=== PATIENT | female | born 1960 | race Caucasian/White ===

== ENCOUNTER 2020-03-17 15:29 | Outpatient (REF) | payer OTHER, SELFPAY | END 2020-03-17 15:30 | disposition home or self-care (01) | LOC: HO.LNP 15:29 | PROVIDERS: Visit Provider Nurse Practitioner Family | DX: Z20.828 Contact with and (suspected) exposure to other viral communicable diseases (principal) | CPT/HCPCS: 87635 ==

== ENCOUNTER 2020-03-23 15:33 | Emergency (ER) | payer OTHER, SELFPAY ==
[2020-03-23 17:03] VITALS: BP 144/67; PULSE 56; RESP 19; TEMP 36.9; O2SAT 94; O2SAT 95
--- NOTE | 2020-03-23 17:55 | ED_ITS ---
HPI - URI/Sore Throat General Chief Complaint: Upper Respiratory Symptoms Stated Complaint: flu like Time Seen by Provider: 03/23/20 19:19 Related Data Home Medications Medication Instructions Recorded Confirmed sertraline 100 mg tablet 100 mg PO DAILY 03/17/20 03/17/20 Previous Rx's Medication Instructions Recorded albuterol sulfate 90 mcg/actuation 2 puff INHALATION Q4-6H PRN #8.5 g 03/17/20 aerosol inhaler atorvastatin 40 mg tablet 40 mg PO QPM 90 Days #90 tab 03/17/20 prednisone 20 mg tablet 20 mg PO DAILY 9 Days #18 tab 03/17/20 albuterol sulfate 5 mg INHALATION QID PRN #2 ea 03/23/20 benzonatate [Tessalon Perles] 100 mg PO TID PRN #20 cap 03/23/20 Allergies Allergy/AdvReac Type Severity Reaction Status Date / Time codeine [Codeine] Allergy Intermediate FELT OUT Unverified 02/19/20 15:16 OF SORTS acetaminophen AdvReac Unknown Loopy Verified 12/30/19 00:00 [Tylenol-Codeine #3] feeling Review of Systems Review of Systems: Constitutional: No Fever, No Chills ENT/Mouth: No Hoarseness, No sore throat, No Rhinorrhea Eyes: No Redness, No Discharge, No Vision Changes Cardiovascular: No Chest Pain, positive SOB, positive Dyspnea on Exertion, No Edema Respiratory: positive Cough, No Sputum, positive Wheezing, Gastrointestinal: No Nausea, No Vomiting, No Diarrhea, No abdominal Pain Genito urinary: No Dysuria, No Hematuria Musculoskeletal: No joint pain, No Myalgias Skin: No rash Neuro: No Weakness, No Numbness, No Headache Psych: No anxiety, depression Heme/Lymph: No Bruising, No Bleeding Endocrine: No Polyuria, No Polydipsia Yes all other systems are reviewed and are negative [facility] Past Medical History Attestation statement: The following information was validated with the patient. Social History Social History Alcohol intake: never Smoking Status: Current every day smoker Use of substances other than those prescribed or required for medical reasons: No Advance Directives: No Advance Directives Information Provided: No Physical Exam Vital Signs: Vital Signs: Vital Signs Temp Pulse Resp BP Pulse Ox 03/23/20 18:31 98.3 F 53 16 131/60 95 03/23/20 17:03 98.4 F 56 19 144/67 H 94 Appearance: Alert. Oriented X3. No acute distress. Eyes: Pupils equal, round and reactive to light. ENT: Pharynx normal. Neck: Normal inspection. Neck supple. CVS: Normal heart rate and rhythm. Pulses normal. Respiratory: No respiratory distress. scattered wheezing throughout all lobes. Abdomen: Soft and nontender. Skin: Skin warm and dry. Normal skin color. Normal skin turgor. Extremities: No lower extremity edema. Neuro: No motor deficit. No sensory deficit. Course Course Course Narrative: patient does have scattered wheezing and dry cough, was treated by her primary care physician and completed a Z-Nick on Sunday, was given a prednisone taper. will order labs , bronch treatment, and CT scan of the chest. Reevaluation(s) Reevaluation #1: CT scan is negative for acute findings, detailed discussion with patient regarding plan of care to discharge home. We will give nebulizer script and Tessalon Perles. Patient agrees to follow-up with her primary care physician as needed. Patient verbalized understanding of and agrees to plan of care discharge home. Time: 20:02 MDM - URI/Sore Throat Differential Diagnosis Differential diagnosis: Likely upper respiratory infection, croup, viral infection, bronchitis and influenza Medical Records Attestation: I reviewed the patient's medical records. Lab Data Attestation: I reviewed the patient's lab results. Imaging Data CT scan - chest: Attestation: I personally reviewed and interpreted this imaging study as follows: Radiologist's impression: FINDINGS: The heart is normal in size. There is no pericardial effusion. Nonaneurysmal thoracic aorta. No gross mediastinal lymphadenopathy. Central airways are patent. Lungs are well aerated. Moderate emphysematous changes are noted. There is no lobar consolidation. No pleural effusion or pneumothorax. No suspicious pulmonary nodules. Visualized portion of the upper abdomen demonstrate surgical changes consistent with cholecystectomy. There is diffusely decreased liver attenuation most consistent with hepatic steatosis. Moderate diffuse degenerative changes of the spine. IMPRESSION: 1. Moderate emphysematous changes of the lungs without lobar consolidation. 2. Diffusely decreased liver attenuation most suggestive of hepatic steatosis. Correlation with liver enzymes recommended. Discharge Plan Discharge Clinical Impression: Viral infection Upper respiratory infection Qualifiers: URI type: unspecified viral URI Qualified Code(s): J06.9 - Acute upper respiratory infection, unspecified Patient Disposition: Home, Self-Care Instructions: Upper Respiratory Infection (ED), Viral Syndrome (ED), COVID-19 (Coronavirus Disease 2019) (ED) Additional Instructions: you were evaluated for upper respiratory symptoms. Your COVID-19 test is still pending. They will call you with the results. your CT scan of the chest was negative for acute findings. Please follow-up with primary care provider as needed. Thank you for choosing this emergency department for evaluation. Please follow-up with primary care physician as needed. Return to the emergency department for any new, concerning, or worsening symptoms. Prescriptions: New albuterol sulfate 2.5 mg/0.5 mL solution for nebulization 5 mg inhalation QID PRN (Reason: shortness of breath or wheezing) Qty: 2 RF: 0 benzonatate [Tessalon Perles] 100 mg capsule 100 mg PO TID PRN (Reason: cough) Qty: 20 RF: 0 No Action atorvastatin 40 mg tablet 40 mg PO QPM 90 Days Qty: 90 RF: 1 sertraline 100 mg tablet 100 mg PO DAILY RF: 0 prednisone 20 mg tablet 20 mg PO DAILY 9 Days Qty: 18 RF: 0 albuterol sulfate 90 mcg/actuation HFA aerosol inhaler 2 puff inhalation Q4-6H PRN (Reason: shortness of breath or wheezing) Qty: 8.5 RF: 0 Stand Alone Forms: Work/School Release Interventions: ED Discharge Assessment Last Done: 03/23/20 20:08 Discharge Date/Time: 03/23/20 20:15
--- NOTE | 2020-03-23 18:04 | CT_ITS ---
EXAMINATION: CT CHEST WITHOUT CONTRAST CLINICAL INFORMATION: Cough. Upper respiratory symptoms. COMPARISON: Chest x-ray 07/08/2015 TECHNIQUE: Multidetector volumetric CT imaging of the chest was done. Axial MIP volume rendering provided. Sagittal and coronal reformatted images were obtained. This CT examination was performed using dose optimization techniques as appropriate, variously including the following: *Automated exposure control *Adjustment of mA and/or kV according to patient size (this includes techniques or standardized protocols for targeted exams where dose is matched to indication/reason for exam; i.e. extremities or head) *Use of iterative reconstruction technique DLP: 408 mGy-cm FINDINGS: The heart is normal in size. There is no pericardial effusion. Nonaneurysmal thoracic aorta. No gross mediastinal lymphadenopathy. Central airways are patent. Lungs are well aerated. Moderate emphysematous changes are noted. There is no lobar consolidation. No pleural effusion or pneumothorax. No suspicious pulmonary nodules. Visualized portion of the upper abdomen demonstrate surgical changes consistent with cholecystectomy. There is diffusely decreased liver attenuation most consistent with hepatic steatosis. Moderate diffuse degenerative changes of the spine. IMPRESSION: 1. Moderate emphysematous changes of the lungs without lobar consolidation. 2. Diffusely decreased liver attenuation most suggestive of hepatic steatosis. Correlation with liver enzymes recommended.
[2020-03-23 18:31] VITALS: BP 131/60; PULSE 53; RESP 16; TEMP 36.8; O2SAT 95
== END 2020-03-23 20:15 | disposition home or self-care (01) ==
PROVIDERS: Nurse Practitioner Family; Emergency Provider Emergency Medicine Emergency Medical Services; PCP Nurse Practitioner Family
DX: J06.9 Acute upper respiratory infection, unspecified (principal); Z20.828 Contact with and (suspected) exposure to other viral communicable diseases; F17.200 Nicotine dependence, unspecified, uncomplicated
CPT/HCPCS: 71250; 87635; 99284

== ENCOUNTER 2020-04-08 13:32 | Outpatient (REF) | payer OTHER, SELFPAY | END 2020-04-08 13:33 | disposition home or self-care (01) | LOC: HO.LNP 13:32 | PROVIDERS: Visit Provider Nurse Practitioner Family | DX: R06.02 Shortness of breath (principal); Z20.828 Contact with and (suspected) exposure to other viral communicable diseases | CPT/HCPCS: U0003 ==

== ENCOUNTER 2020-07-27 19:46 | Emergency (ER) | payer OTHER, SELFPAY ==
[2020-07-27 20:25] VITALS: BP 145/62; PULSE 81; RESP 18; TEMP 36.9; O2SAT 96; BMI 35.4
== END 2020-07-27 22:45 | disposition left against medical advice (07) ==
PROVIDERS: Emergency Provider Emergency Medicine; PCP Nurse Practitioner Family
DX: N64.4 Mastodynia (principal); F17.200 Nicotine dependence, unspecified, uncomplicated
CPT/HCPCS: 99281; 99282

== ENCOUNTER 2020-07-28 09:52 | Outpatient (REF) | payer OTHER, SELFPAY | END 2020-07-28 09:53 | disposition home or self-care (01) | LOC: HO.LAB 09:52 | PROVIDERS: Visit Provider Nurse Practitioner Family | DX: N61.1 Abscess of the breast and nipple (principal) | CPT/HCPCS: 10060; 87071; 87205 ==

== ENCOUNTER → 2020-08-06 08:29 | Outpatient (BNVA) | payer OTHER, SELFPAY | PROVIDERS: PCP Nurse Practitioner Family; Visit Provider Surgery ==

== ENCOUNTER → 2020-08-31 15:36 | Outpatient (BNVA) | payer OTHER, SELFPAY | PROVIDERS: PCP Nurse Practitioner Family; Visit Provider Surgery ==

== ENCOUNTER 2020-11-05 14:11 | Outpatient (REF) | payer OTHER, SELFPAY ==
--- NOTE | ~2020-11-05 | MM_ITS ---
EXAMINATION: MM DIAGNOSTIC DIGITAL BREAST TOMOSYNTHESIS, BILATERAL CLINICAL INFORMATION: Due for yearly. Also follow-up 2 small groups probable benign calcifications posterior upper outer left breast. The lifetime risk of breast cancer based on the Tyrer-Cuzick Model is 14%. COMPARISON: Mammography: 10/29/2019, 03/18/2019, 09/09/2018, 09/05/2018 (BI-RADS 0), 08/30/2017 TECHNIQUE: Digital breast tomosynthesis is performed in both the craniocaudal and mediolateral oblique views along with computer-aided detection (CAD). Synthesized 2D images are generated from the tomosynthesis. Additional views are obtained: Right MLO, magnification left CC, magnification left ML. FINDINGS: There are scattered areas of fibroglandular density (ACR BI-RADS breast composition Category b). Parenchymal pattern is similar to prior exams. There is no developing density or interval significant mass or architectural abnormality or abnormal calcifications. The left calcifications for follow-up, 2 small groups posterior upper outer quadrant, are benign appearing and slightly coarser when compared with initial diagnostic exam. No suspicious changes from prior diagnostic studies. They are now considered benign. Results are provided to the patient at time of visit by the technologist. MM/MM tomosynthesis diagnostic BI IMPRESSION: 1. No mammographic evidence of malignancy. No significant changes from prior exams. 2. The left breast calcifications for follow up are now considered to be benign. ASSESSMENT: BI-RADS 2: Benign RECOMMENDATION: Routine annual mammography screening. This patient's information was entered into a reminder system with a target due date for their next mammogram.
== END 2020-11-05 14:12 | disposition home or self-care (01) ==
LOC: HO.MAMMO 14:11
PROVIDERS: PCP Nurse Practitioner Family; Visit Provider Nurse Practitioner Family
DX: R92.1 Mammographic calcification found on diagnostic imaging of breast (principal)
CPT/HCPCS: 77062; 77066

== ENCOUNTER 2020-12-25 14:09 | Outpatient (REF) | payer OTHER, SELFPAY ==
--- NOTE | ~2020-12-25 | XR_ITS ---
EXAMINATION: CR X-RAY HAND WRIST THE LEFT CLINICAL INFORMATION: Left hand and wrist pain. COMPARISON: None TECHNIQUE: 3 views of the left hand/wrist were obtained. FINDINGS: There is no acute fracture or dislocation. The joint spaces are unremarkable. The carpal bones are normally aligned. The distal radius and ulna are intact. There is mild soft tissue swelling. XR/XR hand wrist LT IMPRESSION: Mild soft tissue swelling without acute underlying osseous abnormality.
== END 2020-12-25 14:10 | disposition home or self-care (01) ==
LOC: HO.HMGCX 14:09
PROVIDERS: PCP Nurse Practitioner Family; Visit Provider Nurse Practitioner Family
DX: M25.532 Pain in left wrist (principal); M77.9 Enthesopathy, unspecified
CPT/HCPCS: 73110; 73130

== ENCOUNTER → 2021-01-13 12:06 | Outpatient (BNVA) | payer OTHER, SELFPAY | PROVIDERS: PCP Nurse Practitioner Family; Visit Provider Physician Assistant Medical | DX: S63.502A Unspecified sprain of left wrist, initial encounter (principal); X50.0XXA Overexertion from strenuous movement or load, initial encounter | CPT/HCPCS: 99203 ==

== ENCOUNTER → 2021-01-19 10:57 | Outpatient (BNVA) | payer OTHER, SELFPAY | PROVIDERS: PCP Nurse Practitioner Family; Visit Provider Physician Assistant Medical | DX: S63.502A Unspecified sprain of left wrist, initial encounter (principal); X58.XXXA Exposure to other specified factors, initial encounter | CPT/HCPCS: 73110; 73130; 99213 ==

== ENCOUNTER 2021-01-31 10:21 | Outpatient (REF) | payer OTHER, SELFPAY ==
--- NOTE | ~2021-01-31 | MR_ITS ---
EXAMINATION: MR WRIST WITHOUT CONTRAST, LEFT CLINICAL INFORMATION: Left wrist weakness, lifting injury. Patient reports injury 01/13/2021, felt a pulling pain base of thumb. COMPARISON: XR left hand and wrist 01/19/2021. TECHNIQUE: MRI of the left wrist was performed using routine sequences on a high-field scanner. Motion artifact on multiple sequences somewhat degrade the images. Skin markers were placed proximal and distal to the symptomatic region. FINDINGS: TRIANGULAR FIBROCARTILAGE: There is irregularity/fraying of the proximal surface of the central triangular fibrocartilage. INTRINSIC LIGAMENTS: Accounting for motion artifact, possible degenerative irregularity of the scapholunate and lunotriquetral ligament but no discrete full-thickness tears are identified. TENDONS/MEDIAN NERVE: There is irregularity, some thickening, and superimposed partial tearing of the abductor pollicis longus tendon. There is fluid in the abductor pollicis longus and extensor pollicis brevis tendon sheaths consistent with tenosynovitis. ARTICULAR CARTILAGE/BONE: There is no fracture. There is a negative ulnar variance. There are small marginal osteophytes and possibly some focal areas of cartilage irregularity at the triscaphe and 1st CMC joints. JOINT FLUID/SOFT TISSUES: Within normal limits. MR/MR wrist LT wo con IMPRESSION: 1. Fraying of the proximal surface of the central triangular fibrocartilage. 2. Abductor pollicis longus tendinosis, partial tearing, and tenosynovitis. Mild extensor pollicis brevis tenosynovitis. (De Quervains tenosynovitis). 3. Mild arthrosis of the triscaphe and 1st CMC joints.
== END 2021-01-31 10:22 | disposition home or self-care (01) ==
LOC: HO.MRI 10:21
PROVIDERS: Visit Provider Internal Medicine
DX: M25.532 Pain in left wrist (principal)
CPT/HCPCS: 73221

== ENCOUNTER → 2021-02-02 12:49 | Outpatient (BNVA) | payer OTHER, SELFPAY | PROVIDERS: PCP Nurse Practitioner Family; Visit Provider Physician Assistant Medical | DX: M65.4 Radial styloid tenosynovitis [de Quervain] (principal) | CPT/HCPCS: 99213 ==

== ENCOUNTER 2021-02-22 11:44 | Outpatient (REF) | payer OTHER, SELFPAY | END 2021-02-22 11:45 | disposition home or self-care (01) | LOC: HO.LAB 11:44 | PROVIDERS: PCP Nurse Practitioner Family; Visit Provider Internal Medicine | DX: Z20.822 Contact with and (suspected) exposure to COVID-19 (principal) | CPT/HCPCS: C9803; U0003; U0005 ==

== ENCOUNTER → 2021-03-16 08:52 | Outpatient (BNVA) | payer OTHER, SELFPAY | PROVIDERS: Visit Provider Orthopaedic Surgery | DX: M65.4 Radial styloid tenosynovitis [de Quervain] (principal) | CPT/HCPCS: 20550; J1100 ==

== ENCOUNTER 2021-04-03 13:57 | Emergency (ER) | payer OTHER, SELFPAY ==
--- NOTE | ~2021-04-03 | XR_ITS ---
EXAMINATION: LEFT HAND AND WRIST X-RAY CLINICAL INFORMATION: Pain COMPARISON: Previous x-rays most recent January 2021 TECHNIQUE: 4 views of the left hand and wrist FINDINGS: There is periarticular osteopenia. No fracture or dislocation is seen. There is mild joint space narrowing at the IP joints. Joint spaces are otherwise normal. There is a small soft tissue calcification or ossification adjacent to the radial styloid that is stable. Soft tissues are normal. XR/XR hand wrist LT IMPRESSION: Osteopenia. Mild arthritis at the IP joints.
[2021-04-03 13:58] VITALS: BP 107/81; PULSE 74; RESP 18; TEMP 36.7; O2SAT 98; BMI 36.6
--- NOTE | 2021-04-03 16:02 | ED_ITS ---
HPI - Extremity Problem General Chief complaint: Extremity Injury, Upper Stated complaint: l hand pain work related Time Seen by Provider: 04/03/21 16:02 Source: patient Mode of arrival: ambulatory Limitations: no limitations History of Present Illness HPI Narrative: Patient injured her hand at work when she lifted a box in January. she went to work connection and then eventually saw Dr. Moss who gave her a steroid shot a few weeks ago. now with increased pain with movement. patient diagnosed with DeQuervains tenosynovitis by Dr. Moss. She is not wearing her splint MD Complaint: extremity pain Onset (ago): month(s) Pain Consistency: constant Location: left Relieving factors: nothing Exacerbating factors: range of motion Associated symptoms: denies other symptoms Related Data Previous Rx's Medication Instructions Recorded albuterol sulfate 90 mcg/actuation 2 puff INHALATION Q4-6H PRN #8.5 g 03/17/20 aerosol inhaler atorvastatin 40 mg tablet 40 mg PO QPM 90 Days #90 tab 03/17/20 lorazepam 1 mg tablet 1 mg PO DAILY PRN 30 Days #30 tab 09/23/20 prednisone 20 mg tablet 20 mg PO DAILY 9 Days #18 tab 12/25/20 sertraline 100 mg tablet 100 mg PO DAILY #90 tab 01/27/21 albuterol sulfate 90 mcg/actuation 1 inh INHALATION QID #6.7 g 02/25/21 aerosol inhaler (ProAir HFA) azithromycin 250 mg tablet See Rx Instructions PO .COMPLEX #6 02/25/21 tab naproxen 500 mg tablet (Naprosyn) 500 mg PO BID #20 tab 04/03/21 Allergies Allergy/AdvReac Type Severity Reaction Status Date / Time codeine [Codeine] Allergy Intermediate FELT OUT Verified 03/16/21 09:05 OF SORTS Review of Systems Constitutional: Constitutional: Reports no additional constitutional complaints Eyes: Eyes: Reports no additional eye complaints ENT: Denies dizziness Cardiovascular: Cardiovascular: Reports no additional cardiovascular complaints Respiratory: Respiratory: Reports as per HPI Gastrointestinal: Gastrointestinal: Reports no additional gastrointestinal complaints Genitourinary: Genitourinary: Reports no additional female genitourinary complaints Musculoskeletal: Musculoskeletal: Reports no additional musculoskeletal complaints Integumentary/Breasts: Skin/Breast: Denies rash Neurologic: Reports system reviewed and no additional complaints, except as documented, Denies dizziness and Denies Sensory deficit (Neuro) Psychiatric: Psychiatric: Denies anxiety [facility] Past Medical History Medical History Anxiety and depression Cervical neck pain with evidence of disc disease Constipation Left ventricular hypertrophy ANG (obstructive sleep apnea) Osteoarthritis Smoker Surgical History History of carpal tunnel surgery History of hysterectomy Family History Family History Father Heart problem Mother No problems noted. 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 Physical Exam Vital Signs: Vital Signs: Last Vital Signs Temp 98.0 F 04/03/21 13:58 Pulse 74 04/03/21 13:58 Resp 18 04/03/21 13:58 BP 107/81 04/03/21 13:58 Pulse Ox 98 04/03/21 13:58 Body Mass Index 36.6 Const: General: healthy appearing Nutritional Appearance: average body habitus Orientation/consciousness: oriented to person and patient oriented x3 Limitations: no limitations HENMT: Head: Yes normal to inspection Ears: external ears normal General nose exam: Normal external nose present Mouth: Normal oral and palatal mucosa present and oropharynx normal Throat: Yes posterior oropharynx normal Eyes: General: appearance normal, both eyes and all related structures Neck: Other: supple Neck: Yes normal visual inspection Chest: Chest palpation & inspection: normal inspection of the chest Resp: Auscultation: clear to auscultation bilaterally Cardio: Jugular venous distension: no JVD Rate: regular rate Rhythm: regular rhythm Heart sounds: S1 normal heart sound present and S2 normal heart sound present GI: Inspection: Yes normal to inspection Palpation (GI): Soft to palpation, nontender and No hepatosplenomegaly present Auscultation: normal bowel sounds : General: Yes no CVA tenderness Back/Spine/Pelvis: Back: no CVA tenderness Skin: General skin exam: no rashes or lesions noted Neuro: General: oriented to person and patient oriented x3 Cranial nerves: Yes CN's II-XII intact bilaterally Motor exam (neuro): 5/5 motor strength present throughout Sensory Exam: No Sensory deficit (Neuro) Extrem: Other: Left wrist with tenderness along 1st extensor, no erythema no effusion Psych: Appearance: grossly normal Course Reevaluation(s) Reevaluation #1: patient with inflammation consistent with DeQuearvains will dc on NSAIDs and encourage patient to wear splint Time: 16:14 MDM - Extremity (Nontraumatic) Imaging Data wrist xray: Radiologist's impression: IMPRESSION: Osteopenia. Mild arthritis at the IP joints.? Discharge Plan Discharge Clinical Impression: De Quervain's tenosynovitis, left Patient Disposition: Home, Self-Care Instructions: De Quervain Disease (ED), Tenosynovitis (ED) Additional Instructions: Must wear spllnt Prescriptions: New naproxen [Naprosyn] 500 mg tablet 500 mg PO BID Qty: 20 RF: 0 No Action atorvastatin 40 mg tablet 40 mg PO QPM 90 Days Qty: 90 RF: 1 lorazepam 1 mg tablet 1 mg PO DAILY PRN (Reason: anxiety) 30 Days Qty: 30 RF: 0 sertraline 100 mg tablet 100 mg PO DAILY Qty: 90 RF: 0 albuterol sulfate 90 mcg/actuation HFA aerosol inhaler 2 puff inhalation Q4-6H PRN (Reason: shortness of breath or wheezing) Qty: 8.5 RF: 0 prednisone 20 mg tablet 20 mg PO DAILY 9 Days Qty: 18 RF: 0 azithromycin 250 mg tablet See Rx Instructions PO .COMPLEX Qty: 6 RF: 0 albuterol sulfate [ProAir HFA] 90 mcg/actuation HFA aerosol inhaler 1 inh inhalation QID Qty: 6.7 RF: 0 Referrals: Raffy Garnett FNP-BC [Primary Care Provider] - 1 week Zarina Moss MD [Physician] - 1 week Stand Alone Forms: Work/School Release
== END 2021-04-03 16:19 | disposition home or self-care (01) ==
LOC: HO.ED 16:15
PROVIDERS: Emergency Provider Emergency Medicine; PCP Nurse Practitioner Family
DX: Z04.2 Encounter for examination and observation following work accident (principal); M65.4 Radial styloid tenosynovitis [de Quervain]; F41.9 Anxiety disorder, unspecified; F17.200 Nicotine dependence, unspecified, uncomplicated; Z79.899 Other long term (current) drug therapy
CPT/HCPCS: 73110; 73130; 99283

== ENCOUNTER → 2021-04-13 10:36 | Outpatient (BNVA) | payer OTHER, SELFPAY | PROVIDERS: Visit Provider Orthopaedic Surgery | DX: M65.4 Radial styloid tenosynovitis [de Quervain] (principal) | CPT/HCPCS: 99212 ==

== ENCOUNTER 2021-04-25 12:48 | Day surgery (SDC) | payer OTHER, SELFPAY ==
[2021-04-25 13:38] VITALS: BMI 36.3
[2021-04-25 13:45] VITALS: BP 119/64; PULSE 64; RESP 16; TEMP 36.5; O2SAT 96
--- NOTE | 2021-04-25 14:03 | MHC.SHP ---
Pre-Procedural Eval Section A Date of Service: 04/25/21 The patient is an INPATIENT: No Changes since office visit: No Cold of Flu in the past 2 weeks, No New Medical Problems, No Changes in Medication and No Patient answered all questions The History & Physical has been completed within 30 days and I have reviewed it.: Yes Section B Chief Complaint: styloid tenosynovitis Allergies: Allergies Allergy/AdvReac Type Severity Reaction Status Date / Time codeine [Codeine] Allergy Intermediate FELT OUT Verified 04/13/21 11:34 OF SORTS Plan I have reviewed the history and physical and performed a pertinent physical examination on my patient. No changes have occurred unless specified.
--- NOTE | 2021-04-25 14:04 | W.PM.OPN ---
Operative Note Operative Note Date of Service: 04/25/21 Narrative: Operative Note Preop diagnosis: 1. Left DeQuervain's tenosynovitis Postop diagnosis: 1. Left DeQuervain's tenosynovitis Procedure: 1. Left 1st dorsal compartment release Surgeon: Zarina Moss MD Anesthesia: local block using 1% lidocaine with epinephrine Findings: Thickened 1st dorsal compartment. EPB in separate compartment, and Muscle extending far distally to beneath thickened 1st dorsal compartment EBL: Less than 5 mL Tourniquet time: None Specimens: None Complications: None Disposition: Brought to recovery room in stable condition Plan: Follow-up for 7-10 days for wound check and suture removal Indications: The patient is 60 years old, with left DeQuervain's tenosynovitis that has been unresponsive to nonoperative management. The risks and benefits of operative treatment including but not limited to risk of damage to blood vessels, nerves, tendons, infection, persistent pain, persistent symptoms, recurrence or possible need for additional surgery were discussed with the patient and the patient wishes to proceed with surgery. Procedure: Once consent was obtained a local block was performed in the preop area using a combination of 1% lidocaine with epinephrine. The patient was then brought back to the operating suite and placed on the operative table in supine position. A tourniquet was applied to the proximal aspect of the left upper extremity and the limb was prepped and draped in a standard surgical fashion. Once assured that we had a good block, a 1.5 cm longitudinal incision was made centered over the 1st dorsal compartment as it passed over the radial styloid of the left wrist. The incision was made through the skin to the subcutaneous tissues using a #15 blade. Careful dissection was made down to the level of the 1st dorsal compartment using tenotomy scissors, with care being taken to protect the nearby branches of the superficial radial nerve. Once the 1st dorsal compartment was exposed, A longitudinal incision was made in the 1st dorsal compartment 1st using a #15 blade, then using tenotomy scissors under direct visualization. The 1st dorsal compartment was noted to be thickened. EPB was in a separate compartment, and its muscle extended far distally to beneath thickened 1st dorsal compartment . Following our release, we saw smooth gliding abductor pollicis longus and extensor pollicis brevis tendons. Once satisfied with our 1st dorsal compartment release the wound was copiously irrigated with normal saline and hemostasis was obtained with a brief period of local pressure. The subcutaneous layer was closed with some 4-0 Vicryl suture, and the skin edges were reapproximated with some 5.0 nylon suture material. A sterile dressing was applied. The patient appears to have tolerated the procedure well and with no complications. All digits were well vascularized at the conclusion of the case.
[2021-04-25 15:04] VITALS: BP 125/61; PULSE 61; RESP 18; TEMP 37; O2SAT 96
== END 2021-04-25 15:26 | disposition home or self-care (01) ==
PROVIDERS: Visit Provider Orthopaedic Surgery
PROC: (CPT 25000; principal; 2021-04-25 14:10)
DX: M65.4 Radial styloid tenosynovitis [de Quervain] (principal); F41.8 Other specified anxiety disorders; I51.7 Cardiomegaly; G47.33 Obstructive sleep apnea (adult) (pediatric); F17.210 Nicotine dependence, cigarettes, uncomplicated; Z88.8 Allergy status to other drugs, medicaments and biological substances
CPT/HCPCS: 25000

== ENCOUNTER → 2021-05-10 09:31 | Outpatient (BNVA) | payer OTHER, SELFPAY | PROVIDERS: Visit Provider Orthopaedic Surgery | DX: M65.4 Radial styloid tenosynovitis [de Quervain] (principal) | CPT/HCPCS: 99212 ==

== ENCOUNTER 2021-06-01 14:00 | Outpatient (RCR) | payer OTHER, SELFPAY | END 2021-06-29 14:53 | disposition home or self-care (01) | LOC: HO.OT 14:00 | PROVIDERS: PCP Nurse Practitioner Family; Visit Provider Orthopaedic Surgery | DX: M65.4 Radial styloid tenosynovitis [de Quervain] (principal) | CPT/HCPCS: 97033; 97035; 97110; 97140; 97165; 97530 ==

== ENCOUNTER → 2021-06-07 10:21 | Outpatient (BNVA) | payer OTHER, SELFPAY | PROVIDERS: PCP Nurse Practitioner Family; Visit Provider Orthopaedic Surgery | DX: M65.4 Radial styloid tenosynovitis [de Quervain] (principal) | CPT/HCPCS: 99212 ==

== ENCOUNTER → 2021-07-19 09:35 | Outpatient (BNVA) | payer OTHER, SELFPAY | PROVIDERS: PCP Nurse Practitioner Family; Visit Provider Orthopaedic Surgery | DX: M79.89 Other specified soft tissue disorders (principal); Z87.39 Personal history of other diseases of the musculoskeletal system and connective tissue; Z98.890 Other specified postprocedural states | CPT/HCPCS: 10160; 99212 ==

== ENCOUNTER 2021-10-01 09:23 | Outpatient (REF) | payer OTHER, SELFPAY ==
--- NOTE | ~2021-10-01 | XR_ITS ---
EXAMINATION: XR SHOULDER, LEFT CLINICAL INFORMATION: Left shoulder pain. COMPARISON: Left shoulder radiographs dated 12/21/2017. TECHNIQUE: AP external rotation, Grashey, scapular Y, and axillary views of the left shoulder. FINDINGS: There is no acute fracture or dislocation. The joint spaces are unremarkable. A small osseous spur is seen at the rotator cuff insertion on the greater tuberosity. The soft tissues are unremarkable. XR/XR shoulder LT min 2V IMPRESSION: Small degenerative spur at the rotator cuff insertion on the greater tuberosity represents interval increase from the previous study. No other significant abnormality.
== END 2021-10-01 09:24 | disposition home or self-care (01) ==
LOC: HO.HMGCX 09:23
PROVIDERS: PCP Nurse Practitioner Family; Visit Provider Physician Assistant
DX: M25.512 Pain in left shoulder (principal)
CPT/HCPCS: 73030

== ENCOUNTER 2021-11-19 06:35 | Outpatient (REF) | payer OTHER, SELFPAY ==
[2021-11-19 06:44] LABS: MANUAL DIFF FLAG NO
[2021-11-19 11:05] LABS: Basophils Absolute Auto 0.1 X10*3/uL (0.0-0.2); Basophils Percent Auto 0.9 % (0-2); Eosinophils Absolute Auto 0.2 X10*3/uL (0.0-0.4); Eosinophils Percent Auto 2.9 % (0-4); Hemoglobin 13.5 g/dl (12.0-16.0); Imm Gran Abs Auto 0.02 X10*3/uL (0.00-0.03); Imm Gran Pct Auto 0.3 % (0.0-0.4); Lymphocytes Absolute Auto 2.2 X10*3/uL (1.2-4.9); Lymphocytes Percent Auto 36.8 % (20-40); Mean Corpuscular HGB Conc 32.9 g/dl (31.0-35.0); Mean Corpuscular Hemoglobin 29.7 pg (27.0-33.0); Mean Corpuscular Volume 90.1 fL (80.0-98.0); Mean Platelet Volume 10.5 fL (9.4-12.3); Monocytes Absolute Auto 0.5 X10*3/uL (0.1-1.2); Neutrophils Percent Auto 51.1 % (45-73); Platelet Count 268 X10*3/uL (160-400); Red Blood Count 4.55 X10*6/uL (4.20-5.50); Red Cell Distribution Width 12.4 % (11.0-16.0); White Blood Count 5.8 X10*3/uL (4.8-10.8)
[2021-11-19 11:28] LABS: Alanine Aminotransferase 25 U/L (0-31); Alkaline Phosphatase 112 U/L (39-117); Anion Gap 12 (12-20); Aspartate Amino Transferase 16 U/L (5-31); Bilirubin Total 0.3 mg/dL (0.0-1.0); Blood Urea Nitrogen 15 mg/dL (9-16); Calcium 8.6 mg/dL (8.4-10.2); Carbon Dioxide 26 mmol/L (22-29); Chloride 105 mmol/L (96-108); Cholesterol 261 mg/dL; Estimated Glomerular Filt Rate > 60; Glucose Fasting 135 mg/dL (60-99); HDL Cholesterol 48 mg/dL; LDL Cholesterol Calculated 183 mg/dl; Potassium 4.5 mmol/L (3.3-5.1); Sodium 138 mmol/L (135-145); Total Protein 7.2 g/dL (6.5-8.0); Triglycerides 152 mg/dL
[2021-11-19 11:52] LABS: TSH reflex Free T4 0.35 uIU/mL (0.32-4.0); Vitamin D 25-OH Total 21.6 ng/mL (>30)
== END 2021-11-19 06:36 | disposition home or self-care (01) ==
LOC: HO.HMGCLDS 06:35
PROVIDERS: PCP Nurse Practitioner Family; Visit Provider Nurse Practitioner Family
DX: Z00.00 Encounter for general adult medical examination without abnormal findings (principal); Z78.0 Asymptomatic menopausal state
CPT/HCPCS: 36415; 80053; 80061; 82306; 84443; 85025

== ENCOUNTER 2021-11-24 07:21 | Outpatient (REF) | payer OTHER, SELFPAY ==
--- NOTE | ~2021-11-24 | MM_ITS ---
EXAMINATION: MM SCREENING DIGITAL BREAST TOMOSYNTHESIS, BILATERAL CLINICAL INFORMATION: Screening. Asymptomatic. The lifetime risk of breast cancer based on the Tyrer-Cuzick Model is 14.0%. COMPARISON: Mammography: November 05, 2020 and studies dating back to January 10, 2010 TECHNIQUE: Digital breast tomosynthesis is performed in both the craniocaudal and mediolateral oblique views along with computer-aided detection (CAD). Synthesized 2D images are generated from the tomosynthesis. FINDINGS: There are scattered areas of fibroglandular density (ACR BI-RADS breast composition Category b). There is an essentially stable parenchymal pattern with benign appearing calcifications and multiple circumscribed nodular densities bilaterally. No new suspicious grouping of microcalcifications is identified and no new abnormal dominant mass is appreciated. MM/MM tomosynthesis screening BI IMPRESSION: There are no significant changes from prior study. ASSESSMENT: BI-RADS 1: Negative RECOMMENDATION: Routine annual mammography screening. This patient's information was entered into a reminder system with a target due date for their next mammogram.
== END 2021-11-24 07:22 | disposition home or self-care (01) ==
LOC: HO.MAMMO 07:21
PROVIDERS: PCP Nurse Practitioner Family; Visit Provider Nurse Practitioner Family
DX: Z12.31 Encounter for screening mammogram for malignant neoplasm of breast (principal)
CPT/HCPCS: 77063; 77067

== ENCOUNTER 2022-02-09 10:14 | Emergency (ER) | payer OTHER, SELFPAY ==
--- NOTE | ~2022-02-09 | XR_ITS ---
EXAMINATION: XR CHEST CLINICAL INFORMATION: Chest pain. COMPARISON: 07/08/2015 chest radiographs. TECHNIQUE: 2 views of the chest were obtained. FINDINGS: No significant abnormality is noted involving the heart, lungs, mediastinum, bony thorax or soft tissues. XR/XR chest 2V IMPRESSION: No acute cardiopulmonary process.
[2022-02-09 10:27] VITALS: PULSE 60; RESP 18; TEMP 36.1; O2SAT 98; BMI 36.6
--- NOTE | 2022-02-09 10:27 | ECG_ITS ---
Test Reason : chest pain Blood Pressure : / mmHG Vent. Rate : 059 BPM Atrial Rate : 059 BPM P-R Int : 180 ms QRS Dur : 088 ms QT Int : 434 ms P-R-T Axes : 021 017 050 degrees QTc Int : 429 ms Sinus bradycardia Otherwise normal ECG When compared with ECG of 04-MAY-2015 03:33, No significant change was found Referred By: Generic ED Physician Electronically Signed By:BELKYS SUAZO
[2022-02-09 11:17] LABS: MANUAL DIFF FLAG NO
[2022-02-09 11:22] LABS: Basophils Absolute Auto 0.1 X10*3/uL (0.0-0.2); Basophils Percent Auto 0.7 % (0-2); Eosinophils Absolute Auto 0.2 X10*3/uL (0.0-0.4); Eosinophils Percent Auto 3.1 % (0-4); Hematocrit 40.8 % (37.0-47.0); Hemoglobin 13.5 g/dl (12.0-16.0); Imm Gran Abs Auto 0.02 X10*3/uL (0.00-0.03); Imm Gran Pct Auto 0.3 % (0.0-0.4); Lymphocytes Absolute Auto 2.4 X10*3/uL (1.2-4.9); Lymphocytes Percent Auto 36.5 % (20-40); Mean Corpuscular HGB Conc 33.1 g/dl (31.0-35.0); Mean Corpuscular Hemoglobin 29.4 pg (27.0-33.0); Mean Corpuscular Volume 88.9 fL (80.0-98.0); Mean Platelet Volume 9.4 fL (9.4-12.3); Monocytes Absolute Auto 0.4 X10*3/uL (0.1-1.2); Monocytes Percent Auto 5.8 % (2-11); Neutrophils Absolute Auto 3.6 x10*3/uL (2.0-8.3); Neutrophils Percent Auto 53.6 % (45-73); Platelet Count 246 X10*3/uL (160-400); Red Blood Count 4.59 X10*6/uL (4.20-5.50); Red Cell Distribution Width 12.1 % (11.0-16.0); White Blood Count 6.7 X10*3/uL (4.8-10.8)
[2022-02-09 11:37] LABS: Anion Gap 15 (12-20); Blood Urea Nitrogen 10 mg/dL (9-16); Calcium 8.8 mg/dL (8.4-10.2); Carbon Dioxide 24 mmol/L (22-29); Chloride 105 mmol/L (96-108); Creatinine Clr Calc Pharmacy 97.8; Estimated Glomerular Filt Rate > 60; Glucose Random 106 mg/dL (60-115); Potassium 4.5 mmol/L (3.3-5.1); Sodium 139 mmol/L (135-145)
[2022-02-09 11:42] LABS: B Type Natriuretic Peptide 23 pg/mL (<100)
[2022-02-09 11:43] LABS: Troponin-I High Sensitivity < 3.5 ng/L (<3.5-17.0)
--- NOTE | 2022-02-09 20:14 | ED_ITS ---
HPI - Chest Pain General Chief Complaint: Chest Pain Stated Complaint: chest pain Time Seen by Provider: 02/09/22 18:01 Source: patient Mode of arrival: ambulatory Limitations: no limitations History of Present Illness HPI narrative: Patient comes to the emergency room complaining of chest pain. Patient states that early in the morning, she had sharp chest pain, self resolved, then went back to sleep. She went to see her primary care physician in the morning at 08:00, she was prescribed nitroglycerin tablets. 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 While she was at work, she had another episode of chest pain, self-resolved, came to the emergency room. Patient has been waiting to be seen for approximately 9 hours, in the ED patient has not had any recurrent chest pain. Patient states that this time she is asymptomatic. Patient states that after the 1st episode of chest pain, her anxiety got much worse, thinking of a heart attack, then fell asleep. Related Data Home Medications Medication Instructions Recorded Confirmed cholecalciferol (vitamin D3) 25 25 mcg PO DAILY 10/01/21 02/09/22 mcg (1,000 unit) capsule Previous Rx's Medication Instructions Recorded lorazepam 1 mg tablet 1 mg PO DAILY PRN anxiety 30 days 09/23/20 #30 tabs ibuprofen 600 mg tablet 600 mg PO TID #60 tabs 10/01/21 meloxicam 15 mg tablet 15 mg PO DAILY 30 days #30 tabs 11/16/21 tizanidine 4 mg capsule 4 mg PO BEDTIME PRN muscle 11/16/21 spasticity 20 days #20 caps atorvastatin 20 mg tablet 20 mg PO BEDTIME 30 days #30 tabs 12/14/21 sertraline 100 mg tablet 100 mg PO DAILY #90 tabs 12/26/21 nitroglycerin 0.4 mg sublingual 0.4 mg sublingual ONCE PRN chest 02/09/22 tablet pain 30 days #10 tabs pantoprazole 40 mg tablet,delayed 40 mg PO DAILY 30 days #30 tabs 02/09/22 release Allergies Allergy/AdvReac Type Severity Reaction Status Date / Time codeine [Codeine] Allergy Intermediate FELT OUT Verified 02/09/22 08:13 OF SORTS Review of Systems 2 Review of Systems: Constitutional : No Weight loss, No Fever, No Chills, No Night Sweats, No Fatigue, No Malaise ENT/Mouth : No Hearing loss, No Ear Pain, No Nasal Congestion, No Sinus Pain, No Hoarseness, No sore throat, No Rhinorrhea, No Swallowing Difficulty Eyes: No Eye Pain, No Swelling, No Redness, No Foreign Body, No Discharge, No Vision Changes Cardiovascular : Complaining of 2 episodes of sharp chest pains which self- resolved, No SOB, No Dyspnea on Exertion, No Orthopnea, No Edema, No Palpitations Respiratory : No Cough, No Sputum, No Wheezing, No Smoke Exposure, No Dyspnea Gastrointestinal : No Nausea, No Vomiting, No Diarrhea, No Constipation, No abdominal Pain, No Hematochezia, No Melena Genitourinary : no irregular bleeding, No Dysuria, No Urinary Frequency, No Hematuria, No Urinary Incontinence, No Urgency, No Flank Pain, No Urinary Flow Changes, No Hesitancy Musculoskeletal : No joint pain, No Myalgias, No Joint Swelling Skin : No Skin Lesions, No rash Neuro : No Weakness, No Numbness, No Paresthesias, No Loss of Consciousness, No Dizziness, No Headache Psych : No Anxiety/Panic, No Depression, No SI/HI/AH/VH, No Social Issues, Heme/Lymph: No Bruising, No Bleeding,No Lymphadenopathy Endocrine : No Polyuria, No Polydipsia, No Temperature Intolerance [facility] Past Medical History Medical History Anxiety and depression Cervical neck pain with evidence of disc disease Constipation Left ventricular hypertrophy ANG (obstructive sleep apnea) Osteoarthritis Smoker Surgical History History of carpal tunnel surgery History of hysterectomy Family History Family History Father Heart problem Mother No problems noted. 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 Oriented X3. No acute distress. Eyes: Pupils equal, round and reactive to light. ENT: Pharynx normal. Neck: Normal inspection. Neck supple. No lymph nodes noted. No crepitus CVS: Normal heart rate and rhythm. Pulses normal. Normal S1 and S2, complaining of reproducible chest pain on palpation to the sternum Respiratory: No respiratory distress. Breath sounds normal. No Wheezing. No rales Abdomen: Soft and nontender. No rigidity. No distention. Skin: Skin warm and dry. Normal skin color. Normal skin turgor. Extremities: No lower extremity edema. No Lacerations. No Rash Neuro: Oriented X 3. No motor deficit. No sensory deficit. Moving all extremities. No slurred speech. CN 2 through 12 grossly intact Psych: calm, cooperative, normal affect Course Course Course Narrative: Patient's EKG and troponins have been negative. Patient's initial troponin was taken less than 6 hours after the 2nd episode of chest pain. At this time, we will repeat 1 more troponin. Patient is asymptomatic at this time. Second troponin negative. Patient's source of chest pain is likely musculoskeletal, unlikely to be cardiac. I discussed with the patient that if he continues having chest discomfort, she would benefit from a cardiac stress test evaluation. MDM - Chest Pain Lab Data Result diagrams: 02/09/22 11:13 02/09/22 11:13 Labs: Lab Results 02/09/22 02/09/22 02/09/22 Range/Units 11:13 11:13 11:13 WBC 6.7 (4.8-10.8) X10*3/uL RBC 4.59 (4.20-5.50) X10*6/uL Hgb 13.5 (12.0-16.0) g/dl Hct 40.8 (37.0-47.0) % MCV 88.9 (80.0-98.0) fL MCH 29.4 (27.0-33.0) pg MCHC 33.1 (31.0-35.0) g/dl RDW 12.1 (11.0-16.0) % Plt Count 246 (160-400) X10*3/uL MPV 9.4 (9.4-12.3) fL Immature Gran % (Auto) 0.3 (0.0-0.4) % Neut % (Auto) 53.6 (45-73) % Lymph % (Auto) 36.5 (20-40) % [place] % (Auto) 5.8 (2-11) % Eos % (Auto) 3.1 (0-4) % Baso % (Auto) 0.7 (0-2) % Lymph # (Auto) 2.4 (1.2-4.9) X10*3/uL [place] # (Auto) 0.4 (0.1-1.2) X10*3/uL Eos # (Auto) 0.2 (0.0-0.4) X10*3/uL Baso # (Auto) 0.1 (0.0-0.2) X10*3/uL Abs Immat Gran (auto) 0.02 (0.00-0.03) X10*3/uL Absolute Neuts (auto) 3.6 (2.0-8.3) x10*3/uL Absolute Nucleated RBC 0.000 (0.0-0.012) X10*3/uL Nucleated RBC % (auto) 0.0 (0.0-0.2) /100WBC Sodium 139 (135-145) mmol/L Potassium 4.5 (3.3-5.1) mmol/L Chloride 105 (96-108) mmol/L Carbon Dioxide 24 (22-29) mmol/L Anion Gap 15 (12-20) BUN 10 (9-16) mg/dL Creatinine 0.64 (0.5-1.4) mg/dL Estim Creat Clear Calc 97.8 Estimated GFR > 60 Random Glucose 106 (60-115) mg/dL Calcium 8.8 (8.4-10.2) mg/dL Troponin I High Sens < 3.5 (<3.5-17.0) ng/L B-Natriuretic Peptide (<100) pg/mL 02/09/22 02/09/22 Range/Units 11:13 20:33 WBC (4.8-10.8) X10*3/uL RBC (4.20-5.50) X10*6/uL Hgb (12.0-16.0) g/dl Hct (37.0-47.0) % MCV (80.0-98.0) fL MCH (27.0-33.0) pg MCHC (31.0-35.0) g/dl RDW (11.0-16.0) % Plt Count (160-400) X10*3/uL MPV (9.4-12.3) fL Immature Gran % (Auto) (0.0-0.4) % Neut % (Auto) (45-73) % Lymph % (Auto) (20-40) % [place] % (Auto) (2-11) % Eos % (Auto) (0-4) % Baso % (Auto) (0-2) % Lymph # (Auto) (1.2-4.9) X10*3/uL [place] # (Auto) (0.1-1.2) X10*3/uL Eos # (Auto) (0.0-0.4) X10*3/uL Baso # (Auto) (0.0-0.2) X10*3/uL Abs Immat Gran (auto) (0.00-0.03) X10*3/uL Absolute Neuts (auto) (2.0-8.3) x10*3/uL Absolute Nucleated RBC (0.0-0.012) X10*3/uL Nucleated RBC % (auto) (0.0-0.2) /100WBC Sodium (135-145) mmol/L Potassium (3.3-5.1) mmol/L Chloride (96-108) mmol/L Carbon Dioxide (22-29) mmol/L Anion Gap (12-20) BUN (9-16) mg/dL Creatinine (0.5-1.4) mg/dL Estim Creat Clear Calc Estimated GFR Random Glucose (60-115) mg/dL Calcium (8.4-10.2) mg/dL Troponin I High Sens < 3.5 (<3.5-17.0) ng/L B-Natriuretic Peptide 23 (<100) pg/mL ECG Data ECG #1: Attestation: I personally reviewed and interpreted this ECG as follows: (Sinus bradycardia, heart rate 59, no ST segment depression or elevation, no T- wave inversion, QTC 429) Discharge Plan Discharge Clinical Impression: Atypical chest pain Patient Disposition: Home, Self-Care Instructions: Chest Pain (ED) Additional Instructions: Please follow-up with your primary care physician tomorrow. If you have any worsening or new symptoms, please return to the emergency room or call 911 Prescriptions: No Action lorazepam 1 mg tablet 1 mg PO DAILY PRN (Reason: anxiety) 30 Days Qty: 30 0RF tizanidine 4 mg capsule 4 mg PO BEDTIME PRN (Reason: muscle spasticity) 20 Days Qty: 20 0RF meloxicam 15 mg tablet 15 mg PO DAILY 30 Days Qty: 30 0RF atorvastatin 20 mg tablet 20 mg PO BEDTIME 30 Days Qty: 30 4RF sertraline 100 mg tablet 100 mg PO DAILY Qty: 90 1RF cholecalciferol (vitamin D3) 25 mcg (1,000 unit) capsule 25 mcg PO DAILY ibuprofen 600 mg tablet 600 mg PO TID Qty: 60 0RF pantoprazole 40 mg tablet,delayed release (DR/EC) 40 mg PO DAILY 30 Days Qty: 30 0RF nitroglycerin 0.4 mg tablet, sublingual 0.4 mg sublingual ONCE PRN (Reason: chest pain) 30 Days Qty: 10 0RF Rx Instructions: do not exceed 3 doses per episode Stand Alone Forms: Work/School Release
[2022-02-09 20:36] VITALS: BP 133/64; PULSE 58; RESP 18; TEMP 36.7; O2SAT 94
[2022-02-09 20:58] LABS: Troponin-I High Sensitivity < 3.5 ng/L (<3.5-17.0)
== END 2022-02-09 21:11 | disposition home or self-care (01) ==
LOC: HO.ED 21:07
PROVIDERS: Emergency Provider Emergency Medicine; PCP Nurse Practitioner Family
DX: R07.89 Other chest pain (principal); R06.02 Shortness of breath; Z79.899 Other long term (current) drug therapy; F17.210 Nicotine dependence, cigarettes, uncomplicated; Z71.6 Tobacco abuse counseling
CPT/HCPCS: 36415; 71046; 80048; 83880; 84484; 85025; 93005; 99283; 99284

== ENCOUNTER 2022-02-23 09:33 | Outpatient (REF) | payer OTHER, SELFPAY ==
--- NOTE | ~2022-02-23 | XR_ITS ---
EXAMINATION: XR CHEST CLINICAL INFORMATION: Cough COMPARISON: Chest radiograph 02/09/2022, CT chest 01/22/2020 TECHNIQUE: 2 views of the chest were obtained. FINDINGS: There are emphysematous changes in lungs better appreciated on the prior CT from 03/23/2020. No other significant abnormality is noted involving the heart, lungs, mediastinum, bony thorax or soft tissues. Surgical clips are present in the gallbladder fossa. XR/XR chest 2V IMPRESSION: Emphysema. No acute intrathoracic disease.
[2022-02-23 09:59] LABS: Binax Internal Control QC Valid; Binax Now Covid-19 Ag Negative (Negative); Binax Performed by: HO.BONILM
== END 2022-02-23 09:34 | disposition home or self-care (01) ==
LOC: HO.HMGCX 09:33
PROVIDERS: PCP Nurse Practitioner Family; Visit Provider Physician Assistant Medical
DX: Z20.822 Contact with and (suspected) exposure to COVID-19 (principal); R05.9 Cough, unspecified
CPT/HCPCS: 71046; 87811; C9803

== ENCOUNTER → 2022-03-02 13:40 | Outpatient (REF) | payer OTHER, SELFPAY ==
--- NOTE | 2022-03-02 13:45 | CA_ITS ---
Transthoracic Echocardiogram Patient (Last, First, Middle): Hazel Coyne E Gender: Female Date of : 1960 Age: 61 Procedure Date: 03/02/2022 Procedure Type: Transthoracic Echocardiogram Location: OP Height: 157.48 cm Weight: 95.26 kg BSA: 1.95 m2 Heart Rate: 50 bpm BP: 130 / 72 mmHg Manager Training And Development: SB Referring MD: Sylvia Cunningham MD Training Lead: Evert Montana MD Symptoms: R94.31 - Abnormal electrocardiogram [ECG] [EKG] Study Quality: Technically Difficult ECG Rhythm: Bradycardia Conclusions: - 1. Technically difficult study despite use of contrast agent 2. Normal LV systolic function 3. Limited visualization of cardiac valves with normal cardiac valvular Doppler Findings Procedure Information Contrast agent, definity, is being given per protocol without apparent complications. Left Ventricle Normal left ventricular size, thickness, and systolic function. The visually estimated ejection fraction is between 65-70%. Diastolic function is indeterminate on the basis of available data. Right Ventricle The right ventricle was not well visualized. Atria The left atrium was not well visualized. Interatrial shunt cannot be excluded. The right atrium was not well visualized. Aortic Valve The aortic valve was not well visualized. There is no aortic valve stenosis. There is no aortic valve regurgitation. Mitral Valve The mitral valve was not well visualized. There is no mitral valve stenosis. Pulmonic Valve The pulmonic valve was not well visualized. Tricuspid Valve The tricuspid valve was not well visualized. Tricuspid regurgitation envelope is inadequate for calculation of right ventricular systolic pressure. Great Vessels The aorta was not well visualized. The pulmonary artery was not well visualized. Venous The inferior vena cava is normal in size. Pericardium/Pleural The pericardium was not well visualized. Prior Study Comparison No significant change compared to prior study dated: 04/02/2019. Measurements 2D Linear Measurements IVSd: 0.79 0.6-0.9/0.6-1.0 cm LVIDd: 5.25 3.9-5.3/4.2-5.9 cm LVIDd Index: 2.69 2.4-3.2/2.2-3.1 cm/m2 LVIDs: 3.42 2.0-3.6 cm LVPWd: 0.74 0.7-1.1 cm LA Diam: 3.80 2.7-3.8/3.0-4.0 cm LAIDs Index: 1.95 1.5-2.3 cm/m2 LV Mass: 174.07 67-162/88-224 g LV Mass Index: 89.27 43-95/49-115 g/m2 LVOT Diam: 2.30 3.0+(-)1.3 cm 2D Systolic Function EF 4C: 69.40 >55% EF 2C: 77.80 >55% EF BiP: 74.30 >55% Mitral Valve MV Pk E: 1.00 MV PK A: 1.05 MV Decel Time: 254.00 E/A: 1.00 E'Lateral: 6.85 E'Medial: 6.74 E/E' Med: 14.80 E/E' Lat: 14.60 PHT: 74.00 MVA PHT: 2.97 Decel [place]: 3.94 Aortic Valve AoV Pk Nahid: 2.10 AoV Mn Nahid: 1.38 AoV VTI: 0.50 AoV Pk Grad: 18.00 Aov Mn Grad: 9.00 ISHAAN Cont.VTI: 3.18 LVOT LVOT Pk Nahid: 1.71 LVOT Mn Nahid: 1.12 LVOT VTI: 0.38 LVOT Pk Grad: 12.00 LVOT Mn Grad: 6.00 LVOT Diam: 2.30 LVOT Area: 4.15 Diastolic Function MV Pk E: 1.00 MV Pk A: 1.05 E/A: 1.00 E'Medial: 6.74 E/E' Med: 14.80 E' Laterial: 6.85 E/E' Lat: 14.60 Right Ventricle TVS' Nahid: 12.50 Tricuspid Valve RA Press: 3.00 Great Vessels Aorta Sinus of Valsalva: 2.70 2.0-3.5 cm Ao Asc: 3.20 2.1-3.4 cm Pulmonary Veins Pulm Vein S/D 1.50 Pulmonary Valve PV Pk Nahid: 1.29 Peak PV Grad: 7.00 Updated in Other Vendor System with Status of Final Evert Montana MD electronically signed on 03/02/2022 4:54:53 PM with status of Final
== END ==
LOC: HO.CARD 13:40
PROVIDERS: PCP Nurse Practitioner Family; Visit Provider Internal Medicine
DX: R94.31 Abnormal electrocardiogram [ECG] [EKG] (principal)
CPT/HCPCS: 93306; Q9957

== ENCOUNTER 2022-07-18 09:50 | Outpatient (REF) | payer OTHER, SELFPAY ==
--- NOTE | ~2022-07-18 | XR_ITS ---
EXAMINATION: XR HIP, RIGHT CLINICAL INFORMATION: Hip pain. COMPARISON: July 22, 2016. TECHNIQUE: Two views of the right hip. FINDINGS: Bones and soft tissues appear unremarkable. No fracture appreciated. Alignment is anatomic. Hip joint space is maintained. XR/XR hip RT min 2V IMPRESSION: Normal plain film examination of the right hip.
== END 2022-07-18 09:51 | disposition home or self-care (01) ==
LOC: HO.HMGCX 09:50
PROVIDERS: PCP Nurse Practitioner Family; Visit Provider Emergency Medicine
DX: M25.551 Pain in right hip (principal)
CPT/HCPCS: 73502

== ENCOUNTER → 2022-09-21 14:01 | Outpatient (BNVA) | payer OTHER, SELFPAY | PROVIDERS: PCP Nurse Practitioner Family; Visit Provider Physician Assistant | DX: M75.31 Calcific tendinitis of right shoulder (principal); M75.32 Calcific tendinitis of left shoulder; M75.81 Other shoulder lesions, right shoulder; M75.82 Other shoulder lesions, left shoulder | CPT/HCPCS: 20610; J1020 ==

== ENCOUNTER 2023-01-05 09:10 | Outpatient (AMB) | payer OTHER, SELFPAY ==
--- NOTE | 2023-01-05 09:56 | MHC.OFFWIV ---
Intake Vital Signs 01/05/23 09:58 BP 108/68 Blood Pressure Location Rt brachial Position Sitting Pulse 70 Pulse Source Pulse Oximeter Temp 98.1 F Temp Source Temporal Artery Scan Pulse Oximetry (%) 95 Oxygen Delivery Method Room Air Intake Visit Reasons: EP RT Thigh/?Bug Bite Intake Note: Patient here because she has some type of bite on inner thigh which happened about 3-4 days ago, pt states its sore. Patient Tobacco Use Status: Refuse Tobacco use screen Allergies codeine [Codeine] Allergy (Intermediate, Verified 01/05/23 09:57) FELT OUT OF SORTS Do you need a note to return to daycare/school/sports/work: No HPI HPI Comments History of Present Illness Details 1014 this is a 62-year-old female presenting for sick visit, patient is concerned that she has a bug bite to her right inner thigh region, patient reports she notes this about 4 days ago, area is red, warm, and sore. Patient is not sure exactly what bit her however she states she has been outside a lot. She tells me tenderness is increasing and it is becoming more uncomfortable. Has not tried anything for this. Denies fevers, chills, chest pain, shortness of breath, joint pain, headache, vision changes, dizziness, weakness, nausea, vomiting, abdominal pain. Physical exam there is a 1 cm x 1 cm erythematous, warm area with central small pinpoint pustule, no streaking Noted to the right inner thigh region near the groin. Remainder of exam unremarkable concerns for insect bite, cellulitis. Unlikely necrotizing infection, threat to [place], neurovascular compromise. Will rule out tick-borne illnesses. Will give patient a 7 day course of doxycycline 100 mg p.o. b.i.d., if the tick panel is positive then more days will be added. Educated patient on diagnosis and treatment plan, answered all question, patient verbalizes understanding. At this time patient will be discharged home, advised to return with new or worsening symptoms. Educated on worrisome signs and symptoms and when to return. At this time I feel comfortable discharge home. PFSH Medical History Anxiety and depression Cervical neck pain with evidence of disc disease Constipation Hip pain Left ventricular hypertrophy ANG (obstructive sleep apnea) Osteoarthritis Smoker Surgical History History of carpal tunnel surgery History of hysterectomy Family History Father Heart problem Mother No problems noted. 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 Current occupational exposures/hazards: No Cognitive needs: No Hearing needs: No Vision needs: No Review of Systems Const Details: Constitutional : No Weight loss, No Fever, No Chills, No Fatigue, No Malaise ENT/Mouth : No sore throat, No Rhinorrhea Eyes: No Eye Pain, No Swelling, No Redness Cardiovascular : No Chest Pain, No SOB, No Dyspnea on Exertion, No Orthopnea, No Edema, No Palpitations Respiratory : No Cough, No Sputum, No Wheezing Gastrointestinal : No Nausea, No Vomiting, No Diarrhea, No Constipation, No abdominal Pain, No Hematochezia, No Melena Genitourinary : No Dysuria, No Urinary Frequency, No Hematuria, Musculoskeletal : No joint pain, No Myalgias, No Joint Swelling Skin : + Skin Lesions, No rash Neuro : No Weakness, No Numbness, No Dizziness, No Headache Psych : No Anxiety/Panic, No Depression All other systems reviewed and are negative All systems reviewed & are unremarkable except as noted in HPI and below Physical Exam Vital Signs: Last Vital Signs Temp 98.1 F 01/05/23 09:58 Pulse 70 01/05/23 09:58 BP 108/68 01/05/23 09:58 Pulse Ox 95 01/05/23 09:58 Oxygen Delivery Method Room Air 01/05/23 09:58 Vital signs stable Appearance: Alert.? Oriented X3.? No acute distress.? Head: Normocephalic, atraumatic, no step-offs or deformities Eyes: Pupils equal, round and reactive to light.? CVS: Normal heart rate and rhythm.? Pulses normal.? Respiratory: No respiratory distress.? Breath sounds normal.? Abdomen: Soft and nontender.? Skin: Skin warm and dry.? Normal skin color.? Normal skin turgor.+?1 cm x 1 cm erythematous, warm area with central small pinpoint pustule, no streaking Noted to the right inner thigh region near the groin. Extremities:5/5 strength to bilateral upper and lower extremities Neuro: Oriented X 3.? No motor deficit.? No sensory deficit. CN 2-12 intact Assessment & Plan Assessment & Plan (1) Insect bite: Code(s): W57.XXXA - Bitten or stung by nonvenomous insect and other nonvenomous arthropods, initial encounter (2) Cellulitis: Code(s): L03.90 - Cellulitis, unspecified Plan Take your medications as prescribed. If you were prescribed antibiotics today, it is important that you take your medication to their entirety, do not skip any doses, do not finish them early. Follow-up with your primary care provider this week. Return to the emergency department with new or worsening symptoms. Such as fevers, chills, chest pain, shortness of breath, nausea, vomiting, dizziness, headache, vision changes, lethargy In case of emergency call 911 apply warm compresses to affected area 3 to 4 times a day. Orders: Orders Lyme IgG/IgM w/reflex to WB Today W57.XXXA - Bitten or stung by nonvenomous insect and other nonvenomous arthropods, initial encounter Tick-borne Disease Molecular Today W57.XXXA - Bitten or stung by nonvenomous insect and other nonvenomous arthropods, initial encounter Coding Level of Care Code Est Pt Level 3 (12383) Diagnoses Insect bite W57.XXXA Cellulitis L03.90
[2023-01-05 09:58] VITALS: BP 108/68; PULSE 70; TEMP 36.7; O2SAT 95
== END 2023-01-05 11:52 | disposition home or self-care (01) ==
PROVIDERS: PCP Nurse Practitioner Family; Visit Provider Physician Assistant
DX: L03.90 Cellulitis, unspecified (principal); W57.XXXA Bitten or stung by nonvenomous insect and other nonvenomous arthropods, initial encounter
CPT/HCPCS: 99213

== ENCOUNTER 2023-01-05 10:08 | Outpatient (REF) | payer OTHER, SELFPAY ==
[2023-01-08 21:34] LABS: Lyme Abs Screen <0.90 index
[2023-01-08 23:17] LABS: A. Phagocytphilium DNA,RT-PCR NOT DETECTED (NOT DETECTED); Babesia Microti DNA, RT-PCR NOT DETECTED (NOT DETECTED); Borrelia Miyamotoi,DNA RT-PCR NOT DETECTED (NOT DETECTED); E.Chaffeensis DNA RT-PCR NOT DETECTED (NOT DETECTED); Lyme(Borrelia ssp)DNA RT-PCR NOT DETECTED (NOT DETECTED)
== END 2023-01-05 10:09 | disposition home or self-care (01) ==
LOC: HO.HMGCLDS 10:08
PROVIDERS: PCP Nurse Practitioner Family; Visit Provider Physician Assistant
DX: T14.8XXA Other injury of unspecified body region, initial encounter (principal); W57.XXXA Bitten or stung by nonvenomous insect and other nonvenomous arthropods, initial encounter
CPT/HCPCS: 36415; 86617; 86618; 87798; 87801

== ENCOUNTER 2023-02-28 08:36 | Outpatient (AMB) | payer OTHER, SELFPAY ==
--- NOTE | 2023-02-28 08:47 | AM.OFFWIN_ITS ---
Intake Vital Signs 02/28/23 08:53 Height 5 ft 2 in Weight 185 lb BMI 33.8 BP 114/68 Blood Pressure Location Lt brachial Position Sitting Pulse 56 Pulse Source Pulse Oximeter Temp 97.3 F Temp Source Temporal Artery Scan Pulse Oximetry (%) 95 Oxygen Delivery Method Room Air Intake Visit Reasons: EP-Back pain from neck down Patient Tobacco Use Status: Refuse Tobacco use screen Allergies codeine [Codeine] Allergy (Intermediate, Verified 02/28/23 08:47) FELT OUT OF SORTS Do you need a note to return to daycare/school/sports/work: No HPI EP-Back pain from neck down HPI Details Patient reports a 1 week history of right sided neck pain with pain down her muscles into her right shoulder. Denies any injury or inciting event to this pain. Denies any pain or radiation down arm. Denies any arm weakness. Has been taking Motrin and using topical Aspercreme with mild benefit. PFSH Medical History Hip pain Anxiety and depression ANG (obstructive sleep apnea) Constipation Osteoarthritis Cervical neck pain with evidence of disc disease Left ventricular hypertrophy Smoker Surgical History History of carpal tunnel surgery History of hysterectomy Family History Father Heart problem Mother No problems noted. 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 Current occupational exposures/hazards: No Cognitive needs: No Hearing needs: No Vision needs: No Review of Systems Const All systems reviewed & are unremarkable except as noted in HPI and below Physical Exam Vital Signs: Last Vital Signs Temp 97.3 F 02/28/23 08:53 Pulse 56 02/28/23 08:53 BP 114/68 02/28/23 08:53 Pulse Ox 95 02/28/23 08:53 Oxygen Delivery Method Room Air 02/28/23 08:53 BMI result Body Mass Index 33.8 Const General: cooperative, healthy appearing and no acute distress HEENT Head: Yes normal to inspection Ears: hearing grossly normal bilaterally Neck Neck: Yes no lymphadenopathy Resp Effort & Inspection: normal respiratory effort and able to speak in complete sentences Cardio Jugular venous distension: no JVD Palpation: normal PMI Rate: regular rate Rhythm: regular rhythm Back/Spine/Pelvis Other: neg spurling Cervical Spine: normal cervical lordosis, cervical muscular tenderness (Right- sided trapezius and rhomboid tenderness to palpation) and pain with cervical ROM (Pain with lateral rotation, side bending L>R, the no vertebral tenderness) Skin General skin exam: no rashes or lesions noted Neuro General: gait normal Extrem Other: Normal right shoulder exam, full range of motion General: Yes capillary refill normal and Yes no clubbing, cyanosis or edema Psych Appearance: grossly normal Mental Status: mental status grossly normal Speech and movement: Normal speech and movement present Assessment & Plan Assessment & Plan (1) Neck pain on right side: Code(s): M54.2 - Cervicalgia Plan: Patient with a 1 week history of right-sided neck pain. I feel this is muscular in nature, however will obtain cervical spine x-ray at this time. I will notify patient of results once these are available. In the meantime, I will start her on a short course meloxicam, and Flexeril at bedtime. We reviewed indications, proper use, and possible side effects of medications. I encouraged her to do gentle stretching and massage on that right side. If she does not improve with time and conservative measures, she may benefit from a course of physical therapy. She will return to clinic or contact PCP if needed. Orders: Orders XR cervical spine 2V Today M54.2 - Cervicalgia Medications: New meloxicam Take once a day, during the daytime, with food. 15 mg PO DAILY 7 days 7 tabs 0RF M54.2 - Cervicalgia cyclobenzaprine Take in the evening or at bedtime. 10 mg PO TID 7 days PRN 7 tabs 0RF muscle spasm M54.2 - Cervicalgia Coding Level of Care Code Est Pt Level 3 (05918) Diagnoses Neck pain on right side M54.2
[2023-02-28 08:53] VITALS: BP 114/68; PULSE 56; TEMP 36.3; O2SAT 95; BMI 33.8
== END 2023-02-28 09:35 | disposition home or self-care (01) ==
PROVIDERS: PCP Nurse Practitioner Family; Visit Provider Nurse Practitioner Family
DX: M54.2 Cervicalgia (principal)
CPT/HCPCS: 99213

== ENCOUNTER 2023-02-28 09:25 | Outpatient (REF) | payer OTHER, SELFPAY ==
--- NOTE | ~2023-02-28 | XR_ITS ---
EXAMINATION: XR CERVICAL SPINE CLINICAL INFORMATION: Neck pain. COMPARISON: Cervical spine radiographs dated 02/01/2016. TECHNIQUE: 3 views of the cervical spine were obtained. FINDINGS: Normal vertebral body alignment. The cervical lordosis is maintained. No acute fracture or subluxation. Normal atlantoaxial alignment. No loss of vertebral body height. Loss of intervertebral disc height with anterior endplate osteophytes at C5-C6. Tiny anterior endplate osteophytes at C4 through C7. Findings are slightly progressed when compared to the prior radiographs. Unremarkable prevertebral soft tissues. XR/XR cervical spine 2V IMPRESSION: Multilevel degenerative disc disease, most prominent at C5-C6. Findings are slightly progressed when compared to the prior radiographs.
== END 2023-02-28 09:26 | disposition home or self-care (01) ==
LOC: HO.HMGCX 09:25
PROVIDERS: Visit Provider Nurse Practitioner Family
DX: M54.2 Cervicalgia (principal)
CPT/HCPCS: 72040

== ENCOUNTER 2023-03-12 08:02 | Outpatient (AMB) | payer OTHER, SELFPAY ==
[2023-03-12 08:08] VITALS: BP 118/68; PULSE 70; O2SAT 95; BMI 34.4
--- NOTE | 2023-03-12 08:08 | MHC.OFFWIV ---
Intake Vital Signs 03/12/23 08:08 Height 5 ft 2 in Weight 188 lb BMI 34.4 BP 118/68 Blood Pressure Location Lt brachial Position Sitting Pulse 70 Pulse Source Pulse Oximeter Pulse Oximetry (%) 95 Oxygen Delivery Method Room Air Intake Visit Reasons: EP RT arm concerns Intake Note: Pt is here today for a walk in visit. Pt c/o R arm shoulder pain. Pt states that she was here last week. Patient Tobacco Use Status: Refuse Tobacco use screen Allergies codeine [Codeine] Allergy (Intermediate, Verified 03/12/23 08:32) FELT OUT OF SORTS Medication List - Last Reconciled 03/12/23 by Lefty Singleton MD albuterol sulfate 90 mcg/actuation 1 inh inhalation QID PRN atorvastatin 20 mg PO BEDTIME cholecalciferol (vitamin D3) 25 mcg PO DAILY cyclobenzaprine 10 mg PO TID PRN 7 days meloxicam 15 mg PO DAILY 7 days sertraline 100 mg PO DAILY Do you need a note to return to daycare/school/sports/work: Yes HPI EP RT arm concerns HPI Details 62-year-old female presents to the office for a sick visit. Patient continues to have right arm pain that is not getting better with anti-inflammatories and muscle relaxant. She was unable to sleep last night. X-rays were done in the last visit. No further injury or fall. PFSH Medical History Hip pain Anxiety and depression ANG (obstructive sleep apnea) Constipation Osteoarthritis Cervical neck pain with evidence of disc disease Left ventricular hypertrophy Smoker Surgical History History of carpal tunnel surgery History of hysterectomy Family History Father Heart problem Mother No problems noted. 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 Tenderness over the deltoid muscle. Range of motion: Unable to lift the arm over the shoulder level. Assessment & Plan Assessment & Plan (1) Calcific tendonitis of right shoulder: Code(s): M75.31 - Calcific tendinitis of right shoulder Plan: Cervical spine shows worsening degenerative joint disease. Anti-inflammatories called in. I will inform the primary care provider to see if an orthopedic consult is worthwhile for possible steroid injections. Coding Level of Care Code Est Pt Level 3 (77915) Diagnoses Calcific tendonitis of right shoulder M75.31
== END 2023-03-12 08:56 | disposition home or self-care (01) ==
PROVIDERS: PCP Nurse Practitioner Family; Visit Provider Internal Medicine
DX: M75.31 Calcific tendinitis of right shoulder (principal)
CPT/HCPCS: 99213

== ENCOUNTER 2023-04-03 11:07 | Outpatient (AMB) | payer OTHER, SELFPAY ==
--- NOTE | 2023-04-03 14:04 | AM.OFFWIN_ITS ---
Intake Vital Signs 04/03/23 14:05 Height 5 ft 2 in Weight 189 lb 6 oz BMI 34.6 BP 128/72 Blood Pressure Location Lt brachial Position Sitting Pulse 68 Pulse Source Pulse Oximeter Temp 97.9 F Temp Source Oral Pulse Oximetry (%) 95 Oxygen Delivery Method Room Air Intake Visit Reasons: EST/left side pain/[phone] Intake Note: pt side mid abd pain for a few weeks pt says it feels like gas but it's not but she feels it below her ribs pt says the pain is off and on with no other sx Patient Tobacco Use Status: Refuse Tobacco use screen Allergies codeine [Codeine] Allergy (Intermediate, Verified 04/03/23 14:51) FELT OUT OF SORTS Medication List - Last Reconciled 04/03/23 by Lefty Singleton MD atorvastatin 20 mg PO BEDTIME cholecalciferol (vitamin D3) 25 mcg PO DAILY sertraline 100 mg PO DAILY Do you need a note to return to daycare/school/sports/work: Yes HPI EST/left side pain/[phone] HPI Details 62-year-old female presents to [facility] for a sick visit. Patient is complaining of pain on the left side of the chest around the costal margin and into the abdomen. Reports the pain as dull. Not related to food. Her bowel mo vements are regular. Does not recall any fall or injury prior to the onset of symptoms. PFSH Medical History Hip pain Anxiety and depression ANG (obstructive sleep apnea) Constipation Osteoarthritis Cervical neck pain with evidence of disc disease Left ventricular hypertrophy Smoker Surgical History History of carpal tunnel surgery History of hysterectomy Family History Father Heart problem Mother No problems noted. 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 Current occupational exposures/hazards: No Cognitive needs: No Hearing needs: No Vision needs: No Physical Exam Vital Signs: Last Vital Signs Temp 97.9 F 04/03/23 14:05 Pulse 68 04/03/23 14:05 BP 128/72 04/03/23 14:05 Pulse Ox 95 04/03/23 14:05 Oxygen Delivery Method Room Air 04/03/23 14:05 BMI result Body Mass Index 34.6 Const General: cooperative and healthy appearing Nutritional Appearance: well nourished Orientation/consciousness: patient oriented x3 Limitations: no limitations HEENT Head: Yes normal to inspection Eyes General: appearance normal, both eyes and all related structures Neck Neck: Yes normal visual inspection Chest Other: Reproducible tenderness along the costal margin of 11th and 12th rib on the left side. Chest palpation & inspection: normal palpation of entire chest wall Resp Effort & Inspection: normal respiratory effort GI Other: Abdomen: Bowel sounds heard in all 4 quadrants. No organomegaly. No tenderness. Neuro General: patient oriented x3 Assessment & Plan Assessment & Plan (1) Chest wall muscle strain: Code(s): S29.011A - Strain of muscle and tendon of front wall of thorax, initial encounter Plan: X-ray images were reviewed by me. No infiltrate or fractures seen. Symptoms are muscular etiology. No medications started. If they do not improve or worsen to follow-up here. Orders: Orders XR chest 2V Today R05.9 - Cough, unspecified Coding Level of Care Code Est Pt Level 4 (38307) Diagnoses Chest wall muscle strain S29.011A
[2023-04-03 14:05] VITALS: BP 128/72; PULSE 68; TEMP 36.6; O2SAT 95; BMI 34.6
== END 2023-04-03 15:37 | disposition home or self-care (01) ==
PROVIDERS: PCP Nurse Practitioner Family; Visit Provider Internal Medicine
DX: S29.011A Strain of muscle and tendon of front wall of thorax, initial encounter (principal)
CPT/HCPCS: 99214

== ENCOUNTER 2023-04-03 14:50 | Outpatient (REF) | payer OTHER, SELFPAY ==
--- NOTE | ~2023-04-03 | XR_ITS ---
EXAMINATION: XR CHEST 2 VIEW CLINICAL INFORMATION: Cough COMPARISON: 02/23/2022 TECHNIQUE: PA and lateral views of the chest obtained. FINDINGS: The lungs are clear. Emphysematous changes are again evident in the upper lung zones. There are no pleural effusions. The cardiomediastinal silhouette is normal. Spondylotic changes are evident in the dorsal spine. XR/XR chest 2V IMPRESSION: Emphysema. No acute cardiopulmonary disease.
== END 2023-04-03 14:51 | disposition home or self-care (01) ==
LOC: HO.HMGCX 14:50
PROVIDERS: PCP Nurse Practitioner Family; Visit Provider Internal Medicine
DX: R05.9 Cough, unspecified (principal)
CPT/HCPCS: 71046

== ENCOUNTER 2023-04-10 10:02 | Outpatient (REF) | payer OTHER, SELFPAY | END 2023-04-10 10:03 | disposition home or self-care (01) | LOC: HO.HOSX 10:02 | PROVIDERS: Visit Provider Physician Assistant | DX: Z13.89 Encounter for screening for other disorder (principal) ==

== ENCOUNTER 2023-04-10 13:12 | Outpatient (AMB) | payer OTHER, SELFPAY ==
--- NOTE | 2023-04-10 13:29 | A.OFFVIS_ITS ---
Intake Intake Visit Reasons: New Prob-Calcific tendinitis of right shoulder Intake Note: Segundo is a 62 year old right hand dominant female who presents today with right bicipital aching and hand numbness and tingling. She has history of carpal tunnel relase but feels that her symptoms have returned . Allergies codeine [Codeine] Allergy (Intermediate, Verified 04/03/23 14:51) FELT OUT OF SORTS HPI New Prob-Calcific tendinitis of right shoulder HPI Details 62-year-old right hand dominant female brodie correia presents in the office today for an evaluation of right hand pain, numbness, and tingling. She has a history of carpal tunnel release, but feels that her symptoms have returned. PFSH Medical History Hip pain Anxiety and depression ANG (obstructive sleep apnea) Constipation Osteoarthritis Cervical neck pain with evidence of disc disease Left ventricular hypertrophy Smoker Surgical History History of carpal tunnel surgery History of hysterectomy Family History Father Heart problem Mother No problems noted. 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 Current occupational exposures/hazards: No Cognitive needs: No Hearing needs: No Vision needs: No Review of Systems Const All systems reviewed & are unremarkable except as noted in HPI and below Physical Exam Const General: cooperative and no acute distress Orientation/consciousness: patient oriented x3 Resp Effort & Inspection: normal respiratory effort and able to speak in complete sentences Cardio Peripheral pulses: Peripheral pulses 2+ throughout Skin General skin exam: no rashes or lesions noted Neuro General: patient oriented x3 Extrem Other: Right hand: Numbness and tingling along the ulnar aspect of the index, the entire middle, ring, and little fingers; intermittently. Negative Tinel?s at the carpal tunnel and cubital tunnel. Unable to make a full fist, lacking about 3 cm with the index finger, 2 cm with the middle finger, and the last two digits are able to reach the palm. Capillary refill is brisk. Radial pulse intact. Assessment & Plan Assessment & Plan (1) Cervical radiculopathy: Code(s): M54.12 - Radiculopathy, cervical region (2) Right carpal tunnel syndrome: Code(s): G56.01 - Carpal tunnel syndrome, right upper limb Plan Ms. Coyne is a 62-year-old right hand dominant female who presents in the office today for an evaluation of right hand pain, numbness, and tingling. She has a history of carpal tunnel release, but feels that her symptoms have returned. The patient will be referred for an EMG study for further evaluation of the right hand. She will follow up with physiatry for further evaluation and treatment. Follow up with orthopedics will be PRN, or sooner if needed. Orders: Orders NE electromyogram (EMG) Today M54.12 - Radiculopathy, cervical region XR shoulder RT min 2V Today M25.519 - Pain in unspecified shoulder Patient Instructions: Scribed for Jaclyn Escamilla PA-C by Kate Callejas medical transcriber, on 04/10/2023 at 1:42 pm, EST. Coding Level of Care Code New Pt Level 3 (72299) Diagnoses Cervical radiculopathy M54.12 Right carpal tunnel syndrome G56.01
== END 2023-04-10 14:07 | disposition home or self-care (01) ==
PROVIDERS: PCP Nurse Practitioner Family; Visit Provider Physician Assistant
DX: M54.12 Radiculopathy, cervical region (principal)
CPT/HCPCS: 99213

== ENCOUNTER 2023-05-12 08:50 | Outpatient (REF) | payer OTHER, SELFPAY ==
--- NOTE | ~2023-05-12 | MM_ITS ---
EXAMINATION: MM SCREENING DIGITAL BREAST TOMOSYNTHESIS, BILATERAL CLINICAL INFORMATION: Screening. Asymptomatic. COMPARISON: Mammography: This study is compared with prior exams dating back to 2019. TECHNIQUE: Digital breast tomosynthesis is performed in both the craniocaudal and mediolateral oblique views along with computer-aided detection (CAD). Synthesized 2D images are generated from the tomosynthesis. FINDINGS: The breasts are almost entirely fatty (ACR BI-RADS breast composition Category a). There are no significant masses, abnormal calcifications, or other abnormalities. There are few, bilateral, benign calcifications. BI-RADS 2 MM/MM tomosynthesis screening BI IMPRESSION: No mammographic evidence of malignancy. ASSESSMENT: BI-RADS BI-RADS 2 - Benign Findings RECOMMENDATION: Routine annual mammography screening. 1 year F/U This examination should not preclude the clinical evaluation of a suspicious palpable abnormality. This patient's information was entered into a reminder system with a target due date for their next mammogram.
== END 2023-05-12 08:51 | disposition home or self-care (01) ==
LOC: HO.MAMMO 08:50
PROVIDERS: PCP Nurse Practitioner Family; Visit Provider Nurse Practitioner Family
DX: Z12.31 Encounter for screening mammogram for malignant neoplasm of breast (principal)
CPT/HCPCS: 77063; 77067

== ENCOUNTER → 2023-05-12 09:00 | Outpatient (BNV) | payer OTHER, SELFPAY | PROVIDERS: PCP Nurse Practitioner Family; Visit Provider Radiology Diagnostic Radiology | DX: Z12.31 Encounter for screening mammogram for malignant neoplasm of breast (principal) | CPT/HCPCS: 77063; 77067 ==

== ENCOUNTER 2023-05-23 14:58 | Outpatient (REF) | payer OTHER, SELFPAY ==
--- NOTE | 2023-05-23 15:01 | EMG_ITS ---
Chief complaint: History of bilateral carpal tunnel surgeries many years ago. Two months ago started having paresthesias in right upper extremity. Reason for referral: Evaluate for radiculopathy Referred by: Dr. Moss Procedure done: Right upper extremity NCS/EMG Precautions and/or limitations: None The limb temperature was monitored continuously and remained between 32-36 degrees C during the performance of the NCS. Nerve Conduction Studies Anti Sensory Summary Table ?Stim Site NR Onset (ms) Norm Onset (ms) Peak (ms) Norm Peak (ms) O-P Amp (?V) Norm O-P Amp Site1 Site2 Delta-0 (ms) Dist (cm) Nahid (m/s) Norm Nahid (m/s) Right Median Anti Sensory (2nd Digit) Wrist ? 3.4 4.4 <3.6 16.3 >10 Wrist 2nd Digit 3.4 14.0 41 Right Radial Anti Sensory (Thumb) Forearm ? 1.4 2.2 <3.1 3.3 Forearm Thumb 1.4 0.0 Right Ulnar Anti Sensory (5th Digit) Wrist ? 2.6 3.5 <3.7 15.1 >15.0 Wrist 5th Digit 2.6 14.0 54 Motor Summary Table ?Stim Site NR Onset (ms) Norm Onset (ms) O-P Amp (mV) Norm O-P Amp iAmp (mV) Amp (1st) (%) Site1 Site2 Delta-0 (ms) Dist (cm) Nahid (m/s) Norm Nahid (m/s) Right Median Motor (Abd Poll Brev) Wrist ? 3.9 <3.9 6.9 >4.5 2.1 100.0 Elbow Wrist 4.1 19.5 48 >45 Elbow ? 8.0 5.6 1.9 84.2 Right Ulnar Motor (Abd Dig Minimi) Wrist ? 2.8 <3.0 6.7 >5 7.9 100.0 B Elbow Wrist 3.5 16.0 46 >45 B Elbow ? 6.3 6.1 7.3 91.0 A Elbow B Elbow 1.9 10.0 53 >45 A Elbow ? 8.2 6.0 7.0 89.6 EMG ?Side Muscle Nerve Root Ins Act Fibs Psw Amp Dur Poly Recrt Int Pat Comment Right 1stDorInt Ulnar C8-T1 Nml Nml Nml Nml Nml 0 Nml Complete Right FlexCarRad Median C6-7 Nml Nml Nml Nml Nml 0 Nml Complete Right Biceps Musculocut C5-6 Nml Nml Nml Nml Nml 0 Nml Complete Right Triceps Radial C6-7-8 Nml Nml Nml Nml Nml 0 Nml Complete Right Deltoid Axillary C5-6 Nml Nml Nml Nml Nml 0 Nml Complete FINDINGS: Right median sensory nerve showed prolonged peak latency. All other nerves tested were within normal. Concentric needle EMG was performed in selected muscles of the right upper extremity. Study did not reveal signs of electric abnormalities as shown in the table below. IMPRESSION: 1. There is latency slowing of right median SNAP. 3. There is no electrodiagnostic evidence for ulnar neuropathy, brachial plexopathy, or cervical radiculopathy. CLINICAL COMMENT: No previous EMG for comparison available. Thank you for your kind referral. Donna Flores MD, CHUY Board Certified, [place] [employer] and Rehabilitation (ABPMR) Board Certified, [place] Board of Electrodiagnostic Medicine (ABEM) CODIN [id number] [facility]
== END 2023-05-23 14:59 | disposition home or self-care (01) ==
LOC: HO.NEURO 14:58
PROVIDERS: PCP Nurse Practitioner Family; Visit Provider Physician Assistant
DX: M54.12 Radiculopathy, cervical region (principal)
CPT/HCPCS: 95886; 95909

== ENCOUNTER → 2023-05-23 15:01 | Outpatient (BNV) | payer OTHER, SELFPAY | PROVIDERS: PCP Nurse Practitioner Family; Visit Provider Physical Medicine & Rehabilitation | DX: G56.12 Other lesions of median nerve, left upper limb (principal) | CPT/HCPCS: 95886; 95909 ==

== ENCOUNTER 2023-05-29 08:23 | Inpatient (IN) | payer OTHER, SELFPAY ==
[2023-05-29] VITALS (20 sets, daily range): BP systolic 108–141; BP diastolic 44–78; PULSE 68–96; RESP 13–24; TEMP 36.6–37.6; O2SAT 91–100; BMI 31.5; BMI 31.4; BMI 31.6
--- NOTE | ~2023-05-29 | CT_ITS ---
EXAMINATION: CT ABDOMEN AND PELVIS WITH CONTRAST CLINICAL INFORMATION: Rectal pain. Question abscess. COMPARISON: CT chest without contrast 03/23/2020 TECHNIQUE: Multidetector volumetric images were obtained from the superior aspect of the liver through the pubic symphysis following administration 85 mL of Omnipaque 350 intravenous contrast. Sagittal and coronal reformatted images were obtained on the technologist's workstation. Oral contrast: No This CT examination was performed using dose optimization techniques as appropriate, variously including the following: *Automated exposure control *Adjustment of mA and/or kV according to patient size (this includes techniques or standardized protocols for targeted exams where dose is matched to indication/reason for exam; i.e. extremities or head) *Use of iterative reconstruction technique DLP: 580 mGy-cm FINDINGS: LUNG BASES: The lung bases are clear except for a punctate 3 mm ill-defined opacity on the very first image right lung base. Heart size is normal. LIVER, GALLBLADDER, AND BILIARY TREE: The liver is normal in size, shape, and attenuation. No focal hepatic lesion or biliary ductal dilatation is present. The gallbladder has been surgically removed PANCREAS: Unremarkable. SPLEEN: Unremarkable. ADRENAL GLANDS: Unremarkable. KIDNEYS AND URETERS: The kidneys are normal in size, shape, and attenuation. No hydronephrosis, hydroureter, or calculi seen. No perinephric stranding. There are multiple hypodensities in right upper and bilateral lower lobes likely simple cysts. BLADDER: Unremarkable. GASTROINTESTINAL TRACT: There is scattered stool and gas seen throughout the colon without any significant distention. Small bowel loops are normal caliber. Appendix is normal caliber.. No inflammatory changes seen. No free fluid. The stomach is nondistended. ABDOMINAL WALL: No significant hernia is appreciated. LYMPH NODES: No abnormal size retroperitoneal lymph nodes or mass seen. VASCULAR: There is atherosclerotic calcification of abdominal aorta without aneurysmal dilatation. PELVIC VISCERA: There is diffuse thickening of the rectal wall. No additional rectal fat stranding or abscess seen. There is mild induration and thickening of medial buttocks question inflammation or infectious process. There is no ulceration seen on the visualized images. Visual inspection is recommended OSSEOUS STRUCTURES: Unremarkable. CT/CT abdomen pelvis w IV con IMPRESSION: 1. Diffuse thickening of the rectal wall. No additional rectal fat stranding or abscess seen. 2. There is mild skin and subcutaneous induration and thickening of the medial buttocks question inflammation or infectious process. There is no ulceration seen on the visualized images. Visual inspection is recommended. 3. Bilateral renal cysts. 4. Cholecystectomy changes. 5. No acute intra-abdominal process seen. 6. 3 mm ill-defined opacity right lung base. Fleischner guidelines were followed.
--- NOTE | 2023-05-29 09:31 | ED_ITS ---
<Statement entered by Sammy Schwarz MD - 05/29/23 17:22> The patient had a very unusual area of swelling and tenderness and erythema at the top of the gluteal cleft. This does not really look like a typical pilonidal cyst abscess. It also does not look like a typical perianal abscess. A CT scan was done that I did not think showed the full area of concern. A bedside ultrasound shows what I think is complex fluid in the region of concern. Surgery was consulted and the patient will be admitted for evaluation in the operating room as the patient really did not tolerate any bedside procedures. HPI - General Adult General Chief complaint: Skin/Abscess/Foreign Body Stated complaint: Constipation Time Seen by Provider: 05/29/23 09:04 Source: patient and RN notes reviewed Mode of arrival: ambulatory Limitations: no limitations History of Present Illness HPI narrative: This is a 62-year-old female, with a history of anxiety, depression, constipation, hip pain, ANG, ventricular hypertrophy, and osteoarthritis, presenting to the emergency department with complaints of constipation x2 days. Patient reports that she has been constipated for the last 2 days. She states that this morning she noticed a very tender/painful lump on her tailbone this morning. She also has had redness and drainage from her gluteal cleft. She reports that she is feeling cold, denies any fevers. She denies any chest pain, shortness of breath, abdominal pain, nausea, vomiting or diarrhea. She reports that she has a history of constipation, reports that she required disimpaction several years ago. No history of IV drug abuse. No other complaints or concerns at this time. complaint: Constipation/painful tailbone Onset (ago): day(s) Severity: moderate Quality: aching Pain Consistency: constant Relieving factors: none Exacerbating factors: none Associated symptoms: denies other symptoms Treatments prior to arrival: none Related Data Home Medications Medication Instructions Recorded Confirmed cholecalciferol (vitamin D3) 25 25 mcg PO DAILY 10/01/21 02/09/22 mcg (1,000 unit) capsule Previous Rx's Medication Instructions Recorded sertraline 100 mg tablet 100 mg PO DAILY #90 tabs 04/20/23 atorvastatin 20 mg tablet 20 mg PO BEDTIME #90 tabs 05/24/23 Allergies Allergy/AdvReac Type Severity Reaction Status Date / Time codeine [Codeine] Allergy Intermediate FELT OUT Verified 04/03/23 14:51 OF SORTS Review of Systems 2 Review of Systems: Yes all other systems are reviewed and are negative Constitutional: Constitutional: Reports as per [facility] Past Medical History Attestation statement: The following information was validated with the patient. Medical History Hip pain Anxiety and depression ANG (obstructive sleep apnea) Constipation Osteoarthritis Cervical neck pain with evidence of disc disease Left ventricular hypertrophy Smoker Surgical History History of carpal tunnel surgery History of hysterectomy Family History Family History Father Heart problem Mother No problems noted. Sister Breast cancer Daughter Overweight Maternal Grandfather Cancer Maternal Grandmother Multiple myeloma Paternal Grandfather Unknown family medical history Paternal Grandmother Unknown family medical history Social History Social History Housing: House Alcohol intake: current Alcohol intake frequency: holidays/special occasions only Patient Tobacco Use Status: Current everyday Tobacco user Tobacco use type: Cigarette Cigarette Packs Per Day: 1 Cigarettes Per Day: 15 Smoked in Last 30 Days: Yes e-Cigarette/Vaping Use: Never Used Second Hand Smoke Exposure: No Use of substances other than those prescribed or required for medical reasons: No Are you DNR?: No Advance Directives: No Advance Directives Information Provided: Yes Recently lost weight without trying: No Nutrition Risks: No Nutritional Risk and Diabetes new onset/Uncontrolled Current occupational status: employed 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 Current occupational exposures/hazards: No Cognitive needs: No Hearing needs: No Vision needs: No Physical Exam ED Vital Signs: Vital Signs - 24 hr 05/29/23 08:28 05/29/23 10:30 05/29/23 12:00 Temperature 98.0 F 98.3 F 99.7 F Pulse Rate 96 71 76 Respiratory Rate 17 18 16 Blood Pressure 136/73 108/69 129/65 Pulse Oximetry 96 96 95 Oxygen Delivery Method Room Air Room Air Room Air 05/29/23 12:27 05/29/23 12:28 05/29/23 13:35 Temperature Pulse Rate Respiratory Rate 15 16 16 Blood Pressure Pulse Oximetry Oxygen Delivery Method 05/29/23 14:00 05/29/23 14:24 05/29/23 15:14 Temperature 99.2 F Pulse Rate 68 75 Respiratory Rate 14 16 18 Blood Pressure 125/61 110/50 L Pulse Oximetry 94 92 Oxygen Delivery Method Room Air Room Air BMI result Body Mass Index 31.4 Const General: cooperative, comfortable and no acute distress Orientation/consciousness: patient oriented x3 Limitations: no limitations [facility] Head: Yes normal to inspection, Yes normocephalic and Yes atraumatic Ears: hearing grossly normal bilaterally General nose exam: Normal external nose present Face and sinus: Yes normal facial exam Mouth: Normal oral and palatal mucosa present, oropharynx normal and moist mucous membranes Throat: Yes posterior oropharynx normal Eyes General: appearance normal, both eyes and all related structures Eyelids: Yes eyelids normal Conjunctivae: conjunctivae normal Sclerae: sclerae normal Pupils: Equal, round and reactive pupils present EOM: EOMs intact bilaterally Neck Neck: Yes normal visual inspection, Yes full ROM and Yes no lymphadenopathy Lymphatic: no lymphadenopathy noted Chest Chest palpation & inspection: normal inspection of the chest Resp Effort & Inspection: normal respiratory effort and able to speak in complete sentences Auscultation: clear to auscultation bilaterally, no crackles, no rales, no rhonchi and no wheezes Cardio Rate: regular rate Rhythm: regular rhythm Heart sounds: S1 normal heart sound present and S2 normal heart sound present GI Inspection: Yes normal to inspection Back/Spine/Pelvis Other: Hardened, 3 cm x 3 cm indurated and tender erythema without discrete borders noted to the gluteal cleft no surrounding erythema or warmth. This has surrounding swelling, tenderness, and erythema. Does not appear to be typical fluid collection. She does have erythema and warmth extending into her gluteal cleft with moderate sized non thrombosed external hemorrhoids noted Skin General skin exam: no rashes or lesions noted Trauma: no lacerations or abrasions Wounds: no wounds Neuro General: patient oriented x3 and moves all extremities Cranial nerves: Yes Equal, round and reactive pupils present Extrem General: Yes normal to inspection Right upper extremity: normal to inspection Left upper extremity: normal to inspection Right lower extremity: normal to inspection Left lower extremity: normal to inspection Course Reevaluation(s) Reevaluation #1: Received critical glucose of 369. Hemoglobin A1c added as patient has no history of diabetes. Reevaluation #2: CT abdomen and pelvis revealing diffuse thickening of the rectal wall, with mild skin and subcutaneous induration and thickening of the medial buttocks question for inflammation or infectious process. Area not fully visualized with CT scan therefore bedside ultrasound was performed by Dr. Schwarz, revealing fluid collection at the gluteal cleft where patient's tenderness is. Surgical PA, Mariaelena Blackman saw patient at bedside who recommends surgical intervention given difficulty with ultrasound and exquisite tenderness on examination despite IV pain medications. Hemoglobin A1c returns greater than 14%. Discussed findings with patient, patient diagnosed with diabetes mellitus type 2 at this time. Will obtain repeat POC. Time: 14:01 Reevaluation #3: Repeat POC glucose was 256, improving after receiving IV fluids, second L of IV fluids ordered, patient medicated with 2nd dose of morphine 4 mg. Patient will be transferred to the surgical team for surgical intervention. Patient is agreeable. Time: 14:24 Medications Administered Generic Name Dose Route Start Last Admin Trade Name Freq PRN Reason Stop Dose Admin Piperacillin Sod/Tazobactam 50 mls @ 100 mls/hr 05/29/23 16:15 05/29/23 17:30 Sod 3.375 gm/ Sodium Chloride IV Infused Q6H HALLIE Infusion Insulin Human Lispro 0 unit 05/29/23 16:30 05/29/23 19:38 Insulin Lispro 100 Unit/Ml 3 Ml Vial SUBCUT Not Given QIDACHS [facility] Protocol Discontinued Medications Generic Name Dose Route Start Last Admin Trade Name Freq PRN Reason Stop Dose Admin Fentanyl 50 mcg 05/29/23 12:03 05/29/23 12:27 Fentanyl Citrate/Pf 100 Mcg/2 Ml Vial IVPUSH 05/29/23 12:04 50 mcg ONCE ONE Administration Protocol Sodium Chloride 1,000 mls @ 999 mls/hr 05/29/23 11:13 05/29/23 13:30 Ns IV 05/29/23 12:13 Infused .Q1H1M ONE Infusion Sodium Chloride 1,000 mls @ 999 mls/hr 05/29/23 14:04 05/29/23 19:36 Ns IV 05/29/23 15:04 Infused .Q1H1M ONE Infusion Cefotetan Disodium 2 gm/ 50 mls @ 100 mls/hr 05/29/23 15:28 05/29/23 19:37 Sodium Chloride IV 05/29/23 15:57 Infused PREOP ONE Infusion Morphine Sulfate 4 mg 05/29/23 10:00 05/29/23 10:15 Morphine Sulfate 4 Mg/Ml Cartridge IVPUSH 05/29/23 10:01 4 mg ONCE ONE Administration Protocol Morphine Sulfate 4 mg 05/29/23 14:02 05/29/23 14:24 Morphine Sulfate 4 Mg/Ml Cartridge IVPUSH 05/29/23 14:03 4 mg ONCE ONE Administration Protocol Medical Decision Making Medical Decision Making [facility] Narrative: This is a 62-year-old female, with a history of anxiety, depression, constipation, hip pain, ANG, ventricular hypertrophy, and osteoarthritis, presenting to the emergency department with complaints of constipation x2 days. Patient also reporting a tender lump on her tailbone. On arrival, vital signs within normal limits. Patient is nontoxic appearing, afebrile. Physical exam findings concerning for question perirectal abscess versus cellulitis. Given patient has had swelling and tenderness at the top of the gluteal cleft without evidence of atypical pilonidal cyst or abscess, is indicated that a CT scan is warranted for further evaluation of this area. Patient was seen and evaluated by my supervising physician, Dr. Sammy Fraser, who agrees with assessment and plan, also recommends CT abdomen and pelvis for rectal abscess Will obtain basic labs, CT abdomen and pelvis with IV contrast and morphine 4 mg IV push. Differential Diagnosis Differential Diagnoses: The differential diagnosis associated with the presentation includes Perirectal abscess, epidural abscess-unlikely, cyst, cellulitis, external hemorrhoids Admission/Observation Consideration of admission/observation: Escalation of care including admission/observation considered Lab Data [facility] Lab Attestation statement: I reviewed the patient's lab results. 05/29/23 10:14 05/29/23 10:14 Labs: Lab Results 05/29/23 05/29/23 05/29/23 Range/Units 10:14 12:24 14:03 WBC 13.3 H (4.8-10.8) X10*3/uL RBC 4.89 (4.20-5.50) X10*6/uL Hgb 14.1 (12.0-16.0) g/dl Hct 42.0 (37.0-47.0) % MCV 85.9 (80.0-98.0) fL MCH 28.8 (27.0-33.0) pg MCHC 33.6 (31.0-35.0) g/dl RDW 12.1 (11.0-16.0) % Plt Count 262 (160-400) X10*3/uL MPV 9.4 (9.4-12.3) fL Immature Gran % (Auto) 0.3 (0.0-0.4) % Neut % (Auto) 76.8 H (45-73) % Lymph % (Auto) 15.7 L (20-40) % [place] % (Auto) 5.8 (2-11) % Eos % (Auto) 1.2 (0-4) % Baso % (Auto) 0.2 (0-2) % Lymph # (Auto) 2.1 (1.2-4.9) X10*3/uL [place] # (Auto) 0.8 (0.1-1.2) X10*3/uL Eos # (Auto) 0.2 (0.0-0.4) X10*3/uL Baso # (Auto) 0.0 (0.0-0.2) X10*3/uL Abs Immat Gran (auto) 0.04 H (0.00-0.03) X10*3/uL Absolute Neuts (auto) 10.2 H (2.0-8.3) x10*3/uL Absolute Nucleated RBC 0.000 (0.0-0.012) X10*3/uL Nucleated RBC % (auto) 0.0 (0.0-0.2) /100WBC Sodium 134 L (135-145) mmol/L Potassium 3.9 (3.3-5.1) mmol/L Chloride 99 (96-108) mmol/L Carbon Dioxide 25 (22-29) mmol/L Anion Gap 14 (12-20) BUN 7 L (9-16) mg/dL Creatinine 0.72 (0.5-1.4) mg/dL Estim Creat Clear Calc 85.6 Estimated GFR > 60 POC Glucose 256 H (60-115) mg/dL Random Glucose 369 H* (60-115) mg/dL Estimat Average Glucose TNP Hemoglobin A1c % > 14.0 H (<6.0) % Calcium 9.4 D (8.4-10.2) mg/dL Total Bilirubin 0.5 (0.0-1.0) mg/dL AST 10 (5-31) U/L ALT 15 (0-31) U/L Alkaline Phosphatase 127 H (39-117) U/L Total Protein 7.6 (6.5-8.0) g/dL Albumin 3.9 (3.5-5.0) g/dL Urine Color Yellow Urine Appearance Clear Urine pH 5.5 (5.0-9.0) Ur Specific [place] >= 1.030 H (1.005-1.025) Urine Protein Negative (Neg-Trace) mg/dL Urine Glucose (UA) >=1000 H (Negative) mg/dL Urine Ketones Trace (Negative) mg/dL Urine Blood Negative (Negative) Urine Nitrite Negative (Negative) Ur Leukocyte Esterase Trace H (Negative) Urine RBC 0-2 (0-2) /HPF Urine WBC 11-20 H (0-5) /HPF Ur Squamous Epith Cells 0-2 (0-2) /HPF Urine Bacteria 1+ (None Seen) Hyaline Casts 0-2 (0-2) /LPF Blood Type Antibody Screen 05/29/23 05/29/23 Range/Units 14:34 15:29 WBC (4.8-10.8) X10*3/uL RBC (4.20-5.50) X10*6/uL Hgb (12.0-16.0) g/dl Hct (37.0-47.0) % MCV (80.0-98.0) fL MCH (27.0-33.0) pg MCHC (31.0-35.0) g/dl RDW (11.0-16.0) % Plt Count (160-400) X10*3/uL MPV (9.4-12.3) fL Immature Gran % (Auto) (0.0-0.4) % Neut % (Auto) (45-73) % Lymph % (Auto) (20-40) % [place] % (Auto) (2-11) % Eos % (Auto) (0-4) % Baso % (Auto) (0-2) % Lymph # (Auto) (1.2-4.9) X10*3/uL [place] # (Auto) (0.1-1.2) X10*3/uL Eos # (Auto) (0.0-0.4) X10*3/uL Baso # (Auto) (0.0-0.2) X10*3/uL Abs Immat Gran (auto) (0.00-0.03) X10*3/uL Absolute Neuts (auto) (2.0-8.3) x10*3/uL Absolute Nucleated RBC (0.0-0.012) X10*3/uL Nucleated RBC % (auto) (0.0-0.2) /100WBC Sodium (135-145) mmol/L Potassium (3.3-5.1) mmol/L Chloride (96-108) mmol/L Carbon Dioxide (22-29) mmol/L Anion Gap (12-20) BUN (9-16) mg/dL Creatinine (0.5-1.4) mg/dL Estim Creat Clear Calc Estimated GFR POC Glucose 253 H (60-115) mg/dL Random Glucose (60-115) mg/dL Estimat Average Glucose Hemoglobin A1c % (<6.0) % Calcium (8.4-10.2) mg/dL Total Bilirubin (0.0-1.0) mg/dL AST (5-31) U/L ALT (0-31) U/L Alkaline Phosphatase (39-117) U/L Total Protein (6.5-8.0) g/dL Albumin (3.5-5.0) g/dL Urine Color Urine Appearance Urine pH (5.0-9.0) Ur Specific [place] (1.005-1.025) Urine Protein (Neg-Trace) mg/dL Urine Glucose (UA) (Negative) mg/dL Urine Ketones (Negative) mg/dL Urine Blood (Negative) Urine Nitrite (Negative) Ur Leukocyte Esterase (Negative) Urine RBC (0-2) /HPF Urine WBC (0-5) /HPF Ur Squamous Epith Cells (0-2) /HPF Urine Bacteria (None Seen) Hyaline Casts (0-2) /LPF Blood Type B Positive Antibody Screen NEGATIVE Radiology Impression Discussion of test interpretation with radiology: I have reviewed the radiologist's reading. External Record Review External record reviewed: Inpatient record, Office record, Outpatient record, Prior outpatient labs, Prior outpatient radiology, Primary care record and Outside ED record Critical Care Time Critical Care Time Critical Care Time: Yes Total Critical Care Time: 60 Attestation: I have personally provided critical care time exclusive of time spent on separately billable procedures. Time includes review of lab data, radiology results, discussion with consultants, and monitoring for potential decompensation. Intervention performed as documented. Discharge Plan Discharge Clinical Impression: Abscess, perirectal, Diabetes mellitus Transfer Details: surgical team Interventions: Admission Worksheet (ED) Last Done: 05/29/23 15:45
[2023-05-29] MEDS: Morphine Sulfate 4 MG/ML CARTRIDGE IVPUSH ×2 (10:15→14:24)
[2023-05-29 10:23] LABS: MANUAL DIFF FLAG NO
[2023-05-29 10:25] LABS: Basophils Percent Auto 0.2 % (0-2); Eosinophils Absolute Auto 0.2 X10*3/uL (0.0-0.4); Eosinophils Percent Auto 1.2 % (0-4); Hemoglobin 14.1 g/dl (12.0-16.0); Imm Gran Abs Auto 0.04 X10*3/uL (0.00-0.03); Imm Gran Pct Auto 0.3 % (0.0-0.4); Lymphocytes Absolute Auto 2.1 X10*3/uL (1.2-4.9); Lymphocytes Percent Auto 15.7 % (20-40); Mean Corpuscular HGB Conc 33.6 g/dl (31.0-35.0); Mean Corpuscular Hemoglobin 28.8 pg (27.0-33.0); Mean Corpuscular Volume 85.9 fL (80.0-98.0); Mean Platelet Volume 9.4 fL (9.4-12.3); Monocytes Absolute Auto 0.8 X10*3/uL (0.1-1.2); Monocytes Percent Auto 5.8 % (2-11); Neutrophils Absolute Auto 10.2 x10*3/uL (2.0-8.3); Neutrophils Percent Auto 76.8 % (45-73); Platelet Count 262 X10*3/uL (160-400); Red Blood Count 4.89 X10*6/uL (4.20-5.50); Red Cell Distribution Width 12.1 % (11.0-16.0); White Blood Count 13.3 X10*3/uL (4.8-10.8)
[2023-05-29 11:01] LABS: Alanine Aminotransferase 15 U/L (0-31); Albumin Level 3.9 g/dL (3.5-5.0); Alkaline Phosphatase 127 U/L (39-117); Anion Gap 14 (12-20); Aspartate Amino Transferase 10 U/L (5-31); Bilirubin Total 0.5 mg/dL (0.0-1.0); Blood Urea Nitrogen 7 mg/dL (9-16); Calcium 9.4 mg/dL (8.4-10.2); Carbon Dioxide 25 mmol/L (22-29); Chloride 99 mmol/L (96-108); Creatinine Clr Calc Pharmacy 85.6; Estimated Glomerular Filt Rate > 60; Glucose Random 369 mg/dL (60-115); Potassium 3.9 mmol/L (3.3-5.1); Sodium 134 mmol/L (135-145); Total Protein 7.6 g/dL (6.5-8.0)
--- NOTE | 2023-05-29 11:15 | PC.NURSE ---
pt in radiology
[2023-05-29 12:05] LABS: Hemoglobin A1c % > 14.0 % (<6.0)
[2023-05-29] MEDS: 0.9 % Sodium Chloride 1,000 ML 999 ML IV ×2 (12:14→14:25)
[2023-05-29] MEDS: fentaNYL citrate/PF 100 MCG/2 ML VIAL 50 MCG IVPUSH (12:27)
[2023-05-29 12:38] LABS: Appearance Urine Clear; Color Urine Yellow; Glucose Urine UA >=1000 mg/dL (Negative); Leukocyte Esterase Urine Trace (Negative); Nitrite Urine Negative (Negative); PH 5.5 (5.0-9.0); Specific Gravity - Urine >= 1.030 (1.005-1.025); UMIC TRIGGER UACC YES; Urine Blood Negative (Negative); Urine Ketones Trace mg/dL (Negative); Urine Protein Negative (Neg-Trace)
[2023-05-29 12:47] LABS: Bacteria Urine 1+ (None Seen); Hyaline Casts Urine 0-2 /LPF (0-2); RBC Urine 0-2 /HPF (0-2); Squamous Epithelial Cell Urine 0-2 /HPF (0-2); UACC Culture Trigger YES
--- NOTE | 2023-05-29 13:58 | PM.HPGS ---
History of Present Illness History of Present Illness Date of Service: 05/29/23 <Mariaelena Blackman PA-C - Last Filed: 05/29/23 16:20> 05/29/23 <Justin Puga MD - Last Filed: 05/29/23 15:33> Chief complaint: Constipation <Mariaelena Blackman PA-C - Last Filed: 05/29/23 16:20> Narrative: Hazel Coyne is a 62 year old female with PMH of anxiety, depression, ANG, left ventricular hypertrophy who presented to the ED with complaints of constipation and painful lump on her buttocks. She noted that yesterday it was uncomfortable sitting down. The pain gradually worsened and became severe prompting her to seek care in the ED. She reports some redness and a little drainage from the area. She denies fevers, chills, diarrhea. She denies similar episodes. Work up included CBC, BMP which was significant for leukocytosis of 13.3 and glucose of 369 with Hgb A1c >14. CT scan abd/pelvis was obtained which did not include the lower pelvis and the area of concern. Bedside US was performed which showed a large complex collection. Last PO intake was a bite of toast and tea this morning at 6am. <Mariaelena Blackman PA-C - Last Filed: 05/29/23 16:20> Review of Systems Constitutional: Constitutional: Denies chills and Denies fever(s) <Mariaelena Blackman PA-C - Last Filed: 05/29/23 16:20> Cardiovascular: Cardiovascular: Denies chest pain and Denies dyspnea <Mariaelena Blackman PA-C - Last Filed: 05/29/23 16:20> Respiratory: Respiratory: Denies dyspnea <Mariaelena Blackman PA-C - Last Filed: 05/29/23 16:20> Gastrointestinal: Gastrointestinal: Denies abdominal pain, Reports constipation, Denies diarrhea, Denies nausea and Denies vomiting <ROSELIA Sherman Last Filed: 05/29/23 16:20> Genitourinary: Genitourinary: Denies dysuria <ROSELIA Sherman Last Filed: 05/29/23 16:20> Musculoskeletal: Musculoskeletal: Denies numbness <Mariaelena Blackman PA-C - Last Filed: 05/29/23 16:20> Integumentary/Breasts: Skin/Breast: Reports as per HPI, Denies rash and Denies jaundice <ROSELIA Sherman Last Filed: 05/29/23 16:20> Neurologic: Denies numbness <Mariaelena Blackman PA-C Last Filed: 05/29/23 16:20> [facility] Past Medical History Medical History: Medical History Hip pain Anxiety and depression ANG (obstructive sleep apnea) Constipation Osteoarthritis Cervical neck pain with evidence of disc disease Left ventricular hypertrophy Smoker <Mariaelena Blackman PA-C Last Filed: 05/29/23 16:20> Family History Family History: Family History Father Heart problem Mother No problems noted. Sister Breast cancer Daughter Overweight Maternal Grandfather Cancer Maternal Grandmother Multiple myeloma Paternal Grandfather Unknown family medical history Paternal Grandmother Unknown family medical history <Mariaelena Blackman PA-C Last Filed: 05/29/23 16:20> Surgical History Surgical History: Surgical History History of carpal tunnel surgery History of hysterectomy <Mariaelena Blackman PA-C Last Filed: 05/29/23 16:20> Social History Social History: Social History Housing: House Alcohol intake: current Alcohol intake frequency: holidays/special occasions only Patient Tobacco Use Status: Current everyday Tobacco user Tobacco use type: Cigarette Cigarette Packs Per Day: 1 Cigarettes Per Day: 15 Smoked in Last 30 Days: Yes e-Cigarette/Vaping Use: Never Used Second Hand Smoke Exposure: No Use of substances other than those prescribed or required for medical reasons: No Are you DNR?: No Advance Directives: No Advance Directives Information Provided: Yes Recently lost weight without trying: No Nutrition Risks: No Nutritional Risk and Diabetes new onset/Uncontrolled Current occupational status: employed 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 Current occupational exposures/hazards: No Cognitive needs: No Hearing needs: No Vision needs: No <Mariaelena Blackman PA-C Last Filed: 05/29/23 16:20> Meds Allergies/Adverse reactions: Allergies Allergy/AdvReac Type Severity Reaction Status Date / Time codeine [Codeine] Allergy Intermediate FELT OUT Verified 04/03/23 14:51 OF SORTS <Mariaelena Blackman PA-C Last Filed: 05/29/23 16:20> Home medications: Home Medications Medication Instructions Recorded Confirmed Last Taken Type cholecalciferol (vitamin D3) 25 25 mcg PO DAILY 10/01/21 02/09/22 Unknown History mcg (1,000 unit) capsule <Mariaelena Blackman PA-C Last Filed: 05/29/23 16:20> Physical Exam Vital Signs: Vital Signs: Last Vital Signs Temp 99.7 F 05/29/23 12:00 Pulse 76 05/29/23 12:00 Resp 16 05/29/23 12:28 BP 129/65 05/29/23 12:00 Pulse Ox 95 05/29/23 12:00 O2 Del Method Room Air 05/29/23 12:00 BMI result Body Mass Index 31.5 <BASIL Sherman Last Filed: 05/29/23 16:20> Const: Other: uncomfortable appearing <BASIL Sherman Last Filed: 05/29/23 16:20> General: alert <BASIL Sherman Last Filed: 05/29/23 16:20> Orientation/consciousness: patient oriented x3 <BASIL Sherman Last Filed: 05/29/23 16:20> Resp: Effort & Inspection: normal respiratory effort <Mariaelena Blackman PA-C Last Filed: 05/29/23 16:20> GI: Other: gluteal cleft with large fluctuant collection that extends laterally on both sides (L>R), mild surrounding erythema, very tender to palpation, no drainage noted <ROSELIA Sherman Last Filed: 05/29/23 16:20> Inspection: No distended <Mariaelena Blackman PA-C Last Filed: 05/29/23 16:20> Palpation (GI): Soft to palpation <ROSELIA Sherman Last Filed: 05/29/23 16:20> Skin: General skin exam: no rashes or lesions noted <ROSELIA Sherman Last Filed: 05/29/23 16:20> Neuro: General: patient oriented x3 and moves all extremities <ROSELIA Sherman Last Filed: 05/29/23 16:20> Results Results Labs: Short CBC 05/29/23 Range/Units 10:14 WBC 13.3 H (4.8-10.8) X10*3/uL Hgb 14.1 (12.0-16.0) g/dl Hct 42.0 (37.0-47.0) % Plt Count 262 (160-400) X10*3/uL BMP 05/29/23 10:14 Sodium 134 L Potassium 3.9 Chloride 99 Carbon Dioxide 25 BUN 7 L Creatinine 0.72 Calcium 9.4 D Liver Function 05/29/23 Range/Units 10:14 Total Bilirubin 0.5 (0.0-1.0) mg/dL AST 10 (5-31) U/L ALT 15 (0-31) U/L Alkaline Phosphatase 127 H (39-117) U/L Albumin 3.9 (3.5-5.0) g/dL Urine 05/29/23 Range/Units 12:24 Urine Color Yellow Urine Appearance Clear Urine pH 5.5 (5.0-9.0) Ur Specific [place] >= 1.030 H (1.005-1.025) Urine Protein Negative (Neg-Trace) mg/dL Urine Glucose (UA) >=1000 H (Negative) mg/dL <ROSELIA Sherman Last Filed: 05/29/23 16:20> Abdomen CT scan report/results: report reviewed and image reviewed <Mariaelena Blackman PA-C Ming Filed: 05/29/23 16:20> Assessment and Plan (1) Perirectal abscess: Status: Acute <ROSELIA Sherman Last Filed: 05/29/23 16:20> (2) Elevated fasting blood sugar: Status: Acute <ROSELIA Sherman Last Filed: 05/29/23 16:20> 62 year old female with PMH of left ventricular hypertrophy who presented with painful lump on buttocks with leukocytosis, fluctuant collection on exam consistent with perirectal abscess. She is unable to tolerate light palpation on exam. Discussed it would be best to proceed with EUA, I&D of perirectal abscess in OR with sedation. She is in agreement. Will add onto the OR schedule for today. She has been started on IV zosyn. Consult hospitalist service for newly diagnosed diabetes mellitus. <Mariaelena Blackman PA-C - Last Filed: 05/29/23 16:20> Quality Stroke Does the patient have a stroke diagnosis?: No <Justin Puga MD - Last Filed: 05/29/23 15:33> VTE Prior VTE?: No <Justin Puga MD - Last Filed: 05/29/23 15:33> VTE Risk Level:: Surgical - low <Justin Puga MD - Last Filed: 05/29/23 15:33> VTE Device Contraindication: N/A - Device Ordered <Justin Puga MD - Last Filed: 05/29/23 15:33> VTE Drug Contraindication: N/A - Med Ordered <Justin Puga MD - Last Filed: 05/29/23 15:33> Procedures Date of Service Date of Service: 05/29/23 <Mariaelena Blackman PA-C - Last Filed: 05/29/23 16:20> 05/29/23 <Justin Puga MD - Last Filed: 05/29/23 15:33>
[2023-05-29 14:08] LABS: Glucose, Whole Blood 256 mg/dL (60-115)
--- NOTE | 2023-05-29 14:32 | PC.NURSE ---
report given to short stay rn.
--- NOTE | 2023-05-29 15:00 | PC.NURSE ---
pt heading to short stay
--- NOTE | 2023-05-29 15:09 | HO.ANESPROP2 ---
[facility] Active Problems Active Problems: All Active Problems (Updated 05/29/23 @ 14:26 by ELLEN Riggs) Abscess, perirectal (Acute) Perirectal abscess (Acute) Right carpal tunnel syndrome (Acute) Cervical radiculopathy (Acute) Tendonitis of both rotator cuffs (Acute) Calcific tendonitis of right shoulder (Acute) Calcific tendonitis of left shoulder region (Acute) Hip pain (Acute) Abnormal EKG (Acute) Bradycardia (Acute) Obesity due to excess calories (Acute) Chest pain (Acute) Elevated fasting blood sugar (Acute) Dyslipidemia (Acute) Left arm pain (Acute) Post-menopausal (Acute) Screening for cervical cancer (Acute) Physical exam (Acute) Mass of soft tissue of right upper extremity (Acute) De Quervain's tenosynovitis, left (Acute) Acute bronchitis (Acute) Tendonitis (Acute) Wrist pain (Acute) Nodule of finger (Acute) Mastitis (Acute) Bone spur of foot (Acute) Heel pain (Acute) Smoker (Acute) Weakness (Acute) Shortness of breath (Acute) Upper respiratory infection (Acute) Viral infection (Acute) Bronchitis (Acute) Past Medical History Medical History Hip pain Anxiety and depression ANG (obstructive sleep apnea) Constipation Osteoarthritis Cervical neck pain with evidence of disc disease Left ventricular hypertrophy Smoker Family History Family History Father Heart problem Mother No problems noted. Sister Breast cancer Daughter Overweight Maternal Grandfather Cancer Maternal Grandmother Multiple myeloma Paternal Grandfather Unknown family medical history Paternal Grandmother Unknown family medical history Surgical History Surgical History History of carpal tunnel surgery History of hysterectomy History of Problems with Anesthesia: No Social History Social History Housing: House Alcohol intake: current Alcohol intake frequency: holidays/special occasions only Patient Tobacco Use Status: Refuse Tobacco use screen Cigarette Packs Per Day: 1 Cigarettes Per Day: 15 Smoked in Last 30 Days: Yes e-Cigarette/Vaping Use: Never Used Second Hand Smoke Exposure: No Use of substances other than those prescribed or required for medical reasons: No Advance Directives: No Advance Directives Information Provided: Yes Current occupational status: employed 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 Current occupational exposures/hazards: No Cognitive needs: No Hearing needs: No Vision needs: No Meds Allergies Allergy/AdvReac Type Severity Reaction Status Date / Time codeine [Codeine] Allergy Intermediate FELT OUT Verified 04/03/23 14:51 OF SORTS Home Medications Medication Instructions Recorded Confirmed Last Taken Type cholecalciferol (vitamin D3) 25 25 mcg PO DAILY 10/01/21 02/09/22 Unknown History mcg (1,000 unit) capsule Exam Height,Weight and Vital Signs: Height 5 ft 4 in Weight 83.2 kg Last Vital Signs Temp 99.7 F 05/29/23 12:00 Pulse 68 05/29/23 14:00 Resp 16 05/29/23 14:24 BP 125/61 05/29/23 14:00 Pulse Ox 94 05/29/23 14:00 O2 Del Method Room Air 05/29/23 14:00 Pertinent Lab Results Pertinent Lab Results: Laboratory Tests 05/29/23 05/29/23 05/29/23 10:14 12:24 14:03 WBC 13.3 H RBC 4.89 Hgb 14.1 Hct 42.0 MCV 85.9 MCH 28.8 MCHC 33.6 RDW 12.1 Plt Count 262 MPV 9.4 Immature Gran % (Auto) 0.3 Neut % (Auto) 76.8 H Lymph % (Auto) 15.7 L [place] % (Auto) 5.8 Eos % (Auto) 1.2 Baso % (Auto) 0.2 Lymph # (Auto) 2.1 [place] # (Auto) 0.8 Eos # (Auto) 0.2 Baso # (Auto) 0.0 Abs Immat Gran (auto) 0.04 H Absolute Neuts (auto) 10.2 H Absolute Nucleated RBC 0.000 Nucleated RBC % (auto) 0.0 Sodium 134 L Potassium 3.9 Chloride 99 Carbon Dioxide 25 Anion Gap 14 BUN 7 L Creatinine 0.72 Estim Creat Clear Calc 85.6 Estimated GFR > 60 POC Glucose 256 H Random Glucose 369 H* Estimat Average Glucose TNP Hemoglobin A1c % > 14.0 H Calcium 9.4 D Total Bilirubin 0.5 AST 10 ALT 15 Alkaline Phosphatase 127 H Total Protein 7.6 Albumin 3.9 Urine Color Yellow Urine Appearance Clear Urine pH 5.5 Ur Specific [place] >= 1.030 H Urine Protein Negative Urine Glucose (UA) >=1000 H Urine Ketones Trace Urine Blood Negative Urine Nitrite Negative Ur Leukocyte Esterase Trace H Urine RBC 0-2 Urine WBC 11-20 H Ur Squamous Epith Cells 0-2 Urine Bacteria 1+ Hyaline Casts 0-2 Airway Mallampati Class: II (edentulous) TM Dist: >3cm Neck ROM: Full Denture: Upper and Lower Loose/Missing/Broken Teeth: Yes, Upper and Lower Heart: RRR Lungs: RRR Assessment and Plan Assessment Anesthesia Assessment: Anesthesia Plan Discussed and Chart Reviewed Final Anesthetic Review History of Problems with Anesthesia: No NPO: Yes ASA Class: III Final Preanesthetic Review: Meds/Allgs Chart Reviewed, Consent Obtained/Reviewed and Anes Risks/Benef Reviewed Patient Risk: Intermediate Procedure Risk: Low Anesthetic Plan Anesthetic Plan: GA Disposition: Standard PACU
[2023-05-29 15:34] LABS: Glucose, Whole Blood 253 mg/dL (60-115)
[2023-05-29] MEDS: cefoTEtan disodium 2 GM in 0.9 % Sodium Chloride 50 ML IV (15:35)
--- NOTE | 2023-05-29 16:31 | P.OP_ITS ---
Operative Note Operative Note Date of Service: 05/29/23 Narrative: Preoperative diagnosis: [] Complex right perirectal abscess Postop diagnosis: [] Same Procedure [] incision and drainage complex right perirectal abscess Surgeon: [] Edd Pilot Plant Operator: [] Hiral Type of Anesthesia: [] General Indication for surgery: [] Multiloculated right perirectal abscess. Copious amounts of purulent material retrieved. Cultures obtained. Findings: [] Patient brought to the operating room, placed on table supine position, after adequate level of general anesthesia was induced, patient was placed in left lateral decubitus position. Perirectal area was prepped and draped in usual sterile fashion. A fluctuant area was initially aspirated approximately 10 cc of pus was retrieved under pressure. Next an incision was made in this area and multiloculated abscess cavity was identified, well away from the anal canal, and loculations broken up digitally, and the wound irrigated, secured hemostasis, and closed with Kerlix packing. Wound was infiltrated 0.5% Marcaine at completion. Sponge, needle, instrument counts reported correct. Patient tolerated the procedure well and emerged anesthesia stable condition. EBL minimal.
[2023-05-29] MEDS: Piperacillin Sodium/Tazobactam 3.375 GM in 0.9 % Sodium Chloride 50 ML IV ×2 (16:58→21:58)
--- OUTSIDE RECORDS SUMMARY | 2023-05-29 17:53 | XMS_ITS | Patient Health Record ---
Author Name Unknown [facility] Address [address] [place] [address] Care Team Providers Care Document Reviewer Name Role Phone Raffy Greene Primary Care Provider Unav ailable Lacy Hunter Unavailable [phone] ALLERGIES Allergen (clinical drug ingredient) Drug/Non Drug Allergy documented on EMR Reaction Allergy Type Onset Date Status acetaminophen Tylenol Unknown Drug Allergy Act j luis codeine Codeine loopy feeling Drug Allergy Act j luis REASON FOR REFERRAL No Information MEDICATIONS Medication SIG (Take, Route, Frequency, Duration) Notes Start Date End Date Status Atorvastatin Calcium 40 MG TAKE 1 TABLET BY MOUTH EVERY EVENING Oral for 90 Active Sertraline HCl 100 MG TK 1 T PO D Oral for 90 Active Lorazepam 1 tab Oral for 14 days PRN 07/14/2020 Active Walking Boot/Pneumatic As directed Wear Daily for Until further notice 07/14/2020 Active Work Note . . . Patient to retur n to work on Sunday08/16/20 with limited standing no more then 6 hours Active Feldene 20 MG 1 capsule with food Orally Once a day for 30 day(s) 09/07/2020 Active IMMUNIZATIONS Vaccine Route Administration Date Status Comme nts COVID-19 Pfizer BioNTech Vaccine Unknown 09/24/2020 Adm inistered SOCIAL HISTORY Tobacco Use: Social History Observation Description Date Details (start date - stop date) Current Smoker NA - NA Sex Assigned At : Social History Observation Description Sex Assigned At Unknown Tobacco Use/Smoking Question Answer Notes Are you a: current smoker How often do you smoke cigarettes? every day How many cigarettes a day do you smoke? 11-20 How soon after you wake up do you smoke your fir st cigarette? 6-30 minutes Alcohol Screen Question Answer Notes Did you have a drink contain ing alcohol in the past year? Yes How often did you have a dri nk containing alcohol in the past year? Monthly or less (1 point) Points 1 Interpretation Negative Tobacco use other than smoking: Question Answer Notes Are you an other tobacco user? No PROBLEMS Problem Type ICD Code Onset Dates Problem Status W/U Status Risk SNOMED Code Notes Problem Tarsal tunnel syndrome of left side (G57.52) Active confirmed [id number] PLAN OF TREATMENT Pending Test Test Name Order Date X ray : Foot, left 3V 07/14/2020 Insurance Providers Payer Name Payer Address Payer Phone Subscriber Number Group Number Insured Name Patient Relationship to Insured Coverage Start Date Coverage End Date Preferred Care PPO [id number] [place] Hernandez [phone] [id number] Hazel Coyne Self - patient is the insured MEDICAL (GENERAL) HISTORY Medical History History ICD Code Anxiety Arthritis Back,Hip,and Knee pain Chicken pox Surgical History Surgery Date(Month/Year) gall bladder 1985 hysterectomy 1990 Surgeon drained infection from breast Hospitalization History Reason Date(Month/Year)
[2023-05-29] MEDS: 0.9 % Sodium Chloride 1,000 ML 80 ML IVCONT (19:50)
[2023-05-29] MEDS: Morphine Sulfate 2 MG/ML CARTRIDGE 4 MG IVPUSH (19:50)
--- NOTE | 2023-05-29 19:52 | PHA.MEDREC ---
Pharmacy Consult ? Medication Reconciliation Pharmacy has completed the medication reconciliation.Med rec complete, spoke to patient and compared with pharmacy claim history.
[2023-05-29 20:17] LABS: Glucose, Whole Blood 339 mg/dL (60-115)
[2023-05-29] MEDS: Docusate Sodium 100 MG CAPSULE PO (21:55)
[2023-05-29] MEDS: Insulin Glargine,Hum.rec.anlog 100 UNIT/ML 10 ML VIAL 16 UNIT SUBCUT (21:56)
[2023-05-29] MEDS: Insulin Lispro 100 UNIT/ML 3 ML VIAL SUBCUT (21:57)
--- NOTE | 2023-05-29 23:49 | P.CONHOSP_ITS ---
History of Present Illness Data of Consult Service Date: 05/29/23 Requesting physician: Justin Puga Primary Care Provider: Raffy Garnett [facility] HPI Reason for consult: New T2DM Patient is a 62 year old female with PMH of anxiety, depression, ANG, left ventricular hypertrophy admitted to general surgery with a diagnosis of a complex right corinna-rectal abscess and is status post I&D. Blood work done at the time of admission revealed significant hyperglycemia with a blood sugar of 369. Her HgbA1c was also elevated at 14. She admits to increased thirst and frequent urination at night. A diagnosis of new T2DM was made and we have been asked to assist in her care. She otherwise denies any other complains. Review of Systems 2 Review of Systems: Yes all other systems are reviewed and are negative Endocrine: Endocrine: Reports polydipsia and Reports polyuria PMFSH Medical History Hip pain Anxiety and depression ANG (obstructive sleep apnea) Constipation Osteoarthritis Cervical neck pain with evidence of disc disease Left ventricular hypertrophy Smoker Family History Father Heart problem Mother No problems noted. Sister Breast cancer Daughter Overweight Maternal Grandfather Cancer Maternal Grandmother Multiple myeloma Paternal Grandfather Unknown family medical history Paternal Grandmother Unknown family medical history Surgical History History of carpal tunnel surgery History of hysterectomy Social History Household Members: None Housing: House Do you presently have visiting nurse or other home services: No Alcohol intake: current Alcohol intake frequency: holidays/special occasions only Patient Tobacco Use Status: Current everyday Tobacco user Tobacco use type: Cigarette Cigarette Packs Per Day: 1 Cigarettes Per Day: 15 Smoked in Last 30 Days: Yes e-Cigarette/Vaping Use: Never Used Patient Interested in Nicotine Replacement: No Patient Given Instructions on How to Stop Smoking: Yes Date Education Initiated: 05/29/23 Second Hand Smoke Exposure: No Use of substances other than those prescribed or required for medical reasons: No Currently Displaying Signs/Symptoms of Drug Intoxication Withdrawal: No Any prior treatment program specific to substance use: No Have you been hit, kicked, punched, or otherwise hurt by someone within the past year? If so, by whom?: No Do you feel safe in your current relationship?: No Is there a partner from a previous relationship who is making you feel unsafe now?: No Are you made to feel afraid or neglected: No Are you DNR?: No Advance Directives: No Advance Directives Information Provided: Yes Do you have thoughts of harming others: None Do you have a plan to hurt others: No Plan Recently lost weight without trying: No How much weight loss: Not applicable Eating poorly because of decreased appetite: No Nutrition screen score: 0 Nutrition Risks: No Nutritional Risk Patient : No : No Poor oral hygiene: No Current occupational status: employed 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 Current occupational exposures/hazards: No Cognitive needs: No Hearing needs: No Vision needs: No Meds Allergies Allergy/AdvReac Type Severity Reaction Status Date / Time codeine [Codeine] Allergy Intermediate FELT OUT Verified 04/03/23 14:51 OF SORTS Active Medications: Current Medications Acetaminophen (Acetaminophen 325 Mg Tablet) 650 mg PO Q6H PRN PRN Reason: Pain, Mild (Pain Scale 1-3) Al Hydroxide/Mg Hydroxide (Magnesium Hydrox/Alum Hydrox 30 Ml Oral.Susp) 30 ml PO Q4H PRN PRN Reason: Heartburn/Nausea Albuterol Sulfate (Albuterol Sulfate (0.083%) 2.5 Mg/3 Ml Vial.Neb) 2.5 mg INHALE ONCE PRN PRN Reason: Wheezing Dextrose (Dextrose 50 % 25 Gm/50 Ml Syringe) 25 gm IVPUSH Q15M PRN; Protocol PRN Reason: per Hypoglycemia Standing Ord. Docusate Sodium (Docusate Sodium 100 Mg Capsule) 100 mg PO BID HALLIE Last Admin: 05/29/23 21:55 Dose: 100 mg Fentanyl (Fentanyl Citrate/Pf 100 Mcg/2 Ml Vial) 25 mcg IVPUSH Q5M PRN; Protocol PRN Reason: Pain, Moderate(Pain Scale 4-6) Glucose (Glucose Gel 15 Gm Gel..Gram.) 15 gm PO Q15M PRN; Protocol PRN Reason: per Hypoglycemia Standing Ord. Hydromorphone HCl (Hydromorphone Hcl 0.5 Mg/0.5 Ml Syringe) 0.25 mg IVPUSH Q5M PRN; Protocol PRN Reason: Pain, Severe (Pain Scale 7-10) Sodium Chloride (Ns) 1,000 mls @ 80 mls/hr IVCONT .[id number] [facility] Last Admin: 05/29/23 19:50 Dose: 80 mls/hr Piperacillin Sod/Tazobactam (Sod 3.375 gm/ Sodium Chloride) 50 mls @ 100 mls/hr IV Q6H [facility] Last Infusion: 05/29/23 22:30 Dose: Infused Insulin Glargine (Insulin Glargine,Hum.Rec.Anlog 100 Unit/Ml 10 Ml Vial) 16 unit SUBCUT BEDTIME [facility] Last Admin: 05/29/23 21:56 Dose: 16 unit Insulin Human Lispro (Insulin Lispro 100 Unit/Ml 3 Ml Vial) 0 unit SUBCUT QIDACHS [facility]; Protocol Last Admin: 05/29/23 21:57 Dose: 8 unit Morphine Sulfate (Morphine Sulfate 2 Mg/Ml Cartridge) 4 mg IVPUSH Q4H PRN; Protocol PRN Reason: Pain, Severe (Pain Scale 7-10) Last Admin: 05/29/23 19:50 Dose: 4 mg Ondansetron HCl (Ondansetron Hcl 4 Mg/2 Ml Vial) 4 mg IVPUSH ONCE PRN PRN Reason: Nausea and Vomiting Ondansetron HCl (Ondansetron Hcl 4 Mg/2 Ml Vial) 4 mg IVPUSH Q8H PRN PRN Reason: Nausea and Vomiting Oxycodone HCl (Oxycodone Hcl Immed Release 5 Mg Tablet) 5 mg PO Q4H PRN PRN Reason: Pain, Moderate(Pain Scale 4-6) Oxycodone HCl (Oxycodone Hcl Immed Release 5 Mg Tablet) 10 mg PO Q4H PRN PRN Reason: Pain, Severe (Pain Scale 7-10) Sodium Chloride (0.9 % Sodium Chloride Flush 3 Ml Syringe) 3 ml IVFLUSH QSHIFT [facility] Last Admin: 05/29/23 22:02 Dose: Not Given Zolpidem Tartrate (Zolpidem Tartrate 5 Mg Tablet) 5 mg PO BEDTIME PRN PRN Reason: Insomnia Home Medications Medication Instructions Recorded Confirmed Last Taken Type cholecalciferol (vitamin D3) 25 50 mcg PO DAILY 10/01/21 05/29/23 05/29/23 History mcg (1,000 unit) capsule Physical Exam 2 Vital Signs and Narrative: Vital Signs: Last Vital Signs Temp 98.8 F 05/29/23 23:14 Pulse 80 05/29/23 23:14 Resp 20 05/29/23 23:14 BP 131/78 05/29/23 23:14 Pulse Ox 91 L 05/29/23 23:14 O2 Del Method Nasal Cannula 05/29/23 23:14 O2 Flow Rate 2 05/29/23 23:14 BMI result Body Mass Index 31.6 General: Well nourished. Awake, alert and oriented x 4. No apparent distress Eyes: No pallor or jaundice. PERRLA, EOMI HENT: Moist oral mucus membranes. No oropharyngeal lesions. Neck: Supple. No cervical adenopathy. No JVD Cardiovascular: Regular rate and rhythm. Normal heart sounds. No murmurs, rubs or gallops. No JVD. No peripheral edema. Respiratory: Normal respiratory effort with no accessory muscle use. CTAB. Gastrointestinal: Abdomen is soft, non-tender, non-distended. NABS. No hepatosplenomegaly Genitourinary: No CVA tenderness Extremities: No edema. No calf tenderness. Good peripheral pulses Skin: c/d/d at the lower back site of surgery. No mottling. Capillary refill is < 2 seconds Neurological: AAOx4. Intact speech & cognition. CN II - XII grossly intact but not individually tested. No motor or sensory deficits Hematologic: No bleeding. No ecchymosis. No swollen or tender lymph nodes. Psychiatric: Cooperative. Appropriate mood and affect. Results Labs 05/29/23 10:14 05/29/23 10:14 Labs: Laboratory Results - last 24 hr 05/29/23 05/29/23 05/29/23 10:14 12:24 14:03 MCV 85.9 MCH 28.8 MCHC 33.6 RDW 12.1 Plt Count 262 MPV 9.4 Immature Gran % (Auto) 0.3 Neut % (Auto) 76.8 H Lymph % (Auto) 15.7 L [place] % (Auto) 5.8 Eos % (Auto) 1.2 Baso % (Auto) 0.2 Lymph # (Auto) 2.1 [place] # (Auto) 0.8 Eos # (Auto) 0.2 Baso # (Auto) 0.0 Abs Immat Gran (auto) 0.04 H Absolute Neuts (auto) 10.2 H Absolute Nucleated RBC 0.000 Nucleated RBC % (auto) 0.0 Anion Gap 14 Estim Creat Clear Calc 85.6 Estimated GFR > 60 POC Glucose 256 H Random Glucose 369 H* Estimat Average Glucose TNP Hemoglobin A1c % > 14.0 H Calcium 9.4 D Total Bilirubin 0.5 AST 10 ALT 15 Alkaline Phosphatase 127 H Total Protein 7.6 Albumin 3.9 Urine Color Yellow Urine Appearance Clear Urine pH 5.5 Ur Specific [place] >= 1.030 H Urine Protein Negative Urine Glucose (UA) >=1000 H Urine Ketones Trace Urine Blood Negative Urine Nitrite Negative Ur Leukocyte Esterase Trace H Urine RBC 0-2 Urine WBC 11-20 H Ur Squamous Epith Cells 0-2 Urine Bacteria 1+ Hyaline Casts 0-2 Blood Type Antibody Screen 05/29/23 05/29/23 05/29/23 14:34 15:29 20:14 MCV MCH MCHC RDW Plt Count MPV Immature Gran % (Auto) Neut % (Auto) Lymph % (Auto) [place] % (Auto) Eos % (Auto) Baso % (Auto) Lymph # (Auto) [place] # (Auto) Eos # (Auto) Baso # (Auto) Abs Immat Gran (auto) Absolute Neuts (auto) Absolute Nucleated RBC Nucleated RBC % (auto) Anion Gap Estim Creat Clear Calc Estimated GFR POC Glucose 253 H 339 H Random Glucose Estimat Average Glucose Hemoglobin A1c % Calcium Total Bilirubin AST ALT Alkaline Phosphatase Total Protein Albumin Urine Color Urine Appearance Urine pH Ur Specific [place] Urine Protein Urine Glucose (UA) Urine Ketones Urine Blood Urine Nitrite Ur Leukocyte Esterase Urine RBC Urine WBC Ur Squamous Epith Cells Urine Bacteria Hyaline Casts Blood Type B Positive Antibody Screen NEGATIVE Imaging Radiologist's Impressions: Impressions Abdomen/Pelvis CT 05/29/23 11:40 IMPRESSION: 1. Diffuse thickening of the rectal wall. No additional rectal fat stranding or abscess seen. 2. There is mild skin and subcutaneous induration and thickening of the medial buttocks question inflammation or infectious process. There is no ulceration seen on the visualized images. Visual inspection is recommended. 3. Bilateral renal cysts. 4. Cholecystectomy changes. 5. No acute intra-abdominal process seen. 6. 3 mm ill-defined opacity right lung base. Fleischner guidelines were followed. Assessment and Plan (1) Diabetes mellitus: Status: Acute (2) Abscess, perirectal: Status: Acute Plan 62 year old WF with PMH of hyperlipidemia here with 1. Type 2 diabetes mellitus - new diagnosis with elevated HgbA1c at 14 - admit and start on Insulin Lantus 16 units at bed time - continue with SSI coverage while admitted - consider starting Metformin once better control of BS is achieved (likely outpatient) - will need diabetic teaching prior to discharge 2. Corinna-rectal abscess - s/p I&D - further management per Surgery. Total time managing care of this patient today: 65 minutes.
[2023-05-30] MEDS: Zolpidem Tartrate 5 MG TABLET PO (00:05)
--- NOTE | 2023-05-30 02:26 | PC.NURSE ---
pt is in bed 361 verified with house sup.
[2023-05-30 03:21] VITALS: BP 122/58; PULSE 79; RESP 18; TEMP 37.6; O2SAT 94
[2023-05-30] MEDS: Piperacillin Sodium/Tazobactam 3.375 GM in 0.9 % Sodium Chloride 50 ML IV ×4 (03:29→21:15)
[2023-05-30] MEDS: 0.9 % Sodium Chloride 1,000 ML 80 ML IVCONT (04:03)
[2023-05-30 07:05] VITALS: BP 121/58; PULSE 66; RESP 18; TEMP 36.9; O2SAT 96
[2023-05-30 07:15] LABS: Glucose, Whole Blood 204 mg/dL (60-115)
--- NOTE | 2023-05-30 07:55 | PM.PNGS ---
Subjective Subjective Date of Service: 05/30/23 Interval history: Feels better this morning, has mild soreness at I&D area. Physical Exam Vital Signs: Vital Signs: Last Vital Signs Temp 98.4 F 05/30/23 07:05 Pulse 66 05/30/23 07:05 Resp 18 05/30/23 07:05 BP 121/58 L 05/30/23 07:05 Pulse Ox 96 05/30/23 07:05 O2 Del Method Nasal Cannula 05/30/23 07:05 O2 Flow Rate 2 05/30/23 07:05 BMI result Body Mass Index 31.6 Const: General: comfortable, no acute distress and alert Orientation/consciousness: patient oriented x3 Resp: Effort & Inspection: normal respiratory effort GI: Other: perirectal abscess I&D site- packing removed, remains open, no purulent drainage noted, induration and erythema significantly improved, some mild residual induration Skin: General skin exam: no rashes or lesions noted Neuro: General: patient oriented x3 Objective Data Active Medications Acetaminophen (Acetaminophen 325 Mg Tablet) 650 mg PO Q6H PRN PRN Reason: Pain, Mild (Pain Scale 1-3) Al Hydroxide/Mg Hydroxide (Magnesium Hydrox/Alum Hydrox 30 Ml Oral.Susp) 30 ml PO Q4H PRN PRN Reason: Heartburn/Nausea Albuterol Sulfate (Albuterol Sulfate (0.083%) 2.5 Mg/3 Ml Vial.Neb) 2.5 mg INHALE ONCE PRN PRN Reason: Wheezing Dextrose (Dextrose 50 % 25 Gm/50 Ml Syringe) 25 gm IVPUSH Q15M PRN; Protocol PRN Reason: per Hypoglycemia Standing Ord. Docusate Sodium (Docusate Sodium 100 Mg Capsule) 100 mg PO BID HALLIE Last Admin: 05/29/23 21:55 Dose: 100 mg Documented By: JESSIAC Fentanyl (Fentanyl Citrate/Pf 100 Mcg/2 Ml Vial) 25 mcg IVPUSH Q5M PRN; Protocol PRN Reason: Pain, Moderate(Pain Scale 4-6) Glucose (Glucose Gel 15 Gm Gel..Gram.) 15 gm PO Q15M PRN; Protocol PRN Reason: per Hypoglycemia Standing Ord. Hydromorphone HCl (Hydromorphone Hcl 0.5 Mg/0.5 Ml Syringe) 0.25 mg IVPUSH Q5M PRN; Protocol PRN Reason: Pain, Severe (Pain Scale 7-10) Sodium Chloride (Ns) 1,000 mls @ 80 mls/hr IVCONT .[id number] [facility] Last Infusion: 05/30/23 04:03 Dose: Infused Documented By: KARISSA Piperacillin Sod/Tazobactam (Sod 3.375 gm/ Sodium Chloride) 50 mls @ 100 mls/hr IV Q6H [facility] Last Infusion: 05/30/23 04:04 Dose: Infused Documented By: KARISSA Insulin Glargine (Insulin Glargine,Hum.Rec.Anlog 100 Unit/Ml 10 Ml Vial) 16 unit SUBCUT BEDTIME [facility] Last Admin: 05/29/23 21:56 Dose: 16 unit Documented By: JESSICA Insulin Human Lispro (Insulin Lispro 100 Unit/Ml 3 Ml Vial) 0 unit SUBCUT QIDACHS [facility]; Protocol Last Admin: 05/29/23 21:57 Dose: 8 unit Documented By: JESSICA Morphine Sulfate (Morphine Sulfate 2 Mg/Ml Cartridge) 4 mg IVPUSH Q4H PRN; Protocol PRN Reason: Pain, Severe (Pain Scale 7-10) Last Admin: 05/29/23 19:50 Dose: 4 mg Documented By: JESSICA Ondansetron HCl (Ondansetron Hcl 4 Mg/2 Ml Vial) 4 mg IVPUSH ONCE PRN PRN Reason: Nausea and Vomiting Ondansetron HCl (Ondansetron Hcl 4 Mg/2 Ml Vial) 4 mg IVPUSH Q8H PRN PRN Reason: Nausea and Vomiting Oxycodone HCl (Oxycodone Hcl Immed Release 5 Mg Tablet) 5 mg PO Q4H PRN PRN Reason: Pain, Moderate(Pain Scale 4-6) Oxycodone HCl (Oxycodone Hcl Immed Release 5 Mg Tablet) 10 mg PO Q4H PRN PRN Reason: Pain, Severe (Pain Scale 7-10) Sodium Chloride (0.9 % Sodium Chloride Flush 3 Ml Syringe) 3 ml IVFLUSH QSHIFT [facility] Last Admin: 05/29/23 22:02 Dose: Not Given Documented By: JESSICA Non-Admin Reason: IV Running Zolpidem Tartrate (Zolpidem Tartrate 5 Mg Tablet) 5 mg PO BEDTIME PRN PRN Reason: Insomnia Last Admin: 05/30/23 00:05 Dose: 5 mg Documented By: KARISSA Labs 05/29/23 10:14 05/29/23 10:14 Labs: Laboratory Results - last 24 hr 05/29/23 05/29/23 05/29/23 10:14 12:24 14:03 MCV 85.9 MCH 28.8 MCHC 33.6 RDW 12.1 Plt Count 262 MPV 9.4 Immature Gran % (Auto) 0.3 Neut % (Auto) 76.8 H Lymph % (Auto) 15.7 L Mccl[place] % (Auto) 5.8 Eos % (Auto) 1.2 Baso % (Auto) 0.2 Lymph # (Auto) 2.1 [place] # (Auto) 0.8 Eos # (Auto) 0.2 Baso # (Auto) 0.0 Abs Immat Gran (auto) 0.04 H Absolute Neuts (auto) 10.2 H Absolute Nucleated RBC 0.000 Nucleated RBC % (auto) 0.0 Anion Gap 14 Estim Creat Clear Calc 85.6 Estimated GFR > 60 POC Glucose 256 H Random Glucose 369 H* Estimat Average Glucose TNP Hemoglobin A1c % > 14.0 H Calcium 9.4 D Total Bilirubin 0.5 AST 10 ALT 15 Alkaline Phosphatase 127 H Total Protein 7.6 Albumin 3.9 Urine Color Yellow Urine Appearance Clear Urine pH 5.5 Ur Specific [place] >= 1.030 H Urine Protein Negative Urine Glucose (UA) >=1000 H Urine Ketones Trace Urine Blood Negative Urine Nitrite Negative Ur Leukocyte Esterase Trace H Urine RBC 0-2 Urine WBC 11-20 H Ur Squamous Epith Cells 0-2 Urine Bacteria 1+ Hyaline Casts 0-2 Blood Type Antibody Screen 05/29/23 05/29/23 05/29/23 14:34 15:29 20:14 MCV MCH MCHC RDW Plt Count MPV Immature Gran % (Auto) Neut % (Auto) Lymph % (Auto) [place] % (Auto) Eos % (Auto) Baso % (Auto) Lymph # (Auto) [place] # (Auto) Eos # (Auto) Baso # (Auto) Abs Immat Gran (auto) Absolute Neuts (auto) Absolute Nucleated RBC Nucleated RBC % (auto) Anion Gap Estim Creat Clear Calc Estimated GFR POC Glucose 253 H 339 H Random Glucose Estimat Average Glucose Hemoglobin A1c % Calcium Total Bilirubin AST ALT Alkaline Phosphatase Total Protein Albumin Urine Color Urine Appearance Urine pH Ur Specific [place] Urine Protein Urine Glucose (UA) Urine Ketones Urine Blood Urine Nitrite Ur Leukocyte Esterase Urine RBC Urine WBC Ur Squamous Epith Cells Urine Bacteria Hyaline Casts Blood Type B Positive Antibody Screen NEGATIVE 05/30/23 07:10 MCV MCH MCHC RDW Plt Count MPV Immature Gran % (Auto) Neut % (Auto) Lymph % (Auto) [place] % (Auto) Eos % (Auto) Baso % (Auto) Lymph # (Auto) [place] # (Auto) Eos # (Auto) Baso # (Auto) Abs Immat Gran (auto) Absolute Neuts (auto) Absolute Nucleated RBC Nucleated RBC % (auto) Anion Gap Estim Creat Clear Calc Estimated GFR POC Glucose 204 H Random Glucose Estimat Average Glucose Hemoglobin A1c % Calcium Total Bilirubin AST ALT Alkaline Phosphatase Total Protein Albumin Urine Color Urine Appearance Urine pH Ur Specific [place] Urine Protein Urine Glucose (UA) Urine Ketones Urine Blood Urine Nitrite Ur Leukocyte Esterase Urine RBC Urine WBC Ur Squamous Epith Cells Urine Bacteria Hyaline Casts Blood Type Antibody Screen Microbiology Microbiology Results: Microbiology 05/29/23 12:21 Urine Culture - Final Urine clean catch - Urine reaves top Procedures Date of Service Date of Service: 05/30/23 Progress Note: A&P Assessment and plan (1) Abscess, perirectal: Status: Acute (2) Diabetes mellitus: Status: Acute Plan POD #1 s/p I&D of perirectal abscess. Doing well post op. I&D site clean, less induration and erythema. Cont IV abx for now. Await hospitalist input regarding antihyperglycemics for newly diagnosed diabetes mellitus. Patient comfortable with plan. Likely home tomorrow on PO abx. Time Spent With Patient Time: Total time managing care of this patient today ____ minutes. Quality Stroke Does the patient have a stroke diagnosis?: No VTE Prior VTE?: No VTE Risk Level:: Surgical - low VTE Device Contraindication: N/A - Device Ordered VTE Drug Contraindication: N/A - Med Ordered
[2023-05-30] MEDS: Insulin Lispro 100 UNIT/ML 3 ML VIAL SUBCUT ×4 (07:56→21:08)
[2023-05-30] MEDS: Docusate Sodium 100 MG CAPSULE PO ×2 (07:57→21:07)
[2023-05-30] MEDS: Morphine Sulfate 2 MG/ML CARTRIDGE 4 MG IVPUSH ×2 (08:05→15:29)
[2023-05-30 09:00] VITALS: O2SAT 92
--- NOTE | 2023-05-30 09:44 | MHC.CM.PN ---
pt shawn ma is working and independent pt has own ride home dc plan home no servies
[2023-05-30] MEDS: Acetaminophen 325 MG TABLET 650 MG PO (10:27)
[2023-05-30] MEDS: oxyCODONE HCl Immed Release 5 MG TABLET 10 MG PO (10:27)
[2023-05-30 10:59] LABS: Cholesterol 155 mg/dL (<200); HDL Cholesterol 31 mg/dL (>40); LDL Cholesterol Calculated 99 mg/dL (<100); Triglycerides 126 mg/dL (<150)
[2023-05-30 11:08] LABS: Glucose, Whole Blood 272 mg/dL (60-115)
[2023-05-30 11:11] LABS: TSH reflex Free T4 0.11 uIU/mL (0.32-4.0)
[2023-05-30 11:54] LABS: Free T4 (Free Thyroxine) 1.27 ng/dL (0.71-1.85)
--- NOTE | 2023-05-30 13:30 | PC.NURSE ---
Education provided to patient regarding diabetes management, specifically sliding scale and injection of insulin. Pt was able to verbalize the correct amount of insulin needed for blood sugar using sliding scale based off of POC result. Pt was then able to self administer insulin with supervision of RN. Handout given to patient on diabetic diet.
[2023-05-30 15:23] VITALS: BP 115/56; PULSE 65; RESP 18; TEMP 36.4; O2SAT 94
[2023-05-30] MEDS: Milk of Magnesia 30 ML ORAL.SUSP PO (15:27)
[2023-05-30 16:11] LABS: Glucose, Whole Blood 282 mg/dL (60-115)
[2023-05-30] MEDS: 0.9 % Sodium Chloride Flush 3 ML SYRINGE IVFLUSH ×2 (16:56→21:13)
[2023-05-30 19:00] VITALS: BP 106/57; PULSE 78; RESP 18; TEMP 37.1; O2SAT 98
[2023-05-30 20:03] LABS: Glucose, Whole Blood 286 mg/dL (60-115)
[2023-05-30] MEDS: Insulin Glargine,Hum.rec.anlog 100 UNIT/ML 10 ML VIAL 16 UNIT SUBCUT (21:07)
[2023-05-31 03:26] VITALS: BP 115/56; PULSE 61; RESP 18; TEMP 36.5; O2SAT 96
[2023-05-31] MEDS: Piperacillin Sodium/Tazobactam 3.375 GM in 0.9 % Sodium Chloride 50 ML IV ×2 (03:28→10:45)
[2023-05-31 07:19] VITALS: BP 115/64; PULSE 64; RESP 16; TEMP 36.6; O2SAT 94
[2023-05-31 07:20] VITALS: BP 115/64; PULSE 62; RESP 16; TEMP 36; O2SAT 94
[2023-05-31 07:27] LABS: Glucose, Whole Blood 225 mg/dL (60-115)
[2023-05-31] MEDS: Insulin Lispro 100 UNIT/ML 3 ML VIAL SUBCUT ×2 (07:51→11:51)
[2023-05-31] MEDS: 0.9 % Sodium Chloride Flush 3 ML SYRINGE IVFLUSH (07:53)
--- NOTE | 2023-05-31 10:24 | P.PNIM_ITS ---
Subjective Subjective Date of Service: 05/31/23 Interval History: Seen and evaluated this morning Feels better, plan to discharge home Review of Systems Review of Systems: Yes all other systems are reviewed and are negative Physical Exam 2 Vital Signs: Vital Signs: Last Vital Signs Temp 96.8 F 05/31/23 07:20 Pulse 62 05/31/23 07:20 Resp 16 05/31/23 07:20 BP 115/64 05/31/23 07:20 Pulse Ox 94 05/31/23 07:20 O2 Del Method Room Air 05/31/23 07:20 O2 Flow Rate 2 05/30/23 07:05 BMI result Body Mass Index 31.6 Const: Other: Constitutional : Awake, interactive, not in distress Neck : Normal inspection, Supple Cardiovascular : RRR, no JVP, no lower extremity edema Respiratory : good bilateral air entry, no crackles, wheezes or rhonchi Gastrointestinal: soft, lax, Normal bowel sounds, Non tender Skin : Warm, Dry, abscess area dressed and clean Neurological : Alert & oriented x3, No focal deficit Objective Data Active Medications Acetaminophen (Acetaminophen 325 Mg Tablet) 650 mg PO Q6H PRN PRN Reason: Pain, Mild (Pain Scale 1-3) Last Admin: 05/30/23 10:27 Dose: 650 mg Documented By: EVELYN Al Hydroxide/Mg Hydroxide (Magnesium Hydrox/Alum Hydrox 30 Ml Oral.Susp) 30 ml PO Q4H PRN PRN Reason: Heartburn/Nausea Albuterol Sulfate (Albuterol Sulfate (0.083%) 2.5 Mg/3 Ml Vial.Neb) 2.5 mg INHALE ONCE PRN PRN Reason: Wheezing Dextrose (Dextrose 50 % 25 Gm/50 Ml Syringe) 25 gm IVPUSH Q15M PRN; Protocol PRN Reason: per Hypoglycemia Standing Ord. Docusate Sodium (Docusate Sodium 100 Mg Capsule) 100 mg PO BID HALLIE Last Admin: 05/31/23 07:53 Dose: Not Given Documented By: SIVA Non-Admin Reason: pt declined Fentanyl (Fentanyl Citrate/Pf 100 Mcg/2 Ml Vial) 25 mcg IVPUSH Q5M PRN; Protocol PRN Reason: Pain, Moderate(Pain Scale 4-6) Glucose (Glucose Gel 15 Gm Gel..Gram.) 15 gm PO Q15M PRN; Protocol PRN Reason: per Hypoglycemia Standing Ord. Hydromorphone HCl (Hydromorphone Hcl 0.5 Mg/0.5 Ml Syringe) 0.25 mg IVPUSH Q5M PRN; Protocol PRN Reason: Pain, Severe (Pain Scale 7-10) Piperacillin Sod/Tazobactam (Sod 3.375 gm/ Sodium Chloride) 50 mls @ 100 mls/hr IV Q6H [facility] Last Infusion: 05/31/23 04:31 Dose: Infused Documented By: KELLY Insulin Glargine (Insulin Glargine,Hum.Rec.Anlog 100 Unit/Ml 10 Ml Vial) 22 unit SUBCUT BEDTIME [facility] Insulin Human Lispro (Insulin Lispro 100 Unit/Ml 3 Ml Vial) 0 unit SUBCUT QIDACHS [facility]; Protocol Last Admin: 05/31/23 07:51 Dose: 4 unit Documented By: SIVA Morphine Sulfate (Morphine Sulfate 2 Mg/Ml Cartridge) 4 mg IVPUSH Q4H PRN; Protocol PRN Reason: Pain, Severe (Pain Scale 7-10) Last Admin: 05/30/23 15:29 Dose: 4 mg Documented By: UNIQUE Ondansetron HCl (Ondansetron Hcl 4 Mg/2 Ml Vial) 4 mg IVPUSH ONCE PRN PRN Reason: Nausea and Vomiting Ondansetron HCl (Ondansetron Hcl 4 Mg/2 Ml Vial) 4 mg IVPUSH Q8H PRN PRN Reason: Nausea and Vomiting Oxycodone HCl (Oxycodone Hcl Immed Release 5 Mg Tablet) 5 mg PO Q4H PRN PRN Reason: Pain, Moderate(Pain Scale 4-6) Oxycodone HCl (Oxycodone Hcl Immed Release 5 Mg Tablet) 10 mg PO Q4H PRN PRN Reason: Pain, Severe (Pain Scale 7-10) Last Admin: 05/30/23 10:27 Dose: 10 mg Documented By: EVELYN Polyethylene Glycol (Polyethylene Glycol 3350 17 Gm Powd.Pack) 17 gm PO DAILY [facility] Last Admin: 05/31/23 07:53 Dose: Not Given Documented By: SIVA Non-Admin Reason: pt declined Sodium Chloride (0.9 % Sodium Chloride Flush 3 Ml Syringe) 3 ml IVFLUSH QSHIFT [facility] Last Admin: 05/31/23 07:53 Dose: 3 ml Documented By: SIVA Zolpidem Tartrate (Zolpidem Tartrate 5 Mg Tablet) 5 mg PO BEDTIME PRN PRN Reason: Insomnia Last Admin: 05/30/23 00:05 Dose: 5 mg Documented By: KARISSA Labs 05/29/23 10:14 05/29/23 10:14 Labs: Laboratory Results - last 24 hr 05/30/23 05/30/23 05/30/23 09:50 11:03 16:08 Hold Purple Top SEE NOTE POC Glucose 272 H 282 H Triglycerides 126 Cholesterol 155 LDL Cholesterol, Calc 99 HDL Cholesterol 31 L TSH 0.11 L Free T4 1.27 05/30/23 05/31/23 19:59 07:23 Hold Purple Top POC Glucose 286 H 225 H Triglycerides Cholesterol LDL Cholesterol, Calc HDL Cholesterol TSH Free T4 Microbiology Microbiology Results: Microbiology 05/29/23 16:00 Gram Stain - Final [place]in[place]-rectal abscess Routine Culture - Final Klebsiella pneumoniae Strep agalactiae (Grp B) 05/29/23 12:21 Urine Culture - Final Urine clean catch - Urine reaves top Assessment and Plan (1) Diabetes mellitus: Status: Acute (2) Abscess, perirectal: Status: Acute Plan 62 year old WF with PMH of hyperlipidemia here with # Newly diagnosed Type 2 diabetes mellitus w hyperglycemia HgbA1c at 14 Increase Insulin Lantus to 20 units at bed time SSI coverage start Metformin as outpatient diabetic teaching prior to discharge # Corinna-rectal abscess s/p I&D management per Surgery. Thanks for the consult. Quality Stroke Does the patient have a stroke diagnosis?: No VTE Prior VTE?: No VTE Risk Level:: Surgical - low VTE Device Contraindication: N/A - Device Ordered VTE Drug Contraindication: N/A - Med Ordered
--- NOTE | 2023-05-31 10:34 | P.PNGS_ITS ---
Subjective Subjective Date of Service: 05/31/23 Interval history: Feels much better. Minimal pain at I&D site. Feels ready for dc to home. Physical Exam 2 Vital Signs: Vital Signs: Last Vital Signs Temp 96.8 F 05/31/23 07:20 Pulse 62 05/31/23 07:20 Resp 16 05/31/23 07:20 BP 115/64 05/31/23 07:20 Pulse Ox 94 05/31/23 07:20 O2 Del Method Room Air 05/31/23 07:20 O2 Flow Rate 2 05/30/23 07:05 BMI result Body Mass Index 31.6 Const: General: comfortable, no acute distress and alert O rientation/consciousness: patient oriented x3 Resp: Effort & Inspection: normal respiratory effort GI: Other: perirectal abscess I&D site- very little residual induration, site clean, no drainage, packing changed Skin: General skin exam: no rashes or lesions noted Neuro: General: patient oriented x3 Objective Data Active Medications Acetaminophen (Acetaminophen 325 Mg Tablet) 650 mg PO Q6H PRN PRN Reason: Pain, Mild (Pain Scale 1-3) Last Admin: 05/30/23 10:27 Dose: 650 mg Documented By: EVELYN Al Hydroxide/Mg Hydroxide (Magnesium Hydrox/Alum Hydrox 30 Ml Oral.Susp) 30 ml PO Q4H PRN PRN Reason: Heartburn/Nausea Albuterol Sulfate (Albuterol Sulfate (0.083%) 2.5 Mg/3 Ml Vial.Neb) 2.5 mg INHALE ONCE PRN PRN Reason: Wheezing Dextrose (Dextrose 50 % 25 Gm/50 Ml Syringe) 25 gm IVPUSH Q15M PRN; Protocol PRN Reason: per Hypoglycemia Standing Ord. Docusate Sodium (Docusate Sodium 100 Mg Capsule) 100 mg PO BID HALLIE Last Admin: 05/31/23 07:53 Dose: Not Given Documented By: SIVA Non-Admin Reason: pt declined Fentanyl (Fentanyl Citrate/Pf 100 Mcg/2 Ml Vial) 25 mcg IVPUSH Q5M PRN; Protocol PRN Reason: Pain, Moderate(Pain Scale 4-6) Glucose (Glucose Gel 15 Gm Gel..Gram.) 15 gm PO Q15M PRN; Protocol PRN Reason: per Hypoglycemia Standing Ord. Hydromorphone HCl (Hydromorphone Hcl 0.5 Mg/0.5 Ml Syringe) 0.25 mg IVPUSH Q5M PRN; Protocol PRN Reason: Pain, Severe (Pain Scale 7-10) Piperacillin Sod/Tazobactam (Sod 3.375 gm/ Sodium Chloride) 50 mls @ 100 mls/hr IV Q6H [facility] Last Infusion: 05/31/23 04:31 Dose: Infused Documented By: KELLY Insulin Glargine (Insulin Glargine,Hum.Rec.Anlog 100 Unit/Ml 10 Ml Vial) 22 unit SUBCUT BEDTIME [facility] Insulin Human Lispro (Insulin Lispro 100 Unit/Ml 3 Ml Vial) 0 unit SUBCUT QIDACHS [facility]; Protocol Last Admin: 05/31/23 07:51 Dose: 4 unit Documented By: SIVA Morphine Sulfate (Morphine Sulfate 2 Mg/Ml Cartridge) 4 mg IVPUSH Q4H PRN; Protocol PRN Reason: Pain, Severe (Pain Scale 7-10) Last Admin: 05/30/23 15:29 Dose: 4 mg Documented By: UNIQUE Ondansetron HCl (Ondansetron Hcl 4 Mg/2 Ml Vial) 4 mg IVPUSH ONCE PRN PRN Reason: Nausea and Vomiting Ondansetron HCl (Ondansetron Hcl 4 Mg/2 Ml Vial) 4 mg IVPUSH Q8H PRN PRN Reason: Nausea and Vomiting Oxycodone HCl (Oxycodone Hcl Immed Release 5 Mg Tablet) 5 mg PO Q4H PRN PRN Reason: Pain, Moderate(Pain Scale 4-6) Oxycodone HCl (Oxycodone Hcl Immed Release 5 Mg Tablet) 10 mg PO Q4H PRN PRN Reason: Pain, Severe (Pain Scale 7-10) Last Admin: 05/30/23 10:27 Dose: 10 mg Documented By: EVELYN Polyethylene Glycol (Polyethylene Glycol 3350 17 Gm Powd.Pack) 17 gm PO DAILY [facility] Last Admin: 05/31/23 07:53 Dose: Not Given Documented By: SIVA Non-Admin Reason: pt declined Sodium Chloride (0.9 % Sodium Chloride Flush 3 Ml Syringe) 3 ml IVFLUSH QSHIFT [facility] Last Admin: 05/31/23 07:53 Dose: 3 ml Documented By: SIVA Zolpidem Tartrate (Zolpidem Tartrate 5 Mg Tablet) 5 mg PO BEDTIME PRN PRN Reason: Insomnia Last Admin: 05/30/23 00:05 Dose: 5 mg Documented By: KARISSA Labs 05/29/23 10:14 05/29/23 10:14 Labs: Laboratory Results - last 24 hr 05/30/23 05/30/23 05/30/23 09:50 11:03 16:08 POC Glucose 272 H 282 H Triglycerides 126 Cholesterol 155 LDL Cholesterol, Calc 99 HDL Cholesterol 31 L TSH 0.11 L Free T4 1.27 05/30/23 05/31/23 19:59 07:23 POC Glucose 286 H 225 H Triglycerides Cholesterol LDL Cholesterol, Calc HDL Cholesterol TSH Free T4 Microbiology Microbiology Results: Microbiology 05/29/23 16:00 Gram Stain - Final [place]-rectal abscess Routine Culture - Final Klebsiella pneumoniae Strep agalactiae (Grp B) 05/29/23 12:21 Urine Culture - Final Urine clean catch - Urine reaves top Procedures Date of Service Date of Service: 05/31/23 Progress Note: A&P Assessment and plan (1) Diabetes mellitus: Status: Acute (2) Abscess, perirectal: Status: Acute Plan POD #2 s/p I&D of perirectal abscess. Doing well post op. I&D site clean, very little induration remaining. Stable for dc to home today on PO abx with [facility] services for every other day packing/dressing changes. Insulin per hospitalist service. F/u in office in [address] Puga, f/u with PCP regarding further management of diabetes. Time Spent With Patient Time: Total time managing care of this patient today ____ minutes. Quality Stroke Does the patient have a stroke diagnosis?: No VTE Prior VTE?: No VTE Risk Level:: Surgical - low VTE Device Contraindication: N/A - Device Ordered VTE Drug Contraindication: N/A - Med Ordered
--- NOTE | 2023-05-31 11:12 | MHC.CM.PN ---
DP: PT HAS BEEN MEDICALLY CLEARED FOR DC HOME. PT'S INSURANCE DOES NOT INCLUDE A HOME HEALTH BENEFIT. MD AWARE AND REQUEST FOR SCRIPT FOR DRESSING SUPPLIES MADE. PT AWARE AND WILL HAVE DAUGHTER AND NIECE ASSIST WITH DRESSING CHANGES. DAUGHTER WILL TRANSPORT HOME.
[2023-05-31 11:15] LABS: Glucose, Whole Blood 347 mg/dL (60-115)
[2023-05-31] MEDS: Acetaminophen 325 MG TABLET 650 MG PO (12:03)
[2023-05-31] MEDS: oxyCODONE HCl Immed Release 5 MG TABLET 10 MG PO (12:03)
--- NOTE | 2023-06-05 09:04 | P.DS_ITS ---
DS: Providers Provider Date of Service: 05/31/23 Date of admission: 05/29/23 16:12 Date of discharge: 05/31/23 [facility] Attending physician on admission: Justin Puga Consults: 05/29/23 16:12 Consult to Hospitalist Routine Comment: Consulting Provider: Hospitalist Reason For Exam: newly diagnosed diabetes mellitus Attending physician on discharge: Justin Puga DS: Diagnosis Discharge Diagnosis (1) Diabetes mellitus: Status: Acute (2) Abscess, perirectal: Status: Acute DS: Summary Hospital Course Hospital Course: HPI AT ADMISSION: Hazel Coyne is a 62 year old female with PMH of anxiety, depression, ANG, left ventricular hypertrophy who presented to the ED with complaints of constipation and painful lump on her buttocks. She noted that yesterday it was uncomfortable sitting down. The pain gradually worsened and became severe prompting her to seek care in the ED. She reports some redness and a little drainage from the area. She denies fevers, chills, diarrhea. She denies similar episodes. Work up included CBC, BMP which was significant for leukocytosis of 13.3 and glucose of 369 with Hgb A1c >14. CT scan abd/pelvis was obtained which did not include the lower pelvis and the area of concern. Bedside US was performed which showed a large collection. Last PO intake was a bite of toast and tea this morning at 6am. HOSPITAL COURSE: She was admitted to the surgical service for further treatment of the perirectal abscess. It was recommended to proceed with EUA, I&D of perirectal abscess in OR with sedation. She is in agreemen and was added onto the OR schedule for that day. She was started on IV zosyn. Hospitalist service was consulted for management of her newly diagnosed diabetes mellitus. On 05/29/23, incision and drainage complex right perirectal abscess was performed by Dr. Puga without immediate complication. She tolerated the procedure well. She had an uncomplicated recovery course. She remained inpatient for 2 days for IV abx treatment and management of her diabetes mellitus. Her wound was significantly improved on the day of discharge with very little residual induration, edema. It was clean without purulent drainage. She is to continue daily to every other day packing and dressing changes with wet to dry saline fluffs. Diabetes mellitus education was performed by the hospitalist service and she was started on insulin lispro sliding scale and insulin glargine 20U subq q PM. She was also started on Metformin 500mg PO BID with meals. She is to follow up with her PCP upon discharge regarding further management. She was discharged to home on 05/31/23 on PO Augmentin with f/u in office in [address] Puag. Status at Discharge Functional status at discharge: independent ambulation Overall status at discharge: patient is progressing back to baseline Time Attestation Discharge coordination time: Greater than 30 minutes Quality: Safe Use of Opioids Does Pt have an Active Cancer Diagnosis on the Problem List?: No Quality: Stroke Does the patient have a stroke diagnosis?: No Physical Exam Vital Signs: Vital Signs: Last Vital Signs Temp 96.8 F 05/31/23 07:20 Pulse 62 05/31/23 07:20 Resp 16 05/31/23 07:20 BP 115/64 05/31/23 07:20 Pulse Ox 94 05/31/23 07:20 O2 Del Method Room Air 05/31/23 07:20 O2 Flow Rate 2 05/30/23 07:05 BMI result Body Mass Index 31.6 Const: General: comfortable, no acute distress and alert Orientation/consciousness: patient oriented x3 Resp: Effort & Inspection: normal respiratory effort GI: Other: perirectal abscess site open and draining, clean, very minimal residual surrounding induration Skin: General skin exam: no rashes or lesions noted Neuro: General: patient oriented x3 and moves all extremities Discharge Plan Discharge Anticipated Discharge Date/Time: 05/31/23 13:28 Patient Disposition: Home Health Service Discharge Diagnosis: perirectal abscess, diabetes mellitus Referrals: Raffy Garnett, MARZIPAN MOLDER- [Primary Care Provider] - 1 Week Justin Puga MD [Physician] - 1 Week Discharge Medications: New amoxicillin-pot clavulanate 875-125 mg tablet 1 tab PO BID Qty: 14 0RF oxycodone 5 mg tablet 5 mg PO Q4H PRN (Reason: pain) Qty: 24 0RF Rx Instructions: Partial Fill upon patient request. (DME) FreeStyle Lite Strips Strip See Rx Instructions .ROUTE .MEDSUPPLY Qty: 100 2RF Rx Instructions: QID (DME) lancets Misc See Rx Instructions .ROUTE .MEDSUPPLY Qty: 200 2RF Rx Instructions: 4 times daily (DME) blood-glucose meter [FreeStyle Lite Meter] Kit See Rx Instructions .ROUTE .MEDSUPPLY Qty: 1 0RF Rx Instructions: As directed alcohol swabs Pads, Medicated 1 pad topical QIDACHS Qty: 200 2RF (DME) pen needle, diabetic [Pen Needle] 31 gauge x 5/16 needle See Rx Instructions .ROUTE .MEDSUPPLY Qty: 1200 2RF Rx Instructions: As directed insulin glargine-aglr 100 unit/mL (3 mL) insulin pen 20 unit subcut QPM Qty: 15 2RF insulin lispro 100 unit/mL insulin pen See Protocol subcut USEASDIRECTD Qty: 15 2RF Protocol: Insulin Correction Scale Less than or equal to 110 ---- Give (units): 0 111 to 150 Give (units): 0 151 to 200 Give (units): 2 201 to 250 Give (units): 4 251 to 300 Give (units): 6 301 to 350 Give (units): 8 Greater than 350 Give (units): 10 Call MD if Blood Glucose > : 350 metformin 500 mg tablet 500 mg PO BIDWMEAL Qty: 60 2RF Saline Wound Wash 0.9 % solution See Rx Instructions .ROUTE .COMPLEX Qty: 210 0RF Rx Instructions: moisten packing with saline (DME) Kerlix 4 X 4 sponge See Rx Instructions .Route Qty: 1200 0RF Rx Instructions: As directed oxycodone 5 mg capsule 5 mg PO Q4H PRN (Reason: pain) Qty: 30 0RF Rx Instructions: Partial Fill upon patient request. Continued sertraline 100 mg tablet 100 mg PO DAILY Qty: 90 0RF Rx Instructions: Future refills pending upcoming appt atorvastatin 20 mg tablet 20 mg PO BEDTIME Qty: 90 1RF Rx Instructions: Schedule PCP appt for future refills cholecalciferol (vitamin D3) 25 mcg (1,000 unit) capsule 50 mcg PO DAILY No Action insulin degludec [Tresiba FlexTouch U-100] 100 unit/mL (3 mL) insulin pen 20 unit subcut BEDTIME Qty: 15 0RF Discharge Orders: Discharge Order (Routine); Ordered 05/31/23 Ordered By: Rubén Fonseca Diet: Diabetic diet Activity on Discharge: No heavy lifting Stand Alone Forms: Patient Portal Discharge page Activity Restrictions/Additional Instructions: Remove dressing and packing, take a shower and cleanse site prior to dressing change. Dressing change: gentle packing with saline soaked fluff followed by fluffs, abd dressing. Change every other day. Follow up in office in a week. ([phone]) Call Your Doctor Or Return to ED If: ? ? -Your temperature exceeds 101.5? F? ? ? -You experience excessive pain or swelling ? ? -You have an unexpected reaction to medication ? ? -You experience continued vomiting/nausea New onset type 2 diabetes: -A1c in hospital >14%- goal <7.0% -Work on improving diet to lower sugar/carbohydrate intake -Check your sugar fasting every morning (goal 90-130) and before meals -Use insulin as prescribed. -Monitor for low blood sugars <70. Drink small amount of juice or eat a small amount of something sweet to elevate sugar -Follow up with PCP soon, get A1c checked every 3 months. Ask for referral to diabetes education. -Get eyes exam annually -Follow up with your PCP Care Plan Goals: Return to baseline health. Better control of sugars. Health Concerns: Perirectal abscess Newly diagnosed diabetes mellitus Plan of Treatment: S/p I&D IV transitioned to PO abx VNA services, dressing changes every other day F/u in office with Dr. Puga and PCP Assessment: Lantus insulin 20 units at bedtime Lispro insulin (short acting), with meals according to sliding scale Monitor sugar readings 3 times daily and report 1 week readings to PCP. Patient Instructions: Type 2 Diabetes in Adults: New Diagnosis (DC), Meal Planning with Diabetes Exchanges (DC), Diabetic Hyperglycemia (DC), What to Do if Your Blood Sugar is Low (DC), Diabetes and Nutrition (DC) Discharge Date/Time: 05/31/23 14:00
== END 2023-05-31 14:00 | disposition home health service (06) | DRG 346 ==
LOC: HO.SSS 17:49 → HO.ED 17:49 → HO.SSSA 17:51 → HO.S3 19:03
PROVIDERS: Internal Medicine; Physician Assistant Medical; Surgery; Admitting Provider Physician Assistant Surgical; Emergency Provider Emergency Medicine; PCP Nurse Practitioner Family; Visit Provider Physician Assistant Surgical
PROC: 0D9P0ZZ Drainage of Rectum, Open Approach (ICD-10-PCS; CPT 46040; principal; 2023-05-29 15:30)
DX: K61.1 Rectal abscess (principal); G47.33 Obstructive sleep apnea (adult) (pediatric); F17.210 Nicotine dependence, cigarettes, uncomplicated; Z71.6 Tobacco abuse counseling; Z79.899 Other long term (current) drug therapy
CPT/HCPCS: 46040; 36415; 74177; 80053; 80061; 81001; 82947; 83036; 84439; 84443; 85025; 86850; 86900; 86901; 87070; 87077; 87086; 87147; 87186; 87205; 99024; 99285; J2250; J2270; J2543; J2704; J2795; J3010

== ENCOUNTER → 2023-05-29 08:41 | Outpatient (BNV) | payer OTHER, SELFPAY | PROVIDERS: Emergency Provider Emergency Medicine; PCP Nurse Practitioner Family; Visit Provider Physician Assistant Surgical | DX: K61.1 Rectal abscess (principal); E11.65 Type 2 diabetes mellitus with hyperglycemia | CPT/HCPCS: 46040; 99024; 99222 ==

== ENCOUNTER → 2023-05-29 16:12 | Outpatient (BNV) | payer OTHER, SELFPAY | PROVIDERS: Admitting Provider Physician Assistant Surgical; Emergency Provider Emergency Medicine; PCP Nurse Practitioner Family; Visit Provider Internal Medicine | DX: E11.65 Type 2 diabetes mellitus with hyperglycemia (principal); K61.1 Rectal abscess | CPT/HCPCS: 99222; 99231 ==

== ENCOUNTER 2023-06-11 12:43 | Outpatient (AMB) | payer OTHER, SELFPAY ==
--- NOTE | 2023-06-11 12:47 | MHC.OFFVIS ---
Intake Vital Signs 06/11/23 12:51 Weight 179 lb BP 130/70 Blood Pressure Location Rt brachial Position Sitting Pulse 84 Intake Visit Reasons: Perirectal Abscess - In pt I&D Intake Note: Patient is seen in office for evaluation and treatment of a perirectal abscess. Pt c/o: reports soreness. Sales And Customer Relations Rep Required: No Accompanied by: Self / Same As Patient Allergies codeine [Codeine] Allergy (Intermediate, Verified 06/11/23 12:53) FELT OUT OF SORTS HPI HPI Comments History of Present Illness Details Status post I and D of large perirectal abscess. Patient's daughter has been undergoing wound care/packing changes. Patient has marked improvement of her symptoms. She is otherwise doing well. PFSH Medical History Hip pain Anxiety and depression ANG (obstructive sleep apnea) Constipation Osteoarthritis Cervical neck pain with evidence of disc disease Left ventricular hypertrophy Smoker Surgical History History of carpal tunnel surgery History of hysterectomy Family History Father Heart problem Mother No problems noted. Sister Breast cancer Daughter Overweight Maternal Grandfather Cancer Maternal Grandmother Multiple myeloma Paternal Grandfather Unknown family medical history Paternal Grandmother Unknown family medical history Social History Household Members: None Housing: House Do you presently have visiting nurse or other home services: No Alcohol intake: current Alcohol intake frequency: holidays/special occasions only Patient Tobacco Use Status: Current everyday Tobacco user Tobacco use type: Cigarette Cigarette Packs Per Day: 1 Cigarettes Per Day: 15 e-Cigarette/Vaping Use: Never Used Second Hand Smoke Exposure: No service: No Current occupational status: employed 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 Wound granulating well. Complete resolution of infective process. Assessment & Plan Assessment & Plan (1) Status post incision and drainage: Code(s): Z98.890 - Other specified postprocedural states Plan Patient is to continue packing until the end of the week where then she can transition to a Band-Aid dressing. All questions answered. Patient will follow-up p.r.n.. She is to see her medical doctor for for glucose/insulin issues next week. Coding Level of Care Code Global (81657) Diagnoses Status post incision and drainage Z98.890
[2023-06-11 12:51] VITALS: BP 130/70; PULSE 84
== END 2023-06-11 13:06 | disposition home or self-care (01) ==
PROVIDERS: PCP Nurse Practitioner Family; Visit Provider Surgery
DX: Z98.890 Other specified postprocedural states (principal)
CPT/HCPCS: 99024

== ENCOUNTER → 2023-06-11 12:43 | Outpatient (BNVA) | payer OTHER, SELFPAY | PROVIDERS: PCP Nurse Practitioner Family; Visit Provider Surgery ==

== ENCOUNTER 2023-06-20 15:14 | Outpatient (AMB) | payer OTHER, SELFPAY ==
--- NOTE | 2023-06-20 15:18 | MHC.PC.OV ---
Vital Signs 06/20/23 15:21 Weight 180 lb BP 130/80 Blood Pressure Location Lt brachial Position Sitting Pulse 69 Pulse Source Pulse Oximeter Pulse Oximetry (%) 96 Oxygen Delivery Method Room Air Intake Visit Reasons: Annual PE Intake Note: Patient here for physical exam. Allergies codeine [Codeine] Allergy (Intermediate, Verified 06/20/23 15:21) FELT OUT OF SORTS Tobacco use date assessed: 06/20/23 Dental Screening Dental Screen Date: 06/20/23 Did you have a dental visit in the last 12 months?: Yes Did you have a dental problem in the last 6 months where you did not have access to dental care?: No Was dental information given to patient?: Patient has dentist HPI Annual PE HPI Details Pt is here for a PE. Will order labs. Due for colon screen, will REorder cologuard. Mammo is up to date. Pt is a diabetic, on a statin. A1C in office today is >14. Due for microalbumin, will order. Denies polyuria, polydipsia, and neuropathy. Pt denies any signs and symptoms of hypoglycemia and does know how to correct it. Will refer to nurse navigator for diabetes education. Pt is interested in a glucose sensor/transmitter. Will send. Pt brought in blood sugars from home. She is taking her lispro around meals and lantus at night. Will increase lantus from 20 units to 30 units and increase metformin from 500mg bid to 1000mg bid. Will also start ozempic 0.25mg. Pt has a perirectal abscess. She recently had an I&D. Pt reports that this is 85% healed. Will have pt to continue to cover this region, monitor for s/s of infection. Pt has been a PPD smoker since age 16. Will refer for low-dose CT. Encouraged pt to obtain her RSV and pneumonia vaccines at her pharmacy. [facility] Medical History Diabetes mellitus Hip pain Anxiety and depression ANG (obstructive sleep apnea) Constipation Osteoarthritis Cervical neck pain with evidence of disc disease Left ventricular hypertrophy Smoker Surgical History History of carpal tunnel surgery History of hysterectomy Family History Father Heart problem Mother No problems noted. Sister Breast cancer Daughter Overweight Maternal Grandfather Cancer Maternal Grandmother Multiple myeloma Paternal Grandfather Unknown family medical history Paternal Grandmother Unknown family medical history Social History Household Members: None Housing: House Do you presently have visiting nurse or other home services: No Alcohol intake: current Alcohol intake frequency: holidays/special occasions only Patient Tobacco Use Status: Current everyday Tobacco user Tobacco use type: Cigarette Cigarette Packs Per Day: 1 Cigarettes Per Day: 15 e-Cigarette/Vaping Use: Never Used Second Hand Smoke Exposure: No service: No Current occupational status: employed 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 How often do you have a drink containing alcohol?: Never 3. How often do you have six or more drinks on one occasion?: Never Total Score: 0 Score Reviewed/Action Taken: No MAINOR-7 AMB Questionnaire MAINOR-7 Date MAINOR - 7 assessed: 11/15/21 Source: Developed by Drs. Alphonso Medina, Padmini Michele, Jun Davis and colleagues, with an educational brayan from [employer]. Review of Systems Const Denies chills and Denies fever(s) Eyes Denies blurry vision ENT Denies vertigo, Denies dizziness and Denies sore throat Card Denies chest pain at rest, Denies chest pain with activity, Denies diaphoresis, Denies dyspnea and Denies dyspnea on exertion Resp Denies cough, Denies dyspnea, Denies dyspnea on exertion and Denies wheezing GI Denies abdominal pain, Denies melena, Denies hematochezia, Denies constipation, Denies diarrhea and Denies loose stools Denies hematuria Musc Denies numbness and Denies tingling Skin/Breast Denies lesions Neuro Denies vertigo, Denies dizziness, Denies numbness and Denies tingling Psych Denies anxiety, Denies depression, Denies homicidal ideation, Denies suicidal ideation and Denies other (substance abuse) Aller/Immun Denies wheezing Physical exam (Primary Care) Vital Signs: Last Vital Signs Pulse 69 01/17/24 15:21 BP 130/80 06/20/23 15:21 Pulse Ox 96 06/20/23 15:21 Oxygen Delivery Method Room Air 06/20/23 15:21 Tobacco/Smoking Status: Tobacco use Status Tobacco use date assessed 06/20/23 06/20/23 15:22 Patient Tobacco Use Status Current everyday Tobacco 06/20/23 15:22 Tobacco use type Cigarette 06/20/23 15:22 e-Cigarette/Vaping Use Never Used 06/20/23 15:22 Thrive Assessment: Date of Thrive Assessment Date Thrive assessed 05/30/23 06/20/23 15:22 Const General: cooperative Nutritional Appearance: well nourished Orientation/consciousness: patient oriented x3 HENMT Head: Yes normal to inspection, Yes normocephalic and Yes atraumatic Ears: TM's normal bilaterally Eyes General: appearance normal, both eyes and all related structures Alignment and Position: alignment normal and position normal Neck Neck: Yes normal visual inspection and Yes no lymphadenopathy Thyroid: Thyroid normal Resp Effort & Inspection: normal respiratory effort Auscultation: clear to auscultation bilaterally Cardio Rate: regular rate Rhythm: regular rhythm Heart sounds: S1 normal heart sound present, S2 normal heart sound present and no murmurs GI Other: extensive external hemorrhoids Palpation (GI): Soft to palpation and nontender Auscultation: normal bowel sounds Skin Other: female core sucker (MA) in room, perirectal abscess, healing well with good granulation tissue, no signs of infection Rashes: no rashes Neuro General: patient oriented x3, moves all extremities, no focal motor deficits and deep tendon reflexes 2+ bilaterally Romberg Test: Negative Extrem Other: bilat feet: + sensation with use of monofilament Psych Appearance: grossly normal Mental Status: mental status grossly normal Speech and movement: Normal speech and movement present Affect: normal affect Attitude: cooperative Thought process: Normal thought process present Thought content: Normal thought content present Insight: Good insight present (Psych) Judgement: Good judgement present (Psych) Results AMB Hemoglobin A1c AMB Hemoglobin A1c 14 % Last Edit by Chante Beasley CMA on 06/20/23 15:52 Results Reviewed Results Reviewed: Laboratory Last Values Hgb A1c (Clinic) 14 % (4.0-6.0) H 06/20/23 15:51 Assessment and Plan Assessment & Plan (1) Diabetes mellitus: Code(s): E11.9 - Type 2 diabetes mellitus without complications Plan: Labs ordered (2) Smoker: Code(s): F17.200 - Nicotine dependence, unspecified, uncomplicated (3) Encounter for routine adult physical exam with abnormal findings: Code(s): Z00.01 - Encounter for general adult medical examination with abnormal findings Plan The patient agreed to the use of a medical collections specialist for this encounter. Scribed for SAVANNA Zavala- by Gretel Johnson medical collections specialist, on 06/20/2023 at 15:30 EST. Orders: Orders Microalbumin, Random (w Creat) Today E11.9 - Type 2 diabetes mellitus without complications AMB Hemoglobin A1c Today E11.9 - Type 2 diabetes mellitus without complications Comprehensive [place]. Panel Fast Today E11.9 - Type 2 diabetes mellitus without complications, Z00.01 - Encounter for general adult medical examination with abnormal findings TSH reflex Free T4 Today E11.9 - Type 2 diabetes mellitus without complications, Z00.01 - Encounter for general adult medical examination with abnormal findings UA CC w/rflx Micro + Cult Today E11.9 - Type 2 diabetes mellitus without complications, Z00.01 - Encounter for general adult medical examination with abnormal findings Lipid Panel Today E11.9 - Type 2 diabetes mellitus without complications, Z00.01 - Encounter for general adult medical examination with abnormal findings Complete Blood Count Auto Diff Today E11.9 - Type 2 diabetes mellitus without complications, Z00.01 - Encounter for general adult medical examination with abnormal findings Referrals Nurse Navigator Referral E11.9 - Type 2 diabetes mellitus without complications Cologuard Test Z12.11 - Encounter for screening for malignant neoplasm of colon, Z12.12 - Encounter for screening for malignant neoplasm of rectum Thoracic Surgery Referral F17.200 - Nicotine dependence, unspecified, uncomplicated Medications: New lisinopril 2.5 mg PO DAILY 30 days 30 tabs 3RF lisinopril 2.5 mg PO DAILY 30 days 30 tabs 3RF semaglutide (Ozempic) for 4 weeks 0.25 mg (0.368 mL) subcut QWEEK 3 mL 0RF semaglutide (Ozempic) for 4 weeks 0.25 mg (0.368 mL) subcut QWEEK 3 mL 1RF ketoconazole-hydrocortisone 2-2.5 % 1 appl topical .bid/prn 30 days PRN 30 grams 1RF rash Changed From insulin glargine-aglr 20 units (0.2 mL) subcut QPM 15 mL 2RF To insulin glargine-aglr 30 units (0.3 mL) subcut QPM 15 mL 2RF From metformin 500 mg PO BIDWMEAL 60 tabs 2RF To metformin 1,000 mg PO BIDWMEAL 90 days 180 tabs 2RF Discontinued insulin detemir U-100 (Levemir FlexPen) Discontinued Reason: Doctor's Order 15 units (0.15 mL) subcut BID 15 mL 3RF Coding Level of Care Code Est Pt Prev Care 40-64y(57604) Diagnoses Diabetes mellitus E11.9 Smoker F17.200 Encounter for routine adult physical exam with abnormal findings Z00.01
[2023-06-20 15:21] VITALS: BP 130/80; PULSE 69; O2SAT 96
== END 2023-06-20 16:10 | disposition home or self-care (01) ==
PROVIDERS: PCP Nurse Practitioner Family; Visit Provider Nurse Practitioner Family
DX: Z00.01 Encounter for general adult medical examination with abnormal findings (principal); E11.9 Type 2 diabetes mellitus without complications; F17.210 Nicotine dependence, cigarettes, uncomplicated
CPT/HCPCS: 83036; 99213; 99396

== ENCOUNTER 2023-08-17 09:17 | Outpatient (AMB) | payer OTHER, SELFPAY ==
--- NOTE | 2023-08-17 09:22 | MHC.OFFVIS ---
Intake Intake Visit Reasons: LDCT SD Allergies codeine [Codeine] Allergy (Intermediate, Verified 06/20/23 15:21) FELT OUT OF SORTS HPI HPI Comments History of Present Illness Details Hazel is a pleasant 62 year old female, current smoker with a 45 PYH. Patient has been smoking since age 17 for 45 years at 1 ppd, recently decreased to 1/2 ppd. Denies marijuana use. Denies exposure to chemicals or substances like asbestos. Admits second hand smoke exposure. Denies known family history of lung cancer. Denies personal history of cancers. Denies chest CT in last year. Denies recent travel outside the [place]. Denies testing positive for COVID. Admits receiving COVID Vaccine. Denies fever, chills, chest pain, new cough, hemoptysis or unintentional weight loss. Lung Cancer Screening Questionnaire reviewed with patient by provider. Shared Decision Making Completed. Discussed in detail with patient, the risk versus benefit of LDCT screening. Patient in agreement of proceeding with scan. PFSH Medical History Diabetes mellitus Hip pain Anxiety and depression ANG (obstructive sleep apnea) Constipation Osteoarthritis Cervical neck pain with evidence of disc disease Left ventricular hypertrophy Smoker Surgical History History of carpal tunnel surgery History of hysterectomy Family History Father Heart problem Mother No problems noted. Sister Breast cancer Daughter Overweight Maternal Grandfather Cancer Maternal Grandmother Multiple myeloma Paternal Grandfather Unknown family medical history Paternal Grandmother Unknown family medical history Social History Household Members: None Housing: House Do you presently have visiting nurse or other home services: No Alcohol intake: current Alcohol intake frequency: holidays/special occasions only Patient Tobacco Use Status: Current everyday Tobacco user Tobacco use type: Cigarette Cigarette Packs Per Day: 1 Cigarettes Per Day: 15 e-Cigarette/Vaping Use: Never Used Second Hand Smoke Exposure: No service: No Current occupational status: employed 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 This patient meets criteria for LDCT for lung cancer screening purposes and is asymptomatic. Offered smoking cessation. Patient has been scheduled for a low dose chest CT for screening purposes at [facility]. We discussed how the results will be obtained depending on CT findings. RADS 1 and RADS 2 will receive a letter with results and will follow up for annual LDCT. Patient informed they will be contacted at later date to schedule upcoming LDCT scan. RADS 3 and RADS 4 will receive a telephone call, or an office visit after reviewing case at our Lung Cancer Conference to determine when the next LDCT will be scheduled or further interventions that may be needed. Discussed importance of screening program and compliance with yearly LDCT scan as scheduled. Risks, benefits, and alternatives were discussed in detail and patient agrees to proceed. Risks discussed include but are not limited to: radiation exposure and possibility of additional intervention for benign disease. Benefits include detection of lung cancer at an early stage. A copy of today's visit and LDCT results will be sent to patient's PCP. Incidental findings on LDCT are PCP's responsibility. If there are incidental findings, our office will ensure that PCP office is aware of these findings. All questions were answered and patient is in agreement of plan. Coding Level of Care Code Lung Cancer Screening G0296 Diagnoses Nicotine dependence, cigarettes, uncomplicated F17.210
== END 2023-08-17 09:28 | disposition home or self-care (01) ==
PROVIDERS: PCP Nurse Practitioner Family; Visit Provider Nurse Practitioner Family
DX: F17.210 Nicotine dependence, cigarettes, uncomplicated (principal)
CPT/HCPCS: G0296

== ENCOUNTER 2023-08-17 09:28 | Outpatient (REF) | payer OTHER, SELFPAY ==
--- NOTE | ~2023-08-17 | CT_ITS ---
EXAMINATION: CT CHEST SCREENING CLINICAL INFORMATION: Nicotine dependence. Current smoker at 1 pack per day for 46 years COMPARISON: CT abdomen pelvis 05/29/2023, CT chest 03/23/2020 TECHNIQUE: Multidetector volumetric CT imaging of the chest is performed without contrast using low dose technique. Additional 2D coronal and sagittal reformatted images and axial 3D maximum intensity projection (MIP) images are generated on the CT workstation. This CT examination was performed using dose optimization techniques as appropriate, variously including the following: *Automated exposure control *Adjustment of mA and/or kV according to patient size (this includes techniques or standardized protocols for targeted exams where dose is matched to indication/reason for exam; i.e. extremities or head) *Use of iterative reconstruction technique DLP: 53 mGy-cm FINDINGS: LUNGS: Moderate emphysematous changes are present. There is a 3 mm left upper lobe nodular density that is unchanged (5:138 compare prior 5:116). There is a 7 mm groundglass nodule in the right lower lobe which is unchanged (5:268 compare prior 5:226). The lungs are otherwise clear with no evidence of inflammation or concerning nodules. MEDIASTINUM: There is mild thyromegaly with some probable punctate calcifications in the thyroid. Similar findings can be seen previously. CORONARY ARTERY CALCIFICATION: None visualized on this study. PLEURA: There is no pleural effusion. No pleural mass or thickening. AXILLA: No lymphadenopathy. UPPER ABDOMEN: There is a partially rim calcified 2.7 x 2.2 x 2.2 cm splenic artery aneurysm.. This is unchanged when compared to the prior CT abdomen from 05/29/2023 OSSEOUS STRUCTURES: Unremarkable. Degenerative changes are present in the spine with some mild compression of midthoracic vertebral bodies. CT/CT lung screening IMPRESSION: Unchanged 3 mm nodule and 7 mm groundglass opacity with no new or concerning nodule to suggest malignancy. Incidental note made of stable 2.6 cm partially rim calcified splenic artery aneurysm. ASSESSMENT: Lung-RADS category 2: Benign RECOMMENDATION: Routine annual low-dose CT screening in 12 months. Consider embolization/treatment for splenic artery aneurysm greater than 2 cm in size. Consider interventional radiology consultation.
== END 2023-08-17 09:29 | disposition home or self-care (01) ==
LOC: HO.CT 09:28
PROVIDERS: PCP Nurse Practitioner Family; Visit Provider Nurse Practitioner Family
DX: Z12.2 Encounter for screening for malignant neoplasm of respiratory organs (principal); F17.210 Nicotine dependence, cigarettes, uncomplicated
CPT/HCPCS: 71271; G0296

== ENCOUNTER 2023-08-22 08:19 | Outpatient (AMB) | payer OTHER, SELFPAY ==
--- NOTE | 2023-08-22 08:26 | MHC.OFFVIS ---
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 EMG done 05/23/23. Patient reports that her pain starts at her bicep and it moves down her arm. She states that her pain is ongoing for a couple months. No hx of P.T. No hx of injury. Patient has tried alternating with heat and ice with no relief. She states that she also took ibuprofen which didn't give her much relief. Allergies codeine [Codeine] Allergy (Intermediate, Verified 08/22/23 08:30) FELT OUT OF SORTS Medication List - Last Reconciled 08/22/23 by Donna Flores MD alcohol swabs 1 pad topical QIDACHS amoxicillin-pot clavulanate 875-125 mg 1 tab PO BID atorvastatin 20 mg PO BEDTIME blood sugar diagnostic (FreeStyle Lite Strips) QID blood-glucose meter (FreeStyle Lite Meter kit) As directed cholecalciferol (vitamin D3) 50 mcg PO DAILY Dexcom G7 Industrial Garage Servicer (blood-glucose meter,continuous) Test blood sugars 4 times per day NS Dexcom G7 Sensor (blood-glucose sensor) Test blood sugars 4 times per day NS gauze bandage (Kerlix) As directed hydrocortisone 2.5% 1 appl topical BID PRN insulin degludec (Tresiba FlexTouch U-200 insulin) 20 units (0.1 mL) subcut BEDTIME insulin lispro See Protocol sliding scale doses subcut USEASDIRECTD ketoconazole 2% 1 appl topical DAILY lancets 4 times daily lisinopril 2.5 mg PO DAILY 30 days metformin 1,000 mg PO BIDWMEAL 90 days pen needle, diabetic (Pen Needle) As directed semaglutide (Ozempic) 0.25 mg (0.368 mL) subcut QWEEK sertraline 100 mg PO DAILY sodium chloride 0.9% (Saline Wound Wash) moisten packing with saline HPI HPI Comments History of Present Illness Details History of bilateral CTS surgeries over 10 years ago. EMG done by me still shows latency slowing of right median sensory nerve, which could still be from previous CTS, not necessarily a new issue. IMPRESSION: 1. There is latency slowing of right median SNAP. 3. There is no electrodiagnostic evidence for ulnar neuropathy, brachial plexopathy, or cervical radiculopathy. EMG ordered by ortho. She didn't hear from results of EMG therefore this appointment. She says numbness on the both hands which she attributes to tendinitis and arthritis. But her main main issue is from biceps area, trapezius going down to arm, then again chronic issues on hands. She had shoulder injections bilateral from ortho September 2022 with temporary relief. Cannot afford PT. Works in [employer]. s/p Left de Quervain tenosynovitis status post 1st dorsal compartment release Date of surgery 04/25/2021 [facility] Medical History Diabetes mellitus Hip pain Anxiety and depression ANG (obstructive sleep apnea) Constipation Osteoarthritis Cervical neck pain with evidence of disc disease Left ventricular hypertrophy Smoker Surgical History History of carpal tunnel surgery History of hysterectomy Family History Father Heart problem Mother No problems noted. Sister Breast cancer Daughter Overweight Maternal Grandfather Cancer Maternal Grandmother Multiple myeloma Paternal Grandfather Unknown family medical history Paternal Grandmother Unknown family medical history Social History Household Members: None Housing: House Do you presently have visiting nurse or other home services: No Alcohol intake: current Alcohol intake frequency: holidays/special occasions only Patient Tobacco Use Status: Current everyday Tobacco user Tobacco use type: Cigarette Cigarette Packs Per Day: 1 Cigarettes Per Day: 15 e-Cigarette/Vaping Use: Never Used Second Hand Smoke Exposure: No service: No Current occupational status: employed 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 Patient was appropriately conversant and oriented. Good historian. MSK: Inspection reveals appropriate head and neck positioning. Trigger point on right upper trapezius. Cervical ROM was full. Spurling's sign positive on right? Mildly positive right Zayas sign. Negative empty can sign. Negative speed's test. Positive right carpal compression. Bilateral shoulder, elbow and wrist ROM WNL. No ligamentous laxity or crepitance. No increased effusion. Strength is 5/5 in all muscle groups tested. No increased tone noted. Neurological: Neurologic examination of the upper and lower extremities was nonfocal with intact sensation, muscle stretch reflexes and without focal motor deficits . Noyola?s negative bilaterally. Babinski was down going bilaterally. Clonus was negative. Gait is non-antalgic without loss of balance. Results Reviewed Results Reviewed: Ordering Physician: Gerda Figueroa Date of Service: 02/28/23 Procedure(s): XR cervical spine 2V Accession Number(s): [id number] cc: Gerda Figueroa~ EXAMINATION: XR CERVICAL SPINE CLINICAL INFORMATION: Neck pain. COMPARISON: Cervical spine radiographs dated 02/01/2016. TECHNIQUE: 3 views of the cervical spine were obtained. FINDINGS: Normal vertebral body alignment. The cervical lordosis is maintained. No acute fracture or subluxation. Normal atlantoaxial alignment. No loss of vertebral body height. Loss of intervertebral disc height with anterior endplate osteophytes at C5-C6. Tiny anterior endplate osteophytes at C4 through C7. Findings are slightly progressed when compared to the prior radiographs. Unremarkable prevertebral soft tissues. XR/XR cervical spine 2V IMPRESSION: Multilevel degenerative disc disease, most prominent at C5-C6. Findings are slightly progressed when compared to the prior radiographs. Assessment & Plan Assessment & Plan (1) Radiculitis of right cervical region: Code(s): M54.12 - Radiculopathy, cervical region (2) Myofascial pain: Code(s): M79.18 - Myalgia, other site (3) Right carpal tunnel syndrome: Code(s): G56.01 - Carpal tunnel syndrome, right upper limb (4) Calcific tendonitis of right shoulder: Code(s): M75.31 - Calcific tendinitis of right shoulder Plan A simple/more benign explanation would be beginning Carpal Tunnel Syndrome again, shoulder arthritis and myofascial pain on right upper trapezius. However we would not want to miss possibility of cervical radiculopathy. She does have positive Spurling sign on exam. But no other signs of cervical myelopathy. Patient had undergone adequate conservative management without improvement of condition. It would be reasonable to obtain further imaging such as MRI. An MRI would help rule out any serious condition, guide treatment and assess prognosis for recovery. Specifically ruling out right C5-6 disc herniation/nerve impingement. She is claustrophobic. I can prescribe Ativan to be taken just prior to MRI. She will call us once she has the date. If MRI positive, we might refer her to pain management for cervical intervention/injections. Assessment and plan discussed with patient, and patient was agreeable. All questions were answered thoroughly. Donna Flores MD, CHUY Board Certified, [place] Board [employer] and Rehabilitation (ABPMR) Board Certified, [place] Board of Electrodiagnostic Medicine (ABEM) Orders: Orders MR cervical spine wo con Today M54.12 - Radiculopathy, cervical region Coding Level of Care Code New Pt Level 4 (47013) Diagnoses Radiculitis of right cervical region M54.12 Myofascial pain M79.18 Right carpal tunnel syndrome G56.01 Calcific tendonitis of right shoulder M75.31
[2023-08-22 08:31] VITALS: BMI 31.9
== END 2023-08-22 08:53 | disposition home or self-care (01) ==
PROVIDERS: PCP Nurse Practitioner Family; Visit Provider Physical Medicine & Rehabilitation
DX: M54.12 Radiculopathy, cervical region (principal); M75.31 Calcific tendinitis of right shoulder
CPT/HCPCS: 99214

== ENCOUNTER → 2023-08-22 08:19 | Outpatient (BNVA) | payer OTHER, SELFPAY | PROVIDERS: PCP Nurse Practitioner Family; Visit Provider Physical Medicine & Rehabilitation ==

== ENCOUNTER 2023-08-23 08:03 | Outpatient (AMB) | payer OTHER, SELFPAY ==
[2023-08-23 08:31] VITALS: BP 110/60; PULSE 74; TEMP 36.6; O2SAT 96; BMI 31.7
--- NOTE | 2023-08-23 08:31 | MHC.OFFWIV ---
Intake Vital Signs 08/23/23 08:31 Height 5 ft 3 in Weight 179 lb BMI 31.7 BP 110/60 Blood Pressure Location Lt brachial Position Sitting Pulse 74 Pulse Source Pulse Oximeter Temp 97.8 F Temp Source Temporal Artery Scan Pulse Oximetry (%) 96 Oxygen Delivery Method Room Air Intake Visit Reasons: EP Stomach Bug Intake Note: pt is here today for stomach bug started 2 days ago Patient Tobacco Use Status: Current everyday Tobacco user Allergies codeine [Codeine] Allergy (Intermediate, Verified 08/23/23 08:34) FELT OUT OF SORTS Do you need a note to return to daycare/school/sports/work: Yes HPI HPI Comments History of Present Illness Details 62 y/o female patient who presents to walk in clinic with c/o Stomach pain associated with nausea, vomiting and diarrhea x 2 days now. Denies fevers or chills. Denies any changes to her diet. PFSH Medical History Diabetes mellitus Hip pain Anxiety and depression ANG (obstructive sleep apnea) Constipation Osteoarthritis Cervical neck pain with evidence of disc disease Left ventricular hypertrophy Smoker Surgical History History of carpal tunnel surgery History of hysterectomy Family History Father Heart problem Mother No problems noted. Sister Breast cancer Daughter Overweight Maternal Grandfather Cancer Maternal Grandmother Multiple myeloma Paternal Grandfather Unknown family medical history Paternal Grandmother Unknown family medical history Social History Household Members: None Housing: House Do you presently have visiting nurse or other home services: No Alcohol intake: current Alcohol intake frequency: holidays/special occasions only Patient Tobacco Use Status: Current everyday Tobacco user Tobacco use type: Cigarette Cigarette Packs Per Day: 1 Cigarettes Per Day: 15 e-Cigarette/Vaping Use: Never Used Second Hand Smoke Exposure: No service: No Current occupational status: employed 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 Current occupational exposures/hazards: No Cognitive needs: No Hearing needs: No Vision needs: No Review of Systems Const All systems reviewed & are unremarkable except as noted in HPI and below Physical Exam Vital Signs: Last Vital Signs Temp 97.8 F 08/23/23 08:31 Pulse 74 08/23/23 08:31 BP 110/60 08/23/23 08:31 Pulse Ox 96 08/23/23 08:31 Oxygen Delivery Method Room Air 08/23/23 08:31 BMI result Body Mass Index 31.7 Const General: comfortable and no acute distress Nutritional Appearance: obese Orientation/consciousness: patient oriented x3 GI Inspection: Yes Abdominal panniculus present Palpation (GI): Soft to palpation, not firm, Tenderness to palpation present (GI) (Generalized tenderness) and No hepatosplenomegaly present Percussion: Yes normal to percussion Auscultation: normal bowel sounds Rectal Exam - Female: deferred Neuro General: patient oriented x3, gait normal and moves all extremities Psych Speech and movement: Normal speech and movement present Assessment & Plan Assessment & Plan (1) Gastritis: Code(s): K29.70 - Gastritis, unspecified, without bleeding Qualifiers: Gastritis type: unspecified gastritis Chronicity: acute Gastritis bleeding: without bleeding Qualified Code(s): K29.00 - Acute gastritis without bleeding Plan: - BLAND diet - Avoid spices, greasy and oily foods. - Drink plenty of water. - Take medications as directed. Medications: New ondansetron 8 mg PO Q8H 20 tabs 0RF Nausea and vomiting K29.00 - Acute gastritis without bleeding metoclopramide HCl (Reglan) 10 mg PO Q6H PRN 30 tabs 0RF nausea and vomiting K29.00 - Acute gastritis without bleeding Coding Level of Care Code Est Pt Level 3 (88366) Diagnoses Acute gastritis without hemorrhage, unspecified gastritis type K29.00 Gastritis type: unspecified gastritis Chronicity: acute Gastritis bleeding: without bleeding Time Spent (min) 15
== END 2023-08-23 10:33 | disposition home or self-care (01) ==
PROVIDERS: PCP Nurse Practitioner Family; Visit Provider Nurse Practitioner Family
DX: K29.00 Acute gastritis without bleeding (principal)
CPT/HCPCS: 99213

== ENCOUNTER 2023-09-20 15:39 | Outpatient (AMB) | payer OTHER, SELFPAY ==
--- NOTE | 2023-09-20 15:45 | MHC.PC.OV ---
Vital Signs 09/20/23 15:52 Weight 176 lb BP 124/70 Blood Pressure Location Rt brachial Position Sitting Pulse 97 Pulse Source Pulse Oximeter Pulse Oximetry (%) 95 Oxygen Delivery Method Room Air Intake Visit Reasons: 3 month fu Intake Note: Patient here for diabetes f/u. Allergies codeine [Codeine] Allergy (Intermediate, Verified 09/20/23 16:09) FELT OUT OF SORTS Medication List - Last Reconciled 09/20/23 by SAVANNA Norton- alcohol swabs 1 pad topical QIDACHS atorvastatin 20 mg PO BEDTIME cholecalciferol (vitamin D3) 50 mcg PO DAILY Dexcom G7 Assistant Technician (blood-glucose meter,continuous) Test blood sugars 4 times per day NS Dexcom G7 Sensor (blood-glucose sensor) Test blood sugars 4 times per day NS gauze bandage (Kerlix) As directed hydrocortisone 2.5% 1 appl topical BID PRN ketoconazole 2% 1 appl topical DAILY lancets 4 times daily lisinopril 2.5 mg PO DAILY 30 days metformin 1,000 mg PO BIDWMEAL 90 days metoclopramide HCl (Reglan) 10 mg PO Q6H PRN ondansetron 8 mg PO Q8H pen needle, diabetic (Pen Needle) As directed semaglutide (Ozempic) 0.25 mg (0.368 mL) subcut QWEEK sertraline 100 mg PO DAILY Tobacco use date assessed: 06/20/23 Dental Screening Dental Screen Date: 06/20/23 HPI 3 month fu HPI Details Pt is a diabetic, on an ZELALEM and a statin. A1C in office today is 6.7. Due for microalbumin, will order. Denies polyuria, polydipsia, and neuropathy. Pt denies any signs and symptoms of hypoglycemia and does know how to correct it. Pt reports that she is not taking any insulin. She is taking ozempic 0.25mg. Will increase this to 0.5mg. Pt is interested in smoking cessation. She is smoking a pack per day. She reports trying nicotine patches in the past, will send these along with nicotine lozenges. Mother from pancreatic Ca. CT scan of abd pelvis without pancreatic lesions, CA19-9 ordered [facility] Medical History Diabetes mellitus Hip pain Anxiety and depression ANG (obstructive sleep apnea) Constipation Osteoarthritis Cervical neck pain with evidence of disc disease Left ventricular hypertrophy Smoker Surgical History History of carpal tunnel surgery History of hysterectomy Family History Father Heart problem Mother No problems noted. Sister Breast cancer Daughter Overweight Maternal Grandfather Cancer Maternal Grandmother Multiple myeloma Paternal Grandfather Unknown family medical history Paternal Grandmother Unknown family medical history Social History Household Members: None Housing: House Do you presently have visiting nurse or other home services: No Alcohol intake: current Alcohol intake frequency: holidays/special occasions only Patient Tobacco Use Status: Current everyday Tobacco user Tobacco use type: Cigarette Cigarette Packs Per Day: 1 Cigarettes Per Day: 15 e-Cigarette/Vaping Use: Never Used Second Hand Smoke Exposure: No service: No Current occupational status: employed 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 Alphonso Medina, Padmini Michele, Jun Davis and colleagues, with an educational brayan from [employer]. Review of Systems Const Reports as per HPI Physical exam (Primary Care) Vital Signs: Last Vital Signs Pulse 97 09/20/23 15:52 BP 124/70 09/20/23 15:52 Pulse Ox 64 L 09/20/23 15:52 Oxygen Delivery Method Room Air 09/20/23 15:52 Tobacco/Smoking Status: Tobacco use Status Tobacco use date assessed 06/20/23 09/20/23 15:46 Patient Tobacco Use Status Current everyday Tobacco 09/20/23 15:46 Tobacco use type Cigarette 09/20/23 15:46 e-Cigarette/Vaping Use Never Used 09/20/23 15:46 Thrive Assessment: Date of Thrive Assessment Date Thrive assessed 05/30/23 09/20/23 15:46 Const General: cooperative Orientation/consciousness: patient oriented x3 Resp Other: lungs fairly clear with very faint scattered wheezes Effort & Inspection: normal respiratory effort Cardio Rate: regular rate Rhythm: regular rhythm Heart sounds: S1 normal heart sound present, S2 normal heart sound present and Murmur heart sound present systolic Neuro General: patient oriented x3 Extrem Other: bilat feet: + sensation with use of monofilament, feet intact Psych Appearance: grossly normal Mental Status: mental status grossly normal Speech and movement: Normal speech and movement present Affect: normal affect Attitude: cooperative Thought process: Normal thought process present Thought content: Normal thought content present Insight: Good insight present (Psych) Judgement: Good judgement present (Psych) Results AMB Hemoglobin A1c AMB Hemoglobin A1c 6.7 % Last Edit by DANIELLE Gambino on 09/20/23 16:09 Assessment and Plan Assessment & Plan (1) Diabetes mellitus: Code(s): E11.9 - Type 2 diabetes mellitus without complications Plan: Labs ordered, increasing ozempic to 0.5mg (2) Family history of pancreatic cancer: Code(s): Z80.0 - Family history of malignant neoplasm of digestive organs (3) Smoker: Code(s): F17.200 - Nicotine dependence, unspecified, uncomplicated Plan: sent patches and lozenges Plan The patient agreed to the use of a medical advisor for this encounter. Scribed for DEJA Zavala by Gretel Johnson medical advisor, on 09/20/2023 at 16:15 EST. Orders: Orders UA CC w/rflx Micro + Cult Today E11.9 - Type 2 diabetes mellitus without complications AMB Hemoglobin A1c Today Z13.9 - Encounter for screening, unspecified Complete Blood Count Auto Diff Today E11.9 - Type 2 diabetes mellitus without complications Comprehensive [place]. Panel Fast Today E11.9 - Type 2 diabetes mellitus without complications TSH reflex Free T4 Today E11.9 - Type 2 diabetes mellitus without complications Lipid Panel Today E11.9 - Type 2 diabetes mellitus without complications Microalbumin, Random (w Creat) Today E11.9 - Type 2 diabetes mellitus without complications Carbohydrate Antigen 19-9 Today Z80.0 - Family history of malignant neoplasm of digestive organs Medications: New nicotine (Nicoderm CQ) 1 patch transdermal DAILY 28 ea 0RF nicotine (polacrilex) 4 mg buccal Q4H PRN 108 ea 0RF nicotine cravings Changed From semaglutide (Ozempic) for 4 weeks 0.25 mg (0.368 mL) subcut QWEEK 3 mL 1RF To semaglutide (Ozempic) for 4 weeks 0.5 mg (0.736 mL) subcut QWEEK 3 mL 1RF Coding Level of Care Code Est Pt Level 3 (24324) Diagnoses Diabetes mellitus E11.9 Family history of pancreatic cancer Z80.0 Smoker F17.200
[2023-09-20 15:52] VITALS: BP 124/70; PULSE 97; O2SAT 95
== END 2023-09-20 16:33 | disposition home or self-care (01) ==
PROVIDERS: PCP Nurse Practitioner Family; Visit Provider Nurse Practitioner Family
DX: E11.9 Type 2 diabetes mellitus without complications (principal); Z80.0 Family history of malignant neoplasm of digestive organs; F17.210 Nicotine dependence, cigarettes, uncomplicated
CPT/HCPCS: 83036; 99213

== ENCOUNTER 2023-10-04 15:21 | Outpatient (AMB) | payer OTHER, SELFPAY ==
[2023-10-04 15:22] VITALS: BMI 31.7
--- NOTE | 2023-10-04 15:22 | MHC.OFFVIS ---
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 This was originally picked up on a CT of the chest for screening for lung cancer. There was an incidental noting of a 2.6 cm splenic artery aneurysm. She did have a prior CT on May of 2023 and it had been unchanged since that time. This was actually an incidental finding. She is quite concerned about this. Of note she is a smoker and smokes approximately a pack a day. She is a newly diagnosed diabetic. She now presents to us for vascular evaluation. PFSH Medical History Diabetes mellitus Hip pain Anxiety and depression ANG (obstructive sleep apnea) Constipation Osteoarthritis Cervical neck pain with evidence of disc disease Left ventricular hypertrophy Smoker Surgical History History of carpal tunnel surgery History of hysterectomy Family History Father Heart problem Mother No problems noted. Sister Breast cancer Daughter Overweight Maternal Grandfather Cancer Maternal Grandmother Multiple myeloma Paternal Grandfather Unknown family medical history Paternal Grandmother Unknown family medical history Social History Household Members: None Housing: House Do you presently have visiting nurse or other home services: No Alcohol intake: current Alcohol intake frequency: holidays/special occasions only Patient Tobacco Use Status: Current everyday Tobacco user Tobacco use type: Cigarette Cigarette Packs Per Day: 1 Cigarettes Per Day: 15 e-Cigarette/Vaping Use: Never Used Second Hand Smoke Exposure: No service: No Current occupational status: employed 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 Current occupational exposures/hazards: No Cognitive needs: No Hearing needs: No Vision needs: No Review of Systems Const All systems reviewed & are unremarkable except as noted in HPI and below Reports no additional complaints ENT Reports Normal hearing present Card Denies chest pain, Denies chest pain at rest, Denies chest pain with activity and Denies pedal edema Resp Denies cough GI Denies abdominal pain Musc Denies abnormal gait, Denies muscle cramps and Denies radiating pain into limb Skin/Breast Denies skin ulcer and Denies wounds Neuro Reports Normal hearing present and Denies abnormal gait Psych Reports no additional complaints Physical Exam Vital Signs: BMI result Body Mass Index 31.7 Const General: cooperative, healthy appearing and comfortable Orientation/consciousness: oriented to person, oriented to place and oriented to time HEENT Head: Yes normal to inspection Neck Neck: Yes normal visual inspection Carotids: no bruits Chest Chest palpation & inspection: normal inspection of the chest Resp Effort & Inspection: normal respiratory effort and able to speak in complete sentences Auscultation: clear to auscultation bilaterally, no crackles, no rales, no rhonchi and no wheezes Cardio Rate: regular rate Rhythm: regular rhythm Heart sounds: S1 normal heart sound present and S2 normal heart sound present Bruits: no carotid bruits Peripheral pulses: Peripheral pulses 2+ throughout GI Inspection: Yes normal to inspection Skin Wounds: no wounds Hair: normal Neuro General: oriented to person, oriented to place and oriented to time Cranial nerves: Yes CN's II-XII intact bilaterally and Yes Normal hearing present Cognition (Neuro): normal cognition Motor exam (neuro): 5/5 motor strength present throughout Extrem Other: venous exam: No significant superficial varicosities or spider telangiectasias, minimal edema General: No clubbing, No cyanosis and No edema Psych Appearance: grossly normal Mental Status: mental status grossly normal Speech and movement: Normal speech and movement present Results Reviewed Results Reviewed: CT scan dated 08/17/2023 demonstrates 2.6 cm splenic artery aneurysm. Calcified and well circumscribed. Written report and images were reviewed. Assessment & Plan Assessment & Plan (1) Splenic artery aneurysm: Code(s): I72.8 - Aneurysm of other specified arteries Category: Medical Plan: In short patient has a stable splenic artery aneurysm. I did provide some education regarding splenic artery aneurysms. We typically do not intervene until they are greater than 3 cm and are more aggressive in women of childbearing age. At the current time from my perspective she is stable. We did discuss risk factor modification. Will plan for surveillance CT scan in approximately 1 year's time. Should there be any interval changes happy to see her back sooner. Thank you for allowing us to assist in her care. Orders: Orders CT abdomen wo IV con 1 Year I72.8 - Aneurysm of other specified arteries Coding Level of Care Code New Pt Level 4 (06844) Diagnoses Splenic artery aneurysm I72.8
== END 2023-10-04 15:45 | disposition home or self-care (01) ==
PROVIDERS: PCP Nurse Practitioner Family; Visit Provider Surgery Vascular Surgery
DX: I72.8 Aneurysm of other specified arteries (principal)
CPT/HCPCS: 99203

== ENCOUNTER → 2023-10-04 15:21 | Outpatient (BNVA) | payer OTHER, SELFPAY | PROVIDERS: PCP Nurse Practitioner Family; Visit Provider Surgery Vascular Surgery ==

== ENCOUNTER 2023-11-21 16:00 | Outpatient (RCR) | payer OTHER, SELFPAY ==
--- NOTE | 2023-10-09 14:55 | MHC.PT.EP ---
[facility] [place] Office [place] Office [place] Office [address] Sandra Arizmendi [address] [phone] F: [phone] F: [phone] F: [phone] F: [phone] Physical Therapy Plan of Care Date of Evaluation: 10/09/23 Date of Surgery: n/a Diagnosis: cervicalgia w/ radiculopathy Assessment: Patient is a 63 year old female presenting to PT with complaints of pain in her neck. Pt reports onset of pain began a few months ago due to insidious onset. She presents today with impairments in pain, cervical ROM, radicular sx, posture. 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 Pt expresses skilled nursing goal of reducing pain, and is motivated to work towards this in PT. Clinical presentation today is most consistent with signs and sx associated with neck pain with radicular sx and pt will benefit from skilled PT 2 week x 4 weeks to address the following problems and impairments noted upon evaluation: pain, cervical ROM, radicular sx, posture. These problems limit the patient with the following functional activities: work, ADLs. The prescribed treatment plan of care is medically necessary. Co-morbidities of DM, L ventricular hypertrophy were identified and taken into considerations of plan of care. Pt was educated on HEP, role of PT, prognosis, POC. Frequency and Duration: The patient will be seen 2 x week x 4 weeks Short Term Goals: Pt will demonstrate centralization of sx in 2 weeks for improved QOL. Pt will demonstrate cervical ROM in available range with min to no pain in 2 weeks. Pt will demonstrate improved posture as evidence by min to no cues during session in 2 weeks. Combination Presser Goals: Pt will demonstrate improved NDI score by 10% in 4 weeks for improved functional mobility. Pt will demonstrate ability to complete ADLs with min to no pain in 4 weeks for return to PLOF. Pt will demonstrate ability to work a full shift with min to no pain in 4 weeks for improved tolerance to work. Treatment Plan: Modalities to reduce pain, spasms and effusion. Manual therapy to restore motion and function. Therapeutic exercise to improve strength and flexibility. Neuromuscular re-education for posture and balance. Therapeutic activities to return to functional activities of daily living. Electronically signed by: Tina Weller, PT, DPT, ATC Please sign and return to therapist. Thank you for your referral.
--- NOTE | 2023-11-21 16:45 | MHC.PT.DC ---
[facility] [place] [facility] [place] [facility] [place] Office [address] Sandra Arizmendi [address] [phone] F: [phone] F: [phone] F: [phone] F: [phone] Physical Therapy Discharge Report Diagnosis: cervicalgia w/ radiculopathy Date of Surgery: n/a Date of Evaluation: 10/09/23 Date of Discharge: 11/21/23 Treatments to Date: 6 Cancellations to Date: 0 No Shows to Date: 0 Discharge Status: Independent with HEP Recommend MD Follow-up Discharge Summary: 11/21/2023: Pt has made limited progress since start of care. She feels some temporary relief after the session but it only lasts a day or two before her pain returns. She is independent and compliant with her HEP. At this time based on lack of progress skilled PT is no longer indicated. Pt to be d/c and discussed recommendation to follow up with her MD for further evaluation of her pain. She is in agreement with plan. Electronically signed by: Tina Weller, PT, DPT, ATC Please sign and return to therapist. Thank you for your referral.
== END 2023-11-21 16:45 | disposition home or self-care (01) ==
LOC: HO.PTCHIC 16:00
PROVIDERS: PCP Nurse Practitioner Family; Visit Provider Physical Medicine & Rehabilitation
DX: M54.12 Radiculopathy, cervical region (principal); M79.18 Myalgia, other site
CPT/HCPCS: 97110; 97140; 97161

== ENCOUNTER 2023-12-02 15:00 | Emergency (ER) | payer OTHER, SELFPAY ==
--- NOTE | ~2023-12-02 | CT_ITS ---
EXAMINATION: CT angio abdomen pelvis CLINICAL INFORMATION: LUQ pain, hx splenic artery aneurysm COMPARISON: CT abdomen/pelvis 05/29/2023 TECHNIQUE: Multidetector volumetric CT imaging of the abdomen and pelvis was performed before and after the administration of 80 mL of Omnipaque 350 intravenous contrast without immediate adverse reactions. 3D POSTPROCESSING: Multiple 3-D angiographic images were processed from the initial data set by the [facility] under concurrent physician supervision. DOSE LOWERING TECHNIQUES: This CT examination was performed using dose optimization techniques as appropriate, variously including the following: - Automated exposure control - Adjustment of mA and/or kV according to patient size (this includes techniques or standardized protocols for targeted exams where dose is matched to indication/reason for exam; i.e. extremities or head) - Use of iterative reconstruction technique DLP: 424 mGy-cm. FINDINGS: VASCULAR: AORTA: Normal in caliber and patent. No evidence of aneurysm or dissection. Mild scattered atherosclerotic plaque. CELIOMESENTERIC ARTERIES: Mild stenosis at the origin of the celiac artery with mild poststenotic dilation. Distal splenic artery partially rim calcified aneurysm is stable measuring 2.5 x 2.1 cm (series #6 axial image 136). The superior and inferior mesenteric arteries are widely patent. RENAL ARTERIES: Single renal arteries bilaterally are patent. RIGHT ILIOFEMORAL ARTERIES: Iliac and visualized femoral arteries are normal caliber and widely patent. LEFT ILIOFEMORAL ARTERIES: Iliac and visualized femoral arteries are normal caliber and widely patent. NONVASCULAR: VISUALIZED CHEST: Bibasilar atelectasis. No pleural effusion. Normal-sized heart without peripheral effusion. No coronary arterial calcifications. LIVER, GALLBLADDER, AND BILIARY TREE: There is mild reflux of contrast into the hepatic veins, suggestive of increased right heart pressure. The liver is normal in size, shape, and attenuation. No focal hepatic lesion or biliary ductal dilatation is present. Status post cholecystectomy. PANCREAS: Unremarkable. SPLEEN: Unremarkable. ADRENAL GLANDS: Unremarkable. KIDNEYS AND URETERS: The kidneys are normal in size, shape, and attenuation. No hydronephrosis, hydroureter, or calculi seen. No perinephric stranding. BLADDER: No focal wall thickening. No bladder stones. GASTROINTESTINAL TRACT: Small hiatal hernia. The small and large bowel are nondilated. Sigmoid diverticulosis evidence of acute diverticulitis. Normal appendix. ABDOMINAL WALL: No bowel containing hernia is appreciated. LYMPH NODES: Normal. PELVIC VISCERA: Status post hysterectomy. No adnexal masses. OSSEOUS STRUCTURES: Unremarkable. CT/CT angio abdomen pelvis IMPRESSION: 1. 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 Consider embolization/treatment for splenic artery aneurysm greater than 2 cm in size. Consider interventional radiology consultation. 2. No acute abnormality within the abdomen or pelvis to explain patient's symptoms. Fleischner guidelines were followed.
--- NOTE | 2023-12-02 15:33 | ED.ABDPAIN ---
HPI - Abdominal Pain General Chief Complaint: Abdominal Pain Stated Complaint: lower abd pain Time Seen by Provider: 12/02/23 16:04 Source: patient Mode of arrival: ambulatory Limitations: no limitations History of Present Illness ED Provider: Dr. Radha Jimenez HPI narrative: Patient comes to the emergency room complaining of left upper quadrant pain that started last night. Patient denies nausea vomiting or diarrhea. Patient states that she has been diagnosed with a splenic artery aneurysm. Patient denies fever chills, no hematuria or dysuria. Patient states the pain is constant, intermittent sharp pains but constant dull pain. Related Data Home Medications ?Medication ?Instructions ?Recorded ?Confirmed cholecalciferol (vitamin D3) 25 50 mcg PO DAILY 10/01/21 09/20/23 mcg (1,000 unit) capsule Previous Rx's ?Medication ?Instructions ?Recorded alcohol swabs 1 pad topical QIDACHS #200 ea 05/31/23 gauze bandage 4 X 4 sponge #1,200 ea 05/31/23 (Kerlix) lancets #200 ea 05/31/23 pen needle, diabetic 31 gauge x #1,200 ea 05/31/23 5/16 (Pen Needle) metformin 1,000 mg tablet 1,000 mg PO BIDWMEAL 90 days #180 06/20/23 tabs Dexcom G7 Evaporator (blood-glucose #1 ea 06/21/23 meter,continuous) hydrocortisone 2.5 % topical cream 1 appl topical BID PRN skin 06/21/23 irritation #30 grams ketoconazole 2 % topical cream 1 appl topical DAILY #30 grams 06/21/23 sertraline 100 mg tablet 100 mg PO DAILY #90 tabs 07/20/23 metoclopramide HCl 10 mg tablet 10 mg PO Q6H PRN nausea and 08/23/23 (Reglan) vomiting #30 tabs ondansetron 8 mg disintegrating 8 mg PO Q8H Nausea and vomiting 08/23/23 tablet #20 tabs nicotine (polacrilex) 4 mg buccal 4 mg buccal Q4H PRN nicotine 09/20/23 lozenge cravings #108 ea nicotine 21 mg/24 hr daily 1 patch transdermal DAILY #28 ea 09/20/23 transdermal patch (Nicoderm CQ) lisinopril 2.5 mg tablet 2.5 mg PO DAILY #90 tabs 10/17/23 Dexcom G7 Sensor (blood-glucose #9 ea 11/18/23 sensor) atorvastatin 20 mg tablet 20 mg PO BEDTIME #90 tabs 11/18/23 semaglutide 0.25 mg or 0.5 mg (2 0.5 mg (0.736 mL) subcut QWEEK #3 11/25/23 mg/3 mL) subcutaneous pen injector mL (Ozempic) oxycodone 5 mg tablet 5 mg PO Q8H PRN pain #10 tabs 12/02/23 Allergies Allergy/AdvReac Type Severity Reaction Status Date / Time codeine [Codeine] Allergy Intermediate FELT OUT Verified 12/02/23 15:35 OF SORTS Review of Systems Review of Systems Constitutional : No Weight loss, No Fever, No Chills, No Night Sweats, No Fatigue, No Malaise ENT/Mouth : No Hearing loss, No Ear Pain, No Nasal Congestion, No Sinus Pain, No Hoarseness, No sore throat, No Rhinorrhea, No Swallowing Difficulty Eyes: No Eye Pain, No Swelling, No Redness, No Foreign Body, No Discharge, No Vision Changes Cardiovascular : No Chest Pain, No SOB, No Dyspnea on Exertion, No Orthopnea, No Edema, No Palpitations Respiratory : No Cough, No Sputum, No Wheezing, No Smoke Exposure, No Dyspnea Gastrointestinal : No Nausea, No Vomiting, No Diarrhea, No Constipation, complaining of sharp abdominal pain in the left upper quadrant Genitourinary : no irregular bleeding, No Dysuria, No Urinary Frequency, No Hematuria, No Urinary Incontinence, No Urgency, No Flank Pain, No Urinary Flow Changes, No Hesitancy Musculoskeletal : No joint pain, No Myalgias, No Joint Swelling Skin : No Skin Lesions, No rash Neuro : No Weakness, No Numbness, No Paresthesias, No Loss of Consciousness, No Dizziness, No Headache Psych : No Anxiety/Panic, No Depression, No SI/HI/AH/VH, No Social Issues, Heme/Lymph: No Bruising, No Bleeding,No Lymphadenopathy Endocrine : No Polyuria, No Polydipsia, No Temperature Intolerance [facility] Past Medical History Medical History FH: cholecystectomy Diabetes mellitus Hip pain Anxiety and depression ANG (obstructive sleep apnea) Constipation Osteoarthritis Cervical neck pain with evidence of disc disease Left ventricular hypertrophy Smoker Surgical History History of carpal tunnel surgery History of hysterectomy Family History Family History Father Heart problem Mother No problems noted. Sister Breast cancer Daughter Overweight Maternal Grandfather Cancer Maternal Grandmother Multiple myeloma Paternal Grandfather Unknown family medical history Paternal Grandmother Unknown family medical history Social History Social History Household Members: None Housing: House Do you presently have visiting nurse or other home services: No Alcohol intake: current Alcohol intake frequency: holidays/special occasions only Patient Tobacco Use Status: Current everyday Tobacco user Tobacco use type: Cigarette Cigarette Packs Per Day: 1 Cigarettes Per Day: 15 e-Cigarette/Vaping Use: Never Used Second Hand Smoke Exposure: No Advance Directives: No Advance Directives Information Provided: No Do you have a plan to hurt others: No Plan service: No Current occupational status: employed 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 Oriented X3. No acute distress. Eyes: Pupils equal, round and reactive to light. ENT: Pharynx normal. Neck: Normal inspection. Neck supple. No lymph nodes noted. No crepitus CVS: Normal heart rate and rhythm. Pulses normal. Normal S1 and S2 Respiratory: No respiratory distress. Breath sounds normal. No Wheezing. No rales Abdomen: Soft , pain to palpation over the left upper quadrant, not so much to palpation but when she has the spasms/sharp pain Skin: Skin warm and dry. Normal skin color. Normal skin turgor. Extremities: No lower extremity edema. No Lacerations. No Rash Neuro: Oriented X 3. No motor deficit. No sensory deficit. Moving all extremities. No slurred speech. CN 2 through 12 grossly intact Psych: calm, cooperative, normal affect Course Course Course Narrative: This is a rapid medical exam. Deferred additional HPI, ROS, PE to primary provider. 63 yo female with history of DM, HTN, HLD, anxiety, splenic artery aneurysm here with upper abdominal pain since last night. Reports pain is colicky. No nausea, vomiting, diarrhea, fevers, chills, urinary symptoms. Reports history of cholecystectomy. Medical Decision Making Medical Decision Making [facility] Narrative: -my interpretation of labs: Hematology and chemistry within normal limits, normal troponin, normal LFTs, normal lipase -patient receiving IV fluids, Zofran and morphine -CT scan of the abdomen pending -my interpretation of CT scan, there is a small aneurysm in the splenic pain. -radiology report, 2.5 stable distal splenic artery. Per report, I discussed the patient with Dr. Judd. This is actually Dr. Judd's patient who has already seen the patient for this issue. At this time, the aneurysm is stable, no need for embolization or coils nor any procedure until the aneurysm reaches 3 cm especially since the patient is postmenopausal. Patient states she feels better, patient will follow-up with her primary care physician and with Dr. Judd. 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 12/02/23 15:54 12/02/23 15:54 Labs: Lab Results 12/02/23 12/02/23 Range/Units 15:54 16:51 WBC 8.2 (4.8-10.8) X10*3/uL RBC 4.76 (4.20-5.50) X10*6/uL Hgb 14.1 (12.0-16.0) g/dl Hct 42.0 (37.0-47.0) % MCV 88.2 (80.0-98.0) fL MCH 29.6 (27.0-33.0) pg MCHC 33.6 (31.0-35.0) g/dl RDW 12.3 (11.0-16.0) % Plt Count 329 D (160-400) X10*3/uL MPV 9.4 (9.4-12.3) fL Immature Gran % (Auto) 0.2 (0.0-0.4) % Neut % (Auto) 50.2 (45-73) % Lymph % (Auto) 40.3 H (20-40) % [place] % (Auto) 6.2 (2-11) % Eos % (Auto) 2.4 (0-4) % Baso % (Auto) 0.7 (0-2) % Lymph # (Auto) 3.3 (1.2-4.9) X10*3/uL [place] # (Auto) 0.5 (0.1-1.2) X10*3/uL Eos # (Auto) 0.2 (0.0-0.4) X10*3/uL Baso # (Auto) 0.1 (0.0-0.2) X10*3/uL Abs Immat Gran (auto) 0.02 (0.00-0.03) X10*3/uL Absolute Neuts (auto) 4.1 (2.0-8.3) x10*3/uL Absolute Nucleated RBC 0.000 (0.0-0.012) X10*3/uL Nucleated RBC % (auto) 0.0 (0.0-0.2) /100WBC Sodium 139 (135-145) mmol/L Potassium 4.0 (3.3-5.1) mmol/L Chloride 105 (96-108) mmol/L Carbon Dioxide 23 (22-29) mmol/L Anion Gap 15 (12-20) BUN 10 (9-16) mg/dL Creatinine 0.65 (0.5-1.4) mg/dL Estim Creat Clear Calc 85.8 Estimated GFR > 60 Random Glucose 106 (60-115) mg/dL Calcium 10.4 H D (8.4-10.2) mg/dL Total Bilirubin 0.3 (0.0-1.0) mg/dL Direct Bilirubin 0.1 (0.0-0.5) mg/dL AST 12 (5-31) U/L ALT 15 (0-31) U/L Alkaline Phosphatase 87 (39-117) U/L Troponin I High Sens < 2.7 (<3.5-17.0) ng/L Total Protein 8.1 H (6.5-8.0) g/dL Albumin 4.4 (3.5-5.0) g/dL Lipase 12 (8-78) U/L Urine Color Yellow Urine Appearance Clear Urine pH >= 9.0 (5.0-9.0) Ur Specific [place] 1.015 (1.005-1.025) Urine Protein Negative (Neg-Trace) mg/dL Urine Glucose (UA) Negative (Negative) mg/dL Urine Ketones Negative (Negative) mg/dL Urine Blood Negative (Negative) Urine Nitrite Negative (Negative) Ur Leukocyte Esterase Negative (Negative) Independent Interpretation I performed an independent interpretation of an: CT Scan Radiology Impression Discussion of test interpretation with radiology: I have reviewed the radiologist's reading. Radiologist Impression: FINDINGS: VASCULAR: AORTA: Normal in caliber and patent. No evidence of aneurysm or dissection. Mild scattered atherosclerotic plaque. CELIOMESENTERIC ARTERIES: Mild stenosis at the origin of the celiac artery with mild poststenotic dilation. Distal splenic artery partially rim calcified aneurysm is stable measuring 2.5 x 2.1 cm (series #6 axial image 136). The superior and inferior mesenteric arteries are widely patent. RENAL ARTERIES: Single renal arteries bilaterally are patent. RIGHT ILIOFEMORAL ARTERIES: Iliac and visualized femoral arteries are normal caliber and widely patent. LEFT ILIOFEMORAL ARTERIES: Iliac and visualized femoral arteries are normal caliber and widely patent. NONVASCULAR: VISUALIZED CHEST: Bibasilar atelectasis. No pleural effusion. Normal-sized heart without peripheral effusion. No coronary arterial calcifications. LIVER, GALLBLADDER, AND BILIARY TREE: There is mild reflux of contrast into the hepatic veins, suggestive of increased right heart pressure. The liver is normal in size, shape, and attenuation. No focal hepatic lesion or biliary ductal dilatation is present. Status post cholecystectomy. PANCREAS: Unremarkable. SPLEEN: Unremarkable. ADRENAL GLANDS: Unremarkable. KIDNEYS AND URETERS: The kidneys are normal in size, shape, and attenuation. No hydronephrosis, hydroureter, or calculi seen. No perinephric stranding. BLADDER: No focal wall thickening. No bladder stones. GASTROINTESTINAL TRACT: Small hiatal hernia. The small and large bowel are nondilated. Sigmoid diverticulosis evidence of acute diverticulitis. Normal appendix. ABDOMINAL WALL: No bowel containing hernia is appreciated. LYMPH NODES: Normal. PELVIC VISCERA: Status post hysterectomy. No adnexal masses. OSSEOUS STRUCTURES: Unremarkable. CT/CT angio abdomen pelvis IMPRESSION: 1. 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 Consider embolization/treatment for splenic artery aneurysm greater than 2 cm in size. Consider interventional radiology consultation. 2. No acute abnormality within the abdomen or pelvis to explain patient's symptoms. Medications Administered Discontinued Medications Generic Name Dose Route Start Last Admin Trade Name Freq PRN Reason Stop Dose Admin Sodium Chloride 1,000 mls @ 999 mls/hr 12/02/23 16:30 12/02/23 17:22 Ns IVCONT 12/02/23 17:30 999 mls/hr .Q1H1M ONE Administration Iohexol 100 ml 12/02/23 17:52 12/02/23 17:59 Iohexol 350 Mg/Ml 100 Ml Infus..Btl IV 12/02/23 17:53 80 ml ONCE ONE Administration Morphine Sulfate 4 mg 12/02/23 16:30 12/02/23 17:16 Morphine Sulfate 4 Mg/Ml Cartridge IVPUSH 12/02/23 16:31 4 mg ONCE ONE Administration Protocol Ondansetron HCl 4 mg 12/02/23 16:30 12/02/23 17:16 Ondansetron Hcl 4 Mg/2 Ml Vial IVPUSH 12/02/23 16:31 4 mg ONCE ONE Administration Critical Care Time Critical Care Time Critical Care Time: Yes Total Critical Care Time: 45 Attestation: I have personally provided critical care time. Time includes review of lab data, radiology results, discussion with consultants, and monitoring for potential decompensation. Intervention performed as documented. Discharge Plan Discharge Clinical Impression: Abdominal pain Patient Disposition: Home, Self-Care Instructions: Abdominal Pain (ED) Additional Instructions: Please follow-up with your vascular surgeon, Dr. Judd and also with your primary care physician tomorrow. If you have any worsening or new symptoms, please return to the emergency room or call 911 Prescriptions: New oxycodone 5 mg tablet 5 mg PO Q8H PRN (Reason: pain) Qty: 10 0RF Rx Instructions: Partial Fill upon patient request. No Action (DME) Dexcom G7 Evaporator Misc See Rx Instructions .Route Qty: 1 0RF Rx Instructions: Test blood sugars 4 times per day ketoconazole 2 % cream 1 appl topical DAILY Qty: 30 1RF hydrocortisone 2.5 % cream 1 appl topical BID PRN (Reason: skin irritation) Qty: 30 0RF sertraline 100 mg tablet 100 mg PO DAILY Qty: 90 1RF lisinopril 2.5 mg tablet 2.5 mg PO DAILY Qty: 90 1RF (DME) Dexcom G7 Sensor Device See Rx Instructions .Route Qty: 9 1RF Rx Instructions: Test blood sugars 4 times per day atorvastatin 20 mg tablet 20 mg PO BEDTIME Qty: 90 1RF Ozempic 0.25 mg or 0.5 mg (2 mg/3 mL) pen injector 0.5 mg subcut QWEEK Qty: 3 1RF Rx Instructions: for 4 weeks (DME) lancets Misc See Rx Instructions .ROUTE .MEDSUPPLY Qty: 200 2RF Rx Instructions: 4 times daily alcohol swabs Pads, Medicated 1 pad topical QIDACHS Qty: 200 2RF (DME) pen needle, diabetic [Pen Needle] 31 gauge x 5/16 needle See Rx Instructions .ROUTE .MEDSUPPLY Qty: 1200 2RF Rx Instructions: As directed (DME) Kerlix 4 X 4 sponge See Rx Instructions .Route Qty: 1200 0RF Rx Instructions: As directed cholecalciferol (vitamin D3) 25 mcg (1,000 unit) capsule 50 mcg PO DAILY metformin 1,000 mg tablet 1,000 mg PO BIDWMEAL 90 Days Qty: 180 2RF nicotine [Nicoderm CQ] 21 mg/24 hr patch 24 hour 1 patch transdermal DAILY Qty: 28 0RF nicotine (polacrilex) 4 mg lozenge 4 mg buccal Q4H PRN (Reason: nicotine cravings) Qty: 108 0RF ondansetron 8 mg tablet,disintegrating 8 mg PO Q8H Qty: 20 0RF metoclopramide HCl [Reglan] 10 mg tablet 10 mg PO Q6H PRN (Reason: nausea and vomiting) Qty: 30 0RF Referrals: Drew Judd MD [Physician] - 12/03/23 Stand Alone Forms: Work/School Release Print Language: Czech
[2023-12-02 15:34] VITALS: BP 136/83; PULSE 73; RESP 18; TEMP 36.8; O2SAT 100; BMI 30.7
--- NOTE | 2023-12-02 15:36 | ECG_ITS ---
Test Reason : UPPER ABD PAIN Blood Pressure : / mmHG Vent. Rate : 069 BPM Atrial Rate : 069 BPM P-R Int : 156 ms QRS Dur : 086 ms QT Int : 396 ms P-R-T Axes : 042 021 071 degrees QTc Int : 424 ms Normal sinus rhythm Normal ECG When compared with ECG of 09-FEB-2022 10:28, No significant change was found Referred By: Betty Owens Electronically Signed By:DALLAS SCHAFFER
[2023-12-02 15:59] LABS: MANUAL DIFF FLAG NO
[2023-12-02 16:00] LABS: Basophils Absolute Auto 0.1 X10*3/uL (0.0-0.2); Basophils Percent Auto 0.7 % (0-2); Eosinophils Absolute Auto 0.2 X10*3/uL (0.0-0.4); Eosinophils Percent Auto 2.4 % (0-4); Hemoglobin 14.1 g/dl (12.0-16.0); Imm Gran Abs Auto 0.02 X10*3/uL (0.00-0.03); Imm Gran Pct Auto 0.2 % (0.0-0.4); Lymphocytes Absolute Auto 3.3 X10*3/uL (1.2-4.9); Lymphocytes Percent Auto 40.3 % (20-40); Mean Corpuscular HGB Conc 33.6 g/dl (31.0-35.0); Mean Corpuscular Hemoglobin 29.6 pg (27.0-33.0); Mean Corpuscular Volume 88.2 fL (80.0-98.0); Mean Platelet Volume 9.4 fL (9.4-12.3); Monocytes Absolute Auto 0.5 X10*3/uL (0.1-1.2); Monocytes Percent Auto 6.2 % (2-11); Neutrophils Absolute Auto 4.1 x10*3/uL (2.0-8.3); Neutrophils Percent Auto 50.2 % (45-73); Platelet Count 329 X10*3/uL (160-400); Red Blood Count 4.76 X10*6/uL (4.20-5.50); Red Cell Distribution Width 12.3 % (11.0-16.0); White Blood Count 8.2 X10*3/uL (4.8-10.8)
[2023-12-02 16:14] LABS: Alanine Aminotransferase 15 U/L (0-31); Albumin Level 4.4 g/dL (3.5-5.0); Alkaline Phosphatase 87 U/L (39-117); Anion Gap 15 (12-20); Aspartate Amino Transferase 12 U/L (5-31); Bilirubin Direct 0.1 mg/dL (0.0-0.5); Bilirubin Total 0.3 mg/dL (0.0-1.0); Blood Urea Nitrogen 10 mg/dL (9-16); Calcium 10.4 mg/dL (8.4-10.2); Carbon Dioxide 23 mmol/L (22-29); Chloride 105 mmol/L (96-108); Creatinine Clr Calc Pharmacy 85.8; Estimated Glomerular Filt Rate > 60; Glucose Random 106 mg/dL (60-115); Lipase 12 U/L (8-78); Sodium 139 mmol/L (135-145); Total Protein 8.1 g/dL (6.5-8.0)
[2023-12-02 16:31] LABS: Troponin-I High Sensitivity < 2.7 ng/L (<3.5-17.0)
[2023-12-02 16:33] VITALS: BP 110/51; PULSE 68; RESP 19; TEMP 36.7; O2SAT 96
[2023-12-02 17:15] LABS: Appearance Urine Clear; Color Urine Yellow; Glucose Urine UA Negative (Negative); Leukocyte Esterase Urine Negative (Negative); Nitrite Urine Negative (Negative); PH >= 9.0 (5.0-9.0); Specific Gravity - Urine 1.015 (1.005-1.025); Urine Blood Negative (Negative); Urine Ketones Negative (Negative); Urine Protein Negative (Neg-Trace)
[2023-12-02] MEDS: ondansetron HCL 4 MG/2 ML VIAL IVPUSH (17:16)
[2023-12-02] MEDS: Morphine Sulfate 4 MG/ML CARTRIDGE IVPUSH (17:16)
[2023-12-02] MEDS: 0.9 % Sodium Chloride 1,000 ML 999 ML IVCONT (17:22)
[2023-12-02] MEDS: iohexoL 350 MG/ML 100 ML INFUS..BTL IV (17:59)
[2023-12-02 19:00] VITALS: BP 104/47; PULSE 60; RESP 17; O2SAT 95
[2023-12-02 20:00] VITALS: BP 108/53; PULSE 59; RESP 18; TEMP 36.5; O2SAT 93
--- NOTE | 2023-12-02 20:07 | MHC.EDTECH ---
pt vital signs checked, no questions or complaints, call rodriguez within reach.
[2023-12-02 22:01] VITALS: BP 111/66; PULSE 64; RESP 16; TEMP 36.5; O2SAT 94
== END 2023-12-02 22:01 | disposition home or self-care (01) ==
PROVIDERS: Nurse Practitioner Family; Emergency Provider Emergency Medicine; PCP Nurse Practitioner Family
DX: R10.12 Left upper quadrant pain (principal); R10.2 Pelvic and perineal pain; R07.89 Other chest pain; Z79.899 Other long term (current) drug therapy
CPT/HCPCS: 36415; 74174; 80048; 80076; 81003; 83690; 84484; 85025; 93005; 96374; 96375; 99284; J2270; J2405; Q9967

== ENCOUNTER → 2023-12-02 15:36 | Outpatient (BNV) | payer OTHER, SELFPAY | PROVIDERS: Emergency Provider Emergency Medicine; PCP Nurse Practitioner Family; Visit Provider Internal Medicine | DX: R10.10 Upper abdominal pain, unspecified (principal) | CPT/HCPCS: 93010 ==

== ENCOUNTER 2023-12-22 06:35 | Outpatient (REF) | payer OTHER, SELFPAY ==
[2023-12-22 11:21] LABS: MANUAL DIFF FLAG NO
[2023-12-22 11:26] LABS: Basophils Percent Auto 0.6 % (0-2); Eosinophils Absolute Auto 0.2 X10*3/uL (0.0-0.4); Eosinophils Percent Auto 3.2 % (0-4); Hematocrit 40.5 % (37.0-47.0); Hemoglobin 13.4 g/dl (12.0-16.0); Imm Gran Abs Auto 0.02 X10*3/uL (0.00-0.03); Imm Gran Pct Auto 0.3 % (0.0-0.4); Lymphocytes Absolute Auto 2.3 X10*3/uL (1.2-4.9); Lymphocytes Percent Auto 32.3 % (20-40); Mean Corpuscular HGB Conc 33.1 g/dl (31.0-35.0); Mean Corpuscular Hemoglobin 29.6 pg (27.0-33.0); Mean Corpuscular Volume 89.4 fL (80.0-98.0); Mean Platelet Volume 10.3 fL (9.4-12.3); Monocytes Absolute Auto 0.5 X10*3/uL (0.1-1.2); Monocytes Percent Auto 7.1 % (2-11); Neutrophils Percent Auto 56.5 % (45-73); Platelet Count 305 X10*3/uL (160-400); Red Blood Count 4.53 X10*6/uL (4.20-5.50); Red Cell Distribution Width 12.4 % (11.0-16.0); White Blood Count 7.1 X10*3/uL (4.8-10.8)
[2023-12-22 11:51] LABS: Alanine Aminotransferase 17 U/L (0-31); Albumin Level 4.1 g/dL (3.5-5.0); Alkaline Phosphatase 89 U/L (39-117); Anion Gap 14 (12-20); Aspartate Amino Transferase 13 U/L (5-31); Bilirubin Total 0.3 mg/dL (0.0-1.0); Blood Urea Nitrogen 9 mg/dL (9-16); Calcium 9.8 mg/dL (8.4-10.2); Carbon Dioxide 25 mmol/L (22-29); Chloride 106 mmol/L (96-108); Cholesterol 176 mg/dL (<200); Estimated Glomerular Filt Rate > 60; Glucose Fasting 114 mg/dL (60-99); HDL Cholesterol 48 mg/dL (>40); LDL Cholesterol Calculated 101 mg/dL (<100); Potassium 4.4 mmol/L (3.3-5.1); Sodium 141 mmol/L (135-145); Total Protein 7.5 g/dL (6.5-8.0); Triglycerides 139 mg/dL (<150)
[2023-12-22 11:52] LABS: Blood Urea Nitrogen 10 mg/dL (9-16)
[2023-12-22 12:08] LABS: TSH reflex Free T4 0.13 uIU/mL (0.32-4.0)
[2023-12-22 13:43] LABS: Free T4 (Free Thyroxine) 0.86 ng/dL (0.71-1.85)
[2023-12-25 14:09] LABS: Carbohydrate Antigen 19-9 28 U/mL (<34)
== END 2023-12-22 06:36 | disposition home or self-care (01) ==
LOC: HO.HMGCLDS 06:35
PROVIDERS: PCP Nurse Practitioner Family; Referring Provider Surgery Vascular Surgery; Visit Provider Nurse Practitioner Family
DX: Z00.01 Encounter for general adult medical examination with abnormal findings (principal); E11.9 Type 2 diabetes mellitus without complications; Z80.0 Family history of malignant neoplasm of digestive organs; I72.8 Aneurysm of other specified arteries
CPT/HCPCS: 36415; 80053; 80061; 84439; 84443; 84520; 85025; 86301

== ENCOUNTER 2023-12-24 07:57 | Outpatient (AMB) | payer OTHER, SELFPAY ==
--- NOTE | 2023-12-24 08:06 | MHC.PC.OV ---
Vital Signs 12/24/23 08:07 Height 5 ft 2 in Weight 173 lb 6 oz BMI 31.7 BP 120/60 Blood Pressure Location Lt brachial Position Sitting Pulse 68 Pulse Source Pulse Oximeter Pulse Oximetry (%) 92 Oxygen Delivery Method Room Air Intake Visit Reasons: 3-4 month fu Intake Note: Pt is here today for her 4 Month follow up Allergies codeine [Codeine] Allergy (Intermediate, Verified 12/24/23 08:40) FELT OUT OF SORTS Medication List - Last Reconciled 12/24/23 by SAVANNA Norton- alcohol swabs 1 pad topical QIDACHS atorvastatin 20 mg PO BEDTIME cholecalciferol (vitamin D3) 50 mcg PO DAILY Dexcom G7 Fiction And Nonfiction Prose Writer (blood-glucose meter,continuous) Test blood sugars 4 times per day NS Dexcom G7 Sensor (blood-glucose sensor) Test blood sugars 4 times per day NS gauze bandage (Kerlix) As directed hydrocortisone 2.5% 1 appl topical BID PRN ketoconazole 2% 1 appl topical DAILY lancets 4 times daily lisinopril 2.5 mg PO DAILY metformin 1,000 mg PO BIDWMEAL 90 days nicotine (polacrilex) 4 mg buccal Q4H PRN pen needle, diabetic (Pen Needle) As directed semaglutide (Ozempic) 0.5 mg (0.736 mL) subcut QWEEK sertraline 100 mg PO DAILY Tobacco use date assessed: 12/24/23 Dental Screening Dental Screen Date: 12/24/23 Did you have a dental visit in the last 12 months?: No Did you have a dental problem in the last 6 months where you did not have access to dental care?: No Was dental information given to patient?: No HPI 3-4 month fu HPI Details Pt is a diabetic, on an ZELALEM and a statin. A1C in office today is 6.5. Due for microalbumin, will order. Denies polyuria, polydipsia, and neuropathy. Pt denies any signs and symptoms of hypoglycemia and does know how to correct it. Eye exam is scheduled for may of this year. Pt's TSH was low. Will order further labs and US. Will also refer to endo. [facility] Medical History FH: cholecystectomy Diabetes mellitus Hip pain Anxiety and depression ANG (obstructive sleep apnea) Constipation Osteoarthritis Cervical neck pain with evidence of disc disease Left ventricular hypertrophy Smoker Surgical History History of carpal tunnel surgery History of hysterectomy Family History Father Heart problem Mother No problems noted. Sister Breast cancer Daughter Overweight Maternal Grandfather Cancer Maternal Grandmother Multiple myeloma Paternal Grandfather Unknown family medical history Paternal Grandmother Unknown family medical history Social History Household Members: None Housing: House Do you presently have visiting nurse or other home services: No Alcohol intake: current Alcohol intake frequency: holidays/special occasions only Patient Tobacco Use Status: Current everyday Tobacco user Tobacco use type: Cigarette Cigarette Packs Per Day: 1 Cigarettes Per Day: 15 e-Cigarette/Vaping Use: Never Used Second Hand Smoke Exposure: No service: No Current occupational status: employed 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 1. Little interest or pleasure in doing things: not at all 2. Feeling down, depressed, or hopeless: not at all 3. Trouble falling or staying asleep, or sleeping too much: not at all 4. Feeling tired or having little energy: several days 5. Poor appetite or overeating: not at all 6. Feeling bad about yourself - or that you are a failure or have let yourself or your family down: not at all 7. Trouble concentrating on things, such as reading the newspaper or watching television: not at all 8. Moving or speaking so slowly that other people could have noticed. Or the opposite - being so fidgety or restless that you have been moving around a lot more than usual: not at all 9. Thoughts that you would be better off or of hurting yourself in some way: not at all Total score: 1 Depression Screening Interpretation: Negative Depression Screening Done: Yes 46188 - PHQ-9 Billing: Yes Source: Developed by Drs. Alphonso Medina, Padmini Michele, Jun Davis and colleagues, with an educational brayan from [employer]. Thrive Questionnaire Date Thrive assessed: 12/24/23 I am a: Patient What is your living situation today?: I have a steady place to live Within the past 12 months, did the food you bought not last and you didn't have the money to get more?: Sometimes True Within the past 12 months, did you worry whether your food would run out before you got money to buy more?: Sometimes True Do you have trouble paying for medicines?: No Do you have trouble getting transportation to medical appointments?: No Do you have trouble paying your heating and electricity bill?: No Do you have trouble taking care of your child, family member or friend?: No Do you have trouble with day-to-day activities such as bathing, preparing meals, shopping, managing finances, etc.?: No Are you currently unemployed and looking for a job?: No Are you interested in more education?: No Please select the resources that you would like help with: Housing/Longterm Currently or been in a relationship where the following occur: I choose not to answer THRIVE Score: 2 AUDIT C Alcohol Use Questionnaire (AUDIT-C) 1. How often do you have a drink containing alcohol?: Monthly or less 2. How many drinks containing alcohol do you have on a typical day when you are drinking?: 1 or 2 3. How often do you have six or more drinks on one occasion?: Never Total Score: 1 Score Reviewed/Action Taken: Yes MAINOR-7 AMB Questionnaire MAINOR-7 Date MAINOR - 7 assessed: 12/24/23 Feeling nervous, anxious, or on edge: 0 = Not at all Not being able to stop or control worryin = Not at all Worrying too much about different things: 0 = Not at all Trouble relaxin = Not at all Being so restless that it is hard to sit still: 0 = Not at all Becoming easily annoyed or irritable: 0 = Not at all Feeling afraid as if something awful might happen: 0 = Not at all Total MAINOR-7 score (0-4 normal; 5-9 mild; 10-14 moderate; 15-21 severe): 0 Source: Developed by Drs. Alphonso Medina, Padmini Michele, Jun Davis and colleagues, with an educational brayan from [employer]. MAINOR-7 Assessment Billing MAINOR-7 Assessment Tool: MAINOR-7 Assessment 13448 Review of Systems Const Reports as per HPI Physical exam (Primary Care) Vital Signs: Last Vital Signs Pulse 68 12/24/23 08:07 BP 120/60 12/24/23 08:07 Pulse Ox 92 12/24/23 08:07 Oxygen Delivery Method Room Air 12/24/23 08:07 BMI result Body Mass Index 31.7 Tobacco/Smoking Status: Tobacco use Status Tobacco use date assessed 12/24/23 12/24/23 08:12 Patient Tobacco Use Status Current everyday Tobacco 12/24/23 08:12 Tobacco use type Cigarette 12/24/23 08:12 e-Cigarette/Vaping Use Never Used 12/24/23 08:12 PHQ-9: PHQ-9 Score PHQ-9: Total score 1 12/24/23 08:35 Depression Screening Interpretation: Negative Thrive Assessment: Date of Thrive Assessment Date Thrive assessed 12/24/23 12/24/23 08:12 Currently or been in a relationship where the following occur: I choose not to answer Const General: cooperative Nutritional Appearance: obese Orientation/consciousness: patient oriented x3 Resp Other: lungs fairly clear, slightly diminished Effort & Inspection: normal respiratory effort Cardio Rate: regular rate Rhythm: regular rhythm Heart sounds: S1 normal heart sound present, S2 normal heart sound present and Murmur heart sound present systolic (faint) Neuro General: patient oriented x3 Extrem Other: bilat feet: + sensation with use of monofilament, feet intact Psych Appearance: grossly normal Mental Status: mental status grossly normal Speech and movement: Normal speech and movement present Affect: normal affect Attitude: cooperative Thought process: Normal thought process present Thought content: Normal thought content present Insight: Good insight present (Psych) Judgement: Good judgement present (Psych) Results AMB Hemoglobin A1c AMB Hemoglobin A1c 0729 % Last Edit by Solitario Chavarria CMA on 12/24/23 08:34 Immunizations pneumoc 20-cindy conj-dip cr(PF) 0.5 mL IM syringe Performing Provider: CHANTAL Norton Performing Location: [facility] [place] Administered by: Solitario Chavarria CMA on 12/24/23 08:34 Dose Route Admin Location Dispensed Lot Number Expiration Date NDC Speech Therapist Early Intervention 0.5 mL IM Right Deltoid 0.5 mL [id number] 11/21/24 7754-7894-08 WYETH/PFIZER VIS Given Date VIS Provided VIS Publication Date 12/24/23 Single Vaccine 21 Eligibility Eligibility Date Funding Source Not [facility] Eligible 12/24/23 Private Results Reviewed Results Reviewed: Laboratory Last Values Hgb A1c (Clinic) 0729 % (4.0-6.0) H 12/24/23 08:33 Assessment and Plan Assessment & Plan (1) Low TSH level: Code(s): R79.89 - Other specified abnormal findings of blood chemistry Plan: Further labs, referred to pedro ordered (2) Diabetes mellitus: Code(s): E11.9 - Type 2 diabetes mellitus without complications Plan: Microalbumin ordered Plan The patient agreed to the use of a chief medical technologist for this encounter. Scribed for SAVANNA Zavala- by Gretel Johnson chief medical technologist, on 12/24/2023 at 08:15 EST. Orders: Orders AMB Hemoglobin A1c Today Z13.9 - Encounter for screening, unspecified Microalbumin, Random (w Creat) Today E11.9 - Type 2 diabetes mellitus without complications Pneumococcal 20 Immunization Today Z23 - Encounter for immunization Referrals Endocrinology Referral R79.89 - Other specified abnormal findings of blood chemistry Coding Level of Care Code Est Pt Level 3 (89697) Complex EM visit Add On G2211 Diagnoses Low TSH level R79.89 Diabetes mellitus E11.9 Additional Codes MAINOR-7 Assessment Billing - MAINOR-7 Assessment Tool: MAINOR-7 Assessment 43814 ([id number])
[2023-12-24 08:07] VITALS: BP 120/60; PULSE 68; O2SAT 92; BMI 31.7
== END 2023-12-24 08:35 | disposition home or self-care (01) ==
PROVIDERS: PCP Nurse Practitioner Family; Visit Provider Nurse Practitioner Family
DX: R79.89 Other specified abnormal findings of blood chemistry (principal); E11.9 Type 2 diabetes mellitus without complications; Z23 Encounter for immunization
CPT/HCPCS: 83036; 90471; 90677; 99213

== ENCOUNTER 2023-12-28 15:06 | Outpatient (REF) | payer OTHER, SELFPAY ==
[2023-12-30 04:14] LABS: Triiodothyronine T3 Free 3.2 pg/mL (2.3-4.2)
[2023-12-31 17:18] LABS: Thyroid Peroxidase Antibodies <1 IU/mL (<9)
[2024-01-01 18:28] LABS: Thyrotropin Receptor Antibody <1.00 IU/L (<=2.00)
== END 2023-12-28 15:07 | disposition home or self-care (01) ==
LOC: HO.HMGCLDS 15:06
PROVIDERS: PCP Nurse Practitioner Family; Visit Provider Nurse Practitioner Family
DX: R79.89 Other specified abnormal findings of blood chemistry (principal)
CPT/HCPCS: 36415; 83520; 84439; 84443; 84481; 86376

== ENCOUNTER 2024-01-01 12:51 | Outpatient (REF) | payer OTHER, SELFPAY ==
--- NOTE | ~2024-01-01 | US_ITS ---
EXAMINATION: US THYROID CLINICAL INFORMATION: Other specified abnormal findings of blood chemistry. Low TSH. COMPARISON: None available. TECHNIQUE: Linear transducer grayscale and color Doppler examination with attention to the region of the thyroid. FINDINGS: SIZE: Measurements of the thyroid lobes and nodules are given in sagittal, anteroposterior and transverse dimensions respectively. Right Thyroid Lobe: 4.51 x 2.56 x 1.56 cm, volume 9.42 mL. Parenchyma: The gland echotexture is heterogeneous. Thyroid vascularity is normal. Left Thyroid Lobe: 6.0 x 3.5 x 2.0 cm, volume 21.6 mL. Parenchyma: The gland echotexture is heterogeneous. Thyroid vascularity is normal. Isthmus: 0.34 cm in maximum AP dimension. Estimated total number of nodules greater than or equal to 1 cm: 5. Investment Specialist nodules are described as follows: 1. Location: Right mid. Size: 1.5 x 0.64 x 1.4 cm, volume 0.70 mL. Nodule characteristics: Composition: Solid (2). Echogenicity: Very hypoechoic (3). Shape: Not taller than wide (0). Margins: Smooth (0). Echogenic Foci: Punctate echogenic foci (3). ACR TI-RADS total points: 8 ACR TI-RADS category: 5 2. Location: Right inferior. Size: 0.80 x 1.1 x 1.2 cm, volume 0.47 mL. Nodule characteristics: Composition: Solid (2). Echogenicity: Very hypoechoic (3). Shape: Not taller than wide (0). Margins: Smooth (0). Echogenic Foci: None (0). ACR TI-RADS total points: 5 ACR TI-RADS category: 4 3. Location: Left inferior. Size: 2.2 x 1.6 x 2.0 cm, volume 3.7 mL. Nodule characteristics: Composition: Solid (2). Echogenicity: Hyperechoic (1). Shape: Not taller than wide (0). Margins: Smooth (0). Echogenic Foci: Punctate echogenic foci (3). ACR TI-RADS total points: 6 ACR TI-RADS category: 4 4. Location: Left mid. Size: 2.4 x 1.8 x 1.3 cm, volume 2.8 mL. Nodule characteristics: Composition: Solid (2). Echogenicity: Very hypoechoic (3). Shape: Taller than wide (3). Margins: Smooth (0). Echogenic Foci: Punctate echogenic foci (3). ACR TI-RADS total points: 11 ACR TI-RADS category: 5 5. Location: Left superior. Size: 1.1 x 0.80 x 1.0 cm, volume 0.50 mL. Nodule characteristics: Composition: Solid (2). Echogenicity: Hypoechoic (2). Shape: Not taller than wide (0). Margins: Smooth (0). Echogenic Foci: None (0). ACR TI-RADS total points: 4 ACR TI-RADS category: 4 NODES: No lymphadenopathy is seen in the tissue surrounding the thyroid gland. US/US thyroid IMPRESSION: Multiple thyroid nodules with largest 5 measured as above. 2.4 cm left mid TR5 nodule, 2.2 cm left lower TR4 nodule and 1.5 cm right mid TR5 nodule meet criteria for biopsy. Fine-needle aspiration of at least the 2 largest of these nodules is recommended. This study was presented to me on January 14, 2024 for interpretation. PSA staff will provide results to referring provider at this time. ACR TI-RADS RECOMMENDATION REFERENCE: Ultrasound-guided fine-needle aspiration, followup ultrasound, no further follow up. * TR1 (0 point) and TR2 (2 points): No FNA or follow up. * TR3 (3 points): FNA if more than or equal to 2.5 cm in maximum dimension, followup ultrasound in 1, 3 and 5 years if 1.5 to 2.4 cm in maximum dimension. * TR4 (4-6 points): FNA if more than or equal to 1.5 cm in maximum dimension, followup ultrasound in 1, 2, 3 and 5 years if 1 to 1.4 cm in maximum dimension. * TR5 (more than or equal to 7 points): FNA if more than or equal to 1 cm in maximum dimension, followup ultrasound every year for 5 years if 0.5 to 0.9 cm in maximum dimension. * TR3, TR4 or TR5 nodules that are below the size threshold for followup receive no follow up.
== END 2024-01-01 12:52 | disposition home or self-care (01) ==
LOC: HO.HMGCX 12:51
PROVIDERS: PCP Nurse Practitioner Family; Visit Provider Nurse Practitioner Family
DX: R79.89 Other specified abnormal findings of blood chemistry (principal)
CPT/HCPCS: 76536

== ENCOUNTER 2024-01-14 15:23 | Outpatient (AMB) | payer OTHER, SELFPAY ==
[2024-01-14 15:26] VITALS: BP 110/50; PULSE 78; BMI 32.6
--- NOTE | 2024-01-14 15:26 | A.OFFVIS_ITS ---
Vital Signs 01/14/24 15:26 Height 5 ft 2 in Weight 178 lb 2.136 oz BMI 32.6 BP 110/50 L Blood Pressure Location Rt brachial Position Sitting Pulse 78 Pulse Source Pulse Oximeter Intake Visit Reasons: Other spec abnormal findings of blood chemistry Intake Note: New patient present today for other spec abnormal findings of blood chemistry. Assembler 1St Shift Required: No Accompanied by: Self / Same As Patient Allergies codeine [Codeine] Allergy (Intermediate, Verified 01/14/24 15:30) FELT OUT OF SORTS Medication List - Last Reconciled 01/14/24 by Alphonso Rueda MD alcohol swabs 1 pad topical QIDACHS atorvastatin 20 mg PO BEDTIME cholecalciferol (vitamin D3) 50 mcg PO DAILY Dexcom G7 Hydro Plant Technician (blood-glucose meter,continuous) Test blood sugars 4 times per day NS Dexcom G7 Sensor (blood-glucose sensor) Test blood sugars 4 times per day NS gauze bandage (Kerlix) As directed hydrocortisone 2.5% 1 appl topical BID PRN ketoconazole 2% 1 appl topical DAILY lancets 4 times daily lisinopril 2.5 mg PO DAILY metformin 1,000 mg PO BIDWMEAL 90 days nicotine (polacrilex) 4 mg buccal Q4H PRN pen needle, diabetic (Pen Needle) As directed semaglutide (Ozempic) 0.5 mg (0.736 mL) subcut QWEEK sertraline 100 mg PO DAILY HPI Comments Details: 63 YO F with PMHx [] who is seen in consultation for multinodular thyroid at the request of PCP. She was found to have a suppressed TSH. Previously saw npt in 2006 for Graves Dx? and hyperthyroidism Was initially diagnosed with multinodular thyroid thyroid US revealing see below . Currently denies any dysphagia or hoarseness of voice. Denies sensation of swelling in the neck or difficulty breathing while lying flat. Denies any tenderness in the neck. Denies any palpitations, tremors, weight loss, frequent bowel movements. Denies any ocular complaints, blurred or double vision. Denies hair loss, dry skin, heat or cold intolerance, weight gain, confusion. Denies any history of head or neck irradiation. Denies any family history of thyroid cancer. Had biopsy of nodules in the past. Thyroid US: 1. Location: Right mid. Size: 1.5 x 0.64 x 1.4 cm, volume 0.70 mL. Nodule characteristics: Composition: Solid (2). Echogenicity: Very hypoechoic (3). Shape: Not taller than wide (0). Margins: Smooth (0). Echogenic Foci: Punctate echogenic foci (3). ACR TI-RADS total points: 8 ACR TI-RADS category: 5 2. Location: Right inferior. Size: 0.80 x 1.1 x 1.2 cm, volume 0.47 mL. Nodule characteristics: Composition: Solid (2). Echogenicity: Very hypoechoic (3). Shape: Not taller than wide (0). Margins: Smooth (0). Echogenic Foci: None (0). ACR TI-RADS total points: 5 ACR TI-RADS category: 4 3. Location: Left inferior. Size: 2.2 x 1.6 x 2.0 cm, volume 3.7 mL. Nodule characteristics: Composition: Solid (2). Echogenicity: Hyperechoic (1). Shape: Not taller than wide (0). Margins: Smooth (0). Echogenic Foci: Punctate echogenic foci (3). ACR TI-RADS total points: 6 ACR TI-RADS category: 4 4. Location: Left mid. Size: 2.4 x 1.8 x 1.3 cm, volume 2.8 mL. Nodule characteristics: Composition: Solid (2). Echogenicity: Very hypoechoic (3). Shape: Taller than wide (3). Margins: Smooth (0). Echogenic Foci: Punctate echogenic foci (3). ACR TI-RADS total points: 11 ACR TI-RADS category: 5 5. Location: Left superior. Size: 1.1 x 0.80 x 1.0 cm, volume 0.50 mL. Nodule characteristics: Composition: Solid (2). Echogenicity: Hypoechoic (2). Shape: Not taller than wide (0). Margins: Smooth (0). Echogenic Foci: None (0). ACR TI-RADS total points: 4 ACR TI-RADS category: 4 NODES: No lymphadenopathy is seen in the tissue surrounding the thyroid gland. US/US thyroid IMPRESSION: Multiple thyroid nodules with largest 5 measured as above. 2.4 cm left mid TR5 nodule, 2.2 cm left lower TR4 nodule and 1.5 cm right mid TR5 nodule meet criteria for biopsy. Fine-needle aspiration of at least the 2 largest of these nodules is recommended. Labs: [facility] Medical History FH: cholecystectomy Diabetes mellitus Hip pain Anxiety and depression ANG (obstructive sleep apnea) Constipation Osteoarthritis Cervical neck pain with evidence of disc disease Left ventricular hypertrophy Smoker Surgical History History of carpal tunnel surgery History of hysterectomy Family History Father Heart problem Mother No problems noted. Sister Breast cancer Daughter Overweight Maternal Grandfather Cancer Maternal Grandmother Multiple myeloma Paternal Grandfather Unknown family medical history Paternal Grandmother Unknown family medical history Social History Household Members: None Housing: House Do you presently have visiting nurse or other home services: No Alcohol intake: current Alcohol intake frequency: holidays/special occasions only Patient Tobacco Use Status: Current everyday Tobacco user Tobacco use type: Cigarette Cigarette Packs Per Day: 1 Cigarettes Per Day: 15 e-Cigarette/Vaping Use: Never Used Second Hand Smoke Exposure: No service: No Current occupational status: employed 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 Thyroid gland measure 15 gms . No nodules or tenderness palpated. There is no cervical adenopathy palpated. Lungs CTA. Heart S1, S2 Reg R/R -M/R/G. Abdominal exam benign. Skin exam reveals absence of dryness or thyroid dermopathy or vitiligo. Nail exam reveals absence of thyroid acropachy or oncholysis. Neurologic exam reveals 2+ reflexes . Muscle Strength is 5/5 proximally. There are no tremors in upper extremities. Assessment & Plan Assessment & Plan (1) Low TSH level: Code(s): R79.89 - Other specified abnormal findings of blood chemistry Category: Medical Plan: This 63-year-old white female found to have a suppressed TSH in the setting of multinodular goiter. Differential includes toxic multinodular goiter vs toxic thyroid nodule 1st Motrin nodular goiter . 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 Will then referred to Dr. Felix diagnostic medical sonographer who joined our quality assurance practice manager and thyroid ultrasound and biopsy to correlate the scan with the ultrasound and to do an FNA on appropriate nodules Orders: Orders NM thyroid w uptake Today R79.89 - Other specified abnormal findings of blood chemistry Coding Level of Care Code New Pt Level 4 (05544) Diagnoses Low TSH level R79.89
== END 2024-01-14 16:02 | disposition home or self-care (01) ==
PROVIDERS: PCP Nurse Practitioner Family; Visit Provider Internal Medicine Endocrinology, Diabetes & Metabolism
DX: R79.89 Other specified abnormal findings of blood chemistry (principal)
CPT/HCPCS: 99204

== ENCOUNTER → 2024-01-14 15:23 | Outpatient (BNVA) | payer OTHER, SELFPAY | PROVIDERS: PCP Nurse Practitioner Family; Visit Provider Internal Medicine Endocrinology, Diabetes & Metabolism ==

== ENCOUNTER 2024-01-16 08:02 | Outpatient (AMB) | payer OTHER, SELFPAY ==
--- NOTE | 2024-01-16 08:02 | AM.OFFWIN_ITS ---
Intake Vital Signs 01/16/24 08:03 Height 5 ft 2 in Weight 177 lb BMI 32.4 BP 104/62 Blood Pressure Location Rt brachial Position Sitting Pulse 71 Pulse Source Pulse Oximeter Temp 98.6 F Temp Source Oral Pulse Oximetry (%) 97 Oxygen Delivery Method Room Air Intake Visit Reasons: EP- RT ear ache, up all night with pain Intake Note: pt c/o RT ear pain. Started last night Patient Tobacco Use Status: Current everyday Tobacco user Allergies codeine [Codeine] Allergy (Intermediate, Verified 01/16/24 08:03) FELT OUT OF SORTS Do you need a note to return to daycare/school/sports/work: No HPI HPI Comments History of Present Illness Details This is a 63-year-old female complaining of right ear pain which radiates down to her jaw for 2 days. She denies any fevers, change in her hearing or history of ear infections. [facility] Medical History FH: cholecystectomy Diabetes mellitus Hip pain Anxiety and depression ANG (obstructive sleep apnea) Constipation Osteoarthritis Cervical neck pain with evidence of disc disease Left ventricular hypertrophy Smoker Surgical History History of carpal tunnel surgery History of hysterectomy Family History Father Heart problem Mother No problems noted. Sister Breast cancer Daughter Overweight Maternal Grandfather Cancer Maternal Grandmother Multiple myeloma Paternal Grandfather Unknown family medical history Paternal Grandmother Unknown family medical history Social History Household Members: None Housing: House Do you presently have visiting nurse or other home services: No Alcohol intake: current Alcohol intake frequency: holidays/special occasions only Patient Tobacco Use Status: Current everyday Tobacco user Tobacco use type: Cigarette Cigarette Packs Per Day: 1 Cigarettes Per Day: 15 e-Cigarette/Vaping Use: Never Used Second Hand Smoke Exposure: No service: No Current occupational status: employed 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 Current occupational exposures/hazards: No Cognitive needs: No Hearing needs: No Vision needs: No Review of Systems Const All systems reviewed & are unremarkable except as noted in HPI and below Physical Exam Vital Signs: Last Vital Signs Temp 98.6 F 01/16/24 08:03 Pulse 71 01/16/24 08:03 BP 104/62 01/16/24 08:03 Pulse Ox 97 01/16/24 08:03 Oxygen Delivery Method Room Air 01/16/24 08:03 BMI result Body Mass Index 32.4 Const General: cooperative, healthy appearing, comfortable and no acute distress Orientation/consciousness: patient oriented x3 HEENT Head: Yes normal to inspection, Yes No palpable skull fracture present and Yes normocephalic Ears: hearing grossly normal bilaterally, external ears normal, TM's normal bilaterally, mastoids normal (no TTP) bilaterally and Abnormal EAC present (right side) erythema, edema and EAC tenderness General nose exam: Normal external nose present Face and sinus: Yes normal facial exam Mouth: Normal oral and palatal mucosa present Throat: Yes posterior oropharynx normal Eyes General: appearance normal, both eyes and all related structures Neck Neck: Yes normal visual inspection, Yes full ROM, Yes no lymphadenopathy, Yes no meningeal signs, Yes trachea midline and Yes supple Resp Effort & Inspection: normal respiratory effort and able to speak in complete se ntences Skin General skin exam: no rashes or lesions noted Neuro General: patient oriented x3 and no meningeal signs Assessment & Plan Assessment & Plan (1) Otitis externa: Code(s): H60.90 - Unspecified otitis externa, unspecified ear Qualifiers: Otitis externa type: swimmer's ear Chronicity: acute Laterality: right Qualified Code(s): H60.331 - Swimmer's ear, right ear Plan: Had a partial view of TM on right side, advised if pain continues after 2-3 days of using drops that we would send RX for Amoxicillin for otitis media but from what I could see, it didn't look infected, only externa. Plan see above Medications: New qsqrrlev-vffrwyvkt-TH 3.5-10,000-1 mg/mL-unit/mL-% 4 drps otic (ear) right Q8H 7 days 10 mL 0RF Coding Level of Care Code Est Pt Level 3 (92125) Diagnoses Acute swimmer's ear of right side H60.331 Otitis externa type: swimmer's ear Chronicity: acute Laterality: right
[2024-01-16 08:03] VITALS: BP 104/62; PULSE 71; TEMP 37; O2SAT 97; BMI 32.4
== END 2024-01-16 08:37 | disposition home or self-care (01) ==
PROVIDERS: PCP Nurse Practitioner Family; Visit Provider Physician Assistant
DX: H60.331 Swimmer's ear, right ear (principal)
CPT/HCPCS: 99213

== ENCOUNTER 2024-01-16 19:36 | Emergency (ER) | payer OTHER, SELFPAY ==
[2024-01-16] VITALS (7 sets, daily range): BP systolic 105–136; BP diastolic 48–78; PULSE 59–82; RESP 17–18; TEMP 36.6–37.3; O2SAT 93–99; BMI 32.6
--- NOTE | ~2024-01-16 | CT_ITS ---
EXAMINATION: CT HEAD WITHOUT CONTRAST CLINICAL INFORMATION: New onset dizziness COMPARISON: None available. TECHNIQUE: Contiguous axial imaging was performed from the skull base to vertex without intravenous administration of contrast. This CT examination was performed using dose optimization techniques as appropriate, variously including the following: *Automated exposure control *Adjustment of mA and/or kV according to patient size (this includes techniques or standardized protocols for targeted exams where dose is matched to indication/reason for exam; i.e. extremities or head) *Use of iterative reconstruction technique DLP: 651 mGy-cm RESULTS: There is no evidence of acute intracranial hemorrhage, acute large vessel infarct, midline shift or mass effect. The reaves-white differentiation is preserved. The ventricles and sulci are within normal limits in size and configuration. There is no evidence of hydrocephalus. There are no extraaxial collections. Osseous structures are intact. Moderate right maxillary sinus thickening and mild left maxillary sinus thickening. CT/CT head/brain wo IV con IMPRESSION: No acute intracranial pathology.
[2024-01-16] MEDS: Meclizine HCl 25 MG TABLET 50 MG PO (20:54)
[2024-01-16 20:55] LABS: MANUAL DIFF FLAG NO
[2024-01-16 20:56] LABS: Basophils Absolute Auto 0.1 X10*3/uL (0.0-0.2); Basophils Percent Auto 0.5 % (0-2); Eosinophils Absolute Auto 0.2 X10*3/uL (0.0-0.4); Eosinophils Percent Auto 2.2 % (0-4); Hematocrit 36.4 % (37.0-47.0); Hemoglobin 12.6 g/dl (12.0-16.0); Imm Gran Abs Auto 0.04 X10*3/uL (0.00-0.03); Imm Gran Pct Auto 0.4 % (0.0-0.4); Lymphocytes Absolute Auto 2.6 X10*3/uL (1.2-4.9); Lymphocytes Percent Auto 26.8 % (20-40); Mean Corpuscular HGB Conc 34.6 g/dl (31.0-35.0); Mean Corpuscular Hemoglobin 29.9 pg (27.0-33.0); Mean Corpuscular Volume 86.5 fL (80.0-98.0); Monocytes Absolute Auto 0.7 X10*3/uL (0.1-1.2); Monocytes Percent Auto 6.7 % (2-11); Neutrophils Absolute Auto 6.2 x10*3/uL (2.0-8.3); Neutrophils Percent Auto 63.4 % (45-73); Platelet Count 271 X10*3/uL (160-400); Red Blood Count 4.21 X10*6/uL (4.20-5.50); Red Cell Distribution Width 12.4 % (11.0-16.0); White Blood Count 9.7 X10*3/uL (4.8-10.8)
[2024-01-16 21:16] LABS: Alanine Aminotransferase 10 U/L (0-31); Alkaline Phosphatase 97 U/L (39-117); Anion Gap 13 (12-20); Aspartate Amino Transferase 9 U/L (5-31); Bilirubin Total 0.2 mg/dL (0.0-1.0); Blood Urea Nitrogen 10 mg/dL (9-16); Calcium 9.5 mg/dL (8.4-10.2); Carbon Dioxide 27 mmol/L (22-29); Chloride 103 mmol/L (96-108); Creatinine Clr Calc Pharmacy 96.2; Estimated Glomerular Filt Rate > 60; Glucose Random 136 mg/dL (60-115); Potassium 3.8 mmol/L (3.3-5.1); Sodium 139 mmol/L (135-145); Total Protein 7.5 g/dL (6.5-8.0)
--- NOTE | 2024-01-16 22:13 | ED_ITS ---
HPI - Dizziness General Chief Complaint: Dizziness Stated Complaint: DIZZY Time Seen by Provider: 01/16/24 20:05 Source: patient Mode of arrival: ambulatory Limitations: no limitations History of Present Illness ED Provider: richard RAMIREZ Narrative: Patient complaining of increased dizziness/vertiginous feeling started just prior to arrival does have pain in the right ear since yesterday seen PCP who prescribed ear drops which she has not body yet denies any headache no recent fall no new weakness no history of vertigo in the past Related Data Home Medications ?Medication ?Instructions ?Recorded ?Confirmed cholecalciferol (vitamin D3) 25 50 mcg PO DAILY 10/01/21 01/14/24 mcg (1,000 unit) capsule Previous Rx's ?Medication ?Instructions ?Recorded alcohol swabs 1 pad topical QIDACHS #200 ea 05/31/23 gauze bandage 4 X 4 sponge #1,200 ea 05/31/23 (Kerlix) lancets #200 ea 05/31/23 pen needle, diabetic 31 gauge x #1,200 ea 05/31/23 5/16 (Pen Needle) Dexcom G7 Telecommunications Linesworker (blood-glucose #1 ea 06/21/23 meter,continuous) hydrocortisone 2.5 % topical cream 1 appl topical BID PRN skin 06/21/23 irritation #30 grams ketoconazole 2 % topical cream 1 appl topical DAILY #30 grams 06/21/23 sertraline 100 mg tablet 100 mg PO DAILY #90 tabs 07/20/23 lisinopril 2.5 mg tablet 2.5 mg PO DAILY #90 tabs 10/17/23 Dexcom G7 Sensor (blood-glucose #9 ea 11/18/23 sensor) atorvastatin 20 mg tablet 20 mg PO BEDTIME #90 tabs 11/18/23 semaglutide 0.25 mg or 0.5 mg (2 0.5 mg (0.736 mL) subcut QWEEK #3 11/25/23 mg/3 mL) subcutaneous pen injector mL (Ozempic) metformin 1,000 mg tablet 1,000 mg PO BIDWMEAL 90 days #180 12/24/23 tabs amoxicillin 875 mg-potassium 1 tab PO BID #20 tabs 01/16/24 clavulanate 125 mg tablet meclizine 25 mg tablet 25 mg PO TID PRN dizziness #20 tabs 01/16/24 xfzaaqgd-okdixwbin-jxzrpxtyl 3.5 4 drp otic (ear) right Q8H 7 days 01/16/24 mg-10,000 unit/mL-1 % ear #10 mL drops,susp Allergies Allergy/AdvReac Type Severity Reaction Status Date / Time codeine [Codeine] Allergy Intermediate FELT OUT Verified 01/16/24 20:01 OF SORTS Review of Systems 2 Review of Systems: Yes all other systems are reviewed and are negative [facility] Past Medical History Medical History FH: cholecystectomy Diabetes mellitus Hip pain Anxiety and depression ANG (obstructive sleep apnea) Constipation Osteoarthritis Cervical neck pain with evidence of disc disease Left ventricular hypertrophy Smoker Surgical History History of carpal tunnel surgery History of hysterectomy Family History Family History Father Heart problem Mother No problems noted. Sister Breast cancer Daughter Overweight Maternal Grandfather Cancer Maternal Grandmother Multiple myeloma Paternal Grandfather Unknown family medical history Paternal Grandmother Unknown family medical history Social History Social History Household Members: None Housing: House Do you presently have visiting nurse or other home services: No Alcohol intake: current Alcohol intake frequency: holidays/special occasions only Patient Tobacco Use Status: Current everyday Tobacco user Tobacco use type: Cigarette Cigarette Packs Per Day: 1 Cigarettes Per Day: 15 Smoked in Last 30 Days: No e-Cigarette/Vaping Use: Never Used Second Hand Smoke Exposure: No Use of substances other than those prescribed or required for medical reasons: No Advance Directives: No Advance Directives Information Provided: No Do you have a plan to hurt others: No Plan Patient : No service: No Current occupational status: employed 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 Oriented X3. No acute distress. Eyes: PERRLA nystagmus to the right on head movement ENT: Pharynx normal. Oral Mucosa right rigors tenderness no discharge tympanic membrane intact no mastoid tenderness Neck: Normal inspection. Neck supple. CVS: Normal heart rate and rhythm. Pulses normal. Respiratory: No respiratory distress. Equal air entry bilateral, no wheezing/rales/rhonchi Abdomen: Soft and nontender. Bowel sounds are present, no mass palpable, no CVA tenderness Skin: Skin warm and dry. Normal skin color. Normal skin turgor. Extremities: No lower extremity edema. No calf tenderness Neuro: Oriented X 3. No motor deficit. No sensory deficit.No cerebellar signs , cranial nerves II-XII intact Medications Administered Discontinued Medications Generic Name Dose Route Start Last Admin Trade Name Freq PRN Reason Stop Dose Admin Meclizine HCl 50 mg 01/16/24 20:21 01/16/24 20:54 Meclizine Hcl 25 Mg Tablet PO 01/16/24 20:22 50 mg ONCE ONE Administration Medical Decision Making Medical Decision Making [facility] Narrative: Patient with benign positional vertigo without any central nervous involvement CT scan of the head was negative patient ambulatory after taking meclizine felt much better will discharge patient home Differential Diagnosis Differential Diagnoses: The differential diagnosis associated with the presentation includes BPPV/CVA/metabolic/otitis externa Lab Data [facility] Lab Attestation statement: I reviewed the patient's lab results. 01/16/24 20:51 01/16/24 20:51 Labs: Lab Results 01/16/24 Range/Units 20:51 WBC 9.7 (4.8-10.8) X10*3/uL RBC 4.21 (4.20-5.50) X10*6/uL Hgb 12.6 (12.0-16.0) g/dl Hct 36.4 L (37.0-47.0) % MCV 86.5 (80.0-98.0) fL MCH 29.9 (27.0-33.0) pg MCHC 34.6 (31.0-35.0) g/dl RDW 12.4 (11.0-16.0) % Plt Count 271 (160-400) X10*3/uL MPV 9.0 L (9.4-12.3) fL Immature Gran % (Auto) 0.4 (0.0-0.4) % Neut % (Auto) 63.4 (45-73) % Lymph % (Auto) 26.8 (20-40) % [place] % (Auto) 6.7 (2-11) % Eos % (Auto) 2.2 (0-4) % Baso % (Auto) 0.5 (0-2) % Lymph # (Auto) 2.6 (1.2-4.9) X10*3/uL [place] # (Auto) 0.7 (0.1-1.2) X10*3/uL Eos # (Auto) 0.2 (0.0-0.4) X10*3/uL Baso # (Auto) 0.1 (0.0-0.2) X10*3/uL Abs Immat Gran (auto) 0.04 H (0.00-0.03) X10*3/uL Absolute Neuts (auto) 6.2 (2.0-8.3) x10*3/uL Absolute Nucleated RBC 0.000 (0.0-0.012) X10*3/uL Nucleated RBC % (auto) 0.0 (0.0-0.2) /100WBC Sodium 139 (135-145) mmol/L Potassium 3.8 (3.3-5.1) mmol/L Chloride 103 (96-108) mmol/L Carbon Dioxide 27 (22-29) mmol/L Anion Gap 13 (12-20) BUN 10 (9-16) mg/dL Creatinine 0.62 (0.5-1.4) mg/dL Estim Creat Clear Calc 96.2 Estimated GFR > 60 Random Glucose 136 H (60-115) mg/dL Calcium 9.5 (8.4-10.2) mg/dL Total Bilirubin 0.2 (0.0-1.0) mg/dL AST 9 (5-31) U/L ALT 10 (0-31) U/L Alkaline Phosphatase 97 (39-117) U/L Total Protein 7.5 (6.5-8.0) g/dL Albumin 4.0 (3.5-5.0) g/dL Independent Interpretation I performed an independent interpretation of an: CT Scan Radiology Impression Discussion of test interpretation with radiology: I have reviewed the radiologist's reading. Discharge Plan Discharge Clinical Impression: Benign paroxysmal positional vertigo, Otitis externa Patient Disposition: Home, Self-Care Instructions: Otitis Externa (DC), Benign Paroxysmal Positional Vertigo (ED) Additional Instructions: Care and cautions as advised Meclizine 1 tablet every 8 hours as needed for severe dizziness Put your ear drops as prescribed by your PCP Augmentin 1 tablet twice daily for 10 days Report to the ER if gets worse Prescriptions: New amoxicillin-pot clavulanate 875-125 mg tablet 1 tab PO BID Qty: 20 0RF meclizine 25 mg tablet 25 mg PO TID PRN (Reason: dizziness) Qty: 20 0RF No Action (DME) Dexcom G7 Telecommunications Linesworker Misc See Rx Instructions .Route Qty: 1 0RF Rx Instructions: Test blood sugars 4 times per day ketoconazole 2 % cream 1 appl topical DAILY Qty: 30 1RF hydrocortisone 2.5 % cream 1 appl topical BID PRN (Reason: skin irritation) Qty: 30 0RF sertraline 100 mg tablet 100 mg PO DAILY Qty: 90 1RF lisinopril 2.5 mg tablet 2.5 mg PO DAILY Qty: 90 1RF (DME) Dexcom G7 Sensor Device See Rx Instructions .Route Qty: 9 1RF Rx Instructions: Test blood sugars 4 times per day atorvastatin 20 mg tablet 20 mg PO BEDTIME Qty: 90 1RF Ozempic 0.25 mg or 0.5 mg (2 mg/3 mL) pen injector 0.5 mg subcut QWEEK Qty: 3 1RF Rx Instructions: for 4 weeks metformin 1,000 mg tablet 1,000 mg PO BIDWMEAL 90 Days Qty: 180 1RF (DME) lancets Misc See Rx Instructions .ROUTE .MEDSUPPLY Qty: 200 2RF Rx Instructions: 4 times daily alcohol swabs Pads, Medicated 1 pad topical QIDACHS Qty: 200 2RF (DME) pen needle, diabetic [Pen Needle] 31 gauge x 5/16 needle See Rx Instructions .ROUTE .MEDSUPPLY Qty: 1200 2RF Rx Instructions: As directed (DME) Kerlix 4 X 4 sponge See Rx Instructions .Route Qty: 1200 0RF Rx Instructions: As directed cholecalciferol (vitamin D3) 25 mcg (1,000 unit) capsule 50 mcg PO DAILY abrywckh-bstszkmly-JJ 3.5-10,000-1 mg/mL-unit/mL-% drops,suspension 4 drp otic (ear) right Q8H 7 Days Qty: 10 0RF Stand Alone Forms: Work/School Release Interventions: ED Discharge Assessment Last Done: 01/16/24 23:06 Discharge Date/Time: 01/16/24 22:45 Print Language: Kyrgyz
== END 2024-01-16 22:45 | disposition home or self-care (01) ==
PROVIDERS: Emergency Provider Internal Medicine; PCP Nurse Practitioner Family
DX: H81.13 Benign paroxysmal vertigo, bilateral (principal); H60.91 Unspecified otitis externa, right ear; F17.210 Nicotine dependence, cigarettes, uncomplicated; Z79.899 Other long term (current) drug therapy
CPT/HCPCS: 36415; 70450; 80053; 85025; 99284

== ENCOUNTER 2024-02-08 09:50 | Outpatient (AMB) | payer OTHER, SELFPAY ==
[2024-02-08 09:52] VITALS: BP 104/66; PULSE 66; TEMP 36.4; O2SAT 97; BMI 32.0
--- NOTE | 2024-02-08 09:52 | MHC.OFFWIV ---
Intake Vital Signs 02/08/24 09:52 Height 5 ft 2 in Weight 175 lb BMI 32.0 BP 104/66 Blood Pressure Location Rt brachial Position Sitting Pulse 66 Pulse Source Pulse Oximeter Temp 97.6 F Temp Source Oral Pulse Oximetry (%) 97 Oxygen Delivery Method Room Air Intake Visit Reasons: EP Vertigo Intake Note: pt c/o vertigo. Started a couple weeks ago. Off and on Patient Tobacco Use Status: Current everyday Tobacco user Allergies codeine [Codeine] Allergy (Intermediate, Verified 02/08/24 09:56) FELT OUT OF SORTS Do you need a note to return to daycare/school/sports/work: No HPI HPI Comments History of Present Illness Details Patient is a 63-year-old female complaining of right ear pain and dizziness when she woke up this morning. According to our records, on January 15 she came to this clinic was diagnosed with otitis externa of the right ear and antibiotic drops were sent to her pharmacy. She states the pharmacy did not have the drops in stock and she could not pick them up until the next day. She states that that night, she got extremely dizzy and ended up going to the emergency department where they diagnosed her with BPPV secondary to the otitis externa. She was given meclizine and said that really did nothing. She used the eardrops and states her symptoms did improve and she was better but then woke up this morning with the same dizziness. She states it feels like she is off balance and is worse when she moves her head or walks. She denies any nausea or vomiting or changes in her hearing. [facility] Medical History FH: cholecystectomy Diabetes mellitus Hip pain Anxiety and depression ANG (obstructive sleep apnea) Constipation Osteoarthritis Cervical neck pain with evidence of disc disease Left ventricular hypertrophy Smoker Surgical History History of carpal tunnel surgery History of hysterectomy Family History Father Heart problem Mother No problems noted. Sister Breast cancer Daughter Overweight Maternal Grandfather Cancer Maternal Grandmother Multiple myeloma Paternal Grandfather Unknown family medical history Paternal Grandmother Unknown family medical history Social History Household Members: None Housing: House Do you presently have visiting nurse or other home services: No Alcohol intake: current Alcohol intake frequency: holidays/special occasions only Patient Tobacco Use Status: Current everyday Tobacco user Tobacco use type: Cigarette Cigarette Packs Per Day: 1 Cigarettes Per Day: 15 e-Cigarette/Vaping Use: Never Used Second Hand Smoke Exposure: No service: No Current occupational status: employed 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 Current occupational exposures/hazards: No Cognitive needs: No Hearing needs: No Vision needs: No Review of Systems Const All systems reviewed & are unremarkable except as noted in HPI and below Physical Exam Vital Signs: Last Vital Signs Temp 97.6 F 02/08/24 09:52 Pulse 66 02/08/24 09:52 BP 104/66 02/08/24 09:52 Pulse Ox 97 02/08/24 09:52 Oxygen Delivery Method Room Air 02/08/24 09:52 BMI result Body Mass Index 32.0 Const General: cooperative, healthy appearing, comfortable and no acute distress Orientation/consciousness: patient oriented x3 HEENT Head: Yes normal to inspection Ears: mastoids normal, Abnormal EAC present cerumen impaction and unable to visualize TM (cerumen blockage) General nose exam: Normal external nose present Face and sinus: Yes normal facial exam Resp Effort & Inspection: normal respiratory effort and able to speak in complete sentences Neuro General: patient oriented x3 Office Procedures Cerumen Removal From which ear canal was the cerumen removed: right Removal: irrigation Notes: patient tolerated procedure well, no complications and ear canal clear [id number] Irrigation/Lavage Assessment & Plan Assessment & Plan (1) Benign paroxysmal positional vertigo: Code(s): H81.10 - Benign paroxysmal vertigo, unspecified ear Qualifiers: Laterality: right Qualified Code(s): H81.11 - Benign paroxysmal vertigo, right ear Plan: Printed handout on the Bj maneuver so patient could try this at home, also recommended Xyzal allergy pill daily and Flonase. (2) Otitis media: Code(s): H66.90 - Otitis media, unspecified, unspecified ear Qualifiers: Otitis media type: mucoid Chronicity: acute Laterality: right Qualified Code(s): H65.191 - Other acute nonsuppurative otitis media, right ear Plan: Sent antibiotics to pharmacy Plan See above Medications: New amoxicillin 875 mg PO Q12H 10 tabs 0RF Refilled meclizine 25 mg PO TID PRN 10 tabs 0RF dizziness Coding Level of Care Code Est Pt Level 4 (93353) Diagnoses Benign paroxysmal positional vertigo of right ear H81.11 Laterality: right Acute mucoid otitis media of right ear H65.191 Otitis media type: mucoid Chronicity: acute Laterality: right CPT Codes Office Procedure - CPT: 37989-[id number] Irrigation/Lavage ([id number])
== END 2024-02-08 10:28 | disposition home or self-care (01) ==
PROVIDERS: PCP Nurse Practitioner Family; Visit Provider Physician Assistant
DX: H81.11 Benign paroxysmal vertigo, right ear (principal); H65.191 Other acute nonsuppurative otitis media, right ear
CPT/HCPCS: 69209; 99214

== ENCOUNTER → 2024-02-14 10:23 | Outpatient (REF) | payer OTHER, SELFPAY ==
--- NOTE | ~2024-02-14 | NM_ITS ---
EXAMINATION: THYROID UPTAKE AND SCAN CLINICAL INFORMATION: Low TSH levels, question multinodular goiter. COMPARISON: No previous radionuclide thyroid scan is available for comparison. Thyroid ultrasound dated 01/01/2024 is available for comparison. TECHNIQUE: Following the oral administration of 281 microcuries of I-123 sodium iodide, thyroid uptake was performed and expressed as a percentage of the administrated dose. Gamma scintillation camera images of the thyroid in the anterior and right and left anterior oblique views were obtained using a pinhole collimator following the administration of 10 mCi Tc-99m pertechnetate. FINDINGS: The uptake is 8.1% at 4 hours and 22.2% at 24 hours (Normal radioiodine uptake at 24 hours is 10% to 30%). The radioiodine uptake is normal. The radiopertechnetate thyroid scintigram shows the thyroid gland to be asymmetrical with the left lobe larger than the right. Both lobes are heterogeneous with an ovoid-shaped focus of moderately increased activity present in the superior half of the left lobe, and inferior to this a rounded focus within the lower pole shows only faint peripheral activity and is centrally photopenic. On the right there is a rounded focus of relatively increased activity at the junction of the middle and upper thirds of the right lobe, but the remainder of the right lobe shows markedly diminished activity. A single anterior radioiodine image obtained at the time of the 24 hour uptake measurement is similar to the radio pertechnetate image. The thyroid ultrasound dated 01/01/2024 shows multiple bilateral thyroid nodules. NM/NM thyroid w uptake IMPRESSION: Multinodular goiter. Both functioning (hot) and hypofunctioning (cold) nodules appear to be present. The dominant functioning nodules are in the upper poles bilaterally. In the lower poles, the nodules are probably hypofunctioning, but particularly in the left lower pole a functioning nodule with marked central degeneration may be responsible for the appearance on this scan. The radioiodine uptake is normal. 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 An ultrasound-guided fine-needle aspirate directed toward this nodule in particular may be of additional diagnostic value, if clinically indicated. Electronically signed by: Kasi Haynes MD 02/21/2024 11:10 AM EDT RP
== END ==
LOC: HO.NUCMED 10:23
PROVIDERS: PCP Nurse Practitioner Family; Visit Provider Internal Medicine Endocrinology, Diabetes & Metabolism
DX: R79.89 Other specified abnormal findings of blood chemistry (principal)
CPT/HCPCS: 78014; A9512; A9516

== ENCOUNTER → 2024-02-25 07:43 | Outpatient (BNVA) | payer OTHER, SELFPAY | PROVIDERS: PCP Nurse Practitioner Family; Visit Provider Student in an Organized Health Care Education/Training Program ==

== ENCOUNTER 2024-02-25 07:49 | Outpatient (AMB) | payer OTHER, SELFPAY ==
--- NOTE | 2024-02-25 07:52 | A.OFFVIS_ITS ---
Vital Signs 02/25/24 07:53 02/25/24 08:52 Height 5 ft 2 in Weight 179 lb 7.3 oz BMI 32.8 BP 124/64 Blood Pressure Location Lt brachial Position Sitting Pulse 49 L 60 Pulse Source Pulse Oximeter Palpation Intake Visit Reasons: MNG Intake Note: Patient present today for MNG office visit. Retail Pharmacy Merchandiser Required: No Retail Pharmacy Merchandiser Services: Retail Pharmacy Merchandiser Offered & Declined Accompanied by: Self / Same As Patient Allergies codeine [Codeine] Allergy (Intermediate, Verified 02/25/24 07:56) FELT OUT OF SORTS Medication List - Last Reconciled 02/25/24 by Jerica Felix MD alcohol swabs 1 pad topical QIDACHS amoxicillin 875 mg PO Q12H atorvastatin 20 mg PO BEDTIME cholecalciferol (vitamin D3) 50 mcg PO DAILY Dexcom G7 Print Color Matcher (blood-glucose meter,continuous) Test blood sugars 4 times per day NS Dexcom G7 Sensor (blood-glucose sensor) Test blood sugars 4 times per day NS gauze bandage (Kerlix) As directed hydrocortisone 2.5% 1 appl topical BID PRN ketoconazole 2% 1 appl topical DAILY lancets 4 times daily lisinopril 2.5 mg PO DAILY meclizine 25 mg PO TID PRN metformin 1,000 mg PO BIDWMEAL 90 days pen needle, diabetic (Pen Needle) As directed semaglutide (Ozempic) 0.5 mg (0.736 mL) subcut QWEEK sertraline 100 mg PO DAILY HPI Comments Details: 63 YO F seen for f ollow up of multinodular thyroid . Previously was eesanto Rueda, last visit 01/25. Prior HPI She was found to have a suppressed TSH. Previously saw npt in 2006 for Graves Dx? and hyperthyroidism. Unclear history , she thinks she was prescribed antithyroid medicine but not sure was only on it for 6 months. Most recently labs have showed since May 2023 show subclinical hyperthyroidism with mos trecent labs 12/25 TSH 0.2 , normal free t4 0.9. Was diagnosed with multinodular thyroid on ultrasound in December 2023, which showed a right-sided dominant 1.5 cm solid, hypoechoic nodule with punctate echogenic foci TR 5 category. Also showed left-sided nodules with 2 dominant nodules at 2.4 cm left mid lobe nodule, solid, hypoechoic, taller than wide TR 5 category with punctate echogenic foci, and a 2.2 cm left inferior lobe nodule, solid, hypoechoic with punctate echogenic foci, TR 4 category. Subsequently thyroid uptake and scan February 2024 showed normal radioactive iodine uptake. The technetium pertechnetate scan that showed increased activity in the right upper and left superior lobes, as well as a photopenic region in the left inferior lobe. . Currently denies any dysphagia or hoarseness of voice. Denies sensation of swelling in the neck or difficulty breathing while lying flat. Denies any te nderness in the neck. Denies any palpitations, tremors, weight loss, frequent bowel movements. Denies any ocular complaints, blurred or double vision. Denies hair loss, dry skin, heat or cold intolerance, weight gain, confusion. Denies any history of head or neck irradiation. Denies any family history of thyroid cancer. Sister had lobectomy. Smokes half a pack a day. Fracture: once ankle 2004 tripped off a curb No recent viral infections She did receive contrast but that was in November 2023, 3 months before the uptake and scan. Thyroid ultrasound December 2023. Thyroid US: 1. Location: Right mid. Size: 1.5 x 0.64 x 1.4 cm, volume 0.70 mL. Nodule characteristics: Composition: Solid (2). Echogenicity: Very hypoechoic (3). Shape: Not taller than wide (0). Margins: Smooth (0). Echogenic Foci: Punctate echogenic foci (3). ACR TI-RADS total points: 8 ACR TI-RADS category: 5 2. Location: Right inferior. Size: 0.80 x 1.1 x 1.2 cm, volume 0.47 mL. Nodule characteristics: Composition: Solid (2). Echogenicity: Very hypoechoic (3). Shape: Not taller than wide (0). Margins: Smooth (0). Echogenic Foci: None (0). ACR TI-RADS total points: 5 ACR TI-RADS category: 4 3. Location: Left inferior. Size: 2.2 x 1.6 x 2.0 cm, volume 3.7 mL. Nodule characteristics: Composition: Solid (2). Echogenicity: Hyperechoic (1). Shape: Not taller than wide (0). Margins: Smooth (0). Echogenic Foci: Punctate echogenic foci (3). ACR TI-RADS total points: 6 ACR TI-RADS category: 4 4. Location: Left mid. Size: 2.4 x 1.8 x 1.3 cm, volume 2.8 mL. Nodule characteristics: Composition: Solid (2). Echogenicity: Very hypoechoic (3). Shape: Taller than wide (3). Margins: Smooth (0). Echogenic Foci: Punctate echogenic foci (3). ACR TI-RADS total points: 11 ACR TI-RADS category: 5 5. Location: Left superior. Size: 1.1 x 0.80 x 1.0 cm, volume 0.50 mL. Nodule characteristics: Composition: Solid (2). Echogenicity: Hypoechoic (2). Shape: Not taller than wide (0). Margins: Smooth (0). Echogenic Foci: None (0). ACR TI-RADS total points: 4 ACR TI-RADS category: 4 NODES: No lymphadenopathy is seen in the tissue surrounding the thyroid gland. US/US thyroid IMPRESSION: Multiple thyroid nodules with largest 5 measured as above. 2.4 cm left mid TR5 nodule, 2.2 cm left lower TR4 nodule and 1.5 cm right mid TR5 nodule meet criteria for biopsy. Fine-needle aspiration of at least the 2 largest of these nodules is recommended. Review of systems Constitutional: no fevers, chills HEENT: no changes in vision Cardiac: No chest pain, discomfort or palpitations. Pulmonary: No SOB GI:No abdominal pain, no nausea or vomiting, no anorexia, no blood in stool : no burning micturition, dysuria or increase in urinary frequency Physical exam General: sitting comfortably in no acute distress HEENT: normocephalic/atraumatic, moist oral mucosa Neck: supple, symmetrical, palpable 1-2 cm right and left lobe nodules Cardiac: normal heart sounds Pulm: normal breath sounds B/L, no added breath sounds Abd: not distended, no tenderness Extremities: no edema, no signs of myxedema PFSH Medical History FH: cholecystectomy Diabetes mellitus Hip pain Anxiety and depression ANG (obstructive sleep apnea) Constipation Osteoarthritis Cervical neck pain with evidence of disc disease Left ventricular hypertrophy Smoker Surgical History History of carpal tunnel surgery History of hysterectomy Family History Father Heart problem Mother No problems noted. Sister Breast cancer Daughter Overweight Maternal Grandfather Cancer Maternal Grandmother Multiple myeloma Paternal Grandfather Unknown family medical history Paternal Grandmother Unknown family medical history Social History Household Members: None Housing: House Do you presently have visiting nurse or other home services: No Alcohol intake: current Alcohol intake frequency: holidays/special occasions only Patient Tobacco Use Status: Current everyday Tobacco user Tobacco use type: Cigarette Cigarette Packs Per Day: 1 Cigarettes Per Day: 15 e-Cigarette/Vaping Use: Never Used Second Hand Smoke Exposure: No service: No Current occupational status: employed 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 COMPARISON: No previous radionuclide thyroid scan is available for comparison. Thyroid ultrasound dated 01/01/2024 is available for comparison. TECHNIQUE: Following the oral administration of 281 microcuries of I-123 sodium iodide, thyroid uptake was performed and expressed as a percentage of the administrated dose. Gamma scintillation camera images of the thyroid in the anterior and right and left anterior oblique views were obtained using a pinhole collimator following the administration of 10 mCi Tc-99m pertechnetate. FINDINGS: The uptake is 8.1% at 4 hours and 22.2% at 24 hours (Normal radioiodine uptake at 24 hours is 10% to 30%). The radioiodine uptake is normal. The radiopertechnetate thyroid scintigram shows the thyroid gland to be asymmetrical with the left lobe larger than the right. Both lobes are heterogeneous with an ovoid-shaped focus of moderately increased activity present in the superior half of the left lobe, and inferior to this a rounded focus within the lower pole shows only faint peripheral activity and is centrally photopenic. On the right there is a rounded focus of relatively increased activity at the junction of the middle and upper thirds of the right lobe, but the remainder of the right lobe shows markedly diminished activity. A single anterior radioiodine image obtained at the time of the 24 hour uptake measurement is similar to the radio pertechnetate image. The thyroid ultrasound dated 01/01/2024 shows multiple bilateral thyroid nodules. NM/NM thyroid w uptake IMPRESSION: Multinodular goiter. Both functioning (hot) and hypofunctioning (cold) nodules appear to be present. The dominant functioning nodules are in the upper poles bilaterally. In the lower poles, the nodules are probably hypofunctioning, but particularly in the left lower pole a functioning nodule with marked central degeneration may be responsible for the appearance on this scan. The radioiodine uptake is normal. In the clinical setting of low TSH, these findings are probably due to a toxic multinodular goiter (Maciel's disease), but particularly in the lower pole of the left lobe a hypofunctioning (cold) nodule may be present, and this nodule appeared predominantly solid on the 01/01/2024 ultrasound. An ultrasound-guided fine-needle aspirate directed toward this nodule in particular may be of additional diagnostic value, if clinically indicated. Electronically signed by: Kasi Haynes MD 02/21/2024 11:10 AM EDT THYROID 12/25 CLINICAL INFORMATION: Other specified abnormal findings of blood chemistry. Low TSH. COMPARISON: None available. TECHNIQUE: Linear transducer grayscale and color Doppler examination with attention to the region of the thyroid. FINDINGS: SIZE: Measurements of the thyroid lobes and nodules are given in sagittal, anteroposterior and transverse dimensions respectively. Right Thyroid Lobe: 4.51 x 2.56 x 1.56 cm, volume 9.42 mL. Parenchyma: The gland echotexture is heterogeneous. Thyroid vascularity is normal. Left Thyroid Lobe: 6.0 x 3.5 x 2.0 cm, volume 21.6 mL. Parenchyma: The gland echotexture is heterogeneous. Thyroid vascularity is normal. Isthmus: 0.34 cm in maximum AP dimension. Estimated total number of nodules greater than or equal to 1 cm: 5. Skin Tanner nodules are described as follows: 1. Location: Right mid. Size: 1.5 x 0.64 x 1.4 cm, volume 0.70 mL. Nodule characteristics: Composition: Solid (2). Echogenicity: Very hypoechoic (3). Shape: Not taller than wide (0). Margins: Smooth (0). Echogenic Foci: Punctate echogenic foci (3). ACR TI-RADS total points: 8 ACR TI-RADS category: 5 2. Location: Right inferior. Size: 0.80 x 1.1 x 1.2 cm, volume 0.47 mL. Nodule characteristics: Composition: Solid (2). Echogenicity: Very hypoechoic (3). Shape: Not taller than wide (0). Margins: Smooth (0). Echogenic Foci: None (0). ACR TI-RADS total points: 5 ACR TI-RADS category: 4 3. Location: Left inferior. Size: 2.2 x 1.6 x 2.0 cm, volume 3.7 mL. Nodule characteristics: Composition: Solid (2). Echogenicity: Hyperechoic (1). Shape: Not taller than wide (0). Margins: Smooth (0). Echogenic Foci: Punctate echogenic foci (3). ACR TI-RADS total points: 6 ACR TI-RADS category: 4 4. Location: Left mid. Size: 2.4 x 1.8 x 1.3 cm, volume 2.8 mL. Nodule characteristics: Composition: Solid (2). Echogenicity: Very hypoechoic (3). Shape: Taller than wide (3). Margins: Smooth (0). Echogenic Foci: Punctate echogenic foci (3). ACR TI-RADS total points: 11 ACR TI-RADS category: 5 5. Location: Left superior. Size: 1.1 x 0.80 x 1.0 cm, volume 0.50 mL. Nodule characteristics: Composition: Solid (2). Echogenicity: Hypoechoic (2). Shape: Not taller than wide (0). Margins: Smooth (0). Echogenic Foci: None (0). ACR TI-RADS total points: 4 ACR TI-RADS category: 4 NODES: No lymphadenopathy is seen in the tissue surrounding the thyroid gland. US/US thyroid IMPRESSION: Multiple thyroid nodules with largest 5 measured as above. 2.4 cm left mid TR5 nodule, 2.2 cm left lower TR4 nodule and 1.5 cm right mid TR5 nodule meet criteria for biopsy. Fine-needle aspiration of at least the 2 largest of these nodules is recommended. This study was presented to me on January 14, 2024 for interpretation. PSA staff will provide results to referring provider at this time. Assessment & Plan Assessment & Plan (1) Subclinical hyperthyroidism: Code(s): E05.90 - Thyrotoxicosis, unspecified without thyrotoxic crisis or storm Category: Medical Plan: Patient with subclinical hyperthyroidism, with negative trab antibodies, with most recent labs from December 2023 showing TSH of 0.2, normal free T4. She does not have any symptoms of hyper or hypothyroidism. She was also found to have thyroid nodules on ultrasound in December 2023, with subsequent thyroid uptake and scan in February 2024 showed normal radioactive iodine uptake. The technetium pertechnetate scan that showed increased activity in the right upper and left superior lobes, as well as a photopenic region in the left inferior lobe. . She does have toxic nodules. However she currently does not meet criteria for treatment as TSH is above 0.1, she has no history of osteoporosis, no recent fragility fractures, no history of heart disease, no history of arrhythmias. She is less than 65 years old. I explained to her that these are some of the conditions for which we consider treatment. If fever to consider treatment for her, she would be a good candidate for total thyroidectomy given multiple bilateral nodules. For now we will repeat her labs in 6 months' time. Plan: -repeat TSH, free T4 in 6 months (2) Toxic multinodular goiter: Code(s): E05.20 - Thyrotoxicosis with toxic multinodular goiter without thyrotoxic crisis or storm Category: Medical Plan: We know that patient has toxic nodular goiter, causing subclinical hyperthyroidism however thyroid uptake and scan from February 2024 also showed decreased activity in the left inferior lobe. Thyroid ultrasound from December 2023, showed a right-sided dominant 1.5 cm solid, hypoechoic nodule with punctate echogenic foci TR 5 category. Also showed left-sided nodules with 2 dominant nodules at 2.4 cm left mid lobe nodule, solid, hypoechoic, taller than wide TR 5 category with punctate echogenic foci, and a 2.2 cm left inferior lobe nodule, solid, hypoechoic with punctate echogenic foci, TR 4 category. No family history of thyroid cancer. No personal history of head or neck radiation All of these dominant nodules meet criteria for biopsy. However in the right mid lobe nodule, given increased activity on the technetium pertechnetate scan we will hold off on biopsying this for now. Given decreased activity on the uptake and scan in the left inferior lobe region, we will schedule her for biopsy of the left mid lobe 2.4 cm in the left lower lobe 2.2 cm nodules. I explained that it is common to have thyroid nodules. About 95% of the time these nodules are benign. However if the nodule is > 1 cm in size or suspicious on ultrasound then a fine need aspiration biopsy is recommended. We discussed that a FNAB involves 4-5 passes with a small gauge needle and material obtained is sent off for cytology.If the cytopathology is benign then the nodule will be followed annually with repeat ultrasounds. However if it is suspicious or malignant, we will need to discuss further management. Indeterminate cytology can be further investigated with repeat FNA, genetic testing or empiric lobectomy. Malignant cytology is managed with either lobectomy or total thyroidectomy. We discussed briefly that thyroid cancer is, in most patients, an indolent disease that does not affect mortality. We will arrange for FNA at next available opening of left mid lobe 2.4 cm in the left lower lobe 2.2 cm nodules and patient will follow up with me in clinic thereafter for results and further decision making. Plan: -FNA of left mid lobe 2.4 cm in the left lower lobe 2.2 cm nodules -follow up in 1-2 weeks to discuss results after biopsy Plan I spent 30 minutes in reviewing the record, seeing the patient and documenting in the medical record. Orders: Orders Free T4 (Free Thyroxine) 6 Months E05.90 - Thyrotoxicosis, unspecified without thyrotoxic crisis or storm US biopsy thyroid Today E05.20 - Thyrotoxicosis with toxic multinodular goiter without thyrotoxic crisis or storm Thyroid Stimulating Hormone 6 Months E05.90 - Thyrotoxicosis, unspecified without thyrotoxic crisis or storm Patient Instructions: We will order a biopsy of your thyroid We will schedule you for a follow up with results Do blood work in 6 months Coding Level of Care Code Est Pt Level 4 (76085) Diagnoses Subclinical hyperthyroidism E05.90 Toxic multinodular goiter E05.20 Time Spent (min) 30
[2024-02-25 07:53] VITALS: BP 124/64; PULSE 49; BMI 32.8
[2024-02-25 08:52] VITALS: PULSE 60
== END 2024-02-25 08:48 | disposition home or self-care (01) ==
PROVIDERS: PCP Nurse Practitioner Family; Visit Provider Student in an Organized Health Care Education/Training Program
DX: E05.90 Thyrotoxicosis, unspecified without thyrotoxic crisis or storm (principal); E05.20 Thyrotoxicosis with toxic multinodular goiter without thyrotoxic crisis or storm
CPT/HCPCS: 99214

== ENCOUNTER 2024-03-05 10:43 | Outpatient (REF) | payer OTHER, SELFPAY ==
--- NOTE | 2024-03-05 11:46 | PCN2_ITS ---
Brief Operative Note Date of procedure: 03/05/24 Pre-op diagnosis: left mid 2.4 cm and left lower 2.2 cm thyroid nodule FNA bio psy Post-op diagnosis: same Procedure: THYROID FINE NEEDLE ASPIRATION PROCEDURE NOTE ? PROCEDURE PERFORMED: Ultrasound-guided left mid 2.4 cm and left lower 2.2 cm thyroid nodule FNA biopsy ? OPERATORS: Dr. Jerica Felix ? INDICATION: left mid 2.4 cm and left lower 2.2 cm thyroid nodule FNA biopsy ; FNA performed to assess for malignancy ? DESCRIPTION OF PROCEDURE: The indications for FNA (to assess for malignancy) were reviewed with the patient in detail. Potential complications (e.g., bleeding, infection, damage to local structures, absence of clear diagnosis after FNA) were reviewed. Alternatives to FNA including conservative observation or surgery were described. The patient understood and agreed to proceed. This was documented by the signing of the written informed consent form. A time-out was performed to confirm the patient's identity and the site of planned FNA. The nodules of interest was identified using ultrasound (14 MHz linear array probe). The sites of FNA was then draped in the usual fashion and carefully cleaned and prepared using alcohol swabs. The skin and subcutaneous tissue at the previously-identified sites of needle insertion were iced and sprayed with a numbing spray. For each of the nodules, Under ultrasound guidance, _4_ passes were performed using a 1.5-inch, 22-gauge needle, and sample was obtained via capillary action. The needle tip was clearly visualized to be within the nodule at the time of sampling for 4__ of __4 passes The patient tolerated the procedure well. There were no immediate complications. A small adhesive bandage was applied, and the patient was advised to take acetaminophen (rather than NSAIDs) for any discomfort and to report any signs of inflammation/infection or marked swelling. IMPRESSION: Technically successful ultrasound-guided fine needle aspiration of left mid 2.4 cm and left lower 2.2 cm thyroid nodules. PLAN: The patient was advised that I will provide follow-up regarding the cytology result and any subsequent plans. Dr. Jerica Felix Condition: stable Disposition: same day
== END 2024-03-05 10:44 | disposition home or self-care (01) ==
LOC: HO.US 10:43
PROVIDERS: PCP Nurse Practitioner Family; Visit Provider Student in an Organized Health Care Education/Training Program
DX: E05.20 Thyrotoxicosis with toxic multinodular goiter without thyrotoxic crisis or storm (principal)
CPT/HCPCS: 10005; 10006; 88173; 88305

== ENCOUNTER → 2024-03-05 10:43 | Outpatient (BNV) | payer OTHER, SELFPAY | PROVIDERS: PCP Nurse Practitioner Family; Visit Provider Student in an Organized Health Care Education/Training Program | DX: E05.20 Thyrotoxicosis with toxic multinodular goiter without thyrotoxic crisis or storm (principal) | CPT/HCPCS: 10005; 10006 ==

== ENCOUNTER 2024-03-19 14:43 | Outpatient (AMB) | payer OTHER, SELFPAY ==
[2024-03-19 14:48] VITALS: BP 112/62; PULSE 60; BMI 32.9
--- NOTE | 2024-03-19 14:48 | A.OFFVIS_ITS ---
Vital Signs 3 03/19/24 14:48 Height 5 ft 2 in Weight 179 lb 10.828 oz BMI 32.9 BP 112/62 Blood Pressure Location Lt brachial Position Sitting Pulse 60 Pulse Source Pulse Oximeter Intake Visit Reasons: Biopsy f/u-conf Intake Note: Patient present today for biopsy follow up visit. 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 Prior HPI She was found to have a suppressed TSH. Previously saw npt in 2006 for Graves Dx? and hyperthyroidism. Unclear history , she thinks she was prescribed antithyroid medicine but not sure was only on it for 6 months. Most recently labs have showed since May 2023 show subclinical hyperthyroidism with mos trecent labs 12/25 TSH 0.2 , normal free t4 0.9. Was diagnosed with multinodular thyroid on ultrasound in December 2023, which showed a right-sided dominant 1.5 cm solid, hypoechoic nodule with punctate echogenic foci TR 5 category. Also showed left-sided nodules with 2 dominant nodules at 2.4 cm left mid lobe nodule, solid, hypoechoic, taller than wide TR 5 category with punctate echogenic foci, and a 2.2 cm left inferior lobe nodule, solid, hypoechoic with punctate echogenic foci, TR 4 category. Subsequently thyroid uptake and scan February 2024 showed normal radioactive iodine uptake. The technetium pertechnetate scan that showed increased activity in the right upper and left superior lobes, as well as a photopenic region in the left inferior lobe. . Given photopenic region in the left inferior lobe, we decided to proceed with biopsies on the left side. On 03/05/2024 patient underwent FNA of the left mid lobe 2.4 cm and left lower lobe 2.2 cm nodules. Both came back as benign cytology ([place] category 2). Currently denies any dysphagia or hoarseness of voice. Denies sensation of swelling in the neck or difficulty breathing while lying flat. Denies any tenderness in the neck. Denies any palpitations, tremors, weight loss, frequent bowel movements. Denies any ocular complaints, blurred or double vision. Denies hair loss, dry skin, heat or cold intolerance, weight gain, confusion. Denies any history of head or neck irradiation. Denies any family history of thyroid cancer. Sister had lobectomy. Smokes half a pack a day. Fracture: once ankle 2004 tripped off a curb No recent viral infections She did receive contrast but that was in November 2023, 3 months before the uptake and scan. Thyroid ultrasound December 2023. Thyroid US: 1. Location: Right mid. Size: 1.5 x 0.64 x 1.4 cm, volume 0.70 mL. Nodule characteristics: Composition: Solid (2). Echogenicity: Very hypoechoic (3). Shape: Not taller than wide (0). Margins: Smooth (0). Echogenic Foci: Punctate echogenic foci (3). ACR TI-RADS total points: 8 ACR TI-RADS category: 5 2. Location: Right inferior. Size: 0.80 x 1.1 x 1.2 cm, volume 0.47 mL. Nodule characteristics: Composition: Solid (2). Echogenicity: Very hypoechoic (3). Shape: Not taller than wide (0). Margins: Smooth (0). Echogenic Foci: None (0). ACR TI-RADS total points: 5 ACR TI-RADS category: 4 3. Location: Left inferior. Size: 2.2 x 1.6 x 2.0 cm, volume 3.7 mL. Nodule characteristics: Composition: Solid (2). Echogenicity: Hyperechoic (1). Shape: Not taller than wide (0). Margins: Smooth (0). Echogenic Foci: Punctate echogenic foci (3). ACR TI-RADS total points: 6 ACR TI-RADS category: 4 4. Location: Left mid. Size: 2.4 x 1.8 x 1.3 cm, volume 2.8 mL. Nodule characteristics: Composition: Solid (2). Echogenicity: Very hypoechoic (3). Shape: Taller than wide (3). Margins: Smooth (0). Echogenic Foci: Punctate echogenic foci (3). ACR TI-RADS total points: 11 ACR TI-RADS category: 5 5. Location: Left superior. Size: 1.1 x 0.80 x 1.0 cm, volume 0.50 mL. Nodule characteristics: Composition: Solid (2). Echogenicity: Hypoechoic (2). Shape: Not taller than wide (0). Margins: Smooth (0). Echogenic Foci: None (0). ACR TI-RADS total points: 4 ACR TI-RADS category: 4 NODES: No lymphadenopathy is seen in the tissue surrounding the thyroid gland. US/US thyroid IMPRESSION: Multiple thyroid nodules with largest 5 measured as above. 2.4 cm left mid TR5 nodule, 2.2 cm left lower TR4 nodule and 1.5 cm right mid TR5 nodule meet criteria for biopsy. Fine-needle aspiration of at least the 2 largest of these nodules is recommended. Review of systems Constitutional: no fevers, chills HEENT: no changes in vision Cardiac: No chest pain, discomfort or palpitations. Pulmonary: No SOB GI:No abdominal pain, no nausea or vomiting, no anorexia, no blood in stool : no burning micturition, dysuria or increase in urinary frequency Physical exam General: sitting comfortably in no acute distress HEENT: normocephalic/atraumatic, moist oral mucosa Neck: supple, symmetrical, palpable 1-2 cm right and left lobe nodules Cardiac: normal heart sounds Pulm: normal breath sounds B/L, no added breath sounds Abd: not distended, no tenderness Extremities: no edema, no signs of myxedema PFSH Medical History Toxic multinodular goiter Subclinical hyperthyroidism FH: cholecystectomy Diabetes mellitus Hip pain Anxiety and depression ANG (obstructive sleep apnea) Constipation Osteoarthritis Cervical neck pain with evidence of disc disease Left ventricular hypertrophy Smoker Surgical History History of carpal tunnel surgery History of hysterectomy Family History Father Heart problem Mother No problems noted. Sister Breast cancer Daughter Overweight Maternal Grandfather Cancer Maternal Grandmother Multiple myeloma Paternal Grandfather Unknown family medical history Paternal Grandmother Unknown family medical history Social History Household Members: None Housing: House Do you presently have visiting nurse or other home services: No Alcohol intake: current Alcohol intake frequency: holidays/special occasions only Patient Tobacco Use Status: Current everyday Tobacco user Tobacco use type: Cigarette Cigarette Packs Per Day: 1 Cigarettes Per Day: 15 e-Cigarette/Vaping Use: Never Used Second Hand Smoke Exposure: No service: No Current occupational status: employed 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 COMPARISON: No previous radionuclide thyroid scan is available for comparison. Thyroid ultrasound dated 01/01/2024 is available for comparison. TECHNIQUE: Following the oral administration of 281 microcuries of I-123 sodium iodide, thyroid uptake was performed and expressed as a percentage of the administrated dose. Gamma scintillation camera images of the thyroid in the anterior and right and left anterior oblique views were obtained using a pinhole collimator following the administration of 10 mCi Tc-99m pertechnetate. FINDINGS: The uptake is 8.1% at 4 hours and 22.2% at 24 hours (Normal radioiodine uptake at 24 hours is 10% to 30%). The radioiodine uptake is normal. The radiopertechnetate thyroid scintigram shows the thyroid gland to be asymmetrical with the left lobe larger than the right. Both lobes are heterogeneous with an ovoid-shaped focus of moderately increased activity present in the superior half of the left lobe, and inferior to this a rounded focus within the lower pole shows only faint peripheral activity and is centrally photopenic. On the right there is a rounded focus of relatively increased activity at the junction of the middle and upper thirds of the right lobe, but the remainder of the right lobe shows markedly diminished activity. A single anterior radioiodine image obtained at the time of the 24 hour uptake measurement is similar to the radio pertechnetate image. The thyroid ultrasound dated 01/01/2024 shows multiple bilateral thyroid nodules. NM/NM thyroid w uptake IMPRESSION: Multinodular goiter. Both functioning (hot) and hypofunctioning (cold) nodules appear to be present. The dominant functioning nodules are in the upper poles bilaterally. In the lower poles, the nodules are probably hypofunctioning, but particularly in the left lower pole a functioning nodule with marked central degeneration may be responsible for the appearance on this scan. The radioiodine uptake is normal. In the clinical setting of low TSH, these findings are probably due to a toxic multinodular goiter ([place]'s disease), but particularly in the lower pole of the left lobe a hypofunctioning (cold) nodule may be present, and this nodule appeared predominantly solid on the 01/01/2024 ultrasound. An ultrasound-guided fine-needle aspirate directed toward this nodule in particular may be of additional diagnostic value, if clinically indicated. Electronically signed by: Kasi Haynes MD 02/21/2024 11:10 AM EDT RP US THYROID 12/25 CLINICAL INFORMATION: Other specified abnormal findings of blood chemistry. Low TSH. COMPARISON: None available. TECHNIQUE: Linear transducer grayscale and color Doppler examination with attention to the region of the thyroid. FINDINGS: SIZE: Measurements of the thyroid lobes and nodules are given in sagittal, anteroposterior and transverse dimensions respectively. Right Thyroid Lobe: 4.51 x 2.56 x 1.56 cm, volume 9.42 mL. Parenchyma: The gland echotexture is heterogeneous. Thyroid vascularity is normal. Left Thyroid Lobe: 6.0 x 3.5 x 2.0 cm, volume 21.6 mL. Parenchyma: The gland echotexture is heterogeneous. Thyroid vascularity is normal. Isthmus: 0.34 cm in maximum AP dimension. Estimated total number of nodules greater than or equal to 1 cm: 5. 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 Location: Right mid. Size: 1.5 x 0.64 x 1.4 cm, volume 0.70 mL. Nodule characteristics: Composition: Solid (2). Echogenicity: Very hypoechoic (3). Shape: Not taller than wide (0). Margins: Smooth (0). Echogenic Foci: Punctate echogenic foci (3). ACR TI-RADS total points: 8 ACR TI-RADS category: 5 2. Location: Right inferior. Size: 0.80 x 1.1 x 1.2 cm, volume 0.47 mL. Nodule characteristics: Composition: Solid (2). Echogenicity: Very hypoechoic (3). Shape: Not taller than wide (0). Margins: Smooth (0). Echogenic Foci: None (0). ACR TI-RADS total points: 5 ACR TI-RADS category: 4 3. Location: Left inferior. Size: 2.2 x 1.6 x 2.0 cm, volume 3.7 mL. Nodule characteristics: Composition: Solid (2). Echogenicity: Hyperechoic (1). Shape: Not taller than wide (0). Margins: Smooth (0). Echogenic Foci: Punctate echogenic foci (3). ACR TI-RADS total points: 6 ACR TI-RADS category: 4 4. Location: Left mid. Size: 2.4 x 1.8 x 1.3 cm, volume 2.8 mL. Nodule characteristics: Composition: Solid (2). Echogenicity: Very hypoechoic (3). Shape: Taller than wide (3). Margins: Smooth (0). Echogenic Foci: Punctate echogenic foci (3). ACR TI-RADS total points: 11 ACR TI-RADS category: 5 5. Location: Left superior. Size: 1.1 x 0.80 x 1.0 cm, volume 0.50 mL. Nodule characteristics: Composition: Solid (2). Echogenicity: Hypoechoic (2). Shape: Not taller than wide (0). Margins: Smooth (0). Echogenic Foci: None (0). ACR TI-RADS total points: 4 ACR TI-RADS category: 4 NODES: No lymphadenopathy is seen in the tissue surrounding the thyroid gland. US/US thyroid IMPRESSION: Multiple thyroid nodules with largest 5 measured as above. 2.4 cm left mid TR5 nodule, 2.2 cm left lower TR4 nodule and 1.5 cm right mid TR5 nodule meet criteria for biopsy. Fine-needle aspiration of at least the 2 largest of these nodules is recommended. This study was presented to me on January 14, 2024 for interpretation. PSA staff will provide results to referring provider at this time. Assessment & Plan Assessment & Plan (1) Toxic multinodular goiter: Code(s): E05.20 - Thyrotoxicosis with toxic multinodular goiter without thyrotoxic crisis or storm Category: Medical Plan: We know that patient has toxic nodular goiter, causing subclinical hyperthyroidism however thyroid uptake and scan from February 2024 also showed decreased activity in the left inferior lobe. Thyroid ultrasound from December 2023, showed a right-sided dominant 1.5 cm solid, hypoechoic nodule with punctate echogenic foci TR 5 category. Also showed left-sided nodules with 2 dominant nodules at 2.4 cm left mid lobe nodule, solid, hypoechoic, taller than wide TR 5 category with punctate echogenic foci, and a 2.2 cm left inferior lobe nodule, solid, hypoechoic with punctate echogenic foci, TR 4 category. No family history of thyroid cancer. No personal history of head or neck radiation All of these dominant nodules meet criteria for biopsy. However in the right mid lobe nodule, given increased activity on the technetium pertechnetate scan we will hold off on biopsying this for now. Given decreased activity on the uptake and scan in the left inferior lobe region, we did for biopsy of the left mid lobe 2.4 cm in the left lower lobe 2.2 cm nodules. On 03/05/2024 patient underwent FNA of the left mid lobe 2.4 cm and left lower lobe 2.2 cm nodules. Both came back as benign cytology ([place] category 2). She has no compressive symptoms. I explained to patient benign results reduces probability of malignancy to less than 3 %. Given that her nodules are TR 4/Tr 5 category nodule, we will plan to repeat ultrasound of the thyroid in 1year from her last one, in december 2024. Plan: -ultrasound of the thyroid ordered for December prior to follow up in January 2025 Patient verbalized understanding and agreeable with plan. All questions answered. (2) Subclinical hyperthyroidism: Code(s): E05.90 - Thyrotoxicosis, unspecified without thyrotoxic crisis or storm Category: Medical Plan: Patient with subclinical hyperthyroidism, with negative trab antibodies, with most recent labs from December 2023 showing TSH of 0.2, normal free T4. She does not have any symptoms of hyper or hypothyroidism. She was also found to have thyroid nodules on ultrasound in December 2023, with subsequent thyroid uptake and scan in February 2024 showed normal radioactive iodine uptake. The technetium pertechnetate scan that showed increased activity in the right upper and left superior lobes, as well as a photopenic region in the left inferior lobe. . She does have toxic nodules. However she currently does not meet criteria for treatment as TSH is above 0.1, she has no history of osteoporosis, no recent fragility fractures, no history of heart disease, no history of arrhythmias. She is less than 66 years old. I explained to her that these are some of the conditions for which we consider treatment. If we were to consider treatment for her, she would be a good candidate for total thyroidectomy given multiple bilateral nodules. For now we will repeat her labs in 6 months' time. Plan: -repeat TSH, free T4 in 6 months Plan see above Orders: Orders 2 Thyroid Stimulating Hormone 6 Months E05.20 - Thyrotoxicosis with toxic multinodular goiter without thyrotoxic crisis or storm, E05.90 - Thyrotoxicosis, unspecified without thyrotoxic crisis or storm thyroid 11/03/24 E05.20 - Thyrotoxicosis with toxic multinodular goiter without thyrotoxic crisis or storm, E05.90 - Thyrotoxicosis, unspecified without thyrotoxic crisis or storm Free T4 (Free Thyroxine) 6 Months E05.20 - Thyrotoxicosis with toxic multinodular goiter without thyrotoxic crisis or storm, E05.90 - Thyrotoxicosis, unspecified without thyrotoxic crisis or storm Triiodothyronine T3 Total 6 Months E05.20 - Thyrotoxicosis with toxic multinodular goiter without thyrotoxic crisis or storm, E05.90 - Thyrotoxicosis, unspecified without thyrotoxic crisis or storm Patient Instructions: Do labs in September 2024, orders are already in Do ultrasound in December 2024, someone should call you to schedule this And then follow up with me in January 2025 Coding Level of Care Code Est Pt Level 3 (05774) Diagnoses Toxic multinodular goiter E05.20 Subclinical hyperthyroidism E05.90
== END 2024-03-19 15:26 | disposition home or self-care (01) ==
PROVIDERS: PCP Nurse Practitioner Family; Visit Provider Student in an Organized Health Care Education/Training Program
DX: E05.20 Thyrotoxicosis with toxic multinodular goiter without thyrotoxic crisis or storm (principal); E05.90 Thyrotoxicosis, unspecified without thyrotoxic crisis or storm
CPT/HCPCS: 99213

== ENCOUNTER → 2024-03-19 14:43 | Outpatient (BNVA) | payer OTHER, SELFPAY | PROVIDERS: PCP Nurse Practitioner Family; Visit Provider Student in an Organized Health Care Education/Training Program ==

== ENCOUNTER 2024-03-25 11:09 | Outpatient (AMB) | payer OTHER, SELFPAY ==
--- NOTE | 2024-03-25 11:54 | MHC.OFFWIV ---
Intake Vital Signs 03/25/24 12:02 Weight 179 lb BP 124/82 Blood Pressure Location Rt brachial Position Sitting Pulse 52 Pulse Source Pulse Oximeter Pulse Oximetry (%) 98 Oxygen Delivery Method Room Air Intake Visit Reasons: EP LUQ pain Intake Note: Patient here for left sided pain that has been present for about 3 weeks. Patient Tobacco Use Status: Current everyday Tobacco user Allergies codeine [Codeine] Allergy (Intermediate, Verified 03/19/24 14:51) FELT OUT OF SORTS Do you need a note to return to daycare/school/sports/work: No HPI HPI Comments History of Present Illness Details Patient is a 63-year-old female complaining of left upper abdominal pain that has been increasing over the last 3 weeks. She says this pain started many months ago and she has been evaluate in the ER but they did not find anything wrong. She says the pain is unbearable, it goes from her left upper abdominal area and radiates around the left side. She tells me she found some old oxycodone that she had and she took 1 last night because it was so painful. She denies any fevers, nausea, vomiting, diarrhea, changes in her urinary habits or blood in her urine. PFSH Medical History Toxic multinodular goiter Subclinical hyperthyroidism FH: cholecystectomy Diabetes mellitus Hip pain Anxiety and depression ANG (obstructive sleep apnea) Constipation Osteoarthritis Cervical neck pain with evidence of disc disease Left ventricular hypertrophy Smoker Surgical History History of carpal tunnel surgery History of hysterectomy Family History Father Heart problem Mother No problems noted. Sister Breast cancer Daughter Overweight Maternal Grandfather Cancer Maternal Grandmother Multiple myeloma Paternal Grandfather Unknown family medical history Paternal Grandmother Unknown family medical history Social History Household Members: None Housing: House Do you presently have visiting nurse or other home services: No Alcohol intake: current Alcohol intake frequency: holidays/special occasions only Patient Tobacco Use Status: Current everyday Tobacco user Tobacco use type: Cigarette Cigarette Packs Per Day: 1 Cigarettes Per Day: 15 e-Cigarette/Vaping Use: Never Used Second Hand Smoke Exposure: No service: No Current occupational status: employed 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 Current occupational exposures/hazards: No Cognitive needs: No Hearing needs: No Vision needs: No Review of Systems Const All systems reviewed & are unremarkable except as noted in HPI and below Physical Exam Vital Signs: Last Vital Signs Pulse 52 03/25/24 12:02 BP 124/82 03/25/24 12:02 Pulse Ox 98 03/25/24 12:02 Oxygen Delivery Method Room Air 03/25/24 12:02 Const General: cooperative, healthy appearing, comfortable, no acute distress and well developed Orientation/consciousness: patient oriented x3 Limitations: no limitations HEENT Head: Yes normal to inspection Ears: hearing grossly normal bilaterally General nose exam: Normal external nose present Face and sinus: Yes normal facial exam Eyes General: appearance normal, both eyes and all related structures Neck Neck: Yes normal visual inspection and Yes full ROM Resp Effort & Inspection: normal respiratory effort and able to speak in complete sentences GI Inspection: Yes normal to inspection Palpation (GI): Soft to palpation and Tenderness to palpation present (GI) in the LUQ General: Yes no CVA tenderness Back/Spine/Pelvis Back: no CVA tenderness Skin General skin exam: no rashes or lesions noted Neuro General: patient oriented x3 Extrem General: Yes normal to inspection Assessment & Plan Assessment & Plan (1) Splenic artery aneurysm: Code(s): I72.8 - Aneurysm of other specified arteries Plan: According to the records, patient had a 2.5 cm splenic artery aneurysm found on a CTA on December 01. Dr. Judd was consulted and stated it was stable and until it reached 3 cm, we would just watch it. As patient is having increasing pain, reached out to her PCP to repeat imaging. PCP will order CTA Abd/pelvis. Sent tramadol for pain to be used at night only. (2) Left upper quadrant abdominal pain: Code(s): R10.12 - Left upper quadrant pain Plan: See above Plan See above Medications: New tramadol 50 mg PO BEDTIME PRN 14 tabs 0RF pain Coding Level of Care Code Est Pt Level 4 (19295) Diagnoses Splenic artery aneurysm I72.8 Left upper quadrant abdominal pain R10.12
[2024-03-25 12:02] VITALS: BP 124/82; PULSE 52; O2SAT 98
== END 2024-03-25 12:46 | disposition home or self-care (01) ==
PROVIDERS: PCP Nurse Practitioner Family; Visit Provider Physician Assistant
DX: I72.8 Aneurysm of other specified arteries (principal); R10.12 Left upper quadrant pain

== ENCOUNTER → 2024-03-25 11:09 | Outpatient (BNVA) | payer OTHER, SELFPAY | PROVIDERS: PCP Nurse Practitioner Family; Visit Provider Physician Assistant ==

== ENCOUNTER 2024-04-04 19:00 | Emergency (ER) | payer OTHER, SELFPAY ==
--- NOTE | ~2024-04-04 | CT_ITS ---
EXAMINATION: CT ANGIOGRAM ABDOMEN AND PELVIS CLINICAL INFORMATION: Left upper quadrant pain with splenic aneurysm COMPARISON: CTA abdomen and pelvis 12/02/2023 TECHNIQUE: Multiple axial images were obtained through the abdomen and pelvis following the administration of 80 mL of Omnipaque 350 intravenous contrast. Images were reviewed on a dedicated 3-D workstation. This CT examination was performed using dose optimization techniques as appropriate, variously including the following: *Automated exposure control *Adjustment of mA and/or kV according to patient size (this includes techniques or standardized protocols for targeted exams where dose is matched to indication/reason for exam; i.e. extremities or head) *Use of iterative reconstruction technique DLP: 491 mGy-cm FINDINGS: Vascular: Normal caliber abdominal aorta. Celiac artery is patent with normal branching pattern. There is a lobulated splenic artery aneurysm in the distal splenic artery measuring 2.4 x 2.3 x 1.7 cm, unchanged from prior. No evidence for bleeding. The SMA, single renal arteries and DAVID are all patent. Mild to moderate mixed calcified and noncalcified plaque in the infrarenal abdominal aorta without aneurysm. Iliac arterial systems are patent bilaterally with mild to moderate atherosclerotic disease. The lung bases are clear. The liver is mildly enlarged. No focal lesions. Status post cholecystectomy. Pancreas, spleen, adrenal glands are all unremarkable. The kidneys enhance symmetrically. No hydronephrosis. Unremarkable appearance of the bladder. Status post hysterectomy. There is no high-grade bowel obstruction. The appendix is normal. There is a moderate amount of stool throughout the colon. There is no lymphadenopathy. No ascites. No free air. Status post hysterectomy. No acute osseous abnormalities. CT/CT angio abdomen pelvis IMPRESSION: 1. Stable lobulated splenic artery aneurysm measuring 2.4 x 2.3 x 1.7 cm. No evidence for bleeding. 2. Status post cholecystectomy and hysterectomy. Fleischner guidelines were followed. Electronically signed by: Alphonso Gallo MD 04/04/2024 11:21 PM EDT
[2024-04-04 19:29] VITALS: BP 135/57; PULSE 69; RESP 18; TEMP 36.4; O2SAT 98; BMI 32.0
--- NOTE | 2024-04-04 19:34 | ED.GENADULT ---
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 stable in size in the CT scan done on 12/02/2023 patient has been followed by vascular surgeon who advised treatment only about 3 [address] for [address] scan next year patient been having this pain left upper abdomen for last 6-7 months and comes here as pain is getting worse for last 1 week called his primary care doctor who advised another CT scan pain is localized to left upper quadrant tender to touch in lower ribs no pulsatile mass noticed patient has pain increases on palpation and movement no recent fall no fever no chills no urinary c/o Related Data Home Medications ?Medication ?Instructions ?Recorded ?Confirmed cholecalciferol (vitamin D3) 25 50 mcg PO DAILY 10/01/21 02/25/24 mcg (1,000 unit) capsule Previous Rx's ?Medication ?Instructions ?Recorded alcohol swabs 1 pad topical QIDACHS #200 ea 05/31/23 gauze bandage 4 X 4 sponge #1,200 ea 05/31/23 (Kerlix) lancets #200 ea 05/31/23 pen needle, diabetic 31 gauge x #1,200 ea 05/31/23 5/16 (Pen Needle) Dexcom G7 Fitness Instructor (blood-glucose #1 ea 06/21/23 meter,continuous) hydrocortisone 2.5 % topical cream 1 appl topical BID PRN skin 06/21/23 irritation #30 grams ketoconazole 2 % topical cream 1 appl topical DAILY #30 grams 06/21/23 lisinopril 2.5 mg tablet 2.5 mg PO DAILY #90 tabs 10/17/23 Dexcom G7 Sensor (blood-glucose #9 ea 11/18/23 sensor) metformin 1,000 mg tablet 1,000 mg PO BIDWMEAL 90 days #180 12/24/23 tabs amoxicillin 875 mg tablet 875 mg PO Q12H #10 tabs 02/08/24 meclizine 25 mg tablet 25 mg PO TID PRN dizziness #10 tabs 02/08/24 semaglutide 0.25 mg or 0.5 mg (2 0.5 mg (0.736 mL) subcut QWEEK #9 02/16/24 mg/3 mL) subcutaneous pen injector mL (Ozempic) sertraline 100 mg tablet 100 mg PO DAILY #90 tabs 02/28/24 atorvastatin 20 mg tablet 20 mg PO BEDTIME #90 tabs 03/03/24 tramadol 50 mg tablet 50 mg PO BEDTIME PRN pain #14 tabs 04/02/24 gabapentin 300 mg capsule 300 mg PO BEDTIME #20 caps 04/04/24 Allergies Allergy/AdvReac Type Severity Reaction Status Date / Time codeine [Codeine] Allergy Intermediate FELT OUT Verified 04/04/24 19:31 OF SORTS Review of Systems Review of Systems: Yes all other systems are reviewed and are negative [facility]LY [facility] Past Medical History Medical History Toxic multinodular goiter Subclinical hyperthyroidism FH: cholecystectomy Diabetes mellitus Hip pain Anxiety and depression ANG (obstructive sleep apnea) Constipation Osteoarthritis Cervical neck pain with evidence of disc disease Left ventricular hypertrophy Smoker Surgical History History of carpal tunnel surgery History of hysterectomy Family History Family History Father Heart problem Mother No problems noted. Sister Breast cancer Daughter Overweight Maternal Grandfather Cancer Maternal Grandmother Multiple myeloma Paternal Grandfather Unknown family medical history Paternal Grandmother Unknown family medical history Social History Social History Household Members: None Housing: House Do you presently have visiting nurse or other home services: No Alcohol intake: current Alcohol intake frequency: holidays/special occasions only Patient Tobacco Use Status: Current everyday Tobacco user Tobacco use type: Cigarette Cigarette Packs Per Day: 1 Cigarettes Per Day: 15 e-Cigarette/Vaping Use: Never Used Second Hand Smoke Exposure: No Advance Directives: No Advance Directives Information Provided: No service: No Current occupational status: employed 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 Oriented X3. No acute distress. Obese Eyes: No pallor or icterus ENT: Pharynx normal. Oral Mucosa moist Neck: Normal inspection. Neck supple. CVS: Normal heart rate and rhythm. Pulses normal. Respiratory: No respiratory distress. Equal air entry bilateral, no wheezing/rales/rhonchi tenderness left lower rib Abdomen: Soft and nontender. Bowel sounds are present, no mass palpable, no CVA tenderness no pulsatile mass palpable Skin: Skin warm and dry. Normal skin color. Normal skin turgor. Extremities: No lower extremity edema. No calf tenderness Neuro: Oriented X 3. Course Course Course Narrative: This is a Rapid Medical Examination (RME) performed by Justina Cain PA-C in triage. Full HPI, ROS, assessment and treatment plan per primary provider in the Main ED. 63 yo female hx of ANG, anxiety, depression, DM, subclinical hyperthyroidism, toxic goiter, here for eval of left upper abdominal pain x few days. using OTC pain meds with minimal. reports hx of spleen artery aneurysm, incidentally found on CT. Followed up with her doctor last week had imaging that showed It grew a little bit . follows with dr. root. Plan: labs, will defer imaging to primary ED provider when patient gets back to a bed Medications Administered Discontinued Medications Generic Name Dose Route Start Last Admin Trade Name Freq PRN Reason Stop Dose Admin Iohexol 80 ml 04/04/24 22:16 04/04/24 22:16 Iohexol 350 Mg/Ml 100 Ml Infus..Btl IV 04/04/24 22:17 80 ml ONCE ONE Administration Morphine Sulfate 4 mg 04/04/24 21:39 04/04/24 22:02 Morphine Sulfate 4 Mg/Ml Cartridge IVPUSH 04/04/24 21:40 4 mg ONCE ONE Administration Protocol Ondansetron HCl 4 mg 04/04/24 21:39 04/04/24 22:02 Ondansetron Hcl 4 Mg/2 Ml Vial IVPUSH 04/04/24 21:40 4 mg ONCE ONE Administration Medical Decision Making Medical Decision Making MDM Narrative: Patient with left upper quadrant pain likely musculoskeletal says size of the aneurysm increasing and causing the pain called her primary care doctor who advised to go to hospital for CT scan Patient's CT scan showed stable size of splenic aneurysm no change in the size patient's pain likely musculoskeletal will add gabapentin advised to follow with pain clinic/PCP Differential Diagnosis Differential Diagnoses: The differential diagnosis associated with the presentation includes Musculoskeletal/rib pain/neurologist Lab Data MDM Lab Attestation statement: I reviewed the patient's lab results. 04/04/24 19:51 04/04/24 19:51 Labs: Lab Results 04/04/24 Range/Units 19:51 WBC 7.8 (4.8-10.8) X10*3/uL RBC 4.35 (4.20-5.50) X10*6/uL Hgb 12.9 (12.0-16.0) g/dl Hct 38.1 (37.0-47.0) % MCV 87.6 (80.0-98.0) fL MCH 29.7 (27.0-33.0) pg MCHC 33.9 (31.0-35.0) g/dl RDW 12.2 (11.0-16.0) % Plt Count 266 (160-400) X10*3/uL MPV 9.3 L (9.4-12.3) fL Immature Gran % (Auto) 0.1 (0.0-0.4) % Neut % (Auto) 40.2 L (45-73) % Lymph % (Auto) 48.4 H (20-40) % [place] % (Auto) 7.7 (2-11) % Eos % (Auto) 3.0 (0-4) % Baso % (Auto) 0.6 (0-2) % Lymph # (Auto) 3.8 (1.2-4.9) X10*3/uL [place] # (Auto) 0.6 (0.1-1.2) X10*3/uL Eos # (Auto) 0.2 (0.0-0.4) X10*3/uL Baso # (Auto) 0.1 (0.0-0.2) X10*3/uL Abs Immat Gran (auto) 0.01 (0.00-0.03) X10*3/uL Absolute Neuts (auto) 3.1 (2.0-8.3) x10*3/uL Absolute Nucleated RBC 0.000 (0.0-0.012) X10*3/uL Nucleated RBC % (auto) 0.0 (0.0-0.2) /100WBC PT 11.5 (10.9-12.4) SEC INR 1.0 (0.9-1.1) Sodium 139 (135-145) mmol/L Potassium 4.3 (3.3-5.1) mmol/L Chloride 104 (96-108) mmol/L Carbon Dioxide 26 (22-29) mmol/L Anion Gap 13 (12-20) BUN 15 (9-16) mg/dL Creatinine 0.65 (0.5-1.4) mg/dL Estim Creat Clear Calc 87.6 Estimated GFR > 60 Random Glucose 94 (60-115) mg/dL Calcium 10.3 H D (8.4-10.2) mg/dL Magnesium 2.0 (1.6-2.6) mg/dL Total Bilirubin 0.2 (0.0-1.0) mg/dL AST 19 (5-31) U/L ALT 21 (0-31) U/L Alkaline Phosphatase 82 (39-117) U/L Total Protein 7.5 (6.5-8.0) g/dL Albumin 4.0 (3.5-5.0) g/dL Lipase 13 (8-78) U/L Independent Interpretation I performed an independent interpretation of an: CT Scan Radiology Impression Discussion of test interpretation with radiology: I have reviewed the radiologist's reading. Radiologist Impression: [place] [id number] CT Scan Report Signed Patient: Hazel Coyne MR#: [id number] : 1960 Acct:[id number] Age/Sex: 63 / F ADM Date: 04/04/24 Loc: .ED Attending Dr: Ordering Physician: Alejo Perez MD Date of Service: 04/04/24 Procedure(s): CT angio abdomen pelvis Accession Number(s): [id number] cc: Raffy Garnett [facility] [facility]-; Alejo Perez MD~ EXAMINATION: CT ANGIOGRAM ABDOMEN AND PELVIS CLINICAL INFORMATION: Left upper quadrant pain with splenic aneurysm COMPARISON: CTA abdomen and pelvis 12/02/2023 TECHNIQUE: Multiple axial images were obtained through the abdomen and pelvis following the administration of 80 mL of Omnipaque 350 intravenous contrast. Images were reviewed on a dedicated 3-D workstation. This CT examination was performed using dose optimization techniques as appropriate, variously including the following: *Automated exposure control *Adjustment of mA and/or kV according to patient size (this includes techniques or standardized protocols for targeted exams where dose is matched to indication/reason for exam; i.e. extremities or head) *Use of iterative reconstruction technique DLP: 491 mGy-cm FINDINGS: Vascular: Normal caliber abdominal aorta. Celiac artery is patent with normal branching pattern. There is a lobulated splenic artery aneurysm in the distal splenic artery measuring 2.4 x 2.3 x 1.7 cm, unchanged from prior. No evidence for bleeding. The SMA, single renal arteries and DAVID are all patent. Mild to moderate mixed calcified and noncalcified plaque in the infrarenal abdominal aorta without aneurysm. Iliac arterial systems are patent bilaterally with mild to moderate atherosclerotic disease. The lung bases are clear. The liver is mildly enlarged. No focal lesions. Status post cholecystectomy. Pancreas, spleen, adrenal glands are all unremarkable. The kidneys enhance symmetrically. No hydronephrosis. Unremarkable appearance of the bladder. Status post hysterectomy. There is no high-grade bowel obstruction. The appendix is normal. There is a moderate amount of stool throughout the colon. There is no lymphadenopathy. No ascites. No free air. Status post hysterectomy. No acute osseous abnormalities. CT/CT angio abdomen pelvis IMPRESSION: 1. Stable lobulated splenic artery aneurysm measuring 2.4 x 2.3 x 1.7 cm. No evidence for bleeding. 2. Status post cholecystectomy and hysterectomy. Fleischner guidelines were followed. Electronically signed by: Alphonso Gallo MD 04/04/2024 11:21 PM EDT Discharge Plan Discharge Clinical Impression: Abdominal pain, left upper quadrant Patient Disposition: Home, Self-Care Instructions: Chronic Abdominal Pain (ED) Additional Instructions: Cause of your left upper abdominal pain is not clear your splenic aneurysm has not increased in size and that not causing the pain Continue take pain medication, start taking gabapentin 300 mg every night as needed for pain Follow up with pain clinic Prescriptions: New gabapentin 300 mg capsule 300 mg PO BEDTIME Qty: 20 0RF No Action (DME) Dexcom G7 Fitness Instructor Misc See Rx Instructions .Route Qty: 1 0RF Rx Instructions: Test blood sugars 4 times per day ketoconazole 2 % cream 1 appl topical DAILY Qty: 30 1RF hydrocortisone 2.5 % cream 1 appl topical BID PRN (Reason: skin irritation) Qty: 30 0RF lisinopril 2.5 mg tablet 2.5 mg PO DAILY Qty: 90 1RF (DME) Dexcom G7 Sensor Device See Rx Instructions .Route Qty: 9 1RF Rx Instructions: Test blood sugars 4 times per day metformin 1,000 mg tablet 1,000 mg PO BIDWMEAL 90 Days Qty: 180 1RF Ozempic 0.25 mg or 0.5 mg (2 mg/3 mL) pen injector 0.5 mg subcut QWEEK Qty: 9 1RF sertraline 100 mg tablet 100 mg PO DAILY Qty: 90 1RF atorvastatin 20 mg tablet 20 mg PO BEDTIME Qty: 90 1RF tramadol 50 mg tablet 50 mg PO BEDTIME PRN (Reason: pain) Qty: 14 0RF (DME) lancets Misc See Rx Instructions .ROUTE .MEDSUPPLY Qty: 200 2RF Rx Instructions: 4 times daily alcohol swabs Pads, Medicated 1 pad topical QIDACHS Qty: 200 2RF (DME) pen needle, diabetic [Pen Needle] 31 gauge x 5/16 needle See Rx Instructions .ROUTE .MEDSUPPLY Qty: 1200 2RF Rx Instructions: As directed (DME) Kerlix 4 X 4 sponge See Rx Instructions .Route Qty: 1200 0RF Rx Instructions: As directed cholecalciferol (vitamin D3) 25 mcg (1,000 unit) capsule 50 mcg PO DAILY meclizine 25 mg tablet 25 mg PO TID PRN (Reason: dizziness) Qty: 10 0RF amoxicillin 875 mg tablet 875 mg PO Q12H Qty: 10 0RF Referrals: Zheng Joyce MD [Physician] - 2 weeks Print Language: Lao
[2024-04-04 19:55] LABS: MANUAL DIFF FLAG NO
[2024-04-04 19:57] LABS: Basophils Absolute Auto 0.1 X10*3/uL (0.0-0.2); Basophils Percent Auto 0.6 % (0-2); Eosinophils Absolute Auto 0.2 X10*3/uL (0.0-0.4); Hematocrit 38.1 % (37.0-47.0); Hemoglobin 12.9 g/dl (12.0-16.0); Imm Gran Abs Auto 0.01 X10*3/uL (0.00-0.03); Imm Gran Pct Auto 0.1 % (0.0-0.4); Lymphocytes Absolute Auto 3.8 X10*3/uL (1.2-4.9); Lymphocytes Percent Auto 48.4 % (20-40); Mean Corpuscular HGB Conc 33.9 g/dl (31.0-35.0); Mean Corpuscular Hemoglobin 29.7 pg (27.0-33.0); Mean Corpuscular Volume 87.6 fL (80.0-98.0); Mean Platelet Volume 9.3 fL (9.4-12.3); Monocytes Absolute Auto 0.6 X10*3/uL (0.1-1.2); Monocytes Percent Auto 7.7 % (2-11); Neutrophils Absolute Auto 3.1 x10*3/uL (2.0-8.3); Neutrophils Percent Auto 40.2 % (45-73); Platelet Count 266 X10*3/uL (160-400); Red Blood Count 4.35 X10*6/uL (4.20-5.50); Red Cell Distribution Width 12.2 % (11.0-16.0); White Blood Count 7.8 X10*3/uL (4.8-10.8)
[2024-04-04 20:06] LABS: Prothrombin Time 11.5 SEC (10.9-12.4)
[2024-04-04 20:10] LABS: Alanine Aminotransferase 21 U/L (0-31); Alkaline Phosphatase 82 U/L (39-117); Anion Gap 13 (12-20); Aspartate Amino Transferase 19 U/L (5-31); Bilirubin Total 0.2 mg/dL (0.0-1.0); Blood Urea Nitrogen 15 mg/dL (9-16); Calcium 10.3 mg/dL (8.4-10.2); Carbon Dioxide 26 mmol/L (22-29); Chloride 104 mmol/L (96-108); Creatinine Clr Calc Pharmacy 87.6; Estimated Glomerular Filt Rate > 60; Glucose Random 94 mg/dL (60-115); Lipase 13 U/L (8-78); Potassium 4.3 mmol/L (3.3-5.1); Sodium 139 mmol/L (135-145); Total Protein 7.5 g/dL (6.5-8.0)
[2024-04-04 21:11] VITALS: BP 117/45; PULSE 58; RESP 16; TEMP 36.7; O2SAT 97
[2024-04-04] MEDS: ondansetron HCL 4 MG/2 ML VIAL IVPUSH (22:02)
[2024-04-04] MEDS: Morphine Sulfate 4 MG/ML CARTRIDGE IVPUSH (22:02)
[2024-04-04] MEDS: iohexoL 350 MG/ML 100 ML INFUS..BTL 80 ML IV (22:16)
[2024-04-04 22:29] VITALS: BP 110/48; PULSE 62; RESP 16; TEMP 36.8; O2SAT 98
[2024-04-05 00:04] VITALS: BP 110/48; PULSE 62; RESP 16; TEMP 36.8; O2SAT 98
== END 2024-04-05 00:05 | disposition home or self-care (01) ==
PROVIDERS: Physician Assistant Medical; Emergency Provider Internal Medicine; PCP Nurse Practitioner Family
DX: R10.12 Left upper quadrant pain (principal); E11.9 Type 2 diabetes mellitus without complications; F17.210 Nicotine dependence, cigarettes, uncomplicated; Z79.899 Other long term (current) drug therapy; Z79.85 Long-term (current) use of injectable non-insulin antidiabetic drugs
CPT/HCPCS: 36415; 74174; 80053; 83690; 83735; 85025; 85610; 96374; 96375; 99283; 99284; J2270; J2405; Q9967

== ENCOUNTER 2024-04-10 11:37 | Outpatient (AMB) | payer OTHER, SELFPAY ==
--- NOTE | 2024-04-10 11:44 | MHC.OFFWIV ---
Intake Vital Signs 04/10/24 11:47 Weight 175 lb BP 120/78 Blood Pressure Location Rt brachial Position Sitting Pulse 69 Pulse Source Pulse Oximeter Pulse Oximetry (%) 98 Oxygen Delivery Method Room Air Intake Visit Reasons: EP Gallbladder pain Intake Note: Patient here for gallbladder area pain that has been present for about 1 month. Patient Tobacco Use Status: Current everyday Tobacco user Allergies codeine [Codeine] Allergy (Intermediate, Verified 04/10/24 11:47) FELT OUT OF SORTS Do you need a note to return to daycare/school/sports/work: No HPI EP Gallbladder pain HPI Details This note is constructed using voice recognition software. While every effort has been made to ensure accuracy, batter depositor errors may have been included. The patient is a 63 year old female who presents to the clinic today with LUQ abdomen pain. She reports approximately for the past month she has had left upper quadrant abdomen pain. She denies any injury or trauma to the area, and a nausea, vomiting, diarrhea, or previous surgeries to the area. She reports similar symptoms approximately 1 year ago. She reports that she does have a splenic artery aneurysm, which was recently reimaged due to the pain. She has been seen by her primary care provider, by this clinic, by the emergency room, and again back to this clinic as nothing seems to resolve the pain. She reports the pain to be sharp and stabbing in nature, and does not feel that any movement or activity or anything she does contributes to worsening the pain. 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 The pain is relatively colicky in nature. She has tried oxycodone, gabapentin, tramadol, icy hot, Salonpas, lidocaine, heat, all of which have not helped the pain. She denies cough, shortness of breath. She does report a longstanding history of smoking, and is up-to-date on her lung cancer screening by low-dose CT scan. She is frustrated that the pain has not been able to resolve, and he is primarily interested in identifying a source of her pain. [facility] Medical History Toxic multinodular goiter Subclinical hyperthyroidism FH: cholecystectomy Diabetes mellitus Hip pain Anxiety and depression ANG (obstructive sleep apnea) Constipation Osteoarthritis Cervical neck pain with evidence of disc disease Left ventricular hypertrophy Smoker Surgical History History of carpal tunnel surgery History of hysterectomy Family History Father Heart problem Mother No problems noted. Sister Breast cancer Daughter Overweight Maternal Grandfather Cancer Maternal Grandmother Multiple myeloma Paternal Grandfather Unknown family medical history Paternal Grandmother Unknown family medical history Social History Household Members: None Housing: House Do you presently have visiting nurse or other home services: No Alcohol intake: current Alcohol intake frequency: holidays/special occasions only Patient Tobacco Use Status: Current everyday Tobacco user Tobacco use type: Cigarette Cigarette Packs Per Day: 1 Cigarettes Per Day: 15 e-Cigarette/Vaping Use: Never Used Second Hand Smoke Exposure: No service: No Current occupational status: employed 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 Current occupational exposures/hazards: No Cognitive needs: No Hearing needs: No Vision needs: No Review of Systems Const All systems reviewed & are unremarkable except as noted in HPI and below Physical Exam Vital Signs: Last Vital Signs Pulse 69 04/10/24 11:47 BP 120/78 04/10/24 11:47 Pulse Ox 98 04/10/24 11:47 Oxygen Delivery Method Room Air 04/10/24 11:47 Const General: cooperative, healthy appearing, comfortable, no acute distress and well developed Orientation/consciousness: patient oriented x3 Limitations: no limitations HEENT Head: Yes normal to inspection Ears: hearing grossly normal bilaterally General nose exam: Normal external nose present Face and sinus: Yes normal facial exam Eyes General: appearance normal, both eyes and all related structures Neck Neck: Yes normal visual inspection and Yes full ROM Chest Other: Tender to palpation along left costal margin into left upper quadrant of abdomen, without palpable mass. Resp Effort & Inspection: normal respiratory effort and able to speak in complete sentences Auscultation: clear to auscultation bilaterally Cardio Rate: regular rate Rhythm: regular rhythm Heart sounds: normal S1 and S2 GI Inspection: Yes normal to inspection Palpation (GI): Soft to palpation General: Yes no CVA tenderness Back/Spine/Pelvis Other: Increased pain in left costal margin with right lateral rotation, which is reduced slightly due to pain. Flexion reduced due to pain. Back: no CVA tenderness Skin General skin exam: no rashes or lesions noted Neuro General: patient oriented x3 Extrem General: Yes normal to inspection Assessment & Plan Assessment & Plan (1) Left upper quadrant abdominal pain: Code(s): R10.12 - Left upper quadrant pain Plan: Patient continues to have pain in the left upper quadrant and left costal margin, which based on physical examination today appears to be most consistent with muscular in origin. I spent time reviewing the previous notes including previous imaging which included both lung, and abdomen, with no acute findings. Her splenic artery aneurysm was stable on last CTA, which was since symptom onset. Additional imaging is not warranted at this time. Advised that she continue with her efforts for pain recovery through use of medication previously been prescribed, as well as at home supportive measures. She may benefit from physical therapy with persistent symptoms. Advised her to continue follow up with her primary care provider as well. Advised ER with sudden worsening of pain to help facilitate identification of the source for pain. Plan See above for full details and plan. Medications: New cyclobenzaprine 10 mg PO Q8H PRN 20 tabs 0RF Muscle Spasm Coding Level of Care Code Est Pt Level 4 (11189) Diagnoses Left upper quadrant abdominal pain R10.12 Time Spent (min) 32
[2024-04-10 11:47] VITALS: BP 120/78; PULSE 69; O2SAT 98
== END 2024-04-10 14:02 | disposition home or self-care (01) ==
PROVIDERS: PCP Nurse Practitioner Family; Visit Provider Registered Nurse
DX: R10.12 Left upper quadrant pain (principal)

== ENCOUNTER 2024-04-16 11:22 | Outpatient (AMB) | payer OTHER, SELFPAY ==
--- NOTE | 2024-04-16 11:27 | MHC.PC.OV ---
Vital Signs 04/16/24 11:28 Height 5 ft 2 in Weight 177 lb BMI 32.4 BP 110/66 Blood Pressure Location Lt brachial Position Sitting Pulse 73 Pulse Source Pulse Oximeter Pulse Oximetry (%) 96 Oxygen Delivery Method Room Air Intake Visit Reasons: left abdominal pain/ed follow up [facility] [place] 04/05 Intake Note: Pt is here today for ER follow up visit. Allergies codeine [Codeine] Allergy (Intermediate, Verified 04/16/24 11:31) FELT OUT OF SORTS Medication List - Last Reconciled 04/16/24 by Raffy Garnett, SAVANNA- alcohol swabs 1 pad topical QIDACHS atorvastatin 20 mg PO BEDTIME cholecalciferol (vitamin D3) 50 mcg PO DAILY Dexcom G7 Slitter Cut Off Operator (blood-glucose meter,continuous) Test blood sugars 4 times per day NS Dexcom G7 Sensor (blood-glucose sensor) Test blood sugars 4 times per day NS gauze bandage (Kerlix) As directed hydrocortisone 2.5% 1 appl topical BID PRN ketoconazole 2% 1 appl topical DAILY lancets 4 times daily lisinopril 2.5 mg PO DAILY meclizine 25 mg PO TID PRN metformin 1,000 mg PO BIDWMEAL 90 days pantoprazole 20 mg PO DAILY 30 days pen needle, diabetic (Pen Needle) As directed semaglutide (Ozempic) 0.5 mg (0.736 mL) subcut QWEEK sertraline 100 mg PO DAILY tramadol 50 mg PO BEDTIME PRN Tobacco use date assessed: 04/16/24 Dental Screening Dental Screen Date: 12/24/23 HPI left abdominal pain/ed follow up [facility] [place] 04/05 HPI Details Pt was seen in the ER on 04/04 c/o LUQ pain. CTA of the abdomen/pelvis showed stable lobulated splenic artery aneurysm measuring 2.4 x 2.3 x 1.7 cm. She sees vascular for this, hasnt changed in size since previous imaging. No evidence for bleeding. Status post cholecystectomy and hysterectomy. Pt was d/c on gabapentin which she reports has helped minimally, ? nerve irritation. Pt c/o ongoing LUQ pain (more lateral). She reports that this is constant and nothing improves the pain. Will refer to pain management. GERD: sulfur type burps, trying a PPI. PFSH Medical History Toxic multinodular goiter Subclinical hyperthyroidism FH: cholecystectomy Diabetes mellitus Hip pain Anxiety and depression ANG (obstructive sleep apnea) Constipation Osteoarthritis Cervical neck pain with evidence of disc disease Left ventricular hypertrophy Smoker Surgical History History of carpal tunnel surgery History of hysterectomy Family History Father Heart problem Mother No problems noted. Sister Breast cancer Daughter Overweight Maternal Grandfather Cancer Maternal Grandmother Multiple myeloma Paternal Grandfather Unknown family medical history Paternal Grandmother Unknown family medical history Social History Household Members: None Housing: House Do you presently have visiting nurse or other home services: No Alcohol intake: current Alcohol intake frequency: holidays/special occasions only Patient Tobacco Use Status: Current everyday Tobacco user Tobacco use type: Cigarette Cigarette Packs Per Day: 1 Cigarettes Per Day: 15 e-Cigarette/Vaping Use: Never Used Second Hand Smoke Exposure: No service: No Current occupational status: employed 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 Current occupational exposures/hazards: No Cognitive needs: No Hearing needs: No Vision needs: No Questionnaire Thrive Questionnaire Date Thrive assessed: 12/24/23 I am a: Patient What is your living situation today?: I have a steady place to live Within the past 12 months, did the food you bought not last and you didn't have the money to get more?: Sometimes True Within the past 12 months, did you worry whether your food would run out before you got money to buy more?: Sometimes True Do you have trouble paying for medicines?: No Do you have trouble getting transportation to medical appointments?: No Do you have trouble paying your heating and electricity bill?: No Do you have trouble taking care of your child, family member or friend?: No Do you have trouble with day-to-day activities such as bathing, preparing meals, shopping, managing finances, etc.?: No Are you currently unemployed and looking for a job?: No Are you interested in more education?: No Please select the resources that you would like help with: None Currently or been in a relationship where the following occur: I choose not to answer THRIVE Score: 2 MAINOR-7 AMB Questionnaire MAINOR-7 Date MAINOR - 7 assessed: 12/24/23 Source: Developed by DrsCem Medina, Padmini Michele, Jun Davis and colleagues, with an educational brayan from [employer]. Physical exam (Primary Care) Vital Signs: Last Vital Signs Pulse 73 04/16/24 11:28 BP 110/66 04/16/24 11:28 Pulse Ox 96 04/16/24 11:28 Oxygen Delivery Method Room Air 04/16/24 11:28 BMI result Body Mass Index 32.4 Tobacco/Smoking Status: Tobacco use Status Tobacco use date assessed 04/16/24 04/16/24 11:32 Patient Tobacco Use Status Current everyday Tobacco 04/16/24 11:32 Tobacco use type Cigarette 04/16/24 11:32 e-Cigarette/Vaping Use Never Used 04/16/24 11:32 Thrive Assessment: Date of Thrive Assessment Date Thrive assessed 12/24/23 04/16/24 11:32 Currently or been in a relationship where the following occur: I choose not to answer Resp Effort & Inspection: normal respiratory effort Cardio Rate: regular rate Rhythm: regular rhythm Heart sounds: S1 normal heart sound present, S2 normal heart sound present and no murmurs Other: no CVA tenderness noted (left). Back/Spine/Pelvis Other: palpation just superior and anterior to left flank, tenderness noted, which further runs anteriorly to lateral LUQ. Skin Other: no lesions/erythema. Psych Appearance: grossly normal Mental Status: mental status grossly normal Speech and movement: Normal speech and movement present Attitude: cooperative Thought process: Normal thought process present Thought content: Normal thought content present Insight: Good insight present (Psych) Judgement: Good judgement present (Psych) Coding Level of Care Code Est Pt Level 3 (41343) Diagnoses Left upper quadrant abdominal pain R10.12 GERD (gastroesophageal reflux disease) K21.9 Assessment & Plan Assessment & Plan (1) Left upper quadrant abdominal pain: Comment: ? nerve involvement Code(s): R10.12 - Left upper quadrant pain Category: Medical Plan: referred to pain management, havign pt try 600mg gabapentin rather than 300. She will contact me in the very near future with any benefits (2) GERD (gastroesophageal reflux disease): Code(s): K21.9 - Gastro-esophageal reflux disease without esophagitis Category: Medical Plan: starting PPI Orders: Referrals Pain Management Referral R10.12 - Left upper quadrant pain Medications: New pantoprazole 20 mg PO DAILY 30 days 30 tabs 2RF
[2024-04-16 11:28] VITALS: BP 110/66; PULSE 73; O2SAT 96; BMI 32.4
== END 2024-04-16 13:17 | disposition home or self-care (01) ==
PROVIDERS: PCP Nurse Practitioner Family; Visit Provider Nurse Practitioner Family
DX: R10.12 Left upper quadrant pain (principal); K21.9 Gastro-esophageal reflux disease without esophagitis

== ENCOUNTER 2024-04-28 14:02 | Outpatient (AMB) | payer OTHER, SELFPAY ==
--- NOTE | 2024-04-28 14:05 | MHC.OFFVIS ---
Vital Signs 04/28/24 14:20 Height 5 ft 2 in Weight 178 lb 6 oz BMI 32.6 BP 121/63 Blood Pressure Location Rt brachial Position Sitting Pulse 66 Pulse Source Pulse Oximeter Pulse Oximetry (%) 96 Oxygen Delivery Method Room Air Intake Visit Reasons: Left upper quadrant pain Intake Note: Pain today 01/11 Safety And Occupational Health Manager Required: No Accompanied by: Self / Same As Patient Allergies codeine [Codeine] Allergy (Intermediate, Verified 04/28/24 14:19) FELT OUT OF SORTS HPI HPI Left upper quadrant pain: Details: Patient is a pleasant 63-year-old female with prior history of hyperthyroidism, h/o cholecystectomy, DM (A1C=6.5), anxiety and depression, smoker, hip pain, osteoarthritis, cervical neck pain, presents today for initial evaluation of left upper quadrant pain with radiation into her lower ribs and left flank. Pain has been present for about 7 month and comes and goes without warning sharp, colicky, jumping and shock-like sensations in her left abdominal side. Patient does not feel that PO intak, fasting, any movement, activity or anything that contributes to worsening of her abdominal pain. She was seen at [facility] ER, Walk-In clinic and PCP offices for the past few months to address this. She completed abdomen/pelvis CT scan and CTA as noted below. She is being followed by Dr. Judd for splenic aneurysm which has been stable in size. This was originally picked up on a CT of the chest for screening for lung cancer. Patient is frustrated that the pain has not been able to resolve. She was told no Endovascular interventions were needed at this time with annual follow up and was educated on modifying risk factors, including quitting smoking. Patient has a longstanding history of smoking. Denies any fever or chills, infection, chest pain, dizziness, nausea or vomiting, constipation or diarrhea, weakness, left shoulder pain, numbness or tingling, gait imbalances, bladder or bowel dysfunction or saddle anesthesia. Denies previous spine injections or surgery. CT chest in August 2023 showed degenerative changes are present in the spine with some mild compression of midthoracic vertebral bodies. We will proceed with thoracic spine MRI to rule out nerve compression or disc herniation. Patient works full-time in [employer] in a sitting position with several aspects of reaching and repetitive motion at work. [facility] ER visit 04/04/24: Patient's history of 2.5 cm calcified splenic aneurysm stable in size in the CT scan done on 12/02/2023 patient has been followed by vascular surgeon who advised treatment only about [address] for [address] scan next year patient been having this pain left upper abdomen for last 6-7 months and comes here as pain is getting worse for last 1 week called his primary care doctor who advised another CT scan pain is localized to left upper quadrant tender to touch in lower ribs no pulsatile mass noticed patient has pain increases on palpation and movement no recent fall no fever no chills no urinary c/o [facility] Vascular Dr. Judd 10/04/23: In short patient has a stable splenic artery aneurysm. I did provide some education regarding splenic artery aneurysms. We typically do not intervene until they are greater than 3 cm and are more aggressive in women of childbearing age. At the current time from my perspective she is stable. We did discuss risk factor modification. Will plan for surveillance CT scan in approximately 1 year's time. Location: Left upper quadrant radiating to lower ribs and left flank Duration: 7 months Characteristics of symptom or complaint: Sharp, jumping, shock-like, colicky Aggravating or associated factors: random comes and goes, pain comes without warning Relieving factors: Heating pad, tramadol, gabapentin, tried oxycodone, IcyHot, lidocaine patch Treatment: Abd/pelvic CT scan and CTA, chest CT, ER, Walk-in clinic, PCP office visits PFSH Medical History Toxic multinodular goiter Subclinical hyperthyroidism FH: cholecystectomy Diabetes mellitus Hip pain Anxiety and depression ANG (obstructive sleep apnea) Constipation Osteoarthritis Cervical neck pain with evidence of disc disease Left ventricular hypertrophy Smoker Surgical History (Updated 04/28/24 @ 14:24 by Mari Ortiz) Hx of cholecystectomy History of carpal tunnel surgery History of hysterectomy Family History Father Heart problem Mother No problems noted. Sister Breast cancer Daughter Overweight Maternal Grandfather Cancer Maternal Grandmother Multiple myeloma Paternal Grandfather Unknown family medical history Paternal Grandmother Unknown family medical history Social History Household Members: None Housing: House Do you presently have visiting nurse or other home services: No Alcohol intake: current Alcohol intake frequency: holidays/special occasions only Patient Tobacco Use Status: Current everyday Tobacco user Tobacco use type: Cigarette Cigarette Packs Per Day: 1 Cigarettes Per Day: 15 e-Cigarette/Vaping Use: Never Used Second Hand Smoke Exposure: No service: No Current occupational status: employed 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 Current occupational exposures/hazards: No Cognitive needs: No Hearing needs: No Vision needs: No Review of Systems Const All systems reviewed & are unremarkable except as noted in HPI and below Physical Exam Vital Signs: Last Vital Signs Pulse 66 04/28/24 14:20 BP 121/63 04/28/24 14:20 Pulse Ox 96 04/28/24 14:20 Oxygen Delivery Method Room Air 04/28/24 14:20 BMI result Body Mass Index 32.6 Const General: cooperative, comfortable, no acute distress, alert, awake and anxious; No diaphoretic Nutritional Appearance: obese Orientation/consciousness: patient oriented x3 Limitations: no limitations HEENT Head: Yes normal to inspection and Yes normocephalic Ears: hearing grossly normal bilaterally General nose exam: Normal external nose present Face and sinus: Yes normal facial exam Eyes General: appearance normal, both eyes and all related structures Conjunctivae: conjunctivae normal Sclerae: sclerae normal Pupils: Equal, round and reactive pupils present Neck Neck: Yes normal visual inspection, Yes full ROM, Yes no lymphadenopathy and Yes prominent dorsocervical fat pad Chest Chest palpation & inspection: no localized rib tenderness, tenderness costal cartilage left mid-axillary line and No rash Resp Effort & Inspection: normal respiratory effort and able to speak in complete sentences Auscultation: clear to auscultation bilaterally Cardio Rate: regular rate Rhythm: regular rhythm Heart sounds: normal S1 and S2 GI Inspection: Yes normal to inspection, No abdominal wall ecchymosis, No visible herniation and No visible pulsation Palpation (GI): Soft to palpation, Tenderness to palpation present (GI) in the LUQ, no guarding, not rigid and No Carnett's sign positive Percussion: Yes normal to percussion General: Yes no CVA tenderness Back/Spine/Pelvis Back: no CVA tenderness Cervical Spine: cervical ROM normal, pain with cervical ROM and No Cervical spine tenderness Thoracic/Lumbar Spine: thoracic and lumbar spine normal to inspection, thoraco-lumbar ROM limited with forward flexion, with lateral flexion to the right and with rotation to the right, No thoracic spinal tenderness and No lumbar spinal tenderness Skin General skin exam: no rashes or lesions noted Neuro General: patient oriented x3 Cranial nerves: Yes Equal, round and reactive pupils present Extrem General: Yes capillary refill normal, Yes no clubbing, cyanosis or edema and Yes no calf tenderness Psych Appearance: grossly normal Mental Status: mental status grossly normal Speech and movement: Normal speech and movement present Affect: normal affect and Anxious affect present Attitude: cooperative Thought process: Normal thought process present Thought content: Normal thought content present Insight: Good insight present (Psych) Judgement: Good judgement present (Psych) Results Reviewed Results Reviewed: CT ANGIOGRAM ABDOMEN AND PELVIS 04/04/24 CLINICAL INFORMATION: Left upper quadrant pain with splenic aneurysm COMPARISON: CTA abdomen and pelvis 12/02/2023 FINDINGS: Vascular: Normal caliber abdominal aorta. Celiac artery is patent with normal branching pattern. There is a lobulated splenic artery aneurysm in the distal splenic artery measuring 2.4 x 2.3 x 1.7 cm, unchanged from prior. No evidence for bleeding. The SMA, single renal arteries and DAVID are all patent. Mild to moderate mixed calcified and noncalcified plaque in the infrarenal abdominal aorta without aneurysm. Iliac arterial systems are patent bilaterally with mild to moderate atherosclerotic disease. The lung bases are clear. The liver is mildly enlarged. No focal lesions. Status post cholecystectomy. Pancreas, spleen, adrenal glands are all unremarkable. The kidneys enhance symmetrically. No hydronephrosis. Unremarkable appearance of the bladder. Status post hysterectomy. There is no high-grade bowel obstruction. The appendix is normal. There is a moderate amount of stool throughout the colon. There is no lymphadenopathy. No ascites. No free air. Status post hysterectomy. No acute osseous abnormalities. IMPRESSION: 1. Stable lobulated splenic artery aneurysm measuring 2.4 x 2.3 x 1.7 cm. No evidence for bleeding. 2. Status post cholecystectomy and hysterectomy. CT angio abdomen pelvis 12/02/23 OSSEOUS STRUCTURES: Unremarkable. IMPRESSION: 1. 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 Consider embolization/treatment for splenic artery aneurysm greater than 2 cm in size. Consider interventional radiology consultation. 2. No acute abnormality within the abdomen or pelvis to explain patient's symptoms. CT lung screening 08/17/23 OSSEOUS STRUCTURES: Unremarkable. Degenerative changes are present in the spine with some mild compression of midthoracic vertebral bodies. IMPRESSION: Unchanged 3 mm nodule and 7 mm groundglass opacity with no new or concerning nodule to suggest malignancy. Incidental note made of stable 2.6 cm partially rim calcified splenic artery aneurysm. Assessment & Plan Assessment & Plan (1) Thoracic radiculitis: Code(s): M54.14 - Radiculopathy, thoracic region Category: Medical (2) Splenic artery aneurysm: Code(s): I72.8 - Aneurysm of other specified arteries Category: Medical (3) Obesity, Class I, BMI 30-34.9: Code(s): E66.811 - Obesity, class 1 Category: Medical (4) Left upper quadrant abdominal pain: Comment: ? nerve involvement Code(s): R10.12 - Left upper quadrant pain Category: Medical (5) Smoker: Code(s): F17.200 - Nicotine dependence, unspecified, uncomplicated Category: Social Hx Plan MRI of the thoracic spine to assess for neural integrity and compression and follow up on previous CT scan findings. Discussed interventional treatments for LUQ pain and thoracic radiculitis, including ultrasound-guided abdominal nerve blocks, fluoroscopy guided intercostal nerve blocks and thoracic ROXANNE or MBBs. Patient will return to the clinic to discuss results of the MRI findings when it is done and consider interventional therapy as indicated. Script provided for gabapentin with increased dose 600 mg TID which she finds has been helpful. Patient will continue to monitor for any side effects. Patient urged to quit smoking. She will trial to decrease amount of daily cigarettes. She is aware that quitting smoking is one of risk factor modifiers for splenic artery aneurysm. Follow up with Vascular provider as scheduled. All questions and concerns have been answered and patient agreed with the treatment plan. Follow-up for MRI results and sooner as needed. Orders: Orders MR thoracic spine wo con Today I72.8 - Aneurysm of other specified arteries, M54.14 - Radiculopathy, thoracic region, R10.12 - Left upper quadrant pain Medications: Changed From gabapentin 600 mg PO BID 30 days 60 tabs 1RF M54.14 - Radiculopathy, thoracic region To gabapentin 600 mg PO TID 30 days 90 tabs 1RF pain M54.14 - Radiculopathy, thoracic region Coding Level of Care Code New Pt Level 4 (61375) Complex EM visit Add On G2211 Diagnoses Thoracic radiculitis M54.14 Splenic artery aneurysm I72.8 Obesity, Class I, BMI 30-34.9 E66.811 Left upper quadrant abdominal pain R10.12 Smoker F17.200
[2024-04-28 14:20] VITALS: BP 121/63; PULSE 66; O2SAT 96; BMI 32.6
== END 2024-04-28 14:55 | disposition home or self-care (01) ==
PROVIDERS: PCP Nurse Practitioner Family; Visit Provider Nurse Practitioner Family
DX: M54.14 Radiculopathy, thoracic region (principal); I72.8 Aneurysm of other specified arteries; E66.811 Obesity, class 1; R10.12 Left upper quadrant pain; F17.200 Nicotine dependence, unspecified, uncomplicated
CPT/HCPCS: 99204

== ENCOUNTER → 2024-04-28 14:02 | Outpatient (BNVA) | payer OTHER, SELFPAY | PROVIDERS: PCP Nurse Practitioner Family; Visit Provider Nurse Practitioner Family ==

== ENCOUNTER 2024-05-17 08:04 | Outpatient (REF) | payer OTHER, SELFPAY ==
--- OUTSIDE RECORDS SUMMARY | 2024-05-17 08:07 | XMS_ITS | Patient Health Record ---
[facility] Address [address] [place] [address] Care Team Providers Care Translator Interpreter Name Role Phone Raffy Greene Primary Care Provider Unav ailable Lacy Hunter Unavailable [phone] Allergies Allergen (clinical drug ingredient) Drug/Non Drug Allergy documented on EMR Reaction Allergy Type Onset Date Status acetaminophen Tylenol Unknown Drug Allergy Act j luis codeine Codeine loopy feeling Drug Allergy Act j luis Reason For Referral No Information Medications Medication SIG (Take, Route, Frequency, Duration) Notes [...] a day for 30 day(s) 09/07/2020 Active Immunizations Vaccine Route Administration Date Status Comme nts COVID-19 Pfizer BioNTech Vaccine Unknown 09/24/2020 Adm inistered Social History Tobacco Use: Social History Observation Description Date Details (start date - stop date) Current Smoker NA - NA Tobacco Use/Smoking Question Answer Notes Are you [...] Are you an other tobacco user? No Problems Problem Type SNOMED Code ICD Code Onset Dates Problem Status W/U Status Risk Notes Problem [id number] Tarsal tunnel syndrome of left side (G57.52) Active confirmed Plan Of Treatment Pending Test Test Name Order Date X ray : Foot, left 3V 07/14/2020 Insurance Providers Payer Name Payer Address Payer Phone Subscriber Number Group Number Insured Name Patient Relationship to Insured Coverage Start Date Coverage End Date Preferred Care PPO [id number] CINTHIA Hernandez [phone] [id number] Hazel Coyne Self - patient is the insured Medical (General) History Medical History History ICD Code Anxiety Arthritis Back,Hip,and Knee pain Chicken pox Surgical History Surgery Date(Month/Year) gall bladder 1985 hysterectomy 1990 Surgeon drained infection from breast Hospitalization History Reason Date(Month/Year)
== END 2024-05-17 08:05 | disposition home or self-care (01) ==
LOC: HO.MAMMO 08:04
PROVIDERS: PCP Nurse Practitioner Family; Visit Provider Nurse Practitioner Family
DX: Z12.31 Encounter for screening mammogram for malignant neoplasm of breast (principal)
CPT/HCPCS: 77063; 77067

== ENCOUNTER → 2024-05-17 08:15 | Outpatient (BNV) | payer OTHER, SELFPAY | PROVIDERS: PCP Nurse Practitioner Family; Visit Provider Internal Medicine | DX: Z12.31 Encounter for screening mammogram for malignant neoplasm of breast (principal) | CPT/HCPCS: 77063; 77067 ==

== ENCOUNTER 2024-06-09 08:00 | Outpatient (REF) | payer OTHER, SELFPAY ==
--- NOTE | ~2024-06-09 | XR_ITS ---
EXAMINATION: XR SHOULDER 2 OR MORE VIEWS RIGHT HISTORY: S43.401A - Unspecified sprain of right shoulder joint, initial encounter COMPARISON: There are no prior studies available for comparison. FINDINGS: Three views of the right shoulder are submitted. Osseous mineralization is normal. There is no fracture or dislocation. There is moderate osteoarthritis of the AC joint with joint space narrowing and osteophyte formation. The glenohumeral joint is maintained. There is an amorphous calcification adjacent to the greater tuberosity of the humerus, likely related to the rotator cuff. XR/XR shoulder RT min 2V IMPRESSION: Moderate osteoarthritis of the AC joint. Probable rotator cuff calcification. Electronically signed by: Alphonso Tobin MD 06/09/2024 09:50 AM ADRIANA
--- OUTSIDE RECORDS SUMMARY | 2024-06-09 09:05 | XMS_ITS | Patient Health Record ---
[facility] Address [address] [place] [address] Care Team Providers Care Bobcat Operator Name Role Phone Raffy Greene Primary Care Provider Unav ailable Lacy Hunter Unavailable [phone] Allergies Allergen (clinical drug ingredient) Drug/Non Drug [...] Problem Status W/U Status Risk Notes Problem [id number] Tarsal tunnel syndrome of left side (G57.52) Active confirmed Plan Of Treatment Pending Test Test Name Order Date X ray : Foot, left 3V 07/14/2020 Insurance Providers Payer Name Payer Address Payer Phone Subscriber Number Group Number Insured Name Patient Relationship to Insured Coverage Start Date Coverage End Date Preferred Care PPO [id number] CINTHIA Hernandez [phone] [id number] Hazel Coyne Self - patient is the insured Medical (General) History Medical History History ICD Code Anxiety Arthritis Back,Hip,and Knee pain Chicken pox Surgical History Surgery Date(Month/Year) gall bladder 1985 hysterectomy 1990 Surgeon drained infection from breast Hospitalization History Reason Date(Month/Year)
== END 2024-06-09 08:01 | disposition home or self-care (01) ==
LOC: HO.HMGCX 08:00
PROVIDERS: PCP Nurse Practitioner Family; Visit Provider Internal Medicine
DX: S43.401A Unspecified sprain of right shoulder joint, initial encounter (principal)
CPT/HCPCS: 73030

== ENCOUNTER 2024-06-09 08:00 | Outpatient (AMB) | payer OTHER, SELFPAY ==
[2024-06-09 08:23] VITALS: BP 124/82; PULSE 67; O2SAT 93; BMI 32.4
--- NOTE | 2024-06-09 08:23 | AM.OFFWIN_ITS ---
Intake Vital Signs 06/09/24 08:23 Height 5 ft 2 in Weight 177 lb BMI 32.4 BP 124/82 Blood Pressure Location Lt brachial Position Sitting Pulse 67 Pulse Source Pulse Oximeter Pulse Oximetry (%) 93 Oxygen Delivery Method Room Air Intake Visit Reasons: EP-rt arm pain Intake Note: Patient here for right arm pain and is starting to have left arm pain that has been present for about 1 year and worsening. Patient Tobacco Use Status: Current everyday Tobacco user Allergies codeine [Codeine] Allergy (Intermediate, Verified 06/09/24 08:40) FELT OUT OF SORTS Medication List - Last Reconciled 06/09/24 by Lefty Singleton MD alcohol swabs 1 pad topical QIDACHS atorvastatin 20 mg PO BEDTIME cholecalciferol (vitamin D3) 50 mcg PO DAILY Dexcom G7 Small Animal Caretaker (blood-glucose meter,continuous) Test blood sugars 4 times per day NS Dexcom G7 Sensor (blood-glucose sensor) Test blood sugars 4 times per day NS gabapentin 600 mg PO TID 30 days gauze bandage (Kerlix) As directed hydrocortisone 2.5% 1 appl topical BID PRN insulin glargine (Lantus Solostar U-100 Insulin) 10 units (0.1 mL) subcut QPM ketoconazole 2% 1 appl topical DAILY lancets 4 times daily lisinopril 2.5 mg PO DAILY meclizine 25 mg PO TID PRN metformin 1,000 mg PO BIDWMEAL 90 days pantoprazole 20 mg PO DAILY 30 days pen needle, diabetic (Pen Needle) As directed semaglutide (Ozempic) 0.5 mg (0.736 mL) subcut QWEEK sertraline 100 mg PO DAILY tramadol 50 mg PO BEDTIME PRN Do you need a note to return to daycare/school/sports/work: No HPI EP-rt arm pain HPI Details 63-year-old female presents to the [facility] for a sick visit. Patient is complaining of pain in both right and left shoulder. Right is greater than left. Symptoms have been present for a few months but got worse last night. Unable to sleep because of the pain in the shoulder. Has tried tramadol in the past with minimal relief. No history of fall or injury. In addition patient has a rash on the right wrist dorsally but she would like examined. [facility] Medical History Toxic multinodular goiter Subclinical hyperthyroidism FH: cholecystectomy Diabetes mellitus Hip pain Anxiety and depression ANG (obstructive sleep apnea) Constipation Osteoarthritis Cervical neck pain with evidence of disc disease Left ventricular hypertrophy Smoker Surgical History (Updated 04/28/24 @ 14:24 by Mari Ortiz) Hx of cholecystectomy History of carpal tunnel surgery History of hysterectomy Family History Father Heart problem Mother No problems noted. Sister Breast cancer Daughter Overweight Maternal Grandfather Cancer Maternal Grandmother Multiple myeloma Paternal Grandfather Unknown family medical history Paternal Grandmother Unknown family medical history Social History Household Members: None Housing: House Do you presently have visiting nurse or other home services: No Alcohol intake: current Alcohol intake frequency: holidays/special occasions only Patient Tobacco Use Status: Current everyday Tobacco user Tobacco use type: Cigarette Cigarette Packs Per Day: 1 Cigarettes Per Day: 15 e-Cigarette/Vaping Use: Never Used Second Hand Smoke Exposure: No service: No Current occupational status: employed 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 Current occupational exposures/hazards: No Cognitive needs: No Hearing needs: No Vision needs: No Physical Exam Vital Signs: Last Vital Signs Pulse 67 06/09/24 08:23 BP 124/82 06/09/24 08:23 Pulse Ox 93 06/09/24 08:23 Oxygen Delivery Method Room Air 06/09/24 08:23 BMI result Body Mass Index 32.4 Const General: cooperative and healthy appearing Nutritional Appearance: well nourished Orientation/consciousness: patient oriented x3 Limitations: no limitations HEENT Head: Yes normal to inspection Eyes General: appearance normal, both eyes and all related structures Neck Neck: Yes normal visual inspection Chest Chest palpation & inspection: normal palpation of entire chest wall Resp Effort & Inspection: normal respiratory effort Skin Other: Right wrist: Dorsum: Erythematous rash 5 cm in size, fading in the center with heaped up margins. Dry skin with petechiae. Neuro General: patient oriented x3 Extrem Other: Right shoulder: No AC joint tenderness. Pain on abduction of the arm at the shoulder. Internal and external rotation of the arm elicits no pain. Full adduction of the arm. Assessment & Plan Assessment & Plan (1) Sprain of right shoulder: Code(s): S43.401A - Unspecified sprain of right shoulder joint, initial encounter Plan: X-ray images personally reviewed by me. Evidence of arthritis. Meloxicam called in. Patient was advised to follow-up with PCP for physical therapy and further investigations. (2) Eczema: Code(s): L30.9 - Dermatitis, unspecified Plan: Cortisone cream prescribed. Apply as instructed. Orders: Orders XR shoulder RT min 2V Today S43.401A - Unspecified sprain of right shoulder joint, initial encounter Coding Level of Care Code Est Pt Level 4 (27921) Diagnoses Sprain of right shoulder S43.401A Eczema L30.9
== END 2024-06-09 09:09 | disposition home or self-care (01) ==
PROVIDERS: PCP Nurse Practitioner Family; Visit Provider Internal Medicine
DX: S43.401A Unspecified sprain of right shoulder joint, initial encounter (principal); L30.9 Dermatitis, unspecified

== ENCOUNTER → 2024-06-09 08:43 | Outpatient (BNV) | payer OTHER, SELFPAY | PROVIDERS: PCP Nurse Practitioner Family; Visit Provider Radiology Diagnostic Radiology | DX: S43.401A Unspecified sprain of right shoulder joint, initial encounter (principal) | CPT/HCPCS: 73030 ==

== ENCOUNTER 2024-06-26 14:48 | Outpatient (AMB) | payer OTHER, SELFPAY ==
[2024-06-26 14:49] VITALS: BP 128/74; PULSE 62; O2SAT 95; BMI 32.9
--- NOTE | 2024-06-26 14:49 | A.OFFPC_ITS ---
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 Required: No Accompanied by: Self / Same As Patient Allergies codeine [Codeine] Allergy (Intermediate, Verified 06/26/24 16:13) FELT OUT OF SORTS Medication List - Last Reconciled 06/26/24 by SAVANNA Norton- alcohol swabs 1 pad topical QIDACHS atorvastatin 20 mg PO BEDTIME cholecalciferol (vitamin D3) 50 mcg PO DAILY cyclobenzaprine mg PO Dexcom G7 Laboratory Sample Carrier (blood-glucose meter,continuous) Test blood sugars 4 times per day NS Dexcom G7 Sensor (blood-glucose sensor) Test blood sugars 4 times per day NS gauze bandage (Kerlix) As directed hydrocortisone 2.5% 1 appl topical BID PRN ketoconazole 2% 1 appl topical DAILY lancets 4 times daily lisinopril 2.5 mg PO DAILY meclizine 25 mg PO TID PRN metformin 1,000 mg PO BIDWMEAL 90 days pantoprazole 20 mg PO DAILY 30 days pen needle, diabetic (Pen Needle) As directed semaglutide (Ozempic) 0.5 mg (0.736 mL) subcut QWEEK sertraline 100 mg PO DAILY triamcinolone acetonide 0.025% 1 appl topical BID Tobacco use date assessed: 06/26/24 Dental Screening Dental Screen Date: 06/26/24 Did you have a dental visit in the last 12 months?: Yes Did you have a dental problem in the last 6 months where you did not have access to dental care?: No Was dental information given to patient?: Patient has dentist HPI PE HPI Details History of Present Illness The patient is a 63-year-old female presenting with symptoms consistent with restless legs syndrome, particularly noticeable at night. She was previously on gabapentin for another condition but discontinued its use due to undesirable side effects. No other distressing symptoms have been reported related to this condition, including the absence of numbness or tingling. The patient also has a history of Type 2 Diabetes Mellitus, for which she is currently managing her blood sugar levels effectively with dietary measures and medication. Her most recent glycated hemoglobin (A1c) was 6.1, indicating good glycemic control. Her diabetes management plan includes Ozempic, which I plan to increase to 1 mg for improved efficacy. There is no reported history of shortness of breath, chest pain, or other complications. Additionally, she has a history of a faint systolic murmur, which was identified during an echocardiogram conducted approx 3 years ago. 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 Health Maintenance - Increase Ozempic dosage to 1 mg for im proved diabetes management. - Continue monitoring blood sugar levels through regular home glucose testing and periodic A1c evaluations. - Maintain current dietary measures for diabetes management. - Ferritin and iron levels to be checked in relation to restless legs syndrome symptoms. Social History Review of Systems - Cardiovascular: Denies shortness of br eath, denies chest pain. - Neurological: Denies numbness, denies tingling. - Gastrointestinal: Denies polyuria, den ies polydipsia, denies blood in stool, denies constipation, denies diarrhea. - Psychiatric: Denies depression, denies anxiety, denies suicidal ideation, denies homicidal ideation. - General: Denies recent fevers. Physical Exam General: Cooperative, healthy appearing, comfortable, no acute distress and well developed Orientation: Patient oriented x3 Limitations: No limitations Head: Normal to inspection Ears: Hearing grossly normal bilaterally neck: thyroid nodules appreciated Nose: Normal external nose present Face and sinus: Normal facial exam Eyes: Appearance normal, both eyes and all related structures Neck: Normal visual inspection and Yes full ROM Respiratory: Normal respiratory effort and able to speak in complete sentences. Clear to auscultation bilaterally Cardiovascular: Regular rate and rhythm. Normal S1 and S2. Faint systolic murmur noted GI: Normal to inspection. Soft to palpation and nontender Skin: No rashes or lesions noted Neuro: Patient oriented x3. Positive sensation with use of monofilament to feet Extremities: Normal to inspection Results - Labs: A1c of 6.1. Plan - Monitor and manage restless legs syndr ome symptoms; check ferritin and iron levels. - Increase the dosage of Ozempic to 1 mg for Type 2 Diabetes Mellitus to aid in better glycemic control. - Continue current dietary management an d monitor blood sugar levels regularly. Patient was informed and verbally consented to the use of an ambient scribe for clinic note documentation during this visit. Discussion Notes I discussed with the patient the possible role of iron deficiency in her symptoms of restless legs syndrome and proposed checking her ferritin and iron levels. The management of her Type 2 Diabetes Mellitus appears effective, with an A1c of 6.1, yet I advised increasing her Ozempic to 1 mg to enhance control. We reviewed the past incident of a faint systolic murmur that was previously noted and ensured that her other vital systems showed no acute issues. The patient consented to the discussed treatment adjustments and agreed to maintain her current dietary and lifestyle measures. Patient Instructions - Continue monitoring your blood sugar l evels regularly. - Take Ozempic as prescribed, with the i ncreased dose of 1 mg. - Expect follow-up on iron and ferritin levels for restless legs syndrome evaluation. - Keep adhering to your dietary plan to maintain good blood sugar control. - Report any new or worsening symptoms p romptly. [facility] Medical History Toxic multinodular goiter Subclinical hyperthyroidism Diabetes mellitus Hip pain Anxiety and depression ANG (obstructive sleep apnea) Constipation Osteoarthritis Cervical neck pain with evidence of disc disease Left ventricular hypertrophy Surgical History History of incision and drainage History of elbow surgery Hx of cholecystectomy History of carpal tunnel surgery History of hysterectomy Family History Father Heart problem Mother No problems noted. Sister Breast cancer Daughter Overweight Maternal Grandfather Cancer Maternal Grandmother Multiple myeloma Paternal Grandfather Unknown family medical history Paternal Grandmother Unknown family medical history Social History Household Members: None Housing: House Do you presently have visiting nurse or other home services: No Alcohol intake: current Alcohol intake frequency: holidays/special occasions only Patient Tobacco Use Status: Current everyday Tobacco user Tobacco use type: Cigarette Cigarette Packs Per Day: 1 Cigarettes Per Day: 15 e-Cigarette/Vaping Use: Never Used Second Hand Smoke Exposure: No service: No Current occupational status: employed 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 1. Little interest or pleasure in doing things: several days 2. Feeling down, depressed, or hopeless: not at all 3. Trouble falling or staying asleep, or sleeping too much: not at all 4. Feeling tired or having little energy: several days 5. Poor appetite or overeating: not at all 6. Feeling bad about yourself - or that you are a failure or have let yourself or your family down: not at all 7. Trouble concentrating on things, such as reading the newspaper or watching television: not at all 8. Moving or speaking so slowly that other people could have noticed. Or the opposite - being so fidgety or restless that you have been moving around a lot more than usual: not at all 9. Thoughts that you would be better off or of hurting yourself in some way: not at all Total score: 2 Depression Screening Interpretation: Negative Depression Screening Done: Yes 37208 - PHQ-9 Billing: Yes Source: Developed by Drs. Alphonso Medina, Padmini Michele, Jun Davis and colleagues, with an educational brayan from [employer]. Thrive Questionnaire Date Thrive assessed: 06/26/24 I am a: Patient What is your living situation today?: I have a steady place to live Within the past 12 months, did the food you bought not last and you didn't have the money to get more?: Never true Within the past 12 months, did you worry whether your food would run out before you got money to buy more?: Never true Do you have trouble paying for medicines?: No Do you have trouble getting transportation to medical appointments?: No Do you have trouble paying your heating and electricity bill?: No Do you have trouble taking care of your child, family member or friend?: No Do you have trouble with day-to-day activities such as bathing, preparing meals, shopping, managing finances, etc.?: No Are you currently unemployed and looking for a job?: No Are you interested in more education?: No Please select the resources that you would like help with: None Currently or been in a relationship where the following occur: I choose not to answer THRIVE Score: 0 AUDIT C Alcohol Use Questionnaire (AUDIT-C) 1. How often do you have a drink containing alcohol?: Monthly or less 2. How many drinks containing alcohol do you have on a typical day when you are drinking?: 1 or 2 3. How often do you have six or more drinks on one occasion?: Never Total Score: 1 Score Reviewed/Action Taken: Yes MAINOR-7 AMB Questionnaire MAINOR-7 Date MAINOR - 7 assessed: 06/26/24 Feeling nervous, anxious, or on edge: 1 = Several days Not being able to stop or control worryin = Several days Worrying too much about different things: 1 = Several days Trouble relaxin = Several days Being so restless that it is hard to sit still: 1 = Several days Becoming easily annoyed or irritable: 0 = Not at all Feeling afraid as if something awful might happen: 0 = Not at all Total MAINOR-7 score (0-4 normal; 5-9 mild; 10-14 moderate; 15-21 severe): 5 Source: Developed by Drs. Alphonso Medina, Padmini Michele, Jun Davis and colleagues, with an educational brayan from [employer]. MAINOR-7 Assessment Billing MAINOR-7 Assessment Tool: MAINOR-7 Assessment 40026 Physical exam (Primary Care) Vital Signs: Last Vital Signs Pulse 62 06/26/24 14:49 BP 128/74 06/26/24 14:49 Pulse Ox 95 06/26/24 14:49 BMI result Body Mass Index 32.9 Tobacco/Smoking Status: Tobacco use Status Tobacco use date assessed 06/26/24 06/26/24 14:51 Patient Tobacco Use Status Current everyday Tobacco 06/26/24 14:51 Tobacco use type Cigarette 06/26/24 14:51 e-Cigarette/Vaping Use Never Used 06/26/24 14:51 PHQ-9: PHQ-9 Score PHQ-9: Total score 2 06/26/24 15:44 Depression Screening Interpretation: Negative Thrive Assessment: Date of Thrive Assessment Date Thrive assessed 06/26/24 06/26/24 14:51 Currently or been in a relationship where the following occur: I choose not to answer Coding Level of Care Code Est Pt Prev Care 40-64y(42041) Diagnoses Physical exam Z00.00 Diabetes mellitus E11.9 Restless R45.1 Additional Codes MAINOR-7 Assessment Billing - MAINOR-7 Assessment Tool: MAINOR-7 Assessment 01480 ([id number]) PHQ-9 - 56043 - PHQ-9 Billing: Yes ([id number]) Assessment & Plan Assessment & Plan (1) Physical exam: Code(s): Z00.00 - Encounter for general adult medical examination without abnormal findings Category: Medical (2) Diabetes mellitus: Code(s): E11.9 - Type 2 diabetes mellitus without complications Category: Medical (3) Restless: Code(s): R45.1 - Restlessness and agitation Category: Medical Plan . Orders: Orders Complete Blood Count Auto Diff Today Z00.00 - Encounter for general adult medical examination without abnormal findings Comprehensive [place]. Panel Fast Today Z00.00 - Encounter for general adult medical examination without abnormal findings UA CC w/rflx Micro + Cult Today Z00.00 - Encounter for general adult medical examination without abnormal findings Lipid Panel Today Z00.00 - Encounter for general adult medical examination without abnormal findings Ferritin Today R45.1 - Restlessness and agitation IRON PROFILE Today R45.1 - Restlessness and agitation Creatine Kinase Total Today R45.1 - Restlessness and agitation Influenza [id number] Immunization Today Z23 - Encounter for immunization TSH reflex Free T4 Today Z00.00 - Encounter for general adult medical examination without abnormal findings Vitamin D 25-OH Total Today Z00.00 - Encounter for general adult medical examination without abnormal findings Microalbumin, Random (w Creat) Today E11.9 - Type 2 diabetes mellitus without complications Medications: New cyclobenzaprine 10 mg PO DAILY 30 days PRN 30 tabs 1RF muscle spasm Fluarix Triv [id number] (PF) (flu vacc [id number] 6mos up(PF)) 0.5 mL IM ONCE 0.5 mL 0RF NS Z23 - Encounter for immunization Changed From semaglutide (Ozempic) 0.5 mg (0.736 mL) subcut QWEEK 9 mL 1RF To semaglutide 1 mg (0.75 mL) subcut QWEEK 3 mL 1RF
== END 2024-06-26 16:04 | disposition home or self-care (01) ==
PROVIDERS: PCP Nurse Practitioner Family; Visit Provider Nurse Practitioner Family
DX: Z00.00 Encounter for general adult medical examination without abnormal findings (principal); E11.9 Type 2 diabetes mellitus without complications; R45.1 Restlessness and agitation; Z23 Encounter for immunization; Z13.9 Encounter for screening, unspecified

== ENCOUNTER → 2024-06-26 14:48 | Outpatient (BNVA) | payer OTHER, SELFPAY | PROVIDERS: PCP Nurse Practitioner Family; Visit Provider Nurse Practitioner Family | DX: Z00.00 Encounter for general adult medical examination without abnormal findings (principal); Z23 Encounter for immunization; E11.9 Type 2 diabetes mellitus without complications; R45.1 Restlessness and agitation | CPT/HCPCS: 83036; 90471; 90656; 96127 ==

== ENCOUNTER 2024-07-04 08:00 | Outpatient (REF) | payer OTHER, SELFPAY ==
[2024-07-04 11:59] LABS: Influenza A PCR NEGATIVE (Negative); Influenza B PCR NEGATIVE (Negative); Resp Syncy Virus RNA Qual PCR NEGATIVE (Negative); SARS COV2 PCR INHOUSE NEGATIVE (Negative)
== END 2024-07-04 08:01 | disposition home or self-care (01) ==
LOC: HO.LNP 08:00
PROVIDERS: PCP Nurse Practitioner Family; Visit Provider Physician Assistant Medical
DX: J06.9 Acute upper respiratory infection, unspecified (principal); J20.9 Acute bronchitis, unspecified
CPT/HCPCS: 0241U

== ENCOUNTER 2024-07-04 08:00 | Outpatient (AMB) | payer OTHER, SELFPAY ==
[2024-07-04 08:01] VITALS: BP 110/60; PULSE 81; RESP 16; TEMP 36.8; O2SAT 96; BMI 32.0
--- NOTE | 2024-07-04 08:01 | MHC.OFFWIV ---
Intake Vital Signs 07/04/24 08:01 Height 5 ft 2 in Weight 175 lb BMI 32.0 BP 110/60 Blood Pressure Location Rt brachial Position Sitting Respiration 16 Pulse 81 Pulse Source Pulse Oximeter Temp 98.3 F Temp Source Oral Pulse Oximetry (%) 96 Oxygen Delivery Method Room Air Intake Visit Reasons: EP-cough, wheezing, body ache Intake Note: pt is here for cough, wheezing with body aches Patient Tobacco Use Status: Current everyday Tobacco user Allergies codeine [Codeine] Allergy (Intermediate, Verified 07/04/24 08:01) FELT OUT OF SORTS Do you need a note to return to daycare/school/sports/work: Yes HPI HPI Comments History of Present Illness Details This is a 63-year-old female who presented to the walk-in clinic complaining of flu-like symptoms x3 days. She states her symptoms started with some diarrhea followed by some nausea/vomiting, but these have resolved. She states she then started to develop a dry cough, wheezing, nasal congestion, rhinorrhea, sore throat, myalgias, and chills/sweats. She denies any measured fevers. She denies any chest pain or shortness of breath. She denies any abdominal pain. She states she has been taking [id number] cold and flu medication without much relief. PE: + wheezing, posterior pharyngeal erythema, ears WNL Plan: prednisone, tessalon, covid/flu/rsv testing [facility] Medical History Toxic multinodular goiter Subclinical hyperthyroidism Diabetes mellitus Hip pain Anxiety and depression ANG (obstructive sleep apnea) Constipation Osteoarthritis Cervical neck pain with evidence of disc disease Left ventricular hypertrophy Surgical History History of incision and drainage History of elbow surgery Hx of cholecystectomy History of carpal tunnel surgery History of hysterectomy Family History Father Heart problem Mother No problems noted. Sister Breast cancer Daughter Overweight Maternal Grandfather Cancer Maternal Grandmother Multiple myeloma Paternal Grandfather Unknown family medical history Paternal Grandmother Unknown family medical history Social History Household Members: None Housing: House Do you presently have visiting nurse or other home services: No Alcohol intake: current Alcohol intake frequency: holidays/special occasions only Patient Tobacco Use Status: Current everyday Tobacco user Tobacco use type: Cigarette Cigarette Packs Per Day: 1 Cigarettes Per Day: 15 e-Cigarette/Vaping Use: Never Used Second Hand Smoke Exposure: No service: No Current occupational status: employed 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 Current occupational exposures/hazards: No Cognitive needs: No Hearing needs: No Vision needs: No Review of Systems Const All systems reviewed & are unremarkable except as noted in HPI and below Reports no additional complaints Eyes Reports no additional complaints ENT Reports no additional complaints Card Reports no additional complaints Resp Reports no additional complaints GI Reports no additional complaints Reports no additional complaints Musc Reports no additional complaints Skin/Breast Reports system reviewed and no additional complaints, except as documented Neuro Reports no additional complaints Psych Reports no additional complaints Endo Reports no additional complaints Josr/Lymph Reports no additional complaints Aller/Immun Reports no additional complaints Physical Exam Vital Signs: Last Vital Signs Temp 98.3 F 07/04/24 08:01 Pulse 81 07/04/24 08:01 Resp 16 07/04/24 08:01 BP 110/60 07/04/24 08:01 Pulse Ox 96 07/04/24 08:01 Oxygen Delivery Method Room Air 07/04/24 08:01 BMI result Body Mass Index 32.0 Const Other: Vital signs reviewed. Constitutional: Non-toxic appearing. No acute distress. Well-developed and well-nourished. HEENT: Normocephalic and atraumatic. Tympanic membranes without erythema, edema, or bulging bilaterally. External auditory canals without erythema or edema bilaterally. Moist mucous membranes. Positive posterior pharyngeal erythema without exudates, edema, or tonsillar hypertrophy. Skin: Warm and dry. No rashes or lesions noted. Neck: Full and painless range of motion. No cervical lymphadenopathy. Cardio: Regular rate and rhythm. No murmurs, gallops, or rubs. No lower extremity edema. No JVD. Pulmonary: No respiratory distress. No accessory muscle usage. She has scattered expiratory wheezing without crackles or rhonchi. Gastrointestinal: Soft, nontender, and nondistended in all 4 quadrants. Normoactive bowel sounds in all 4 quadrants. Musculoskeletal: Normal range of motion in joints throughout the body. No deformity or other signs of injury. Neuro: Alert and oriented x4. Cranial nerves 2-12 grossly intact. No focal deficits appreciated. Psych: Normal mood and affect. Assessment & Plan Assessment & Plan (1) Acute bronchitis: Code(s): J20.9 - Acute bronchitis, unspecified Qualifiers: Bronchitis organism: unspecified organism Qualified Code(s): J20.9 - Acute bronchitis, unspecified (2) Acute upper respiratory infection, unspecified: Code(s): J06.9 - Acute upper respiratory infection, unspecified Plan 63-year-old female who presented to the walk-in clinic complaining of flu-like symptoms x3 days including nasal congestion, rhinorrhea, cough, wheezing, and chills/sweats. On physical examination, patient has posterior pharyngeal erythema as well as expiratory wheezing throughout both lungs. Patient very likely has a viral upper respiratory tract infection versus viral acute bronchitis. Patient was given a prescription for p.o. prednisone 40 mg daily x5 days as well as p.o. benzonatate 100 mg 3 times daily as needed for cough. Recommended symptomatic management including rest, increased fluids, advil/tylenol for pain/fever, and over the counter throat lozenges/decongestants. Patient advised to follow up here or go to the emergency room for worsening/persistent symptoms including fever/chills cough sputum production/purulence, or shortness of breath. Patient verbalized understanding and is agreeable with the plan. Orders: Orders SARS-CoV2/FLU/RSV Today J06.9 - Acute upper respiratory infection, unspecified Medications: New prednisone 40 mg (2 x 20 mg) PO DAILY 10 tabs 0RF benzonatate 100 mg PO TID PRN 10 caps 0RF cough Coding Level of Care Code Est Pt Level 3 (23163) Diagnoses Acute bronchitis, unspecified organism J20.9 Bronchitis organism: unspecified organism Acute upper respiratory infection, unspecified J06.9
== END 2024-07-04 08:29 | disposition home or self-care (01) ==
PROVIDERS: PCP Nurse Practitioner Family; Visit Provider Physician Assistant Medical
DX: J20.9 Acute bronchitis, unspecified (principal); J06.9 Acute upper respiratory infection, unspecified

== ENCOUNTER 2024-07-05 06:57 | Outpatient (REF) | payer OTHER, SELFPAY ==
[2024-07-05 11:34] LABS: Appearance Urine Turbid; Color Urine Yellow; Glucose Urine UA 250 mg/dL (Negative); Leukocyte Esterase Urine Small (1+) (Negative); Nitrite Urine Negative (Negative); Specific Gravity - Urine >= 1.030 (1.005-1.025); UMIC TRIGGER UACC YES; Urine Blood Negative (Negative); Urine Ketones Trace mg/dL (Negative); Urine Protein Negative (Neg-Trace)
[2024-07-05 11:48] LABS: Bacteria Urine None Seen (None Seen); Hyaline Casts Urine 0-2 /LPF (0-2); Other Crystals Urine Present; RBC Urine 0-2 /HPF (0-2); Squamous Epithelial Cell Urine 0-2 /HPF (0-2); UACC Culture Trigger YES; WBC Urine 0-5 /HPF (0-5)
[2024-07-05 11:56] LABS: MANUAL DIFF FLAG NO
[2024-07-05 12:02] LABS: Basophils Percent Auto 0.2 % (0-2); Eosinophils Percent Auto 0.4 % (0-4); Hematocrit 43.6 % (37.0-47.0); Hemoglobin 14.6 g/dl (12.0-16.0); Imm Gran Abs Auto 0.01 X10*3/uL (0.00-0.03); Imm Gran Pct Auto 0.2 % (0.0-0.4); Lymphocytes Absolute Auto 1.2 X10*3/uL (1.2-4.9); Lymphocytes Percent Auto 25.9 % (20-40); Mean Corpuscular HGB Conc 33.5 g/dl (31.0-35.0); Mean Corpuscular Hemoglobin 29.4 pg (27.0-33.0); Mean Corpuscular Volume 87.9 fL (80.0-98.0); Mean Platelet Volume 10.3 fL (9.4-12.3); Monocytes Absolute Auto 0.5 X10*3/uL (0.1-1.2); Monocytes Percent Auto 11.1 % (2-11); Neutrophils Absolute Auto 2.8 x10*3/uL (2.0-8.3); Neutrophils Percent Auto 62.2 % (45-73); Platelet Count 299 X10*3/uL (160-400); Red Blood Count 4.96 X10*6/uL (4.20-5.50); Red Cell Distribution Width 12.5 % (11.0-16.0); White Blood Count 4.5 X10*3/uL (4.8-10.8)
[2024-07-05 12:30] LABS: Alanine Aminotransferase 28 U/L (0-31); Albumin Level 4.5 g/dL (3.5-5.0); Alkaline Phosphatase 91 U/L (39-117); Anion Gap 16 (12-20); Aspartate Amino Transferase 24 U/L (5-31); Bilirubin Total 0.3 mg/dL (0.0-1.0); Blood Urea Nitrogen 14 mg/dL (9-16); Calcium 10.2 mg/dL (8.4-10.2); Carbon Dioxide 22 mmol/L (22-29); Chloride 106 mmol/L (96-108); Cholesterol 174 mg/dL (<200); Estimated Glomerular Filt Rate > 60; Glucose Fasting 121 mg/dL (60-99); HDL Cholesterol 47 mg/dL (>40); Iron 68 mcg/dL (30-160); LDL Cholesterol Calculated 105 mg/dL (<100); Percent Iron Saturation 20 % (15-50); Potassium 4.5 mmol/L (3.3-5.1); Sodium 139 mmol/L (135-145); Total Iron Binding Capacity 343 mcg/dL (228-428); Total Protein 8.7 g/dL (6.5-8.0); Triglycerides 110 mg/dL (<150); Unsaturated Iron Binding 275 ug/dL
[2024-07-05 12:30] LABS: Creatinine Urine 175.43 mg/dL; Microalbum/Creatinine Ratio Ur 17.1 ug/mg cr (<30)
[2024-07-05 12:32] LABS: Ferritin 335 ng/mL (10-250); TSH reflex Free T4 0.07 uIU/mL (0.32-4.0); Vitamin D 25-OH Total 62.6 ng/mL (>30)
[2024-07-05 13:30] LABS: Free T4 (Free Thyroxine) 1.11 ng/dL (0.71-1.85)
== END 2024-07-05 06:58 | disposition home or self-care (01) ==
LOC: HO.HMGCLDS 06:57
PROVIDERS: PCP Nurse Practitioner Family; Visit Provider Nurse Practitioner Family
DX: R45.1 Restlessness and agitation (principal); Z00.00 Encounter for general adult medical examination without abnormal findings; E11.9 Type 2 diabetes mellitus without complications
CPT/HCPCS: 36415; 80053; 80061; 81001; 82043; 82306; 82550; 82570; 82728; 83540; 84439; 84443; 85025; 87086; 87147

== ENCOUNTER 2024-07-23 08:44 | Outpatient (REF) | payer OTHER, SELFPAY ==
--- NOTE | ~2024-07-23 | US_ITS ---
CLINICAL HISTORY: R79.89 - Other specified abnormal findings of blood chemistry Ultrasound of the abdomen Comparison: None Findings: The liver is enlarged, measuring 19.2cm. Increased echogenicity without focal lesions. No intrahepatic biliary ductal dilatation. Status post cholecystectomy. The common bile duct is normal, measuring 0.5cm. Unremarkable limited evaluation of the pancreas. The right kidney is normal in echogenicity and size, measuring 13.5cm. No nephrolithiasis or hydronephrosis. Simple cysts in the lower pole measuring 1.7 x 1.1 x 1.6 cm and and renal pelvis measuring 1.8 x 1.8 x 2.0 cm. In the midportion of the kidney there is an exophytic hypoechoic lesion measuring 1.2 x 0.9 x 1.2 cm. The left kidney is normal echogenicity and size, measuring 12.9cm. No nephrolithiasis or hydronephrosis. The spleen is without focal lesions and normal in size, measuring 11.3cm. The aorta and IVC are unremarkable. No ascites. Impression: In the midportion of the right kidney there is an exophytic hypoechoic lesion measuring 1.2 cm. Evaluate further with renal mass protocol CT or MR. Hepatomegaly with hepatic steatosis. This document has been electronically signed by: Johanna Dos Santos MD on 07/23/2024 21:24:26
--- OUTSIDE RECORDS SUMMARY | 2024-07-23 08:49 | XMS_ITS | Patient Health Record ---
[facility] Address [address] [place] [address] Care Team Providers Care Facilities Technician Name Role Phone Raffy Greene Primary Care Provider Unav ailable Lacy Hunter Unavailable [phone] Allergies Allergen (clinical drug ingredient) Drug/Non Drug [...] Problem Status W/U Status Risk Notes Problem [id number] Tarsal tunnel syndrome of left side (G57.52) Active confirmed Plan Of Treatment Pending Test Test Name Order Date X ray : Foot, left 3V 07/14/2020 Insurance Providers Payer Name Payer Address Payer Phone Subscriber Number Group Number Insured Name Patient Relationship to Insured Coverage Start Date Coverage End Date Preferred Care PPO [address] CINTHIA Hernandez [phone] [id number] Hazel Coyne Self - patient is the insured Medical (General) History Medical History History ICD Code Anxiety Arthritis Back,Hip,and Knee pain Chicken pox Surgical History Surgery Date(Month/Year) gall bladder 1985 hysterectomy 1990 Surgeon drained infection from breast Hospitalization History Reason Date(Month/Year)
== END 2024-07-23 08:45 | disposition home or self-care (01) ==
LOC: HO.HMGCX 08:44
PROVIDERS: PCP Nurse Practitioner Family; Visit Provider Nurse Practitioner Family
DX: R79.89 Other specified abnormal findings of blood chemistry (principal)
CPT/HCPCS: 76700

== ENCOUNTER → 2024-07-23 08:47 | Outpatient (BNV) | payer OTHER, SELFPAY | PROVIDERS: PCP Nurse Practitioner Family; Visit Provider Radiology Diagnostic Radiology | DX: N28.1 Cyst of kidney, acquired (principal); R79.89 Other specified abnormal findings of blood chemistry | CPT/HCPCS: 76700 ==

== ENCOUNTER 2024-07-24 16:00 | Outpatient (RCR) | payer OTHER, SELFPAY ==
--- NOTE | 2024-06-20 14:23 | MHC.PT.EP ---
[facility] [place] [facility] [place] [facility] [place] [facility] [address] [phone] F: [phone] F: [phone] F: [phone] F: [phone] Physical Therapy Plan of Care Date of Evaluation: 06/20/24 Date of Surgery: Diagnosis: thoracic radiculitis, mid back pain Assessment: Patient is a 63 year old R handed female who presents with s/s consistent with L mid back pain, thoracic radiculitis. 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 Patient past medical history includes DM, ANG, and cervical DDD. Current impairments include pain, posture, ROM, strength, activity tolerance and functional mobility. Functional limitations include decreased ability to turn, lift, push, pull and roll over. Patient is motivated with good rehab potential. Skilled PT will address impairments and functional limitations in order to achieve goals. Frequency and Duration: The patient will be seen 1x/week for 5 weeks Short Term Goals: I with HEP - 2 weeks AROM rotation 75% and pain free - 3 weeks TTP min - 3 weeks Checkroom Chief Goals: TTP absent - 5 weeks AROM rotation 100% and pain free - 5 weeks 2/10 max pain with daily activities - 5 weeks Oswestry 20% or less - 5 weeks Treatment Plan: Modalities to reduce pain, spasms and effusion. Manual therapy to restore motion and function. Therapeutic exercise to improve strength and flexibility. Neuromuscular re-education for posture and balance. Therapeutic activities to return to functional activities of daily living. Electronically signed by: Nain Sherman, PT Please sign and return to therapist. Thank you for your referral.
--- NOTE | 2024-12-23 10:15 | MHC.PT.DC ---
[facility] [place] Office [place] Office [place] [facility] [address] Sandra Arizmendi [address] [phone] F: [phone] F: [phone] F: [phone] F: [phone] Physical Therapy Discharge Report Diagnosis: thoracic radiculitis, mid back pain Date of Surgery: Date of Evaluation: 06/20/24 Date of Discharge: 09/15/24 Treatments to Date: 5 Cancellations to Date: No Shows to Date: Discharge Status: Independent with HEP Discharge Summary: 07/24; Pt stated she knows the exs and wishes to cont with them at home and will contact us if she needs more therapy before 30 days. No c/o pain and rib feels positioned properly. 07/08; Pt felt relief after MWM. Discussed changing work station or decreasing L rot with working. Hip fatigued after hip exs. 07/01; Pt felt relief after mobs. NV MWM R rot. Assess ROM. Patient is a 63 year old R handed female who presents with s/s consistent with L mid back pain, thoracic radiculitis. 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 Patient past medical history includes DM, ANG, and cervical DDD. Current impairments include pain, posture, ROM, strength, activity tolerance and functional mobility. 06/24; Pt had pain with changing positions. The exs she only felt stretching. NV address serratus and, rib, L/S mobs. Increase exs as radha Functional limitations include decreased ability to turn, lift, push, pull and roll over. Patient is motivated with good rehab potential. Skilled PT will address impairments and functional limitations in order to achieve goals. Electronically signed by: Nain Sherman, PT Please sign and return to therapist. Thank you for your referral.
== END 2024-12-23 10:17 | disposition home or self-care (01) ==
LOC: HO.PTCHIC 16:00
PROVIDERS: PCP Nurse Practitioner Family; Visit Provider Nurse Practitioner Family
DX: M54.14 Radiculopathy, thoracic region (principal); M54.9 Dorsalgia, unspecified
CPT/HCPCS: 97110; 97140; 97162

== ENCOUNTER 2024-08-29 07:36 | Outpatient (REF) | payer OTHER, SELFPAY ==
[2024-08-29 10:18] LABS: MANUAL DIFF FLAG NO
[2024-08-29 10:22] LABS: Basophils Absolute Auto 0.1 X10*3/uL (0.0-0.2); Basophils Percent Auto 0.7 % (0-2); Eosinophils Absolute Auto 0.3 X10*3/uL (0.0-0.4); Eosinophils Percent Auto 3.5 % (0-4); Hemoglobin 13.8 g/dl (12.0-16.0); Imm Gran Abs Auto 0.02 X10*3/uL (0.00-0.03); Imm Gran Pct Auto 0.3 % (0.0-0.4); Lymphocytes Absolute Auto 2.3 X10*3/uL (1.2-4.9); Lymphocytes Percent Auto 30.4 % (20-40); Mean Corpuscular HGB Conc 33.7 g/dl (31.0-35.0); Mean Corpuscular Hemoglobin 29.6 pg (27.0-33.0); Mean Platelet Volume 9.9 fL (9.4-12.3); Monocytes Absolute Auto 0.5 X10*3/uL (0.1-1.2); Monocytes Percent Auto 7.2 % (2-11); Neutrophils Absolute Auto 4.3 x10*3/uL (2.0-8.3); Neutrophils Percent Auto 57.9 % (45-73); Platelet Count 296 X10*3/uL (160-400); Red Blood Count 4.66 X10*6/uL (4.20-5.50); Red Cell Distribution Width 12.6 % (11.0-16.0); White Blood Count 7.4 X10*3/uL (4.8-10.8)
[2024-08-29 11:00] LABS: Sodium 139 mmol/L (135-145)
[2024-08-29 11:01] LABS: Alanine Aminotransferase 12 U/L (0-31); Albumin Level 4.1 g/dL (3.5-5.0); Alkaline Phosphatase 75 U/L (39-117); Anion Gap 10 (12-20); Aspartate Amino Transferase 15 U/L (5-31); Bilirubin Total 0.4 mg/dL (0.0-1.0); Blood Urea Nitrogen 13 mg/dL (9-16); Calcium 9.5 mg/dL (8.4-10.2); Carbon Dioxide 28 mmol/L (22-29); Chloride 105 mmol/L (96-108); Estimated Glomerular Filt Rate > 60; Glucose Random 117 mg/dL (60-115); Potassium 4.4 mmol/L (3.3-5.1); Total Protein 7.4 g/dL (6.5-8.0)
[2024-08-29 11:07] LABS: Gamma Glutamyl Transpeptidase 29 U/L (7-33)
[2024-08-29 11:13] LABS: HBS Num1 1.79 mIU/mL (0-7.99); HBc Num1 0.04 S/CO (0.00-0.79); HBsAGNum1 0.31 S/CO (0.00-0.99); Hepatitis A Antibody IgM 0.14 Index (0-0.79); Hepatitis B Core Antibody Nonreactive (Nonreactive); Hepatitis B Surface Antigen Negative (Negative); ~Hepatitis A Antibody IgM Nonreactive (Nonreactive); ~Hepatitis B Surface Antibody NONREACTIVE (Nonreactive); ~Hepatitis C Antibody Nonreactive (Nonreactive)
[2024-08-29 11:14] LABS: Ferritin 197 ng/mL (10-250)
[2024-09-01 15:53] LABS: Mitochondrial Antibodies NEGATIVE (NEGATIVE)
[2024-09-04 00:59] LABS: Smooth Muscle Antibody <20 U (<20)
== END 2024-08-29 07:37 | disposition home or self-care (01) ==
LOC: HO.HMGCLDS 07:36
PROVIDERS: PCP Nurse Practitioner Family; Visit Provider Nurse Practitioner Family
DX: R79.89 Other specified abnormal findings of blood chemistry (principal)
CPT/HCPCS: 36415; 80053; 82728; 82977; 85025; 86015; 86381; 86704; 86706; 86709; 86803; 87340

== ENCOUNTER 2024-09-01 08:02 | Outpatient (AMB) | payer OTHER, SELFPAY ==
--- NOTE | 2024-09-01 08:12 | AM.OFFWIN_ITS ---
Intake Vital Signs 09/01/24 08:13 Weight 180 lb BP 122/80 Blood Pressure Location Rt brachial Position Sitting Pulse 84 Pulse Source Pulse Oximeter Pulse Oximetry (%) 92 Oxygen Delivery Method Room Air Intake Visit Reasons: EP-lt shoulder pain Intake Note: Patient here for left shoulder pain that started yesterday. no known injuries. Patient Tobacco Use Status: Current everyday Tobacco user Allergies codeine [Codeine] Allergy (Intermediate, Verified 07/04/24 08:01) FELT OUT OF SORTS HPI HPI Comments History of Present Illness Details 64 y/o female patient who presents to [facility] walk in clinic with c/o Left shoulder pain since this morning. Denies injury or trauma. Reports that Acetaminophen/NSAIDs and Tramadol do not work for her. Reports that Oxycodone usually works well for pain. [facility] Medical History (Updated 09/01/24 @ 08:50 by Yue Emery NP) Left shoulder pain Toxic multinodular goiter Subclinical hyperthyroidism Diabetes mellitus Hip pain Anxiety and depression ANG (obstructive sleep apnea) Constipation Osteoarthritis Cervical neck pain with evidence of disc disease Left ventricular hypertrophy Surgical History History of incision and drainage History of elbow surgery Hx of cholecystectomy History of carpal tunnel surgery History of hysterectomy Family History Father Heart problem Mother No problems noted. Sister Breast cancer Daughter Overweight Maternal Grandfather Cancer Maternal Grandmother Multiple myeloma Paternal Grandfather Unknown family medical history Paternal Grandmother Unknown family medical history Social History Household Members: None Housing: House Do you presently have visiting nurse or other home services: No Alcohol intake: current Alcohol intake frequency: holidays/special occasions only Patient Tobacco Use Status: Current everyday Tobacco user Tobacco use type: Cigarette Cigarette Packs Per Day: 1 Cigarettes Per Day: 15 e-Cigarette/Vaping Use: Never Used Second Hand Smoke Exposure: No service: No Current occupational status: employed 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 Current occupational exposures/hazards: No Cognitive needs: No Hearing needs: No Vision needs: No Review of Systems Const All systems reviewed & are unremarkable except as noted in HPI and below Physical Exam Vital Signs: Last Vital Signs Pulse 84 09/01/24 08:13 BP 122/80 09/01/24 08:13 Pulse Ox 92 09/01/24 08:13 Oxygen Delivery Method Room Air 09/01/24 08:13 Const General: no acute distress; No comfortable Nutritional Appearance: obese Orientation/consciousness: patient oriented x3 Neuro General: patient oriented x3, gait normal and moves all extremities Extrem Right upper extremity: normal to inspection and full ROM Left upper extremity: shoulder/upper arm Details: tenderness Location: of the A- C joint and over the deltoid bursa and abnormal ROM Details: held in an abnormal fashion, pain with active ROM and pain with passive ROM; no swelling, no ecchymosis and no crepitus Psych Speech and movement: Normal speech and movement present Assessment & Plan Assessment & Plan (1) Left shoulder pain: Code(s): M25.512 - Pain in left shoulder Qualifiers: Chronicity: acute Qualified Code(s): M25.512 - Pain in left shoulder Plan: Ordered Xray left Shoulder. NSAIDs and Acetaminophen Ice/Hot Rest Joint. Orders: Orders XR shoulder LT min 2V Today M25.512 - Pain in left shoulder Medications: New diclofenac sodium 1% (Voltaren Arthritis Pain) 2 grams topical BID 100 grams 0RF M25.512 - Pain in left shoulder Changed From cyclobenzaprine 10 mg PO DAILY 30 days PRN 30 tabs 1RF muscle spasm M25.512 - Pain in left shoulder To cyclobenzaprine 10 mg PO DAILY PRN 10 tabs 1RF muscle spasm M25.512 - Pain in left shoulder Coding Level of Care Code Est Pt Level 4 (75238) Diagnoses Acute pain of left shoulder M25.512 Chronicity: acute Time Spent (min) 20
[2024-09-01 08:13] VITALS: BP 122/80; PULSE 84; O2SAT 92
== END 2024-09-01 09:19 | disposition home or self-care (01) ==
PROVIDERS: PCP Nurse Practitioner Family; Visit Provider Nurse Practitioner Family
DX: M25.512 Pain in left shoulder (principal)

== ENCOUNTER 2024-09-01 08:02 | Outpatient (REF) | payer OTHER, SELFPAY ==
--- NOTE | ~2024-09-01 | XR_ITS ---
EXAMINATION: XR SHOULDER, LEFT CLINICAL INFORMATION: M25.512 - Pain in left shoulder COMPARISON: 10/01/2021. TECHNIQUE: AP external rotation, Grashey, scapular Y, and axillary views of the left shoulder. FINDINGS: Normal bone mineralization. No fracture, dislocation, or suspicious bone lesion. Normal alignment. The glenohumeral joint joint demonstrates mild degenerative arthritis. The AC joint demonstrates minimal superior surface spurring. There is a type III acromion. No undersurface spurring. The subacromial space is preserved. There is very mild calcification of the supraspinatus tendon abutting the footplate insertion consistent with calcific tendinopathy. XR/XR shoulder LT min 2V IMPRESSION: 1. Mild calcific tendinopathy of the supraspinatus tendon. 2. Mild degenerative arthritis in the glenohumeral joint and minimal changes in the AC joint. Electronically signed by: Loco Waite MD 09/01/2024 09:15 AM EDT
== END 2024-09-01 08:03 | disposition home or self-care (01) ==
LOC: HO.HMGCX 08:02
PROVIDERS: PCP Nurse Practitioner Family; Visit Provider Nurse Practitioner Family
DX: M25.512 Pain in left shoulder (principal)
CPT/HCPCS: 73030

== ENCOUNTER → 2024-09-01 08:57 | Outpatient (BNV) | payer OTHER, SELFPAY | PROVIDERS: PCP Nurse Practitioner Family; Visit Provider Radiology Diagnostic Radiology | DX: M25.512 Pain in left shoulder (principal) | CPT/HCPCS: 73030 ==

== ENCOUNTER 2024-09-04 12:31 | Outpatient (AMB) | payer OTHER, SELFPAY ==
[2024-09-04 12:49] VITALS: BMI 32.0
--- NOTE | 2024-09-04 12:49 | A.OFFVIS_ITS ---
Vital Signs 09/04/24 12:49 Height 5 ft 2 in Weight 175 lb BMI 32.0 Intake Visit Reasons: ov- LT shoulder pain, last injection 09/21/22 Intake Note: Hazel is a 64 year old right hand dominant female who presents today for a follow up of left shoulder pain. Patient was last seen for her left shoulder on 09/21/22 and an injection was given. Patient reports pain started Sunday and was seen at [facility] walk in clinic. States her pain has improved since than however she continues to have soreness. Denies injury. States last injection provided her with relief and may think it is time to repeat injection. 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) Test blood sugars 4 times per day NS Dexcom G7 Sensor (blood-glucose sensor) Test blood sugars 4 times per day NS diclofenac sodium 1% (Voltaren Arthritis Pain) 2 grams topical BID gauze bandage (Kerlix) As directed hydrocortisone 2.5% 1 appl topical BID PRN ketoconazole 2% 1 appl topical DAILY lancets 4 times daily lisinopril 2.5 mg PO DAILY metformin 1,000 mg PO BIDWMEAL 90 days pantoprazole 20 mg PO DAILY pen needle, diabetic (Pen Needle) As directed pramipexole 0.25 mg PO BEDTIME semaglutide 1 mg (0.75 mL) subcut QWEEK sertraline 100 mg PO DAILY triamcinolone acetonide 0.025% 1 appl topical BID HPI HPI ov- LT shoulder pain, last injection 09/21/22: Details: 64-year-old female returns to the office today for left shoulder pain. She was last seen by me on September 21 2022 where she had a left shoulder injection which provided her with significant relief. 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 This pain has been impacting her ability to perform daily activities. [facility] Medical History (Updated 09/01/24 @ 08:50 by Yue Emery NP) Left shoulder pain Toxic multinodular goiter Subclinical hyperthyroidism Diabetes mellitus Hip pain Anxiety and depression ANG (obstructive sleep apnea) Constipation Osteoarthritis Cervical neck pain with evidence of disc disease Left ventricular hypertrophy Surgical History History of incision and drainage History of elbow surgery Hx of cholecystectomy History of carpal tunnel surgery History of hysterectomy Family History Father Heart problem Mother No problems noted. Sister Breast cancer Daughter Overweight Maternal Grandfather Cancer Maternal Grandmother Multiple myeloma Paternal Grandfather Unknown family medical history Paternal Grandmother Unknown family medical history Social History Household Members: None Housing: House Do you presently have visiting nurse or other home services: No Alcohol intake: current Alcohol intake frequency: holidays/special occasions only Patient Tobacco Use Status: Current everyday Tobacco user Tobacco use type: Cigarette Cigarette Packs Per Day: 1 Cigarettes Per Day: 15 e-Cigarette/Vaping Use: Never Used Second Hand Smoke Exposure: No service: No Current occupational status: employed 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 Tenderness over the bicipital groove and along the deltoid region of the shoulder. Forward flexion to 175, external rotation to 90, internal rotation to S1. 5/5 RTC strength. Positive Zayas and cross body abduction. NVI. Office Procedures AMB Joint Injection/Aspiration Joint Injection/Aspiration Primary Site: left shoulder Prep: site was prepped using aseptic technique, ethochloride spray was applied and injection warnings given Injected: 80 mg of, DepoMedrol, with 8 mL of, 1% plain lidocaine and in the subcromial space Approach Used: posterolateral Procedure: The patient tolerated the procedure well and there was some relief with the local anesthesia Coding 20352 - Glenohumeral/Tronchanteric Bursa/Intraarticular Procedure code (CPT) selection complete Assessment & Plan Assessment & Plan (1) Calcific tendonitis of left shoulder region: Code(s): M75.32 - Calcific tendinitis of left shoulder Category: Medical Plan: We discussed options today, which include steroid injection. The patient did consent to move forward with the injection, which was tolerated well.? I recommended rest, ice and elevation and OTC antiinflammatories prn for discomfort. If symptoms persist over the next 6-8 weeks, they will contact our office, otherwise, prn Coding Level of Care Code Est Pt Level 3 (21328) Complex EM visit Add On G2211 Diagnoses Calcific tendonitis of left shoulder region M75.32 CPT Codes Coding - Joint 7: 43526 - Glenohumeral/Tronchanteric Bursa/Intraarticular ([id number])
--- OUTSIDE RECORDS SUMMARY | 2024-09-04 13:36 | XMS_ITS | Patient Health Record ---
Author [facility] Address [address] [place] [address] Care Team Providers Care Lean Leader Name Role Phone Raffy Greene Primary Care Provider Unav ailable Lacy Hunter Unavailable [phone] Allergies Allergen (clinical drug ingredient) Drug/Non Drug [...] Problem Status W/U Status Risk Notes Problem [id number] Tarsal tunnel syndrome of left side (G57.52) Active confirmed Plan Of Treatment Pending Test Test Name Order Date X ray : Foot, left 3V 07/14/2020 Insurance Providers Payer Name Payer Address Payer Phone Subscriber Number Group Number Insured Name Patient Relationship to Insured Coverage Start Date Coverage End Date Preferred Care PPO [address] CINTHIA Hernandez [phone] [id number] Hazel Coyne Self - patient is the insured Medical (General) History Medical History History ICD Code Anxiety Arthritis Back,Hip,and Knee pain Chicken pox Surgical History Surgery Date(Month/Year) gall bladder 1985 hysterectomy 1990 Surgeon drained infection from breast Hospitalization History Reason Date(Month/Year)
== END 2024-09-04 13:37 | disposition home or self-care (01) ==
LOC: HO.HOS 12:32
PROVIDERS: PCP Nurse Practitioner Family; Visit Provider Physician Assistant
DX: M75.32 Calcific tendinitis of left shoulder (principal)
CPT/HCPCS: 20610; 99213

== ENCOUNTER → 2024-09-04 12:31 | Outpatient (BNVA) | payer OTHER, SELFPAY | PROVIDERS: PCP Nurse Practitioner Family; Visit Provider Physician Assistant | DX: M75.32 Calcific tendinitis of left shoulder (principal) | CPT/HCPCS: 20610; J1010; J2003 ==

== ENCOUNTER 2024-09-16 07:39 | Outpatient (REF) | payer OTHER, SELFPAY ==
--- NOTE | ~2024-09-16 | CT_ITS ---
CLINICAL HISTORY: N28.9 - Disorder of kidney and ureter, unspecified CT abdomen with and without contrast Comparison: US - US ABDOMEN COMPLETE - 07/23/24 09:[address]/SR - CT ANGIO ABDOMEN PELVIS - 04/04/24 22:10 EDT Findings: No consolidation or effusion. 1.3 cm cyst within the right lower kidney. This corresponds to the recent ultrasound abnormality. No associated enhancement. Several additional right kidney cysts are present, the largest measuring 2.4 cm in size. There is pancreatic volume loss. Remaining abdominal organs are unremarkable. There is a 2.5 cm splenic artery aneurysm without change. Prior cholecystectomy. Moderate distention of the stomach. Unremarkable visualized bowel. The bones are intact. IMPRESSION: There are multiple simple appearing cysts within the right kidney. This document has been electronically signed by: Aditi Thomas MD on 09/17/2024 14:10:04
[2024-09-16] MEDS: iohexoL 350 MG/ML 100 ML INFUS..BTL IV (08:32)
== END 2024-09-16 07:40 | disposition home or self-care (01) ==
LOC: HO.CT 07:39
PROVIDERS: PCP Nurse Practitioner Family; Visit Provider Nurse Practitioner Family
DX: N28.9 Disorder of kidney and ureter, unspecified (principal)
CPT/HCPCS: 74170; Q9967

== ENCOUNTER → 2024-09-16 07:42 | Outpatient (BNV) | payer OTHER, SELFPAY | PROVIDERS: PCP Nurse Practitioner Family; Visit Provider Radiology Diagnostic Radiology | DX: N28.9 Disorder of kidney and ureter, unspecified (principal) | CPT/HCPCS: 74170 ==

== ENCOUNTER 2024-11-05 15:11 | Outpatient (REF) | payer OTHER, SELFPAY ==
--- NOTE | ~2024-11-05 | US_ITS ---
EXAMINATION: US THYROID HISTORY: E05.20 - Thyrotoxicosis with toxic multinodular goiter without thyrotoxicosis... TECHNIQUE: Real-time grayscale ultrasound imaging was performed and images were reviewed. COMPARISON: Comparison is made with the prior examination dated 01/01/2024. FINDINGS: SIZE: The right thyroid lobe measures 5.0 x 2.9 x 2.2 cm. The left thyroid lobe measures 5.4 x 2.8 x 2.1 cm. The isthmus measures 5 mm. FLOW: Flow to the gland is normal. ECHOGENICITY: The echotexture of the gland is heterogeneous. NODULES: Numerous bilateral thyroid nodules are identified. The most suspicious nodules are described below: Nodule #: 1 Location: Upper pole of the left thyroid lobe measuring 1.3 x 0.8 x 1.0 cm (previously 1.1 x 0.8 x 1.0 cm). Shape: Wider than tall (0 points) Margins: Smooth (0 points) Echotexture: Hypoechoic (2 points) Composition: Solid (2 points) Calcifications: None (0 points) Total points: 4 TIRADS: TR4: Moderately suspicious. Nodule #: 2 Location: Mid to upper pole of the left thyroid lobe measuring 1.0 x 0.8 x 1.1 cm (not seen previously). Shape: Wider than tall (0 points) Margins: Smooth (0 points) Echotexture: Hypoechoic (2 points) Composition: Mostly solid (2 points) Calcifications: None (0 points) Total points: 4 TIRADS: TR4: Moderately suspicious. Nodule #: 3 Location: Midportion of the left thyroid lobe measuring 2.4 x 1.2 x 1.8 cm (previously 2.4 x 1.8 x 1.3 cm). Shape: Wider than tall (0 points) Margins: Smooth (0 points) Echotexture: Very hypoechoic (3 points) Composition: Solid (2 points) Calcifications: Punctate calcifications (3 points) Total points: 8 TIRADS: TR5: Highly suspicious. Nodule #: 4 Location: Lower pole of the left thyroid lobe measuring 2.4 x 1.6 x 2.2 cm (previously 2.2 x 2 1.6 x 2.0 cm). Shape: Wider than tall (0 points) Margins: Extrathyroidal extension (3 points) Echotexture: Isoechoic (1 point) Composition: Solid (2 points) Calcifications: None (0 points) Total points: 6 TIRADS: TR4: Moderately suspicious. Nodule #: 5 Location: Mid to lower pole of the right thyroid lobe measuring 1.4 x 0.7 x 1.4 cm (previously 1.5 x 0.6 x 1.4 cm). Shape: Wider than tall (0 points) Margins: Smooth (0 points) Echotexture: Very hypoechoic (3 points) Composition: Mostly solid (2 points) Calcifications: Punctate calcifications (3 points) Total points: 8 TIRADS: TR5: Highly suspicious. US/US thyroid IMPRESSION: Multinodular thyroid gland with multiple suspicious nodules, with similar appearance to the prior study. The patient is status post fine-needle aspiration of multiple nodules on 03/05/2024. ACR TI-RADS Guidelines TR1 (0 points): Benign, No follow-up or biopsy required TR2 (2 points): Not Suspicious, No biopsy or follow up indicated TR3 (3 points): Mildly Suspicious, FNA if >= 2.5 cm, Follow if >= 1.5 cm TR4 (4-6 points): Moderately Suspicious, FNA if >= 1.5 cm, Follow if >= 1.0 cm TR5 (>=7 points): Highly Suspicious, FNA if >= 1.0 cm, Follow if >= 0.5 cm Electronically signed by: Alphonso Tobin MD 11/06/2024 07:56 AM EDT
== END 2024-11-05 15:12 | disposition home or self-care (01) ==
LOC: HO.HMGCX 15:11
PROVIDERS: PCP Nurse Practitioner Family; Visit Provider Student in an Organized Health Care Education/Training Program
DX: E05.20 Thyrotoxicosis with toxic multinodular goiter without thyrotoxic crisis or storm (principal)
CPT/HCPCS: 76536

== ENCOUNTER → 2024-11-05 15:13 | Outpatient (BNV) | payer OTHER, SELFPAY | PROVIDERS: PCP Nurse Practitioner Family; Visit Provider Radiology Diagnostic Radiology | DX: E04.2 Nontoxic multinodular goiter (principal) | CPT/HCPCS: 76536 ==

== ENCOUNTER 2024-11-24 12:59 | Outpatient (AMB) | payer OTHER, SELFPAY ==
[2024-11-24 13:08] VITALS: BP 120/64; PULSE 74; TEMP 36.3; O2SAT 97; BMI 32.9
--- NOTE | 2024-11-24 13:08 | AM.OFFWIN_ITS ---
Intake Vital Signs 11/24/24 13:08 Height 5 ft 2 in Weight 180 lb 2 oz BMI 32.9 BP 120/64 Blood Pressure Location Lt brachial Position Sitting Pulse 74 Pulse Source Pulse Oximeter Temp 97.4 F Temp Source Oral Pulse Oximetry (%) 97 Oxygen Delivery Method Room Air Intake Visit Reasons: EP-b/l thighs pain Patient Tobacco Use Status: Current everyday Tobacco user Histologic Aide Required: No Allergies codeine (Codeine) Allergy (Intermediate, Verified 11/24/24 13:10) FELT OUT OF SORTS HPI HPI Comments History of Present Illness Details 64 y/o Female patient who presents to [facility] walk in clinic with c/o B/L Lower extremities Pain and burning. Pt reports that pain located on her thighs, radiating down to her lower legs. Describes the pain Like Burning and discomfort keeping her up at night. She does have h/o Restless Leg Syndrome and uses Pramipexole but she ran out of medication for 2 days - she just picked up refills. [facility] Medical History (Updated 11/24/24 @ 13:54 by Yue Emery NP) Pain in both lower extremities Left shoulder pain Toxic multinodular goiter Subclinical hyperthyroidism Diabetes mellitus Hip pain Anxiety and depression ANG (obstructive sleep apnea) Constipation Osteoarthritis Cervical neck pain with evidence of disc disease Left ventricular hypertrophy Surgical History (Reviewed 09/04/24 @ 13:02 by Marti Darling [facility]) History of incision and drainage History of elbow surgery Hx of cholecystectomy History of carpal tunnel surgery History of hysterectomy Family History Father Heart problem Mother No problems noted. Sister Breast cancer Daughter Overweight Maternal Grandfather Cancer Maternal Grandmother Multiple myeloma Paternal Grandfather Unknown family medical history Paternal Grandmother Unknown family medical history Social History Household Members: None Housing: House Do you presently have visiting nurse or other home services: No Alcohol intake: current Alcohol intake frequency: holidays/special occasions only Patient Tobacco Use Status: Current everyday Tobacco user Tobacco use type: Cigarette Cigarette Packs Per Day: 1 Cigarettes Per Day: 15 e-Cigarette/Vaping Use: Never Used Second Hand Smoke Exposure: No service: No Current occupational status: employed 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 Current occupational exposures/hazards: No Cognitive needs: No Hearing needs: No Vision needs: No Review of Systems Const All systems reviewed & are unremarkable except as noted in HPI and below Physical Exam Vital Signs: Last Vital Signs Temp 97.4 F 11/24/24 13:08 Pulse 74 11/24/24 13:08 BP 120/64 11/24/24 13:08 Pulse Ox 97 11/24/24 13:08 Oxygen Delivery Method Room Air 11/24/24 13:08 BMI result Body Mass Index 32.9 Const General: no acute distress Nutritional Appearance: overweight Orientation/consciousness: patient oriented x3 Skin General skin exam: no rashes or lesions noted Neuro General: patient oriented x3, gait normal and moves all extremities Extrem General: Yes normal to inspection and Yes full ROM Right upper extremity: normal to inspection and full ROM Right lower extremity: normal to inspection, full ROM and normal capillary refill Left lower extremity: normal to inspection, full ROM and normal capillary refill Psych Speech and movement: Normal speech and movement present Affect: Anxious affect present Assessment & Plan Assessment & Plan (1) Pain in both lower extremities: Code(s): M79.604 - Pain in right leg; M79.605 - Pain in left leg Plan: Unsure the etiology of pain ?Restless Leg Syndrome. Continue taking Pramipexole as prescribed. Ordered Flexeril NSAIDs and Acetaminophen for pain relief. Medications: New cyclobenzaprine 10 mg PO BEDTIME 20 tabs 0RF M79.604 - Pain in right leg, M79.605 - Pain in left leg Coding Level of Care Code Est Pt Level 4 (09969) Diagnoses Pain in both lower extremities M79.604; M79.605 Time Spent (min) 20
== END 2024-11-24 13:43 | disposition home or self-care (01) ==
PROVIDERS: PCP Nurse Practitioner Family; Visit Provider Nurse Practitioner Family
DX: M79.604 Pain in right leg (principal); M79.605 Pain in left leg

== ENCOUNTER → 2024-11-24 12:59 | Outpatient (BNVA) | payer OTHER, SELFPAY | PROVIDERS: PCP Nurse Practitioner Family; Visit Provider Nurse Practitioner Family | DX: Z13.89 Encounter for screening for other disorder (principal) ==

== ENCOUNTER 2024-12-10 09:37 | Outpatient (AMB) | payer OTHER, SELFPAY ==
--- NOTE | 2024-12-10 09:45 | A.OFFVIS_ITS ---
Vital Signs 12/10/24 09:53 Height 5 ft 2 in Weight 174 lb 2.643 oz BMI 31.9 BP 104/54 L Blood Pressure Location Lt brachial Position Sitting Pulse 68 Intake Visit Reasons: Colonoscopy screening Intake Note: Hazel presents in the office as a colonosopy screening. CC: States that she is not having any concerns just never had a colonoscopy. 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 Referred by PCP for colonoscopy screening and evaluation of incidental CAT scan findings suggesting possible pancreatic insufficiency. She reports occasional belching with sulfurous odor, which has significantly improved since starting pantoprazole in July. She denies abdominal pain, bloating, excessive gas, or changes in bowel habits. Regular daily bowel movements without loose stools or constipation. Denies blood in stools or difficulty swallowing. Appetite unchanged, and she has been intentionally losing weight through diet modifications and increased water intake. Her mother from pancreatic cancer, which contributes to her concern about the incidental findings. She currently uses CPAP for sleep apnea with significant improvement in sleep quality. She denies any other significant cardiopulmonary history. Patient denies: fever/chills, n/v, pyrosis, regurgitation,dysphasia, unintentional wt loss, ab pain or melena/hematochezia. Social hx: -ETOH use 1-2x/year -denies recreational drug use -current 1/2ppd smoker - family hx as below -denies personal hx of CA -tolerated anesthesia in the past without difficulty. PFSH Medical History Pain in both lower extremities Left shoulder pain Toxic multinodular goiter Subclinical hyperthyroidism Diabetes mellitus Hip pain Anxiety and depression ANG (obstructive sleep apnea) Constipation Osteoarthritis Cervical neck pain with evidence of disc disease Left ventricular hypertrophy Surgical History History of incision and drainage History of elbow surgery Hx of cholecystectomy History of carpal tunnel surgery History of hysterectomy Family History Father Heart problem Mother No problems noted. Sister Breast cancer Daughter Overweight Maternal Grandfather Cancer Maternal Grandmother Multiple myeloma Paternal Grandfather Unknown family medical history Paternal Grandmother Unknown family medical history Social History Household Members: None Housing: House Do you presently have visiting nurse or other home services: No Alcohol intake: current Alcohol intake frequency: holidays/special occasions only Patient Tobacco Use Status: Current everyday Tobacco user Tobacco use type: Cigarette Cigarette Packs Per Day: 1 Cigarettes Per Day: 15 e-Cigarette/Vaping Use: Never Used Second Hand Smoke Exposure: No service: No Current occupational status: employed 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 Current occupational exposures/hazards: No Cognitive needs: No Hearing needs: No Vision needs: No Review of Systems Const Reports as per HPI ENT Reports as per HPI Card Reports as per HPI Resp Reports as per HPI GI Reports as per HPI Reports as per HPI Physical Exam Const General: healthy appearing, no acute distress and well developed Nutritional Appearance: well nourished Orientation/consciousness: patient oriented x3 HEENT Head: Yes normal to inspection, Yes normocephalic and Yes atraumatic Face and sinus: Yes normal facial exam Eyes General: appearance normal, both eyes and all related structures Neck Neck: Yes normal visual inspection Resp Effort & Inspection: normal respiratory effort, able to speak in complete sentences, no tracheal deviation and symmetric chest movement Auscultation: clear to auscultation bilaterally Cardio Jugular venous distension: no JVD Rate: regular rate Rhythm: regular rhythm Heart sounds: S1 normal heart sound present, S2 normal heart sound present, no gallops and no murmurs GI Inspection: Yes normal to inspection, No distended, Yes obesity, Yes scar (surgical scar RUQ) and Yes striae Palpation (GI): Soft to palpation, not firm, nontender and No hepatosplenomegaly present Auscultation: normal bowel sounds Skin Nails: other (patches of hyper AND hypopigmentation noted to abdomen) Neuro General: patient oriented x3 Gait exam (Neuro): Normal gait present Psych Appearance: grossly normal Mental Status: mental status grossly normal Speech and movement: Normal speech and movement present Affect: normal affect Attitude: cooperative Thought process: Normal thought process present Thought content: Normal thought content present Insight: Good insight present (Psych) Judgement: Good judgement present (Psych) Results Reviewed Results Reviewed: Date of Service: 09/16/24 Procedure(s): CT abdomen wo/w IV con Accession Number(s): [id number] cc: TamirDa MERCHANDISING MANAGER-BC~ Report Number: [id number]: Total DLP = 640.00 mGy-cm CLINICAL HISTORY: N28.9 - Disorder of kidney and ureter, unspecified CT abdomen with and without contrast Comparison: US - US ABDOMEN COMPLETE - 07/23/24 09:[address]/SR - CT ANGIO ABDOMEN PELVIS - 04/04/24 22:10 EDT Findings: No consolidation or effusion. 1.3 cm cyst within the right lower kidney. This corresponds to the recent ultrasound abnormality. No associated enhancement. Several additional right kidney cysts are present, the largest measuring 2.4 cm in size. There is pancreatic volume loss. Remaining abdominal organs are unremarkable. There is a 2.5 cm splenic artery aneurysm without change. Prior cholecystectomy. Moderate distention of the stomach. Unremarkable visualized bowel. The bones are intact. IMPRESSION: There are multiple simple appearing cysts within the right kidney. 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 Known type II diabetic and family history of pancreatic CA. - Order fasting lab tests: pancreatic enzyme levels, vitamin levels (A, E, D, K, B12, folate). - Patient declined stool testing today but agreeable to proceed if labs value are abnormal - Monitor for symptoms of pancreatic insufficiency (bloating, excessive gas, abdominal discomfort, changes in stool consistency). - Follow up as needed based on lab results. (2) GERD (gastroesophageal reflux disease): Code(s): K21.9 - Gastro-esophageal reflux disease without esophagitis Category: Medical Qualifiers: Esophagitis presence: esophagitis presence not specified Qualified Code(s): K21.9 - Gastro-esophageal reflux disease without esophagitis Plan: Occasional sulfuric belching improved with pantoprazole. - Continue pantoprazole as prescribed. - Perform upper endoscopy in conjunction with colonoscopy to evaluate for silent GERD, esophageal inflammation, gastric inflammation, H. pylori infection. (3) Screening for colon cancer: Code(s): Z12.11 - Encounter for screening for malignant neoplasm of colon Category: Medical Plan: Due for routine screening, without alarm features. Medications: -prescriptions for laxative tablets and MiraLax sent to pharmacy; instructions for Gatorade purchase and clear liquid diet given. -understands diabetes medications will need to be held days prior to procedure. Nurse to review med holds per protocol. Patient educated on scheduling process, procedure preparation, including avoiding certain foods and ensuring clear liquid intake Advised on necessity for ride post-procedure due to sedation. (4) Diabetes mellitus: Code(s): E11.9 - Type 2 diabetes mellitus without complications Category: Medical Qualifiers: Diabetes mellitus type: type 2 Diabetes mellitus half-way insulin use: without half-way use Diabetes mellitus complication status: with hyperglycemia Qualified Code(s): E11.65 - Type 2 diabetes mellitus with hyperglycemia Plan: Managed with Ozempic and metformin. 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 Vitamin D 1,25 dihydroxy Today 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 Vitamin E Today 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 Vitamin K1 Today 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 Lipase Today 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 Medications: New polyethylene glycol 3350 (Miralax) per colonoscopy prep instructions 238 grams PO ONCE 238 grams 0RF bisacodyl Take four tablets once for 1 day per colonoscopy instructions 5 mg PO ONCE 4 tabs 0RF 1 day Coding Level of Care Code New Pt New Pt Level 3 (72752) Patient Type New Diagnoses Pancreatic abnormality Q45.3 Gastroesophageal reflux disease, unspecified whether esophagitis present K21.9 Esophagitis presence: esophagitis presence not specified Screening for colon cancer Z12.11 Type 2 diabetes mellitus with hyperglycemia, without long-term current use of insulin E11.65 Diabetes mellitus type: type 2 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
[2024-12-10 09:53] VITALS: BP 104/54; PULSE 68; BMI 31.9
== END 2024-12-10 10:25 | disposition home or self-care (01) ==
LOC: HO.HGI 09:38
PROVIDERS: PCP Nurse Practitioner Family; Visit Provider Nurse Practitioner Family
DX: K21.9 Gastro-esophageal reflux disease without esophagitis (principal); Q45.3 Other congenital malformations of pancreas and pancreatic duct; E11.65 Type 2 diabetes mellitus with hyperglycemia
CPT/HCPCS: 99203

== ENCOUNTER 2024-12-10 15:30 | Outpatient (AMB) | payer OTHER, SELFPAY ==
--- NOTE | 2024-12-10 15:33 | MHC.OFFVIS ---
Intake Visit Reasons: renal cyst Intake Note: Patient is present for RENAL CYST Urology Medication:NONE Antibiotic Allergy:NONE Blood Thinner:NONE Recovery Coordinator Required: No Allergies codeine (Codeine) Allergy (Intermediate, Verified 12/10/24 15:34) FELT OUT OF SORTS HPI Comments Details: Hazel is a pleasant female. She is a patient of Dr. Isidro. She is seen for the following urologic conditions - renal cyst Reassurance provided Surveillance 12 month If stable p.r.n. Renal cyst Right renal cyst 2-1/2 3 cm parapelvic Imaging - CT 1.3 cm cyst within the right lower kidney. This corresponds to the recent ultrasound abnormality. No associated enhancement. Several additional right kidney cysts are present, the largest measuring 2.4 cm in size. [facility] Medical History Pain in both lower extremities Left shoulder pain Toxic multinodular goiter Subclinical hyperthyroidism Diabetes mellitus Hip pain Anxiety and depression ANG (obstructive sleep apnea) Constipation Osteoarthritis Cervical neck pain with evidence of disc disease Left ventricular hypertrophy Surgical History History of incision and drainage History of elbow surgery Hx of cholecystectomy History of carpal tunnel surgery History of hysterectomy Family History Father Heart problem Mother No problems noted. Sister Breast cancer Daughter Overweight Maternal Grandfather Cancer Maternal Grandmother Multiple myeloma Paternal Grandfather Unknown family medical history Paternal Grandmother Unknown family medical history Social History Household Members: None Housing: House Do you presently have visiting nurse or other home services: No Alcohol intake: current Alcohol intake frequency: holidays/special occasions only Patient Tobacco Use Status: Current everyday Tobacco user Tobacco use type: Cigarette Cigarette Packs Per Day: 1 Cigarettes Per Day: 15 e-Cigarette/Vaping Use: Never Used Second Hand Smoke Exposure: No service: No Current occupational status: employed 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 Current occupational exposures/hazards: No Cognitive needs: No Hearing needs: No Vision needs: No Review of Systems Const Denies chills and Denies fever(s) Card Reports no additional complaints and Denies syncope Resp Denies cough GI Denies abdominal pain and Denies heartburn Reports as per HPI and Denies change in libido Neuro Denies syncope Psych Denies change in libido Endo Denies change in libido Physical Exam Const General: cooperative, healthy appearing, comfortable and no acute distress Orientation/consciousness: patient oriented x3 HEENT Face and sinus: Yes normal facial exam Mouth: moist mucous membranes Neck Neck: Yes normal visual inspection, Yes full ROM and Yes trachea midline Chest Chest palpation & inspection: normal inspection of the chest Resp Effort & Inspection: normal respiratory effort, able to speak in complete sentences and no respiratory distress GI Inspection: Yes normal to inspection Back/Spine/Pelvis Cervical Spine: normal cervical lordosis Thoracic/Lumbar Spine: thoracic and lumbar spine normal to inspection Skin General skin exam: no rashes or lesions noted Neuro General: patient oriented x3, gait normal, tone normal and moves all extremities Extrem General: Yes normal to inspection and Yes capillary refill normal Assessment & Plan Assessment & Plan (1) Kidney cysts: Code(s): N28.1 - Cyst of kidney, acquired Category: Medical Plan Right parapelvic cyst Review for stability in 12 month Orders: Orders US renal BI 12 Months N28.1 - Cyst of kidney, acquired AMB Urinalysis Automated Today Z13.9 - Encounter for screening, unspecified Patient Instructions: This note is constructed using voice recognition software. While every effort has been made to ensure accuracy red cross executive director errors may have been included. Imaging studies, laboratory and physical exam results were discussed and reviewed in detail. No major barriers to patient understanding were identified. An opportunity to ask questions regarding the treatment plan was provided. All questions were answered. The patient expressed understanding and agreement with the above treatment plan. The patient is aware they should contact our office by phone for worsening of their current condition or the appearance of new urologic symptoms. Compliance is encouraged with any medications and followup testing that is ordered. It is a privilege to participate in the urologic care of your patient. If you have any questions or concerns regarding treatment for the above conditions, or other urologic issues, please do not hesitate to contact me. The office telephone contact is [phone]. Sincerely, Dr Abisai Stuart MD, [facility] - Urology Compassionate Specialist Care for the Genitourinary System Coding Level of Care Code New Pt Level 3 (83773) Diagnoses Kidney cysts N28.1
== END 2024-12-10 15:53 | disposition home or self-care (01) ==
LOC: HO.HUSH 15:31
PROVIDERS: PCP Nurse Practitioner Family; Visit Provider Urology
DX: N28.1 Cyst of kidney, acquired (principal)
CPT/HCPCS: 99203

== ENCOUNTER 2024-12-13 07:57 | Outpatient (REF) | payer OTHER, SELFPAY ==
[2024-12-13 12:01] LABS: Lipase 12 U/L (8-78)
[2024-12-13 12:10] LABS: Free T4 (Free Thyroxine) 0.97 ng/dL (0.71-1.85); Thyroid Stimulating Hormone 0.12 uIU/mL (0.32-4.0)
[2024-12-13 12:23] LABS: Folate 9.8 ng/mL (> or = 4.0); Vitamin B12 422 pg/mL (200-900)
[2024-12-20 09:57] LABS: VITAMIN D (1,25 OH) D3 34 pg/mL; Vit D (1,25-Dihydroxy) Total 34 pg/mL (18-72); Vitamin D (1,25 OH) D2 <8 pg/mL
== END 2024-12-13 07:58 | disposition home or self-care (01) ==
LOC: HO.HMGCLDS 07:57
PROVIDERS: Student in an Organized Health Care Education/Training Program; PCP Nurse Practitioner Family; Referring Provider Nurse Practitioner Family; Visit Provider Nurse Practitioner Family
DX: E05.20 Thyrotoxicosis with toxic multinodular goiter without thyrotoxic crisis or storm (principal); E05.90 Thyrotoxicosis, unspecified without thyrotoxic crisis or storm; Q45.3 Other congenital malformations of pancreas and pancreatic duct
CPT/HCPCS: 36415; 82607; 82652; 82746; 83690; 84439; 84443; 84446; 84480; 84590; 84597

== ENCOUNTER → 2024-12-22 08:46 | Outpatient (BNVA) | payer OTHER, SELFPAY | PROVIDERS: PCP Nurse Practitioner Family; Visit Provider Physician Assistant Medical | DX: M54.12 Radiculopathy, cervical region (principal); S46.911A Strain of unspecified muscle, fascia and tendon at shoulder and upper arm level, right arm, initial encounter; S66.911A Strain of unspecified muscle, fascia and tendon at wrist and hand level, right hand, initial encounter; X50.3XXA Overexertion from repetitive movements, initial encounter; X50.1XXA Overexertion from prolonged static or awkward postures, initial encounter; M25.811 Other specified joint disorders, right shoulder; M77.11 Lateral epicondylitis, right elbow | CPT/HCPCS: 29125; 72040; 73030; 73070; 73100; 99204 ==

== ENCOUNTER 2024-12-24 12:44 | Outpatient (AMB) | payer OTHER, SELFPAY ==
--- NOTE | 2024-12-24 12:51 | A.OFFVIS_ITS ---
Vital Signs 12/24/24 12:55 Height 5 ft 2 in Weight 174 lb BMI 31.8 Intake Visit Reasons: Est patient New Prob-right shoulder/Wrist pain Intake Note: Helen is a 64 year old right hand dominant female who presents today for evaluation of a work related injury to the right shoulder and right wrist, DOI: 12/18/24. Patient reports she was repeatedly wrenching and twisting parts, 200- 300 times, when she developed right wrist and right elbow pain radiating up to the right shoulder and neck. Patient complains of weakness and numbness in her entire hand, and middle finger locking. She has tried taking ibuprofen, ice and heat, and topical agents with mild relief. However, she discontinued ibuprofen due to starting prednisone. History bilateral carpal tunnel release, right 09/10/[address] Regalado, left 02/28/[address] Nugent. Allergies codeine (Codeine) Allergy (Intermediate, Verified 12/24/24 12:59) FELT OUT OF SORTS HPI HPI Est patient New Prob-right shoulder/Wrist pain: Details: Helen is a 64 year old right hand dominant female who presents today for evaluation of a work related injury to the right shoulder and right wrist, DOI: 12/18/24. Patient reports she was repeatedly wrenching and twisting parts, 200- 300 times, when she developed right wrist and right elbow pain radiating up to the right shoulder and neck. Patient complains of weakness and numbness in her entire hand, and middle finger locking. She has tried taking ibuprofen, ice and heat, and topical agents with mild relief. However, she discontinued ibuprofen due to starting prednisone. History bilateral carpal tunnel release, right 09/10/[address] Regalado, left 02/28/[address] Nugent. [facility] Medical History (Updated 12/24/24 @ 13:29 by ELLEN Kern) Splenic artery aneurysm Left ventricular hypertrophy ANG (obstructive sleep apnea) Dyslipidemia Diabetes mellitus Toxic multinodular goiter Subclinical hyperthyroidism GERD (gastroesophageal reflux disease) Constipation Anxiety and depression Obesity, Class I, BMI 30-34.9 Osteoarthritis Post-menopausal Cervical neck pain with evidence of disc disease Surgical History (Updated 12/22/24 @ 13:18 by Daysi Nathan PA-C) History of hysterectomy History of cholecystectomy History of surgery on left wrist History of carpal tunnel surgery of left wrist History of carpal tunnel surgery of right wrist History of elbow surgery History of incision and drainage Family History Father Heart problem Mother No problems noted. Sister Breast cancer Daughter Overweight Maternal Grandfather Cancer Maternal Grandmother Multiple myeloma Paternal Grandfather Unknown family medical history Paternal Grandmother Unknown family medical history Social History Household Members: None Housing: House Do you presently have visiting nurse or other home services: No Alcohol intake: current Alcohol intake frequency: holidays/special occasions only Patient Tobacco Use Status: Current everyday Tobacco user Tobacco use type: Cigarette Cigarette Packs Per Day: 1 Cigarettes Per Day: 15 e-Cigarette/Vaping Use: Never Used Second Hand Smoke Exposure: No service: No Current occupational status: employed 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 Neuro: Normal sensation of the tips of all digits of the right hand at this time Vascular: Cap refill brisk Pain: Pain with making a closed fist with the right hand, particularly in the index finger Pain in the right wrist with range of motion No tenderness to palpation about the scapholunate interval ROM: Patient is able to make a closed fist and extend all digits of the right hand fully Skin: No lacerations or abrasions. General: No ecchymosis, erythema, or evidence of infection. Psych: Appears grossly normal Affect normal Attitude cooperative Results Reviewed Results Reviewed: X-rays obtained in the office today and independently reviewed by me, Marcel Bhatia PA-C, demonstrate question of small amount of dissociation of scapholunate joint. Assessment & Plan Assessment & Plan (1) Stiffness of right hand joint: Code(s): M25.641 - Stiffness of right hand, not elsewhere classified Category: Medical Plan 1. Stiffness of right hand and wrist Patient is educated about this condition Patient is educated about the typical recovery course At this time, patient is referred to occupational therapy for range of motion and gentle strengthening of the right hand and wrist in the setting of stiffness Patient is amenable to this plan If patient continues to experience pain after OT, she should call us for repeat assessment Follow-up as needed Orders: Orders NE nerve conduction velocity 12/24/24 R20.0 - Anesthesia of skin, R20.2 - Paresthesia of skin OT Evaluation and Treatment 12/24/24 M25.641 - Stiffness of right hand, not elsewhere classified NE electromyogram (EMG) 12/24/24 R20.0 - Anesthesia of skin, R20.2 - Paresth esia of skin Coding Level of Care Code Est Pt Level 3 (95061) Diagnoses Stiffness of right hand joint M25.641
[2024-12-24 12:55] VITALS: BMI 31.8
== END 2024-12-24 13:35 | disposition home or self-care (01) ==
PROVIDERS: PCP Nurse Practitioner Family
DX: M25.641 Stiffness of right hand, not elsewhere classified (principal)
CPT/HCPCS: 99213

== ENCOUNTER → 2024-12-24 12:44 | Outpatient (BNVA) | payer OTHER, SELFPAY | PROVIDERS: PCP Nurse Practitioner Family | DX: M25.641 Stiffness of right hand, not elsewhere classified (principal); R20.0 Anesthesia of skin; R20.2 Paresthesia of skin | CPT/HCPCS: 99212 ==

== ENCOUNTER → 2024-12-29 08:44 | Outpatient (BNVA) | payer OTHER, SELFPAY | PROVIDERS: PCP Nurse Practitioner Family; Visit Provider Physician Assistant Medical | DX: M54.12 Radiculopathy, cervical region (principal); M61.411 Other calcification of muscle, right shoulder; M77.11 Lateral epicondylitis, right elbow; S66.911A Strain of unspecified muscle, fascia and tendon at wrist and hand level, right hand, initial encounter; X50.1XXA Overexertion from prolonged static or awkward postures, initial encounter | CPT/HCPCS: 99213 ==

== ENCOUNTER 2024-12-31 13:57 | Outpatient (AMB) | payer OTHER, SELFPAY ==
--- NOTE | 2024-12-31 14:02 | MHC.PC.OV ---
Vital Signs 12/31/24 14:10 Height 5 ft 2 in Weight 177 lb BMI 32.4 BP 122/68 Blood Pressure Location Lt brachial Position Sitting Respiration 16 Pulse 76 Pulse Source Pulse Oximeter Temp 98.3 F Temp Source Oral Pulse Oximetry (%) 97 Oxygen Delivery Method Room Air Intake Visit Reasons: 6m follow up Signalling And Communications Engineer Required: No Accompanied by: Self / Same As Patient Allergies codeine (Codeine) Allergy (Intermediate, Verified 12/31/24 14:42) FELT OUT OF SORTS Medication List - Last Reconciled 12/31/24 by Raffy Garnett, STORE TEAM LEADER- alcohol swabs 1 pad topical QIDACHS atorvastatin 20 mg PO BEDTIME bisacodyl 5 mg PO ONCE 1 day cholecalciferol (vitamin D3) 50 mcg PO DAILY Dexcom G7 Preassembler And Inspector (blood-glucose,electrostatic painter,cont) Test blood sugars 4 times per day NS Dexcom G7 Sensor (blood-glucose sensor) Test blood sugars 4 times per day NS gauze bandage (Kerlix) As directed lancets 4 times daily lisinopril 2.5 mg PO DAILY meloxicam 15 mg (2 x 7.5 mg) PO DAILY metformin 500 mg PO BIDWMEAL 90 days pantoprazole 20 mg PO DAILY pen needle, diabetic (Pen Needle) As directed polyethylene glycol 3350 (Miralax) 238 grams PO ONCE pramipexole 0.25 mg PO BEDTIME semaglutide 2 mg (0.75 mL) subcut QWEEK sertraline 100 mg PO DAILY Tobacco use date assessed: 12/31/24 Dental Screening Dental Screen Date: 06/26/24 Did you have a dental visit in the last 12 months?: Yes Did you have a dental problem in the last 6 months where you did not have access to dental care?: No Was dental information given to patient?: Patient has dentist HPI 6m follow up HPI Details Chief Complaint The patient presents for diabetes management and medication adjustment. History of Present Illness The patient is a 64-year-old female presenting with Type 2 Diabetes Mellitus. Her diabetes is currently managed with metformin, which is being reduced, and Ozempic, which is being increased due to a satisfactory A1c level of 6.1%. She continues to smoke and receives annual low-dose CT scans for lung cancer screening. Her eye exam and mammogram are current. Social History - Tobacco use: The patient continues to smoke. Health Maintenance - Annual low-dose CT scan for lung cancer screening due to smoking history - Eye exam is up to date - Mammogram is up to date Review of Systems - Neurological: Denies neuropathy - Respiratory: Denies cough, reports smoking Physical Exam General: Cooperative, healthy appearing, comfortable, no acute distress and well developed Orientation: Patient oriented x3 Limitations: No limitations Head: Normal to inspection Ears: Hearing grossly normal bilaterally Nose: Normal external nose present Face and sinus: Normal facial exam Eyes: Appearance normal, both eyes and all related structures Neck: Normal visual inspection and Yes full ROM Respiratory: Slightly diminished bilaterally, able to speak in complete sentences Cardiovascular: Faint systolic murmur. Normal S1 and S2 GI: Normal to inspection. Soft to palpation and nontender Skin: No rashes or lesions noted Neuro: Patient oriented x3 Extremities: Normal to inspection, feeder intact bilaterally, positive sensation use of monofilament Results - Labs: Hemoglobin A1c is 6.1% Plan The management plan for Type 2 Diabetes Mellitus involves adjusting medications to optimize glycemic control, specifically reducing metformin and increasing Ozempic. Smoking cessation support remains a priority, with continued annual low-dose CT scans for lung cancer screening due to her smoking history. Discussion Notes I discussed with the patient the importance of maintaining her current A1c level and the adjustments in her diabetes medications to achieve this goal. We also reviewed the significance of smoking cessation and the need for ongoing lung cancer screening with annual low-dose CT scans. Patient Instructions - Take metformin 500 mg twice daily as prescribed. - Increase Ozempic to 2 mg as directed. - Continue with annual low-dose CT scans for lung cancer screening. - Consider smoking cessation resources and support. [facility] Medical History Splenic artery aneurysm Left ventricular hypertrophy ANG (obstructive sleep apnea) Dyslipidemia Diabetes mellitus Toxic multinodular goiter Subclinical hyperthyroidism GERD (gastroesophageal reflux disease) Constipation Anxiety and depression Obesity, Class I, BMI 30-34.9 Osteoarthritis Post-menopausal Cervical neck pain with evidence of disc disease Surgical History History of hysterectomy History of cholecystectomy History of surgery on left wrist History of carpal tunnel surgery of left wrist History of carpal tunnel surgery of right wrist History of elbow surgery History of incision and drainage Family History Father Heart problem Mother No problems noted. Sister Breast cancer Daughter Overweight Maternal Grandfather Cancer Maternal Grandmother Multiple myeloma Paternal Grandfather Unknown family medical history Paternal Grandmother Unknown family medical history Social History Household Members: None Housing: House Do you presently have visiting nurse or other home services: No Alcohol intake: current Alcohol intake frequency: holidays/special occasions only Patient Tobacco Use Status: Current everyday Tobacco user Tobacco use type: Cigarette Cigarette Packs Per Day: 1 Cigarettes Per Day: 15 e-Cigarette/Vaping Use: Never Used Second Hand Smoke Exposure: No service: No Current occupational status: employed 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 1. Little interest or pleasure in doing things: not at all 2. Feeling down, depressed, or hopeless: not at all 3. Trouble falling or staying asleep, or sleeping too much: not at all 4. Feeling tired or having little energy: not at all 5. Poor appetite or overeating: not at all 6. Feeling bad about yourself - or that you are a failure or have let yourself or your family down: not at all 7. Trouble concentrating on things, such as reading the newspaper or watching television: not at all 8. Moving or speaking so slowly that other people could have noticed. Or the opposite - being so fidgety or restless that you have been moving around a lot more than usual: not at all 9. Thoughts that you would be better off or of hurting yourself in some way: not at all Total score: 0 Depression Screening Interpretation: Negative Depression Screening Done: Yes 55149 - PHQ-9 Billing: Yes Source: Developed by Drs. Alphonso Medina, Padmini Michele, Jun Davis and colleagues, with an educational brayan from [employer]. Thrive Questionnaire Date Thrive assessed: 06/26/24 I am a: Patient What is your living situation today?: I have a steady place to live Within the past 12 months, did the food you bought not last and you didn't have the money to get more?: Never true Within the past 12 months, did you worry whether your food would run out before you got money to buy more?: Never true Do you have trouble paying for medicines?: No Do you have trouble getting transportation to medical appointments?: No Do you have trouble paying your heating and electricity bill?: No Do you have trouble taking care of your child, family member or friend?: No Do you have trouble with day-to-day activities such as bathing, preparing meals, shopping, managing finances, etc.?: No Are you currently unemployed and looking for a job?: No Are you interested in more education?: No Please select the resources that you would like help with: None Currently or been in a relationship where the following occur: I choose not to answer THRIVE Score: 0 MAINOR-7 AMB Questionnaire MAINOR-7 Date MAINOR - 7 assessed: 12/31/24 Feeling nervous, anxious, or on edge: 1 = Several days Not being able to stop or control worryin = Several days Worrying too much about different things: 1 = Several days Trouble relaxin = Several days Being so restless that it is hard to sit still: 1 = Several days Becoming easily annoyed or irritable: 0 = Not at all Feeling afraid as if something awful might happen: 0 = Not at all Total MAINOR-7 score (0-4 normal; 5-9 mild; 10-14 moderate; 15-21 severe): 5 Source: Developed by Drs. Alphonso Medina, Padmini Michele, Jun Davis and colleagues, with an educational brayan from [employer]. MAINOR-7 Assessment Billing MAINOR-7 Assessment Tool: MAINOR-7 Assessment 77855 Physical exam (Primary Care) Vital Signs: Last Vital Signs Temp 98.3 F 12/31/24 14:10 Pulse 76 12/31/24 14:10 Resp 16 12/31/24 14:10 BP 122/68 12/31/24 14:10 Pulse Ox 97 12/31/24 14:10 Oxygen Delivery Method Room Air 12/31/24 14:10 BMI result Body Mass Index 32.4 Tobacco/Smoking Status: Tobacco use Status Tobacco use date assessed 12/31/24 12/31/24 14:18 Patient Tobacco Use Status Current everyday Tobacco 12/31/24 14:04 Tobacco use type Cigarette 12/31/24 14:04 e-Cigarette/Vaping Use Never Used 12/31/24 14:04 PHQ-9: PHQ-9 Score PHQ-9: Total score 0 12/31/24 14:13 Depression Screening Interpretation: Negative Thrive Assessment: Date of Thrive Assessment Date Thrive assessed 06/26/24 12/31/24 14:04 Currently or been in a relationship where the following occur: I choose not to answer Results AMB Hemoglobin A1c AMB Hemoglobin A1c 6.1 % Last Edit by Cheryl Desai MA on 12/31/24 14:39 Results Reviewed Results Reviewed: Laboratory Last Values Hgb A1c (Clinic) 6.1 % (4.0-6.0) H 12/31/24 14:16 Coding Level of Care Code Est Pt Level 3 (80349) Diagnoses Type 2 diabetes mellitus with hyperglycemia, without long-term current use of insulin E11.65 Diabetes mellitus complication status: with hyperglycemia Diabetes mellitus technician terminal and repeater insulin use: without technician terminal and repeater use Diabetes mellitus type: type 2 Additional Codes MAINOR-7 Assessment Billing - MAINOR-7 Assessment Tool: MAINOR-7 Assessment 50952 ([id number]) PHQ-9 - 19563 - PHQ-9 Billing: Yes ([id number]) Assessment & Plan Assessment & Plan (1) Diabetes mellitus: Code(s): E11.9 - Type 2 diabetes mellitus without complications Category: Medical Qualifiers: Diabetes mellitus complication status: with hyperglycemia Diabetes mellitus technician terminal and repeater insulin use: without prison use Diabetes mellitus type: type 2 Qualified Code(s): E11.65 - Type 2 diabetes mellitus with hyperglycemia Plan . Orders: Orders AMB Hemoglobin A1c Today Z13.9 - Encounter for screening, unspecified Medications: Changed From metformin 1,000 mg PO BIDWMEAL 90 days 180 tabs 1RF To metformin 500 mg PO BIDWMEAL 180 tabs 1RF 90 days From semaglutide 1 mg (0.75 mL) subcut QWEEK 9 mL 1RF To semaglutide 2 mg (0.75 mL) subcut QWEEK 3 mL 1RF
[2024-12-31 14:10] VITALS: BP 122/68; PULSE 76; RESP 16; TEMP 36.8; O2SAT 97; BMI 32.4
== END 2024-12-31 14:53 | disposition home or self-care (01) ==
LOC: HO.HMCC 13:57
PROVIDERS: PCP Nurse Practitioner Family; Visit Provider Nurse Practitioner Family
DX: Z13.9 Encounter for screening, unspecified (principal); E11.65 Type 2 diabetes mellitus with hyperglycemia

== ENCOUNTER 2024-12-31 15:12 | Outpatient (REF) | payer OTHER, SELFPAY ==
--- NOTE | 2024-12-31 15:15 | EMG_ITS ---
Chief complaint: Last EMG right upper extremity done 05/23/2023 showing mild slowing of right median sensory nerve/mild Carpal Tunnel Syndrome. Patient has history of right CTR 2003 and left CTR 2011. She has been complaining of neck and arm pain, right-sided especially. Today's study is part of a WC claim 12/18/2024. Reason for referral: Evaluate for Carpal Tunnel Syndrome Referred by: Marcel HUGHES Procedure done: Upper extremity NCS/EMG Precautions and/or limitations: None The limb temperature was monitored continuously and remained between 32-36 degrees C during the performance of the NCS. Nerve Conduction Studies Anti Sensory Summary Table ?Stim Site NR Onset (ms) Norm Onset (ms) Peak (ms) Norm Peak (ms) O-P Amp (?V) Norm O-P Amp Site1 Site2 Delta-0 (ms) Dist (cm) Nahid (m/s) Norm Nahid (m/s) Left Median Anti Sensory (2nd Digit) Wrist ? 3.2 3.9 <3.6 28.3 >10 Wrist 2nd Digit 3.2 14.0 44 Right Median Anti Sensory (2nd Digit) Wrist ? 3.1 4.0 <3.6 11.5 >10 Wrist 2nd Digit 3.1 14.0 45 Right Radial Anti Sensory (Thumb) Forearm ? 1.4 2.1 <3.1 25.0 Forearm Thumb 1.4 0.0 Left Ulnar Anti Sensory (5th Digit) Wrist ? 2.2 3.1 <3.7 26.8 >15.0 Wrist 5th Digit 2.2 14.0 64 Right Ulnar Anti Sensory (5th Digit) Wrist ? 2.5 3.3 <3.7 16.3 >15.0 Wrist 5th Digit 2.5 14.0 56 Motor Summary Table ?Stim Site NR Onset (ms) Norm Onset (ms) O-P Amp (mV) Norm O-P Amp iAmp (mV) Amp (1st) (%) Site1 Site2 Delta-0 (ms) Dist (cm) Nahid (m/s) Norm Nahid (m/s) Left Median Motor (Abd Poll Brev) Wrist ? 4.3 <3.9 9.7 >4.5 11.2 100.0 Elbow Wrist 4.0 19.0 47 >45 Elbow ? 8.3 9.9 11.4 102.1 Right Median Motor (Abd Poll Brev) Wrist ? 4.5 <3.9 1.5 >4.5 1.7 100.0 Elbow Wrist 3.8 19.0 50 >45 Elbow ? 8.3 1.4 1.5 93.3 Left Ulnar Motor (Abd Dig Minimi) Wrist ? 2.9 <3.0 7.8 >5 9.1 100.0 B Elbow Wrist 3.0 16.0 53 >45 B Elbow ? 5.9 6.7 7.9 85.9 A Elbow B Elbow 1.7 10.0 59 >45 A Elbow ? 7.6 6.4 7.6 82.1 Right Ulnar Motor (Abd Dig Minimi) Wrist ? 3.0 <3.0 8.1 >5 9.4 100.0 B Elbow Wrist 3.0 16.0 53 >45 B Elbow ? 6.0 7.6 8.8 93.8 A Elbow B Elbow 1.4 10.0 71 >45 A Elbow ? 7.4 7.3 8.5 90.1 EMG ?Side Muscle Nerve Root Ins Act Fibs Psw Amp Dur Poly Recrt Int Pat Comment Right 1stDorInt Ulnar C8-T1 Nml Nml Nml Nml Nml 0 Nml Complete Right FlexCarRad Median C6-7 Nml Nml Nml Nml Nml 0 Nml Complete Right Biceps Musculocut C5-6 Nml Nml Nml Nml Nml 0 Nml Complete Right Triceps Radial C6-7-8 Nml Nml Nml Nml Nml 0 Nml Complete Right Deltoid Axillary C5-6 Nml Nml Nml Nml Nml 0 Nml Complete Left 1stDorInt Ulnar C8-T1 Nml Nml Nml Nml Nml 0 Nml Complete Left FlexCarRad Median C6-7 Nml Nml Nml Nml Nml 0 Nml Complete Left Biceps Musculocut C5-6 Nml Nml Nml Nml Nml 0 Nml Complete Left Triceps Radial C6-7-8 Nml Nml Nml Nml Nml 0 Nml Complete Left Deltoid Axillary C5-6 Nml Nml Nml Nml Nml 0 Nml Complete FINDINGS: Right median motor nerve showed prolonged distal latency, small amplitude and normal conduction velocity. Left median motor nerve showed prolonged distal latency, normal amplitude and normal conduction velocity. Bilateral median sensory nerves showed prolonged peak latency. All other nerves tested were within normal. Concentric needle EMG was performed in selected muscles of the bilateral upper extremities. Study did not reveal signs of electric abnormalities as shown in the table above. IMPRESSION: 1. This is an abnormal study. 2. There is electrodiagnostic evidence for bilateral moderate-severe median neuropathy at the wrist, consistent with carpal tunnel syndrome. 3. There is no electrodiagnostic evidence for ulnar neuropathy, brachial plexopathy, or cervical radiculopathy. CLINICAL COMMENT: Right CTS worse as compared to 2022. No comparison available for left side. Thank you for your kind referral. Donna Flores MD, CHUY Board Certified, [place] Board [employer] and Rehabilitation (ABPMR) Board Certified, [place] Board of Electrodiagnostic Medicine (ABEM) CODIN [phone] MTDD
== END 2024-12-31 15:13 | disposition home or self-care (01) ==
LOC: HO.NEURO 15:12
PROVIDERS: PCP Nurse Practitioner Family
DX: R20.0 Anesthesia of skin (principal); R20.2 Paresthesia of skin; R94.131 Abnormal electromyogram [EMG]; E11.65 Type 2 diabetes mellitus with hyperglycemia; Z79.84 Long term (current) use of oral hypoglycemic drugs; Z79.85 Long-term (current) use of injectable non-insulin antidiabetic drugs; Z13.31 Encounter for screening for depression; Z13.30 Encounter for screening examination for mental health and behavioral disorders, unspecified
CPT/HCPCS: 83036; 95886; 95911; 96127

== ENCOUNTER → 2024-12-31 15:15 | Outpatient (BNV) | payer OTHER, SELFPAY | PROVIDERS: PCP Nurse Practitioner Family; Visit Provider Physical Medicine & Rehabilitation | DX: G56.03 Carpal tunnel syndrome, bilateral upper limbs (principal) | CPT/HCPCS: 95886; 95911 ==

== ENCOUNTER 2025-01-06 14:10 | Outpatient (AMB) | payer OTHER, SELFPAY ==
[2025-01-06 14:11] VITALS: BMI 32.4
--- NOTE | 2025-01-06 14:11 | A.OFFVIS_ITS ---
Vital Signs 01/06/25 14:11 Height 5 ft 2 in Weight 177 lb BMI 32.4 Intake Visit Reasons: OV-EMG review-Both Hands Intake Note: Helen is a 64 year old right hand dominant female who presents today for an EMG review. Patient complains of bilateral hand numbness and tingling, right greater than the left. Patient states symptoms are occurring daily, no changes since her last visit. IMPRESSION: 1. This is an abnormal study. 2. There is electrodiagnostic evidence for bilateral moderate-severe median neuropathy at the wrist, consistent with carpal tunnel syndrome. 3. There is no electrodiagnostic evidence for ulnar neuropathy, brachial plexopathy, or cervical radiculopathy. Allergies codeine (Codeine) Allergy (Intermediate, Verified 01/06/25 14:15) FELT OUT OF SORTS HPI HPI OV-EMG review-Both Hands: Details: Hazel is a 64 year old right hand dominant female who presents today for an EMG review. Patient complains of bilateral hand numbness and tingling, right greater than the left. Patient states symptoms are occurring daily, no changes since her last visit. Patient also reports locking and catching of the right middle finger. No other acute complaints or concerns at this time IMPRESSION: 1. This is an abnormal study. 2. There is electrodiagnostic evidence for bilateral moderate-severe median neuropathy at the wrist, consistent with carpal tunnel syndrome. 3. There is no electrodiagnostic evidence for ulnar neuropathy, brachial plexopathy, or cervical radiculopathy. [facility] Medical History Splenic artery aneurysm Left ventricular hypertrophy ANG (obstructive sleep apnea) Dyslipidemia Diabetes mellitus Toxic multinodular goiter Subclinical hyperthyroidism GERD (gastroesophageal reflux disease) Constipation Anxiety and depression Obesity, Class I, BMI 30-34.9 Osteoarthritis Post-menopausal Cervical neck pain with evidence of disc disease Surgical History History of hysterectomy History of cholecystectomy History of surgery on left wrist History of carpal tunnel surgery of left wrist History of carpal tunnel surgery of right wrist History of elbow surgery History of incision and drainage Family History Father Heart problem Mother No problems noted. Sister Breast cancer Daughter Overweight Maternal Grandfather Cancer Maternal Grandmother Multiple myeloma Paternal Grandfather Unknown family medical history Paternal Grandmother Unknown family medical history Social History Household Members: None Housing: House Do you presently have visiting nurse or other home services: No Alcohol intake: current Alcohol intake frequency: holidays/special occasions only Patient Tobacco Use Status: Current everyday Tobacco user Tobacco use type: Cigarette Cigarette Packs Per Day: 1 Cigarettes Per Day: 15 e-Cigarette/Vaping Use: Never Used Second Hand Smoke Exposure: No service: No Current occupational status: employed 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 Neuro: Normal sensation of the tips of all digits of the right hand at this time Vascular: Cap refill brisk Pain: Pain with making a closed fist with the right hand, particularly in the index finger Pain associated with locking and catching of the right middle finger Pain in the right wrist with range of motion No tenderness to palpation about the scapholunate interval ROM: Patient is able to make a closed fist and extend all digits of the right hand fully There is a visible and palpable locking and catching of the right middle finger Skin: No lacerations or abrasions. General: No ecchymosis, erythema, or evidence of infection. Psych: Appears grossly normal Affect normal Attitude cooperative Assessment & Plan Assessment & Plan (1) Bilateral carpal tunnel syndrome: Code(s): G56.03 - Carpal tunnel syndrome, bilateral upper limbs Category: Medical (2) Trigger finger, right middle finger: Code(s): M65.331 - Trigger finger, right middle finger Category: Medical Plan 1. Right carpal tunnel syndrome Symptoms intermittent, daily, worse at night 2. Right middle finger trigger finger I educated the patient about the condition. I discussed both operative and nonoperative treatment options. The patient would like to proceed with surgery. The risks and benefits of operative treatment were discussed with the patient and the patient wishes to proceed with surgery. These risks include, but are not limited to, risk of damage to blood vessels, nerves, tendons, infection, recurrence, incomplete relief of preoperative symptoms, persistent pain, possible need for further surgery, and the risks associated with regional blocks and/or anesthesia. Plan is to take the patient to the operating room at some point in the next few weeks for the following procedures: 1. Right carpal tunnel release under local 2. Right middle finger trigger release under local All of the preoperative paperwork including the consent was discussed today. All of the patient's questions were answered in the clinic today. The patient understands that they will be in contact with our quality assurance advisor to discuss scheduling their procedure. Patient denies diabetes, blood thinners, asthma, heart issues, lung issues, kidney issues, or current smoking. Coding Level of Care Code Est Pt Level 4 (16469) Diagnoses Bilateral carpal tunnel syndrome G56.03 Trigger finger, right middle finger M65.331
== END 2025-01-06 15:37 | disposition home or self-care (01) ==
LOC: HO.HOS 14:10
PROVIDERS: PCP Nurse Practitioner Family
DX: G56.03 Carpal tunnel syndrome, bilateral upper limbs (principal); M65.331 Trigger finger, right middle finger
CPT/HCPCS: 99214

== ENCOUNTER → 2025-01-06 14:10 | Outpatient (BNVA) | payer OTHER, SELFPAY | PROVIDERS: PCP Nurse Practitioner Family | DX: Z71.2 Person consulting for explanation of examination or test findings (principal); G56.03 Carpal tunnel syndrome, bilateral upper limbs; M65.331 Trigger finger, right middle finger | CPT/HCPCS: 99212 ==

== ENCOUNTER 2025-01-07 13:00 | Outpatient (RCR) | payer OTHER, SELFPAY ==
--- NOTE | 2025-01-02 10:31 | MHC.OT.EP ---
[address] [phone] Occupational Therapy Plan of Care Patient Name: Hazel Coyne Date of Evaluation: 01/01/25 Diagnosis: R wrist pain/ CTS Pain Location: Pain Score: 7 Pain Scale Used: Numeric (0 - 10) Aggravating Factors: using her hand/ wrist Alleviating Factors: Assessment: Pt is a 64 yr old R hand dominant female who reports pain in her R UE - shoulder / elbow / wrist. 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 She was put on prednisone which bothered her stomach and will begin meloxicam today. Pt was given a splint for day wear , but we will be transitioning to SF. Pt would benefit from splint wearing it to bed at night. She had a nerve conduction study yesterday which was positive for Carpal Tunnel in B hands. 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 Thank you once again for your referral.
== END 2025-01-07 13:32 | disposition home or self-care (01) ==
LOC: HO.OT 13:00
PROVIDERS: PCP Nurse Practitioner Family
DX: M25.641 Stiffness of right hand, not elsewhere classified (principal)
CPT/HCPCS: 97035; 97110; 97140; 97166; 97535

== ENCOUNTER → 2025-01-09 15:02 | Outpatient (BNVA) | payer OTHER, SELFPAY | PROVIDERS: PCP Nurse Practitioner Family; Visit Provider Physician Assistant Medical | DX: M54.12 Radiculopathy, cervical region (principal); S46.911D Strain of unspecified muscle, fascia and tendon at shoulder and upper arm level, right arm, subsequent encounter; S66.911D Strain of unspecified muscle, fascia and tendon at wrist and hand level, right hand, subsequent encounter; X50.3XXD Overexertion from repetitive movements, subsequent encounter; M77.11 Lateral epicondylitis, right elbow | CPT/HCPCS: 99213 ==

== ENCOUNTER 2025-01-15 15:22 | Outpatient (AMB) | payer OTHER, SELFPAY ==
[2025-01-15 15:25] VITALS: BP 134/66; PULSE 67; O2SAT 95; BMI 33.0
--- NOTE | 2025-01-15 15:25 | A.OFFVIS_ITS ---
Vital Signs 3 01/15/25 15:25 Height 5 ft 2 in Weight 180 lb 8.937 oz BMI 33.0 BP 134/66 Blood Pressure Location Lt brachial Position Sitting Pulse 67 Pulse Source Pulse Oximeter Pulse Oximetry (%) 95 Oxygen Delivery Method Room Air Intake Visit Reasons: Biopsy f/u Intake Note: Patient present today for biopsy results. Rectifier Operator Required: No Accompanied by: Self / Same As Patient Allergies codeine (Codeine) Allergy (Intermediate, Verified 01/15/25 15:28) FELT OUT OF SORTS HPI Comments Details: 64 YO F seen for f ollow up of multinodular thyroid . Prior HPI She was found to have a suppressed TSH. Previously saw npt in 2006 for Graves Dx? and hyperthyroidism. Unclear history , she thinks she was prescribed antithyroid medicine but not sure was only on it for 6 months. Most recently labs have showed since May 2023 show subclinical hyperthyroidism with mos trecent labs 12/25 TSH 0.2 , normal free t4 0.9. Was diagnosed with multinodular thyroid on ultrasound in December 2023, which showed a right-sided dominant 1.5 cm solid, hypoechoic nodule with punctate echogenic foci TR 5 category. Also showed left-sided nodules with 2 dominant nodules at 2.4 cm left mid lobe nodule, solid, hypoechoic, taller than wide TR 5 category with punctate echogenic foci, and a 2.2 cm left inferior lobe nodule, solid, hypoechoic with punctate echogenic foci, TR 4 category. Subsequently thyroid uptake and scan February 2024 showed normal radioactive iodine uptake. The technetium pertechnetate scan that showed increased activity in the right upper and left superior lobes, as well as a photopenic region in the left inferior lobe. . Given photopenic region in the left inferior lobe, we decided to proceed with biopsies on the left side. On 03/05/2024 patient underwent FNA of the left mid lobe 2.4 cm and left lower lobe 2.2 cm nodules. Both came back as benign cytology (Kinsley category 2). Currently denies any dysphagia or hoarseness of voice. Denies sensation of swelling in the neck or difficulty breathing while lying flat. Denies any tenderness in the neck. Denies any palpitations, tremors, weight loss, frequent bowel movements. Denies any ocular complaints, blurred or double vision. Denies hair loss, dry skin, heat or cold intolerance, weight gain, confusion. Denies any history of head or neck irradiation. Denies any family history of thyroid cancer. Sister had lobectomy. Smokes half a pack a day. Fracture: once ankle 2004 tripped off a curb No recent viral infections She did receive contrast but that was in November 2023, 3 months before the uptake and scan. Interval history Labs from December 2024 showed TSH is still mildly low at 0.12, free T4 normal at 0.97, total T3 normal at 92. Ultrasound reviewed from November 2024 which shows stable size of the nodules. No palpitations, no tremors, no weight changes. Physical exam General: sitting comfortably in no acute distress HEENT: normocephalic/atraumatic, moist oral mucosa Neck: supple, symmetrical, palpable 1-2 cm right and left lobe nodules Cardiac: normal heart sounds Pulm: normal breath sounds B/L, no added breath sounds Abd: not distended, no tenderness Extremities: no edema, no signs of myxedema Laboratory Tests 11/19/21 05/30/23 12/22/23 06:43 09:50 06:49 TSH 0.35 0.11 L 0.13 L Free T4 1.27 0.86 Free T3 Total T3 12/28/23 12/13/24 15:15 08:46 TSH 0.20 L 0.12 L Free T4 0.90 0.97 Free T3 3.2 Total T3 92 EXAMINATION: US THYROID 11/05/24 HISTORY: E05.20 - Thyrotoxicosis with toxic multinodular goiter without thyrotoxicosis... TECHNIQUE: Real-time grayscale ultrasound imaging was performed and images were reviewed. COMPARISON: Comparison is made with the prior examination dated 01/01/2024. FINDINGS: SIZE: The right thyroid lobe measures 5.0 x 2.9 x 2.2 cm. The left thyroid lobe measures 5.4 x 2.8 x 2.1 cm. The isthmus measures 5 mm. FLOW: Flow to the gland is normal. ECHOGENICITY: The echotexture of the gland is heterogeneous. NODULES: Numerous bilateral thyroid nodules are identified. The most suspicious nodules are described below: Nodule #: 1 Location: Upper pole of the left thyroid lobe measuring 1.3 x 0.8 x 1.0 cm (previously 1.1 x 0.8 x 1.0 cm). Shape: Wider than tall (0 points) Margins: Smooth (0 points) Echotexture: Hypoechoic (2 points) Composition: Solid (2 points) Calcifications: None (0 points) Total points: 4 TIRADS: TR4: Moderately suspicious. Nodule #: 2 Location: Mid to upper pole of the left thyroid lobe measuring 1.0 x 0.8 x 1.1 cm (not seen previously). Shape: Wider than tall (0 points) Margins: Smooth (0 points) Echotexture: Hypoechoic (2 points) Composition: Mostly solid (2 points) Calcifications: None (0 points) Total points: 4 TIRADS: TR4: Moderately suspicious. Nodule #: 3 Location: Midportion of the left thyroid lobe measuring 2.4 x 1.2 x 1.8 cm (previously 2.4 x 1.8 x 1.3 cm). Shape: Wider than tall (0 points) Margins: Smooth (0 points) Echotexture: Very hypoechoic (3 points) Composition: Solid (2 points) Calcifications: Punctate calcifications (3 points) Total points: 8 TIRADS: TR5: Highly suspicious. Nodule #: 4 Location: Lower pole of the left thyroid lobe measuring 2.4 x 1.6 x 2.2 cm (previously 2.2 x 2 1.6 x 2.0 cm). Shape: Wider than tall (0 points) Margins: Extrathyroidal extension (3 points) Echotexture: Isoechoic (1 point) Composition: Solid (2 points) Calcifications: None (0 points) Total points: 6 TIRADS: TR4: Moderately suspicious. Nodule #: 5 Location: Mid to lower pole of the right thyroid lobe measuring 1.4 x 0.7 x 1.4 cm (previously 1.5 x 0.6 x 1.4 cm). Shape: Wider than tall (0 points) Margins: Smooth (0 points) Echotexture: Very hypoechoic (3 points) Composition: Mostly solid (2 points) Calcifications: Punctate calcifications (3 points) Total points: 8 TIRADS: TR5: Highly suspicious. US/US thyroid IMPRESSION: Multinodular thyroid gland with multiple suspicious nodules, with similar appearance to the prior study. The patient is status post fine-needle aspiration of multiple nodules on 03/05/2024. EXAMINATION: THYROID UPTAKE AND SCAN 02/25 CLINICAL INFORMATION: Low TSH levels, question multinodular goiter. COMPARISON: No previous radionuclide thyroid scan is available for comparison. Thyroid ultrasound dated 01/01/2024 is available for comparison. TECHNIQUE: Following the oral administration of 281 microcuries of I-123 sodium iodide, thyroid uptake was performed and expressed as a percentage of the administrated dose. Gamma scintillation camera images of the thyroid in the anterior and right and left anterior oblique views were obtained using a pinhole collimator following the administration of 10 mCi Tc-99m pertechnetate. FINDINGS: The uptake is 8.1% at 4 hours and 22.2% at 24 hours (Normal radioiodine uptake at 24 hours is 10% to 30%). The radioiodine uptake is normal. The radiopertechnetate thyroid scintigram shows the thyroid gland to be asymmetrical with the left lobe larger than the right. Both lobes are heterogeneous with an ovoid-shaped focus of moderately increased activity present in the superior half of the left lobe, and inferior to this a rounded focus within the lower pole shows only faint peripheral activity and is centrally photopenic. On the right there is a rounded focus of relatively increased activity at the junction of the middle and upper thirds of the right lobe, but the remainder of the right lobe shows markedly diminished activity. A single anterior radioiodine image obtained at the time of the 24 hour uptake measurement is similar to the radio pertechnetate image. The thyroid ultrasound dated 01/01/2024 shows multiple bilateral thyroid nodules. NM/NM thyroid w uptake IMPRESSION: Multinodular goiter. Both functioning (hot) and hypofunctioning (cold) nodules appear to be present. The dominant functioning nodules are in the upper poles bilaterally. In the lower poles, the nodules are probably hypofunctioning, but particularly in the left lower pole a functioning nodule with marked central degeneration may be responsible for the appearance on this scan. The radioiodine uptake is normal. In the clinical setting of low TSH, these findings are probably due to a toxic multinodular goiter (Maciel's disease), but particularly in the lower pole of the left lobe a hypofunctioning (cold) nodule may be present, and this nodule appeared predominantly solid on the 01/01/2024 ultrasound. An ultrasound-guided fine-needle aspirate directed toward this nodule in particular may be of additional diagnostic value, if clinically indicated. Electronically signed by: Kasi Haynes MD 02/21/2024 11:10 AM EDT RP US THYROID 12/25 CLINICAL INFORMATION: Other specified abnormal findings of blood chemistry. Low TSH. COMPARISON: None available. TECHNIQUE: Linear transducer grayscale and color Doppler examination with attention to the region of the thyroid. FINDINGS: SIZE: Measurements of the thyroid lobes and nodules are given in sagittal, anteroposterior and transverse dimensions respectively. Right Thyroid Lobe: 4.51 x 2.56 x 1.56 cm, volume 9.42 mL. Parenchyma: The gland echotexture is heterogeneous. Thyroid vascularity is normal. Left Thyroid Lobe: 6.0 x 3.5 x 2.0 cm, volume 21.6 mL. Parenchyma: The gland echotexture is heterogeneous. Thyroid vascularity is normal. Isthmus: 0.34 cm in maximum AP dimension. Estimated total number of nodules greater than or equal to 1 cm: 5. Outbound Supervisor nodules are described as follows: 1. Location: Right mid. Size: 1.5 x 0.64 x 1.4 cm, volume 0.70 mL. Nodule characteristics: Composition: Solid (2). Echogenicity: Very hypoechoic (3). Shape: Not taller than wide (0). Margins: Smooth (0). Echogenic Foci: Punctate echogenic foci (3). ACR TI-RADS total points: 8 ACR TI-RADS category: 5 2. Location: Right inferior. Size: 0.80 x 1.1 x 1.2 cm, volume 0.47 mL. Nodule characteristics: Composition: Solid (2). Echogenicity: Very hypoechoic (3). Shape: Not taller than wide (0). Margins: Smooth (0). Echogenic Foci: None (0). ACR TI-RADS total points: 5 ACR TI-RADS category: 4 3. Location: Left inferior. Size: 2.2 x 1.6 x 2.0 cm, volume 3.7 mL. Nodule characteristics: Composition: Solid (2). Echogenicity: Hyperechoic (1). Shape: Not taller than wide (0). Margins: Smooth (0). Echogenic Foci: Punctate echogenic foci (3). ACR TI-RADS total points: 6 ACR TI-RADS category: 4 4. Location: Left mid. Size: 2.4 x 1.8 x 1.3 cm, volume 2.8 mL. Nodule characteristics: Composition: Solid (2). Echogenicity: Very hypoechoic (3). Shape: Taller than wide (3). Margins: Smooth (0). Echogenic Foci: Punctate echogenic foci (3). ACR TI-RADS total points: 11 ACR TI-RADS category: 5 5. Location: Left superior. Size: 1.1 x 0.80 x 1.0 cm, volume 0.50 mL. Nodule characteristics: Composition: Solid (2). Echogenicity: Hypoechoic (2). Shape: Not taller than wide (0). Margins: Smooth (0). Echogenic Foci: None (0). ACR TI-RADS total points: 4 ACR TI-RADS category: 4 NODES: No lymphadenopathy is seen in the tissue surrounding the thyroid gland. US/US thyroid IMPRESSION: Multiple thyroid nodules with largest 5 measured as above. 2.4 cm left mid TR5 nodule, 2.2 cm left lower TR4 nodule and 1.5 cm right mid TR5 nodule meet criteria for biopsy. Fine-needle aspiration of at least the 2 largest of these nodules is recommended. This study was presented to me on January 14, 2024 for interpretation. [facility] staff will provide results to referring provider at this time. [facility] Medical History Splenic artery aneurysm Left ventricular hypertrophy ANG (obstructive sleep apnea) Dyslipidemia Diabetes mellitus Toxic multinodular goiter Subclinical hyperthyroidism GERD (gastroesophageal reflux disease) Constipation Anxiety and depression Obesity, Class I, BMI 30-34.9 Osteoarthritis Post-menopausal Cervical neck pain with evidence of disc disease Surgical History History of hysterectomy History of cholecystectomy History of surgery on left wrist History of carpal tunnel surgery of left wrist History of carpal tunnel surgery of right wrist History of elbow surgery History of incision and drainage Family History Father Heart problem Mother No problems noted. Sister Breast cancer Daughter Overweight Maternal Grandfather Cancer Maternal Grandmother Multiple myeloma Paternal Grandfather Unknown family medical history Paternal Grandmother Unknown family medical history Social History Household Members: None Housing: House Do you presently have visiting nurse or other home services: No Alcohol intake: current Alcohol intake frequency: holidays/special occasions only Patient Tobacco Use Status: Current everyday Tobacco user Tobacco use type: Cigarette Cigarette Packs Per Day: 1 Cigarettes Per Day: 15 e-Cigarette/Vaping Use: Never Used Second Hand Smoke Exposure: No service: No Current occupational status: employed 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 Current occupational exposures/hazards: No Cognitive needs: No Hearing needs: No Vision needs: No Physical Exam Vital Signs: Last Vital Signs Pulse 67 01/15/25 15:25 BP 134/66 01/15/25 15:25 Pulse Ox 95 01/15/25 15:25 Oxygen Delivery Method Room Air 01/15/25 15:25 BMI result Body Mass Index 33.0 Assessment & Plan Assessment & Plan (1) Toxic multinodular goiter: Code(s): E05.20 - Thyrotoxicosis with toxic multinodular goiter without thyrotoxic crisis or storm Category: Medical Plan: 64-year-old female with toxic nodular goiter, causing subclinical hyperthyroidism however thyroid uptake and scan from February 2024 also showed decreased activity in the left inferior lobe. Thyroid ultrasound from December 2023, showed a right-sided dominant 1.5 cm solid, hypoechoic nodule with punctate echogenic foci TR 5 category. Also showed left-sided nodules with 2 dominant nodules at 2.4 cm left mid lobe nodule, solid, hypoechoic, taller than wide TR 5 category with punctate echogenic foci, and a 2.2 cm left inferior lobe nodule, solid, hypoechoic with punctate echogenic foci, TR 4 category. No family history of thyroid cancer. No personal history of head or neck radiation All of these dominant nodules meet criteria for biopsy. However in the right mid lobe nodule, given increased activity on the technetium pertechnetate scan we will hold off on biopsying this for now. Given decreased activity on the uptake and scan in the left inferior lobe region, we did for biopsy of the left mid lobe 2.4 cm in the left lower lobe 2.2 cm nodules. On 03/05/2024 patient underwent FNA of the left mid lobe 2.4 cm and left lower lobe 2.2 cm nodules. Both came back as benign cytology (Kinsley category 2). She has no compressive symptoms. Labs from December 2024 showed TSH is still mildly low at 0.12, free T4 normal at 0.97, total T3 normal at 92. Ultrasound reviewed from November 2024 which shows stable size of the nodules. Plan: -ultrasound of the thyroid ordered for December prior to follow up in January 2026 Patient verbalized understanding and agreeable with plan. All questions answered. (2) Subclinical hyperthyroidism: Code(s): E05.90 - Thyrotoxicosis, unspecified without thyrotoxic crisis or storm Category: Medical Plan: Patient with subclinical hyperthyroidism, with negative trab antibodies, with most recent labsLabs from December 2024 showed TSH is still mildly low at 0.12, free T4 normal at 0.97, total T3 normal at 92. She does not have any symptoms of hyper or hypothyroidism. She was also found to have thyroid nodules on ultrasound in December 2023, with subsequent thyroid uptake and scan in February 2024 showed normal radioactive iodine uptake. The technetium pertechnetate scan that showed increased activity in the right upper and left superior lobes, as well as a photopenic region in the left inferior lobe. . She does have toxic nodules. However she currently does not meet criteria for treatment as TSH is above 0.1, she has no history of osteoporosis, no recent fragility fractures, no history of heart disease, no history of arrhythmias. She is less than 65 years old. I explained to her that these are some of the conditions for which we consider treatment. If we were to consider treatment for her, she would be a good candidate for total thyroidectomy given multiple bilateral nodules. For now we will repeat her labs in 1 yr. Plan: -repeat TSH, free T4 in 1 yr Plan see above Orders: Orders 2 US thyroid 12/14/25 E05.20 - Thyrotoxicosis with toxic multinodular goiter without thyrotoxic crisis or storm, E05.90 - Thyrotoxicosis, unspecified without thyrotoxic crisis or storm Free T4 (Free Thyroxine) 12/14/25 E05.20 - Thyrotoxicosis with toxic multinodular goiter without thyrotoxic crisis or storm, E05.90 - Thyrotoxicosis, unspecified without thyrotoxic crisis or storm Thyroid Stimulating Hormone 12/14/25 E05.20 - Thyrotoxicosis with toxic multinodular goiter without thyrotoxic crisis or storm, E05.90 - Thyrotoxicosis, unspecified without thyrotoxic crisis or storm Triiodothyronine T3 Total 12/14/25 E05.20 - Thyrotoxicosis with toxic multinodular goiter without thyrotoxic crisis or storm, E05.90 - Thyrotoxicosis, unspecified without thyrotoxic crisis or storm Patient Instructions: Do ultrasound of the thyroid in December 2025, someone will call youto schedule this , please make sure its done a few weeks prior to your next fup with me Do thyroid blood work a few days prior to follow up Coding Level of Care Code Est Pt Level 3 (21793) Diagnoses Toxic multinodular goiter E05.20 Subclinical hyperthyroidism E05.90
== END 2025-01-15 15:57 | disposition home or self-care (01) ==
LOC: HO.ENCR 15:23
PROVIDERS: PCP Nurse Practitioner Family; Visit Provider Student in an Organized Health Care Education/Training Program
DX: E05.20 Thyrotoxicosis with toxic multinodular goiter without thyrotoxic crisis or storm (principal); E05.90 Thyrotoxicosis, unspecified without thyrotoxic crisis or storm
CPT/HCPCS: 99213

== ENCOUNTER → 2025-02-06 14:28 | Outpatient (BNVA) | payer OTHER, SELFPAY | PROVIDERS: PCP Nurse Practitioner Family; Visit Provider Physician Assistant Medical | DX: M54.12 Radiculopathy, cervical region (principal); S46.911D Strain of unspecified muscle, fascia and tendon at shoulder and upper arm level, right arm, subsequent encounter; S66.911D Strain of unspecified muscle, fascia and tendon at wrist and hand level, right hand, subsequent encounter; X50.3XXD Overexertion from repetitive movements, subsequent encounter; M25.811 Other specified joint disorders, right shoulder; M77.11 Lateral epicondylitis, right elbow | CPT/HCPCS: 99213 ==

== ENCOUNTER 2025-02-09 09:28 | Day surgery (SDC) | payer OTHER, SELFPAY ==
[2025-02-09 10:04] VITALS: BMI 32.9
[2025-02-09 10:07] VITALS: BP 147/66; PULSE 64; RESP 16; TEMP 36.3; O2SAT 98
--- NOTE | 2025-02-09 10:30 | MHC.SHP ---
Pre-Procedural Eval Section A - 24 Hr Update-Section A only Date of Service: 02/09/25 The patient is an INPATIENT: No Changes since office visit: No Cold of Flu in the past 2 weeks, No New Medical Problems, No Changes in Medication and No Patient answered all questions The patient has been examined within 24 hours of the surgical procedure. The History & Physical has been completed within 30 days and I have reviewed it.: Yes Section B - Complete if H&P > 30 days Chief Complaint: carpal tunnel,trigger finger Allergies: Allergies Allergy/AdvReac Type Severity Reaction Status Date / Time codeine (Codeine) Allergy Intermediate FELT OUT Verified 01/15/25 15:28 OF SORTS Plan Diagnosis/Plan: Unchanged I have reviewed the history and physical and performed a pertinent physical examination on my patient. No changes have occurred unless specified. Time Spent With Patient Time: Total time managing care of this patient today ____ minutes.
--- NOTE | 2025-02-09 10:31 | P.OP_ITS ---
Operative Note Operative Note Date of Service: 02/09/25 Narrative: Preop diagnosis: 1. Right Carpal tunnel syndrome 2. Right middle finger trigger finger Postop diagnosis: same Procedure: 1. Right Carpal tunnel release 2. Right middle finger trigger release Surgeon: Zarina Moss MD Rubberizing Mechanic: None Anesthesia: local block using 1% lidocaine with epinephrine Findings: Thickened transverse carpal ligament. EBL: Less than 5 mL Specimens: None Complications: None Disposition: Brought to recovery room in stable condition Plan: Follow-up for 10-14 days for wound check and suture removal Indications: The patient is 64 years old, with right carpal tunnel syndrome that has been unresponsive to nonoperative management. The risks and benefits of operative treatment including but not limited to risk of damage to blood vessels, nerves, tendons, infection, persistent pain, persistent symptoms, or possible need for additional surgery were discussed with the patient and the patient wishes to proceed with surgery. Procedure: Once consent was obtained a local block was performed using a combination of 1% lidocaine with epinephrine. The patient was then brought back to the operating suite and placed on the operative table in supine position. Th e right upper extremity was prepped and draped in a standard surgical fashion. Once assured that we had a good block, a 1.5 cm oblique incision was made centered over the A1 ayanna of the right middle finger . The incision was made through the skin to the subcutaneous tissues using a #15 blade. Careful dissection was made down to the level of the A1 ayanna using tenotomy scissors, with care being taken to protect the nearby neurovascular structures. A longitudinal incision was made in the A1 ayanna 1st using a #15 blade, then using tenotomy scissors under direct visualization. The A1 ayanna was noted to be thickened. Following our A1 ayanna release, we no longer saw any locking or catching of the digit with flexion and extension. Once assured that we had a good block, a 2.0 cm longitudinal incision was made centered over the right carpal tunnel. The incision was made through the skin to the subcutaneous tissues using a #15 blade. Dissection was made down to the level of the transverse carpal ligament with care being taken to protect the palmar cutaneous nerve. Once the transverse carpal ligament was clearly visualized, a longitudinal incision was made in the transverse carpal ligament 1st using a #15 blade, then using tenotomy scissors under direct visualization. Care was taken to look for and protect the motor branch of the median nerve when seen in this area. Once satisfied with our carpal tunnel release the wound was copiously irrigated with normal saline and hemostasis was obtained with a brief period of local pressure. The skin edges were reapproximated with some 5.0 nylon suture material and a sterile dressing was applied. The patient appears to have tolerated the procedure well and with no complications. All digits were well vascularized at the conclusion of the case.
[2025-02-09 12:29] VITALS: BP 141/72; PULSE 60; RESP 16; O2SAT 94
== END 2025-02-09 12:32 | disposition home or self-care (01) ==
PROVIDERS: PCP Nurse Practitioner Family; Visit Provider Orthopaedic Surgery
PROC: (CPT 64721; principal; 2025-02-09 11:10)
PROC: (CPT 26055; 2025-02-09 11:10)
DX: M65.331 Trigger finger, right middle finger (principal); G56.01 Carpal tunnel syndrome, right upper limb; R20.0 Anesthesia of skin; R20.2 Paresthesia of skin; E66.811 Obesity, class 1; Z68.32 Body mass index [BMI] 32.0-32.9, adult; G47.33 Obstructive sleep apnea (adult) (pediatric); I51.7 Cardiomegaly; E78.5 Hyperlipidemia, unspecified; E11.9 Type 2 diabetes mellitus without complications; F41.9 Anxiety disorder, unspecified; M19.90 Unspecified osteoarthritis, unspecified site; Z88.5 Allergy status to narcotic agent; Z98.890 Other specified postprocedural states; F17.210 Nicotine dependence, cigarettes, uncomplicated
CPT/HCPCS: 26055; 64721; J0165; J2003

== ENCOUNTER → 2025-02-09 09:28 | Outpatient (BNV) | payer OTHER, SELFPAY | PROVIDERS: PCP Nurse Practitioner Family; Visit Provider Orthopaedic Surgery | DX: G56.01 Carpal tunnel syndrome, right upper limb (principal); M65.331 Trigger finger, right middle finger | CPT/HCPCS: 26055; 64721 ==

== ENCOUNTER 2025-02-11 08:00 | Day surgery (SDC) | payer OTHER, SELFPAY ==
[2025-02-09 13:27] VITALS: BMI 31.8
--- NOTE | 2025-02-10 09:02 | HO.ANESPROP2 ---
Documented by User: Dee Chew NP 02/10/25 09:06 HPI - Anesthesia Eval Consult details Narrative: 64 yr old female for upper endoscopy, colonoscopy Splenic artery aneurysm: 2.5 cm without change on 09/2024 CT abd/pelvis; saw Binta in 2023 and plans to see her back if >3cm Type 2 DM: A1C 6.1% +tobacco abuse ANG Anesthesia Pre-Procedure Meds Is the patient on any of the following meds?: GLP1/DPP4 PMFSH Active Problems Active Problems: All Active Problems (Updated 01/06/25 @ 18:05 by ELLEN Kern) Trigger finger, right middle finger (Acute) Bilateral carpal tunnel syndrome (Acute) Stiffness of right hand joint (Acute) Scapholunate dissociation of right wrist (Acute) Pain in both lower extremities (Acute) Kidney cysts (Acute) Pancreatic abnormality (Acute) Left shoulder pain (Acute) Kidney lesion, [facility] [facility] [place], right (Acute) Screening for colon cancer (Acute) Elevated ferritin (Acute) Restless (Acute) Mid back pain (Acute) Thoracic radiculitis (Acute) Left upper quadrant abdominal pain (Acute) Low TSH level (Acute) Family history of pancreatic cancer (Acute) Myofascial pain (Acute) Radiculitis of right cervical region (Acute) Nicotine dependence, cigarettes, uncomplicated (Acute) Right carpal tunnel syndrome (Acute) Cervical radiculopathy (Acute) Tendonitis of both rotator cuffs (Acute) Calcific tendonitis of right shoulder (Acute) Calcific tendonitis of left shoulder region (Acute) Abnormal EKG (Acute) Bradycardia (Acute) Chest pain (Acute) Left arm pain (Acute) Mass of soft tissue of right upper extremity (Acute) De Quervain's tenosynovitis, left (Acute) Wrist pain (Acute) Nodule of finger (Acute) Bone spur of foot (Acute) Weakness (Acute) Shortness of breath (Acute) Bronchitis (Acute) Obesity, Class I, BMI 30-34.9 (Acute) GERD (gastroesophageal reflux disease) (Acute) Toxic multinodular goiter (Acute) Subclinical hyperthyroidism (Acute) Splenic artery aneurysm (Acute) Diabetes mellitus (Acute) Dyslipidemia (Acute) Post-menopausal (Acute) Past Medical History Medical History Splenic artery aneurysm Left ventricular hypertrophy ANG (obstructive sleep apnea) Dyslipidemia Diabetes mellitus Toxic multinodular goiter Subclinical hyperthyroidism GERD (gastroesophageal reflux disease) Constipation Anxiety and depression Obesity, Class I, BMI 30-34.9 Osteoarthritis Post-menopausal Cervical neck pain with evidence of disc disease Family History Family History Father Heart problem Mother No problems noted. Sister Breast cancer Daughter Overweight Maternal Grandfather Cancer Maternal Grandmother Multiple myeloma Paternal Grandfather Unknown family medical history Paternal Grandmother Unknown family medical history Surgical History Surgical History History of carpal tunnel release History of hysterectomy History of cholecystectomy History of surgery on left wrist History of carpal tunnel surgery of left wrist History of carpal tunnel surgery of right wrist History of elbow surgery History of incision and drainage History of Problems with Anesthesia: No Social History Social History Household Members: None Housing: House Do you presently have visiting nurse or other home services: No Alcohol intake: current Alcohol intake frequency: holidays/special occasions only Patient Tobacco Use Status: Current everyday Tobacco user Tobacco use type: Cigarette Cigarette Packs Per Day: 1 Cigarettes Per Day: 15 e-Cigarette/Vaping Use: Never Used Second Hand Smoke Exposure: No Advance Directives: No Advance Directives Information Provided: Yes service: No Current occupational status: employed 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 Current occupational exposures/hazards: No Cognitive needs: No Hearing needs: No Vision needs: No Meds Allergies Allergy/AdvReac Type Severity Reaction Status Date / Time codeine (Codeine) Allergy Intermediate FELT OUT Verified 01/15/25 15:28 OF SORTS Home Medications ?Medication ?Instructions ?Recorded ?Confirmed ?Last Taken ?Type cholecalciferol (vitamin D3) 25 50 mcg PO DAILY 10/01/21 02/09/25 05/29/23 History mcg (1,000 unit) capsule cyclobenzaprine 10 mg tablet 10 mg PO BEDTIME 01/06/25 02/09/25 Unknown History Exam Height,Weight and Vital Signs: Height 5 ft 2 in Weight 78.925 kg Assessment and Plan Final Anesthetic Review History of Problems with Anesthesia: No Documented by User: Julius Maradiaga MD 02/11/25 09:26 [facility] Past Medical History Medical History Splenic artery aneurysm Left ventricular hypertrophy ANG (obstructive sleep apnea) Dyslipidemia Diabetes mellitus Toxic multinodular goiter Subclinical hyperthyroidism GERD (gastroesophageal reflux disease) Constipation Anxiety and depression Obesity, Class I, BMI 30-34.9 Osteoarthritis Post-menopausal Cervical neck pain with evidence of disc disease Functional capacity: independent ambulation Family History Family History Father Heart problem Mother No problems noted. Sister Breast cancer Daughter Overweight Maternal Grandfather Cancer Maternal Grandmother Multiple myeloma Paternal Grandfather Unknown family medical history Paternal Grandmother Unknown family medical history Family history of problems with anesthesia: No Surgical History Surgical History History of carpal tunnel release History of hysterectomy History of cholecystectomy History of surgery on left wrist History of carpal tunnel surgery of left wrist History of carpal tunnel surgery of right wrist History of elbow surgery History of incision and drainage Social History Social History Household Members: None Housing: House Do you presently have visiting nurse or other home services: No Alcohol intake: current Alcohol intake frequency: holidays/special occasions only Patient Tobacco Use Status: Current everyday Tobacco user Tobacco use type: Cigarette Cigarette Packs Per Day: 1 Cigarettes Per Day: 15 e-Cigarette/Vaping Use: Never Used Second Hand Smoke Exposure: No Advance Directives: No Advance Directives Information Provided: Yes service: No Current occupational status: employed 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 Current occupational exposures/hazards: No Cognitive needs: No Hearing needs: No Vision needs: No Meds Allergies Allergy/AdvReac Type Severity Reaction Status Date / Time codeine (Codeine) Allergy Intermediate FELT OUT Verified 01/15/25 15:28 OF SORTS Home Medications ?Medication ?Instructions ?Recorded ?Confirmed ?Last Taken ?Type cholecalciferol (vitamin D3) 25 50 mcg PO DAILY 10/01/21 02/09/25 05/29/23 History mcg (1,000 unit) capsule cyclobenzaprine 10 mg tablet 10 mg PO BEDTIME 01/06/25 02/09/25 Unknown History Exam Exam Date and Time: 02/11/2025 Airway Mallampati Class: II TM Dist: >3cm Neck ROM: Full Loose/Missing/Broken Teeth: No (nonteeth) Heart: rrr Lungs: cta Other: normal Assessment and Plan Assessment Anesthesia Assessment: Anesthesia Plan Discussed and Smoking Cess. Discussed Final Anesthetic Review Family History of Problems with Anesthesia: No NPO: Yes ASA Class: II Final Preanesthetic Review: No Changes in Pt Med Stat, Meds/Allgs Chart Reviewed, Consent Obtained/Reviewed and Anes Risks/Benef Reviewed Patient Risk: Low Procedure Risk: Low Anesthetic Plan Anesthetic Plan: MAC: Disposition: Standard PACU
[2025-02-11] MEDS: Lactated Ringers 1,000 ML 100 ML IVCONT (08:26)
[2025-02-11 08:33] LABS: Glucose, Whole Blood 126 mg/dL (60-115)
--- NOTE | 2025-02-11 09:03 | MHC.SHP ---
Pre-Procedural Eval Section A - 24 Hr Update-Section A only Date of Service: 02/11/25 Section B - Complete if H&P > 30 days Chief Complaint: screening,gerd Relevant Family History (Specify if Yes): No Relevant Social History: Tobacco Use Present Medications: see Short Stay Collaborative assessment Medical History: Significant History (Pain in both lower extremities Left shoulder pain Toxic multinodular goiter Subclinical hyperthyroidism Diabetes mellitus Hip pain Anxiety and depression ANG (obstructive sleep apnea) Constipation Osteoarthritis Cervical neck pain with evidence of disc disease Left ventricular hypertrophy) History of Previous Operations: Relevant previous surgery/procedure and date(s) (History of incision and drainage History of elbow surgery Hx of cholecystectomy History of carpal tunnel surgery History of hysterectomy) Allergies: Allergies Allergy/AdvReac Type Severity Reaction Status Date / Time codeine (Codeine) Allergy Intermediate FELT OUT Verified 01/15/25 15:28 OF SORTS Review of Systems Sugical H&P ROS: Negative: Constitution, Cardiovascular, Respiratory, Neurological, Psychiatric, Hem-Onc, Allergic/Immunologic, Gastrointestinal, Genitourinary, Musculoskeletal, Integumentary, Endocrine and Eyes/Ears/Nose/Throat Exam Surgical H&P Exam: Normal: HEENT, Normal: Heart, Normal: Lungs, Normal: Extremities, Normal: Abdomen, Normal: Skin and Normal: Neurological Plan Diagnosis/Plan: Unchanged I have reviewed the history and physical and performed a pertinent physical examination on my patient. No changes have occurred unless specified. Time Spent With Patient Time: Total time managing care of this patient today ____ minutes.
--- NOTE | 2025-02-11 10:06 | HO.OPN-COLON ---
Colonoscopy Operative Note Operative Note Date of Service: 02/11/25 Narrative: Operative Information Procedure Description: EGD, Colonoscopy Indication: screening and GERD Anesthesia: MAC FLEXIBLE TRANSORAL UPPER GASTROINTESTINAL ENDOSCOPY AND COLONOSCOPY PROCEDURE NOTE UPPER ENDOSCOPY Consent: Indications for the procedure and potential complications of bleeding, perforation, reaction to medications and missed diagnosis were discussed with the patient and informed consent was obtained. Instrument: Olympus GIF H 190 J mid size upper endoscope Monitoring: Vital signs and clinical assessment, continuous EKG monitoring, Pulse oximetry, Carbon Dioxide monitoring and blood pressure monitoring were done throughout the procedure. Procedure: The patient was placed in the left lateral decubitis position and pre-procedure medications were administered and a bite block was placed. The endoscope was inserted into the mouth and advanced under direct vision to the third part of duodenum. A careful inspection was made as the upper endoscope was withdrawn including a retroflexed examination of the proximal stomach; Findings and interventions are described below. Findings: Larynx:normal Esophagus: GE junction at 35 cm, diaphragm hiatus at 37 cm, consistent with 2 cm sliding hiatal hernia, possible short tongues of barretts esophagus, bx taken Stomach: Patchy erythema. Biopsies were obtained. Grade 2 flap valve on retroflexed examination of the cardia. Duodenum: Normal bulb and descending duodenum, Intervention: Biopsies as noted above, COLONOSCOPY Instrument: Olympus variable stiffness pediatric scope 190L Colonoscopy Monitoring: Vital signs and clinical assessment, continuous EKG monitoring, Pulse oximetry, Carbon Dioxide monitoring and blood pressure monitoring were done throughout the procedure. Colon withdrawal time was 12 minutes. Procedure: The patient was placed in the left lateral decubitis position and pre-procedure medications were administered. After a digital rectal examination of the ano-rectum, the video colonoscope was inserted into the rectum and advanced through the colon to the cecum/TI. The colonoscope was slowly withdrawn in a retrograde panoramic fashion and the colon mucosa was carefully examined including a retroflexed view of the rectum. Findings and interventions are described below. Procedure Difficulty:moderate- pressure applied Findings: Terminal Ileum- unable to intubate due to looping Cecum:normal Ascending Colon: x1 flat polyp 10 m lifted with eleview and removed with cold snare, x 1 sessile polyp 6-8 mm removed with cold snare Transverse Colon - x 1 sessile polyp 7-8 mm removed with cold snare Descending Colon:normal Sigmoid Colon: moderate diverticulosis, x 1 sessile polyp 5-7 mm removed with cold forceps Rectum: Retroflexion with small internal hemorrhoids, grade I, x 2 sessile polyps 7-9 mm removed with cold snare Anorectum - normal Colon preparation: [place] Bowel Preparation Scale Right colon; 2 Transverse colon: 2 Left colon; 2 (0 = Unprepared colon segment with mucosa not seen due to solid stool that cannot be cleared. 1 = Portion of mucosa of the colon segment seen, but other areas of the colon segment not well seen due to staining, residual stool and/or opaque liquid. 2 = Minor amount of residual staining, small fragments of stool and/or opaque liquid, but mucosa of colon segment seen well. 3 = Entire mucosa of colon segment seen well with no residual staining, small fragments of stool or opaque liquid) Impression and Post Procedure Diagnosis: Endoscopy Findings: hiatal hernia possible; barretts gastritis Colonoscopy Findings: diverticulosis colon polyps x 6 internal hemorrhoids Plan: Await Pathology results Repeat Colonoscopy in 2-3 years or earlier if clinically indicated High fiber diet leaflet avoid straining at stool, epsom salts and sitz bath, anusol supps or cream GERD precautions Above findings were reviewed with the patient and relevant handouts were provided if indicated.
[2025-02-11 10:15] VITALS: BP 105/65; PULSE 70; RESP 16; TEMP 36.1; O2SAT 96
[2025-02-11 10:30] VITALS: BP 98/70; PULSE 62; RESP 16; TEMP 36.1; O2SAT 96
== END 2025-02-11 10:57 | disposition home or self-care (01) ==
PROVIDERS: PCP Nurse Practitioner Family; Visit Provider Internal Medicine Gastroenterology
PROC: (CPT 45385; principal; 2025-02-11 09:10)
DX: Z12.11 Encounter for screening for malignant neoplasm of colon (principal); D12.2 Benign neoplasm of ascending colon; D12.3 Benign neoplasm of transverse colon; D12.5 Benign neoplasm of sigmoid colon; D12.8 Benign neoplasm of rectum; K57.30 Diverticulosis of large intestine without perforation or abscess without bleeding; K64.8 Other hemorrhoids; K64.4 Residual hemorrhoidal skin tags; K21.9 Gastro-esophageal reflux disease without esophagitis; K22.70 Barrett's esophagus without dysplasia; K29.70 Gastritis, unspecified, without bleeding; K20.80 Other esophagitis without bleeding; E11.9 Type 2 diabetes mellitus without complications; F17.210 Nicotine dependence, cigarettes, uncomplicated; Q45.3 Other congenital malformations of pancreas and pancreatic duct; Z79.02 Long term (current) use of antithrombotics/antiplatelets; Z79.84 Long term (current) use of oral hypoglycemic drugs; Z79.899 Other long term (current) drug therapy
CPT/HCPCS: 45385; 45381; 43239; 82947; 88305; 88313; 88342; J2003; J2704; J3010

== ENCOUNTER → 2025-02-11 08:00 | Outpatient (BNV) | payer OTHER, SELFPAY | PROVIDERS: PCP Nurse Practitioner Family; Visit Provider Internal Medicine Gastroenterology | DX: Z12.11 Encounter for screening for malignant neoplasm of colon (principal); D12.2 Benign neoplasm of ascending colon; D12.3 Benign neoplasm of transverse colon; D12.5 Benign neoplasm of sigmoid colon; D12.8 Benign neoplasm of rectum; K57.30 Diverticulosis of large intestine without perforation or abscess without bleeding; K64.0 First degree hemorrhoids; K21.9 Gastro-esophageal reflux disease without esophagitis; K29.70 Gastritis, unspecified, without bleeding | CPT/HCPCS: 43239; 45381; 45385 ==

== ENCOUNTER → 2025-02-16 07:55 | Outpatient (BNVA) | payer OTHER, SELFPAY | PROVIDERS: PCP Nurse Practitioner Family; Visit Provider Physician Assistant Medical | DX: Z98.890 Other specified postprocedural states (principal); M54.12 Radiculopathy, cervical region; S46.911D Strain of unspecified muscle, fascia and tendon at shoulder and upper arm level, right arm, subsequent encounter; S66.911D Strain of unspecified muscle, fascia and tendon at wrist and hand level, right hand, subsequent encounter; X50.3XXD Overexertion from repetitive movements, subsequent encounter; M25.811 Other specified joint disorders, right shoulder; M77.11 Lateral epicondylitis, right elbow | CPT/HCPCS: 99213 ==

== ENCOUNTER 2025-02-23 14:41 | Outpatient (AMB) | payer OTHER, SELFPAY ==
--- NOTE | 2025-02-23 15:11 | A.OFFVIS_ITS ---
Vital Signs 02/23/25 15:12 Height 5 ft 2 in Weight 174 lb BMI 31.8 Intake Visit Reasons: PO RT CTR/MF trigger 02/09/25 Intake Note: Hazel Almanza) is a 64 year old right hand dominant female who presents today post-operatively status post Right Carpal Tunnel Release & Right Middle Finger Trigger Release performed by Dr. Moss on 02/09/25. Patient reports she continues having numbness of the palm . She denies any finger locking and catching. She is taking Tylenol PRN with relief. Sutures removed and steri strips applied. Allergies codeine (Codeine) Allergy (Intermediate, Verified 02/23/25 15:11) FELT OUT OF SORTS HPI HPI PO RT CTR/MF trigger 02/09/25: Details: Hazel Almanza) is a 64 year old right hand dominant female who presents today post-operatively status post Right Carpal Tunnel Release & Right Middle Finger Trigger Release performed by Dr. Moss on 02/09/25. Patient reports she continues having numbness of the palm . She denies any finger locking and catching. She is taking Tylenol PRN with relief. Sutures removed and steri strips applied. [facility] Medical History Splenic artery aneurysm Left ventricular hypertrophy ANG (obstructive sleep apnea) Dyslipidemia Diabetes mellitus Toxic multinodular goiter Subclinical hyperthyroidism GERD (gastroesophageal reflux disease) Constipation Anxiety and depression Obesity, Class I, BMI 30-34.9 Osteoarthritis Post-menopausal Cervical neck pain with evidence of disc disease Surgical History History of carpal tunnel release History of hysterectomy History of cholecystectomy History of surgery on left wrist History of carpal tunnel surgery of left wrist History of carpal tunnel surgery of right wrist History of elbow surgery History of incision and drainage Family History Father Heart problem Mother No problems noted. Sister Breast cancer Daughter Overweight Maternal Grandfather Cancer Maternal Grandmother Multiple myeloma Paternal Grandfather Unknown family medical history Paternal Grandmother Unknown family medical history Social History Household Members: None Housing: House Do you presently have visiting nurse or other home services: No Alcohol intake: current Alcohol intake frequency: holidays/special occasions only Patient Tobacco Use Status: Current everyday Tobacco user Tobacco use type: Cigarette Cigarette Packs Per Day: 1 Cigarettes Per Day: 15 e-Cigarette/Vaping Use: Never Used Second Hand Smoke Exposure: No service: No Current occupational status: employed 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 Neuro: Normal sensation of the tips of all digits of the right hand at this time Vascular: Cap refill brisk Pain: Pain in the right wrist with range of motion No tenderness to palpation about the scapholunate interval No tenderness about incision sites ROM: Patient is able to make a closed fist and extend all digits of the right hand fully no further visible and palpable locking and catching of the right middle finger Skin: Well approximated and well healing incisions over A1 ayanna of R MF and volar R wrist No lacerations or abrasions. General: No ecchymosis, erythema, or evidence of infection. Psych: Appears grossly normal Affect normal Attitude cooperative Assessment & Plan Assessment & Plan (1) Trigger finger, right middle finger: Code(s): M65.331 - Trigger finger, right middle finger Category: Medical (2) Right carpal tunnel syndrome: Code(s): G56.01 - Carpal tunnel syndrome, right upper limb Category: Medical Plan 1. S.p R MF trigger release and R CTR DOS 02/09/25 With good symptom resolution postoperatively Patient appears to be recovering well postoperatively Patient is educated about thye typical recovery course No underwaterx1 week, 2 lb weight limit x2 weeks OT ordered for range of motion of the right hand, as patient has gotten fairly stiff Follow-up in 4-6 weeks for [id number] check Patient understands this is amenable to this plan Orders: Orders OT Evaluation and Treatment 02/23/25 M65.331 - Trigger finger, right middle finger, G56.01 - Carpal tunnel syndrome, right upper limb Coding Level of Care Code Global (30495) Diagnoses Trigger finger, right middle finger M65.331 Right carpal tunnel syndrome G56.01
[2025-02-23 15:12] VITALS: BMI 31.8
== END 2025-02-23 15:29 | disposition home or self-care (01) ==
LOC: HO.HOS 14:42
PROVIDERS: PCP Nurse Practitioner Family
DX: M65.331 Trigger finger, right middle finger (principal); G56.01 Carpal tunnel syndrome, right upper limb
CPT/HCPCS: 99024

== ENCOUNTER → 2025-02-23 14:41 | Outpatient (BNVA) | payer OTHER, SELFPAY | PROVIDERS: PCP Nurse Practitioner Family | DX: M65.331 Trigger finger, right middle finger (principal); G56.01 Carpal tunnel syndrome, right upper limb | CPT/HCPCS: 99212 ==

== ENCOUNTER → 2025-03-06 12:53 | Outpatient (BNVA) | payer OTHER, SELFPAY | PROVIDERS: Visit Provider Physician Assistant Medical | DX: M54.12 Radiculopathy, cervical region (principal); S46.911D Strain of unspecified muscle, fascia and tendon at shoulder and upper arm level, right arm, subsequent encounter; S66.911D Strain of unspecified muscle, fascia and tendon at wrist and hand level, right hand, subsequent encounter; M65.811 Other synovitis and tenosynovitis, right shoulder; M77.11 Lateral epicondylitis, right elbow; M25.811 Other specified joint disorders, right shoulder; X50.3XXD Overexertion from repetitive movements, subsequent encounter | CPT/HCPCS: 99213 ==

== ENCOUNTER 2025-03-18 09:53 | Outpatient (RCR) | payer OTHER, SELFPAY ==
--- NOTE | 2025-02-27 10:49 | MHC.OT.EP ---
[facility] Office [address] [phone] F: [phone] F: [phone] Occupational Therapy Plan of Care Patient Name: Hazel Coyne Date of Evaluation: 02/27/25 Diagnosis: R CTR and Middle Finger Trigger Release Pain Location: Right elbow/upper arm and into right radial wrist Tingling in right wrist 7/10 pain in right hand surgical sites Pain Score: 7 Pain Scale Used: Numeric (0 - 10) Aggravating Factors: General use, nighttime Alleviating Factors: Tylenol, meloxicam Assessment: 64 yo female referred to OT post-op right CTR and middle finger trigger A1 ayanna release 02/09/25. She presents today with well healing surgical incisions, sutrues have been removed and no redness, drainage or open areas observed. she is very tendon to touch over base of palm and volar MCPs w/ limited hand flexion (also hx of OA) and decreased dexterity. We will continue hand therapy services to progress range, strength, edema and pain w/ goal of return to work, although she is hopeful to have L CTR prior to return. Frequency and Duration: The patient will be seen 2x/wk for 4 weeks Short Term Goals: Ind w/ HEP Active flex within 2 cm tip-palm Ind w/ scar management Ind w/ edema management techniques Skilled Nursing Goals: Full active tip-palm composute flexion Right gross grasp >30lb Pt to demo ease w/ object manupulation challenges QuickDASH score < 40 pts Treatment Plan: Therapeutic Exercise Therapeutic Activity Home Exercise Program Patient Education Desensitization/Sensory Re-ed Edema Control ADL Training Paraffin Fluidotherapy MHP Cold Packs Joint Mobilization Soft Tissue Mobilization Kinesiotaping Electronically Signed By: Ludy Guerra, OTR/L CHT Please Sign and return to therapist. Thank you once again for your referral.
--- NOTE | 2025-03-18 10:38 | MHC.OT.DC ---
[facility] Office [address] [phone] F: [phone] F: [phone] Occupational Therapy Discharge Note Patient Name: Hazel Coyne Provider: Marcel Bhatia PA-C Diagnosis: R CTR and Middle Finger Trigger Release Date of Surgery: 02/09/25 Date of Evaluation: 02/27/25 Date of Discharge: 03/18/25 Treatments to Date: 5 Discharge Status: Independent with HEP Discharge Summary: Hazel is about 5 weeks post-op R CTR and middle finger trigger release. Still w/ moderate pain, but improving edema, scar and range. Pt still limiting full use of right hand, but progressing w/ light strengthening. Ind w/ home program for strength and progression of strengthening. She will continue w/ self management and likely return to OT s/p left CTR for functional back to work training Electronically Signed By: Ludy Guerra OTR/L CHT Reviewed/agree with student documentation: Therapist: Please Sign and return to therapist, thank you for your referral.
== END 2025-03-18 10:39 | disposition home or self-care (01) ==
LOC: HO.OT 09:53
PROVIDERS: PCP Nurse Practitioner Family
DX: M65.331 Trigger finger, right middle finger (principal); G56.01 Carpal tunnel syndrome, right upper limb
CPT/HCPCS: 97035; 97110; 97140; 97165

== ENCOUNTER → 2025-03-27 12:52 | Outpatient (BNVA) | payer OTHER, SELFPAY | PROVIDERS: Visit Provider Physician Assistant Medical | DX: M65.331 Trigger finger, right middle finger (principal); M54.12 Radiculopathy, cervical region; S46.911D Strain of unspecified muscle, fascia and tendon at shoulder and upper arm level, right arm, subsequent encounter; M65.811 Other synovitis and tenosynovitis, right shoulder; M77.11 Lateral epicondylitis, right elbow; S63.511D Sprain of carpal joint of right wrist, subsequent encounter; X50.3XXD Overexertion from repetitive movements, subsequent encounter; X50.1XXD Overexertion from prolonged static or awkward postures, subsequent encounter | CPT/HCPCS: 99213 ==

== ENCOUNTER 2025-04-07 14:46 | Outpatient (REF) | payer OTHER, SELFPAY ==
--- NOTE | ~2025-04-07 | CT_ITS ---
EXAMINATION: CT LUNG SCREENING HISTORY: F17.210 - Nicotine dependence, cigarettes, uncomplicated TECHNIQUE: Low dose axial images were obtained from the sternal notch to upper abdomen without IV contrast per standard departmental protocol. Sagittal and coronal reformatted images were also obtained and reviewed. One or more of the following techniques was used for dose reduction: Automated exposure control, adjustment of the mA and/or kV according to patient size, use of iterative reconstruction technique. DLP: 51 mGy-cm COMPARISON: Previous chest CT scans most recent August 2023, CTA April 2024 and CTA from the same day FINDINGS: Lung nodules: Small stable 2 mm upper lobe nodules, for example axial image 76 at the right lung apex and axial image 133 series 13 in the left upper lobe. Previously seen 6 mm groundglass attenuation right lower lobe nodule no longer seen. No new or enlarging pulmonary nodules. Pattern areas of mild bronchial wall thickening. Increased soft tissue seen dependently in the right side of the trachea. This is mixed with air and probably represents patient's secretions. Emphysema: moderate Coronary Calcification: mild Aortic Arch Calcification: none Potentially Significant Incidentals : none Additional Chest Findings: There is no pleural or pericardial effusion. No mediastinal or axillary lymphadenopathy is identified. Visualized upper abdomen: 2.1 x 2.6 cm splenic artery aneurysm axial image 51 series 3. This appears unchanged in size from prior CTA April 2024. Degenerative changes of the spine. CT/CT lung screening IMPRESSION: Stable small 2 mm upper lobe nodules. No new or enlarging pulmonary nodules. Previously seen right lower lobe groundglass attenuation nodule no longer appreciated. Moderate centrilobular emphysema. Stable 2.1 x 2.6 cm splenic artery aneurysm. LUNG-RADS ASSESSMENT: Lung-RADS 2: Benign MANAGEMENT: Continue annual screening with LDCT in 12 months Category S: N/A Electronically signed by: Rae Rodriguez MD 04/08/2025 09:03 AM [facility]
--- NOTE | ~2025-04-07 | CT_ITS ---
EXAMINATION: CT ANGIOGRAM ABDOMEN AND PELVIS CLINICAL INFORMATION: Follow-up splenic artery aneurysm COMPARISON: Previous CT of the abdomen most recent September 2024 and CTA most recent April 2024 TECHNIQUE: Multiple axial images were obtained through the abdomen and pelvis following the administration of 100 mL of Omnipaque 350 intravenous contrast. Images were reviewed on a dedicated 3-D workstation. This CT examination was performed using dose optimization techniques as appropriate, variously including the following: *Automated exposure control *Adjustment of mA and/or kV according to patient size (this includes techniques or standardized protocols for targeted exams where dose is matched to indication/reason for exam; i.e. extremities or head) *Use of iterative reconstruction technique FINDINGS: Vascular: Atherosclerotic disease. Normal caliber abdominal aorta with mild atherosclerotic plaque. No focal stenosis. Mild atherosclerotic disease of the common internal and external iliac and common femoral arteries without focal stenosis. Celiac axis, SMA and DAVID are patent. There is a splenic artery aneurysm measuring 2.2 x 2.6 x 1.8 cm that does not appear appreciably changed. No other aneurysm. Single patent renal arteries bilaterally. LIVER, GALLBLADDER, AND BILIARY TREE: There is mild reflux of contrast into the hepatic veins, questionable for increased right heart pressure. Liver is slightly enlarged, right lobe measuring 19 cm in length. The liver is normal in contour and attenuation. No focal hepatic lesion or biliary ductal dilatation is present. Status post cholecystectomy. PANCREAS: Unremarkable. SPLEEN: Unremarkable. ADRENAL GLANDS: Unremarkable. KIDNEYS AND URETERS: Right renal cysts. The kidneys are normal in size, shape, and attenuation. No hydronephrosis, hydroureter, or calculi seen. No perinephric stranding. BLADDER: Normal GASTROINTESTINAL TRACT: Small hiatal hernia. The small and large bowel are nondilated. Sigmoid diverticulosis evidence of acute diverticulitis. Normal appendix. ABDOMINAL WALL: No bowel containing hernia is appreciated. PELVIS: Hysterectomy. No pelvic mass. PERITONEUM: No ascites or free air. LYMPH NODES: 8.5 x 11.7 mm increased soft tissue in the right lower pelvis just deep to the rectus muscle axial image 71 series 7. This may represent a small lymph node. This is similar to prior exams going back to May 2023. Small retroperitoneal lymph nodes and small periportal lymph nodes unchanged. No enlarged lymph nodes. BONES: Mild degenerative changes of the spine and hips. CT/CT angio abdomen pelvis IMPRESSION: Stable splenic artery aneurysm measuring up to 2.2 x 2.6 cm. Mild atherosclerotic disease. No other aneurysm. Right renal cysts. Slightly enlarged liver. Mild diverticulosis of the colon. Fleischner guidelines were followed. Electronically signed by: Rae Rodriguez MD 04/08/2025 08:38 AM [facility]
[2025-04-07] MEDS: iohexoL 350 MG/ML 100 ML INFUS..BTL 80 ML IV (16:47)
[2025-04-10 16:55] LABS: Creatinine POC 0.6 mg/dL (0.5-1.4); GFR POC > 60
== END 2025-04-07 14:47 | disposition home or self-care (01) ==
LOC: HO.CT 14:46
PROVIDERS: Visit Provider Physician Assistant Medical
DX: Z12.2 Encounter for screening for malignant neoplasm of respiratory organs (principal); F17.210 Nicotine dependence, cigarettes, uncomplicated; I72.8 Aneurysm of other specified arteries
CPT/HCPCS: 71271; 74174; 82565; Q9967

== ENCOUNTER → 2025-04-07 14:49 | Outpatient (BNV) | payer OTHER, SELFPAY | PROVIDERS: Visit Provider Radiology Diagnostic Radiology | DX: N28.1 Cyst of kidney, acquired (principal); K57.30 Diverticulosis of large intestine without perforation or abscess without bleeding; I70.0 Atherosclerosis of aorta; Z12.2 Encounter for screening for malignant neoplasm of respiratory organs; R91.8 Other nonspecific abnormal finding of lung field; I72.8 Aneurysm of other specified arteries; Z87.891 Personal history of nicotine dependence | CPT/HCPCS: 71271; 74174 ==

== ENCOUNTER 2025-04-08 08:26 | Outpatient (AMB) | payer OTHER, SELFPAY ==
[2025-04-08 08:33] VITALS: BMI 31.8
--- NOTE | 2025-04-08 08:33 | MHC.OFFVIS ---
Vital Signs 04/08/25 08:33 Height 5 ft 2 in Weight 174 lb BMI 31.8 Intake Visit Reasons: PO RT CTR/MF trigger 02/09/25 Intake Note: Hazel is a right hand dominant female who presents today for a post operative visit status post right carpal tunnel release and right middle finger trigger release, DOS: 02/09/[address] Zarina Moss. States she has limited ROM on her middle finger, reports she feels a pop at times, and is painful to straighten her finger out. She has completed O.T with no improvement. Allergies codeine (Codeine) Allergy (Intermediate, Verified 04/08/25 08:37) FELT OUT OF SORTS HPI HPI PO RT CTR/MF trigger 02/09/25: Details: Hazel is a right hand dominant female who presents today for a post operative visit status post right carpal tunnel release and right middle finger trigger release, DOS: 02/09/[address] Zarina Moss. States she has limited ROM on her middle finger, reports she feels a pop at times, and is painful to straighten her finger out. She has completed O.T, and states that while she feels this helped, she does not necessarily feel that her range of motion is back to where it was prior to surgery. Denies any ongoing numbness or tingling in the right hand. No other acute complaints or concerns at this time. [facility] Medical History (Updated 04/09/25 @ 08:06 by Daysi Nathan PA-C) Splenic artery aneurysm Left ventricular hypertrophy ANG (obstructive sleep apnea) Dyslipidemia Diabetes mellitus Toxic multinodular goiter Subclinical hyperthyroidism GERD (gastroesophageal reflux disease) Constipation Anxiety and depression Obesity, Class I, BMI 30-34.9 Osteoarthritis Post-menopausal Cervical neck pain with evidence of disc disease Surgical History History of carpal tunnel release History of hysterectomy History of cholecystectomy History of surgery on left wrist History of carpal tunnel surgery of left wrist History of carpal tunnel surgery of right wrist History of elbow surgery History of incision and drainage Family History Father Heart problem Mother No problems noted. Sister Breast cancer Daughter Overweight Maternal Grandfather Cancer Maternal Grandmother Multiple myeloma Paternal Grandfather Unknown family medical history Paternal Grandmother Unknown family medical history Social History Household Members: None Housing: House Do you presently have visiting nurse or other home services: No Alcohol intake: current Alcohol intake frequency: holidays/special occasions only Patient Tobacco Use Status: Current everyday Tobacco user Tobacco use type: Cigarette Cigarette Packs Per Day: 1 Cigarettes Per Day: 15 e-Cigarette/Vaping Use: Never Used Second Hand Smoke Exposure: No service: No Current occupational status: employed 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 Neuro: Normal sensation of the tips of all digits of the right hand at this time Vascular: Cap refill brisk Pain: Some mild Pain in the right wrist with range of motion No tenderness to palpation about the scapholunate interval No tenderness about incision sites ROM: Patient is able to make a closed fist and extend all digits of the right hand fully with encouragement no further visible and palpable locking and catching of the right middle finger Skin: Well approximated and well healed incisions over A1 ayanna of R MF and volar R wrist No lacerations or abrasions. General: No ecchymosis, erythema, or evidence of infection. Psych: Appears grossly normal Affect normal Attitude cooperative Assessment & Plan Assessment & Plan (1) Trigger finger, right middle finger: Code(s): M65.331 - Trigger finger, right middle finger Category: Medical (2) Right carpal tunnel syndrome: Code(s): G56.01 - Carpal tunnel syndrome, right upper limb Category: Medical Plan 1. S.p R MF trigger release and R CTR DOS 02/09/25 With good symptom resolution postoperatively Patient appears to be recovering well postoperatively Patient is educated about thye typical recovery course No further active restrictions at this time Patient should continue with exercises provided by occupational therapy to improve her range of motion and strength of her right hand Patient is offered follow-up, but states she will call if she has any acute concerns Follow-up as needed Coding Level of Care Code Global (26764) Diagnoses Trigger finger, right middle finger M65.331 Right carpal tunnel syndrome G56.01
--- OUTSIDE RECORDS SUMMARY | 2025-04-08 08:39 | XMS_ITS | Patient Health Record ---
[facility] Address [address] [place] [address] Care Team Providers Care Guardian Ad Litem Name Role Phone Raffy Greene Primary Care Provider Unav ailable Lacy Hunter Unavailable [phone] Allergies Allergen (clinical drug ingredient) Drug/Non Drug Allergy documented on EMR Reaction Allergy Type Onset Date Status acetaminophen Tylenol Unknown Drug Allergy Act j luis codeine Codeine loopy feeling Drug Allergy Act j luis Reason For Referral No Information Medications Medication SIG (Take, Route, Frequency, Duration) Notes Start Date End Date Status Atorvastatin Calcium 40 MG TAKE 1 TABLET BY MOUTH EVERY EVENING Oral; Duration: 90 Active Sertraline HCl 100 MG TK 1 T PO D Oral; Duration: 90 Active Lorazepam 1 tab Oral; Duration : 14 days PRN 07/14/2020 Active Walking Boot/Pneumatic As directed Wear Daily; Duration: Until further notice 07/14/2020 Active Work Note . . . Patient to retur n to work on Sunday08/16/20 with limited standing no more then 6 hours Active Feldene 20 MG 1 capsule with food Orally Once a day; Duration: 30 day(s) 09/07/2020 Active Immunizations Vaccine Route [...] Problem Status W/U Status Risk Notes Problem Tarsal tunnel syndrome ([id number]) Tarsal tunnel syndrome of left side (G57.52) Active confirmed Plan Of Treatment Pending Test Test Name Order Date X ray : Foot, left 3V 07/14/2020 Insurance Providers Payer Name Payer Address Payer Phone Subscriber Number Group Number Insured Name Patient Relationship to Insured Coverage Start Date Coverage End Date Preferred Care PPO [id number] CINTHIA Hernandez [phone] [id number] Hazel Coyne Self - patient is the insured Medical (General) History Medical History History ICD Code Anxiety Arthritis Back,Hip,and Knee pain Chicken pox Surgical History Surgery Date(Month/Year) gall bladder 1985 hysterectomy 1990 Surgeon drained infection from breast Hospitalization History Reason Date(Month/Year)
== END 2025-04-08 08:57 | disposition home or self-care (01) ==
LOC: HO.HOS 08:27
PROVIDERS: PCP Nurse Practitioner Family
DX: M65.331 Trigger finger, right middle finger (principal); G56.01 Carpal tunnel syndrome, right upper limb
CPT/HCPCS: 99024

== ENCOUNTER → 2025-04-08 08:26 | Outpatient (BNVA) | payer OTHER, SELFPAY | PROVIDERS: PCP Nurse Practitioner Family | DX: Z47.89 Encounter for other orthopedic aftercare (principal); M65.331 Trigger finger, right middle finger; G56.01 Carpal tunnel syndrome, right upper limb | CPT/HCPCS: 99212 ==

== ENCOUNTER 2025-04-09 10:07 | Outpatient (REF) | payer OTHER, SELFPAY ==
[2025-04-09 13:18] LABS: MANUAL DIFF FLAG NO
[2025-04-09 13:34] LABS: Hematocrit 44.4 % (37.0-47.0); Hemoglobin 14.7 g/dl (12.0-16.0); Imm Gran Abs Auto 0.03 X10*3/uL (0.00-0.03); Imm Gran Pct Auto 0.5 % (0.0-0.4); Lymphocytes Absolute Auto 2.8 X10*3/uL (1.2-4.9); Mean Corpuscular HGB Conc 33.1 g/dl (31.0-35.0); Mean Corpuscular Hemoglobin 29.2 pg (27.0-33.0); Mean Corpuscular Volume 88.3 fL (80.0-98.0); NRBC Abs Auto 0.000 X10*3/uL (0.0-0.012); NRBC Pct Auto 0.0 /100WBC (0.0-0.2); Platelet Count 312 X10*3/uL (160-400); Red Blood Count 5.03 X10*6/uL (4.20-5.50); White Blood Count 6.5 X10*3/uL (4.8-10.8)
[2025-04-09 13:51] LABS: Alanine Aminotransferase 31 U/L (0-31); Albumin Level 4.7 g/dL (3.5-5.0); Alkaline Phosphatase 96 U/L (39-117); Anion Gap 12 (12-20); Aspartate Amino Transferase 22 U/L (5-31); Blood Urea Nitrogen 15 mg/dL (9-16); Calcium 9.8 mg/dL (8.4-10.2); Carbon Dioxide 27 mmol/L (22-29); Chloride 105 mmol/L (96-108); Estimated Glomerular Filt Rate > 60; Potassium 4.9 mmol/L (3.3-5.1); Sodium 139 mmol/L (135-145); Total Protein 8.3 g/dL (6.5-8.0)
[2025-04-09 14:10] LABS: Ferritin 243 ng/mL (10-250)
[2025-04-09 14:46] LABS: Free T4 (Free Thyroxine) 0.92 ng/dL (0.71-1.85)
== END 2025-04-09 10:08 | disposition home or self-care (01) ==
LOC: HO.HMGCLDS 10:07
PROVIDERS: PCP Nurse Practitioner Family; Visit Provider Nurse Practitioner Family
DX: Z13.29 Encounter for screening for other suspected endocrine disorder (principal); G25.81 Restless legs syndrome
CPT/HCPCS: 36415; 80053; 82728; 84439; 84443; 85025

== ENCOUNTER 2025-05-01 18:22 | Outpatient (REF) | payer OTHER, SELFPAY ==
--- NOTE | ~2025-05-01 | MR_ITS ---
EXAMINATION: MR SHOULDER WITHOUT CONTRAST, RIGHT CLINICAL INFORMATION: Sprain of right shoulder, impingement COMPARISON: None available. TECHNIQUE: MRI of the shoulder without contrast was performed on a high-field scanner. FINDINGS: ROTATOR CUFF: Supraspinatus and infraspinatus: Mild-moderate tendinosis. Teres minor: Intact Subscapularis: Moderate tendinosis. No muscle atrophy or fatty infiltration. BICEPS: Normal. CORACOACROMIAL ARCH: The undersurface of the acromion is curved with no subacromial spur. Mild acromioclavicular arthritis. LABRUM/CAPSULE: No displaced labral tear is seen. Intact inferior capsule GLENOHUMERAL JOINT/MARROW: No acute fracture. Small T2 bright focus in the superior glenoid, probable degenerative changes. No significant effusion. No axillary lymphadenopathy. MR/MR shoulder RT wo con IMPRESSION: * Mild-moderate supraspinatus and infraspinatus tendinosis. No measurable tear or retraction. * Moderate subscapularis tendinosis * Mild acromioclavicular arthritis. * Small degenerative-appearing focus in the superior glenoid. Electronically signed by: Je Gordon MD 05/04/2025 08:06 AM [facility]
== END 2025-05-01 18:23 | disposition home or self-care (01) ==
LOC: HO.MRI 18:22
PROVIDERS: PCP Nurse Practitioner Family; Visit Provider Internal Medicine
DX: M25.811 Other specified joint disorders, right shoulder (principal); S43.401A Unspecified sprain of right shoulder joint, initial encounter
CPT/HCPCS: 73221

== ENCOUNTER → 2025-05-01 18:37 | Outpatient (BNV) | payer OTHER, SELFPAY | PROVIDERS: PCP Nurse Practitioner Family; Visit Provider Radiology Diagnostic Ultrasound | DX: S43.401A Unspecified sprain of right shoulder joint, initial encounter (principal); M75.31 Calcific tendinitis of right shoulder; M19.011 Primary osteoarthritis, right shoulder | CPT/HCPCS: 73221 ==

== ENCOUNTER 2025-05-04 14:13 | Outpatient (AMB) | payer OTHER, SELFPAY ==
--- NOTE | 2025-05-04 14:17 | MHC.OFFVIS ---
Vital Signs 05/04/25 14:18 Height 5 ft 2 in Weight 174 lb BMI 31.8 Intake Visit Reasons: Newprob-LT hand pain-CTS discuss treatment options Intake Note: Hazel is a 64 year old right hand dominant female who presents today for a New Problem Visit for discussion of Left Carpal Tunnel Release. Patient reports today her symptoms are daily, intermittent, worse at night. She feels like her symptoms have worsened since she was last seen on 04/08/25. She has a history of Type 2 Diabetes Mellitus, last A1C done 12/31/24, 6.1%. 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 History of Left CTR by Dr. Nugent- 02/28/12, History of Right CTR by Dr. Regalado- 09/10/03 History of Left 1st dorsal compartment release by Dr. Moss- 04/25/21 History of Right Carpal Tunnel Release & Right Middle Finger Trigger Release, DOS: 02/09/[address] Moss. Allergies codeine (Codeine) Allergy (Intermediate, Verified 05/04/25 14:20) FELT OUT OF SORTS HPI HPI Newprob-LT hand pain-CTS discuss treatment options: Details: Hazel is a 64 year old right hand dominant female who presents today for a New Problem Visit for discussion of Left Carpal Tunnel Release. Patient reports today her symptoms are daily, intermittent, worse at night. She feels like her symptoms have worsened since she was last seen on 04/08/25. She has a history of Type 2 Diabetes Mellitus, last A1C done 12/31/24, 6.1%. 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 Of note, the patient does state that she does not feel she has regained full range of motion of the right middle finger, as she is still experiencing postoperative stiffness status post right middle finger trigger release, DOS 02/09/2025. History of Left CTR by Dr. Nugent- 02/28/12, History of Right CTR by Dr. Regalado- 09/10/03 History of Left 1st dorsal compartment release by Dr. Moss- 04/25/21 History of Right Carpal Tunnel Release & Right Middle Finger Trigger Release, DOS: 02/09/[address] Moss[address] [facility] Medical History (Updated 04/09/25 @ 08:06 by Daysi Nathan PA-C) Splenic artery aneurysm Left ventricular hypertrophy ANG (obstructive sleep apnea) Dyslipidemia Diabetes mellitus Toxic multinodular goiter Subclinical hyperthyroidism GERD (gastroesophageal reflux disease) Constipation Anxiety and depression Obesity, Class I, BMI 30-34.9 Osteoarthritis Post-menopausal Cervical neck pain with evidence of disc disease Surgical History History of carpal tunnel release History of hysterectomy History of cholecystectomy History of surgery on left wrist History of carpal tunnel surgery of left wrist History of carpal tunnel surgery of right wrist History of elbow surgery History of incision and drainage Family History Father Heart problem Mother No problems noted. Sister Breast cancer Daughter Overweight Maternal Grandfather Cancer Maternal Grandmother Multiple myeloma Paternal Grandfather Unknown family medical history Paternal Grandmother Unknown family medical history Social History Household Members: None Housing: House Do you presently have visiting nurse or other home services: No Alcohol intake: current Alcohol intake frequency: holidays/special occasions only Patient Tobacco Use Status: Current everyday Tobacco user Tobacco use type: Cigarette Cigarette Packs Per Day: 1 Cigarettes Per Day: 15 e-Cigarette/Vaping Use: Never Used Second Hand Smoke Exposure: No service: No Current occupational status: employed 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 Neuro: Normal sensation of the tips of all digits of bilateral hands at this time Vascular: Cap refill brisk Pain: Some mild Pain in the right wrist with range of motion No tenderness to palpation about the scapholunate interval No tenderness about incision sites ROM: Patient is able to make a closed fist and extend all digits of the right hand fully with encouragement Patient does report significant discomfort with this no further visible and palpable locking and catching of the right middle finger Skin: Well approximated and well healed incisions over A1 ayanna of R MF and volar R wrist No lacerations or abrasions. General: No ecchymosis, erythema, or evidence of infection. Psych: Appears grossly normal Affect normal Attitude cooperative Assessment & Plan Assessment & Plan (1) Trigger finger, right middle finger: Code(s): M65.331 - Trigger finger, right middle finger Category: Medical (2) Bilateral carpal tunnel syndrome: Code(s): G56.03 - Carpal tunnel syndrome, bilateral upper limbs Category: Medical Plan 1. Left carpal tunnel syndrome Symptoms intermittent, daily, worse night I educated the patient about the condition. I discussed both operative and nonoperative treatment options. The patient would like to proceed with surgery. The risks and benefits of operative treatment were discussed with the patient and the patient wishes to proceed with surgery. These risks include, but are not limited to, risk of damage to blood vessels, nerves, tendons, infection, recurrence, incomplete relief of preoperative symptoms, persistent pain, possible need for further surgery, and the risks associated with regional blocks and/or anesthesia. Plan is to take the patient to the operating room at some point in the next few weeks for the following procedures: 1. Left carpal tunnel release under local anesthesia All of the preoperative paperwork including the consent was discussed today. All of the patient's questions were answered in the clinic today. The patient understands that they will be in contact with our dozer operator to discuss scheduling their procedure. Patient reports diabetes, last A1c 6.1 Denies blood thinners, asthma, heart issues, lung issues, kidney issues, or current smoking. 2. S.p R MF trigger release and R CTR DOS 02/09/25 With good symptom resolution postoperatively Patient appears to be recovering well postoperatively Patient is educated about thye typical recovery course No further active restrictions at this time Patient should continue with exercises provided by occupational therapy to improve her range of motion and strength of her right hand Patient is offered follow-up, but states she will call if she has any acute concerns Follow-up as needed Coding Level of Care Code Complex visit Add On G2211 Diagnoses Trigger finger, right middle finger M65.331 Bilateral carpal tunnel syndrome G56.03
[2025-05-04 14:18] VITALS: BMI 31.8
== END 2025-05-04 14:34 | disposition home or self-care (01) ==
LOC: HO.HOS 14:14
PROVIDERS: PCP Nurse Practitioner Family
DX: M65.331 Trigger finger, right middle finger (principal); G56.03 Carpal tunnel syndrome, bilateral upper limbs
CPT/HCPCS: 99024

== ENCOUNTER → 2025-05-04 14:13 | Outpatient (BNVA) | payer OTHER, SELFPAY | PROVIDERS: PCP Nurse Practitioner Family | DX: M65.331 Trigger finger, right middle finger (principal); G56.03 Carpal tunnel syndrome, bilateral upper limbs | CPT/HCPCS: 99212 ==

== ENCOUNTER → 2025-05-07 09:00 | Outpatient (BNVA) | payer OTHER, SELFPAY | PROVIDERS: PCP Nurse Practitioner Family; Visit Provider Physician Assistant Medical | DX: M54.12 Radiculopathy, cervical region (principal); M77.11 Lateral epicondylitis, right elbow; S46.911D Strain of unspecified muscle, fascia and tendon at shoulder and upper arm level, right arm, subsequent encounter; S66.911D Strain of unspecified muscle, fascia and tendon at wrist and hand level, right hand, subsequent encounter; X50.3XXD Overexertion from repetitive movements, subsequent encounter | CPT/HCPCS: 99213 ==

== ENCOUNTER 2025-05-21 07:48 | Outpatient (REF) | payer OTHER, SELFPAY ==
--- NOTE | ~2025-05-21 | XR_ITS ---
EXAMINATION: XR SHOULDER, RIGHT CLINICAL INFORMATION: M25.511 - Pain in right shoulder COMPARISON: December 22, 2024 TECHNIQUE: AP and Y-view of the right shoulder. FINDINGS: Degenerative changes in the acromioclavicular joint and greater tuberosity of the humerus. No acute fracture or dislocation. Probable 3 mm calcification in the soft tissues of the supraspinatus tendon insertion. Incidentally, multilevel thoracic spondylosis and a shaped curvature. XR/XR shoulder RT min 2V IMPRESSION: Degenerative changes, right shoulder. Probable calcific tendinosis/tendinopathy, supraspinatus. Electronically signed by: Augustin Gallardo MD 05/21/2025 08:04 AM [facility] DA[facility]
== END 2025-05-21 07:49 | disposition home or self-care (01) ==
LOC: HO.HOSX 07:48
PROVIDERS: PCP Nurse Practitioner Family; Visit Provider Orthopaedic Surgery
DX: M25.811 Other specified joint disorders, right shoulder (principal); M25.611 Stiffness of right shoulder, not elsewhere classified
CPT/HCPCS: 73030

== ENCOUNTER 2025-05-21 07:48 | Outpatient (AMB) | payer OTHER, SELFPAY ==
--- NOTE | 2025-05-21 07:55 | A.OFFVIS_ITS ---
Vital Signs 05/21/25 08:03 Height 5 ft 2 in Weight 180 lb BMI 32.9 Handedness Right Intake Visit Reasons: Newprob- WC Right shoulder sprain DOI 12/18/24 Intake Note: Hazel is a 64 year old female who presents with complaints of progressively worsening right shoulder pain and stiffness. The patient describes her pain as sharp in nature. Most of the pain is along the lateral and superior aspects of her shoulder. 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 She states that she injured her shoulder on 12/18/2024 at work. She reports difficulty lifting her right hand above shoulder height. She has failed the last 6 weeks of conservative treatment which has included Tylenol, anti-inflammatory medicines and physical therapy. She has had cortisone injections in the past which gave her minimal relief. The patient reports difficulty lifting her right hand above shoulder height. The patient is not currently working because of recent right carpal tunnel release surgery and trigger finger release surgery. Allergies codeine (Codeine) Allergy (Intermediate, Verified 05/21/25 08:04) FELT OUT OF SORTS Medication List - Last Reviewed 05/21/25 by DANIELLE Deshpande alcohol swabs 1 pad topical QIDACHS atorvastatin 20 mg PO BEDTIME bisacodyl 5 mg PO ONCE 1 day cholecalciferol (vitamin D3) 50 mcg PO DAILY gauze bandage (Kerlix) As directed lancets 4 times daily lisinopril 2.5 mg PO DAILY metformin 500 mg PO BIDWMEAL 90 days pantoprazole 20 mg PO DAILY pen needle, diabetic (Pen Needle) As directed pramipexole 0.5 mg PO BEDTIME semaglutide (Ozempic) 2 mg (0.75 mL) subcut QWEEK sertraline 100 mg PO DAILY [facility] Medical History Splenic artery aneurysm Left ventricular hypertrophy ANG (obstructive sleep apnea) Dyslipidemia Diabetes mellitus Toxic multinodular goiter Subclinical hyperthyroidism GERD (gastroesophageal reflux disease) Constipation Anxiety and depression Obesity, Class I, BMI 30-34.9 Osteoarthritis Post-menopausal Cervical neck pain with evidence of disc disease Surgical History History of carpal tunnel release History of hysterectomy History of cholecystectomy History of surgery on left wrist History of carpal tunnel surgery of left wrist History of carpal tunnel surgery of right wrist History of elbow surgery History of incision and drainage Family History Father Heart problem Mother No problems noted. Sister Breast cancer Daughter Overweight Maternal Grandfather Cancer Maternal Grandmother Multiple myeloma Paternal Grandfather Unknown family medical history Paternal Grandmother Unknown family medical history Social History Household Members: None Housing: House Do you presently have visiting nurse or other home services: No Alcohol intake: current Alcohol intake frequency: holidays/special occasions only Patient Tobacco Use Status: Current everyday Tobacco user Tobacco use type: Cigarette Cigarette Packs Per Day: 1 Cigarettes Per Day: 15 e-Cigarette/Vaping Use: Never Used Second Hand Smoke Exposure: No service: No Current occupational status: employed 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 occupation: rt [employer] /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 Current occupational exposures/hazards: No Cognitive needs: No Hearing needs: No Vision needs: No Physical Exam Vital Signs: BMI result Body Mass Index 32.9 Extrem Other: Right shoulder examination shows decreased range of motion compared to her left shoulder, 4+ out of 5 strength with supraspinatus testing, positive impingement signs, tenderness over her acromioclavicular joint, no instability Results Reviewed Results Reviewed: X-rays of the patient's right shoulder taken today show a decrease in size of the supraspinatus tendon calcium deposit when compared to x-rays taken earlier this year, severe acromioclavicular joint narrowing, a type 2 acromion MRI of the patient's right shoulder shows severe acromioclavicular joint narrowing, a type 2 acromion, signal change within the supraspinatus tendon most likely due to adhesive capsulitis Assessment & Plan Assessment & Plan (1) Impingement of right shoulder: Code(s): M25.811 - Other specified joint disorders, right shoulder Category: Medical Plan Ms. Coyne presents with right shoulder pain and stiffness due to impingement syndrome, acromioclavicular joint arthritis and adhesive capsulitis. I had a lengthy discussion with the patient regarding the treatment options. At this point she has failed continued non operative treatments. The risks and benefits of right shoulder surgery were discussed at length with the patient. The patient wishes to proceed with surgery. Surgery will involve right shoulder arthroscopic distal clavicle excision, right shoulder arthroscopic acromioplasty, right shoulder arthroscopic capsular release and right shoulder manipulation under anesthesia. The patient will be scheduled for next available date. She will follow up as instructed. Feel free to call me at any time should questions regarding her orthopedic management arise. Thank you very much for asking me to see this very friendly patient. I spent 20 minutes in reviewing the patient's records and imaging studies, seeing the patient and documenting in the medical record. Orders: Orders XR shoulder RT min 2V Today M25.511 - Pain in right shoulder Coding Level of Care Code New Pt Level 3 (12191) Add On Problem Visit Only Diagnoses Impingement of right shoulder M25.811
[2025-05-21 08:03] VITALS: BMI 32.9
== END 2025-05-21 08:19 | disposition home or self-care (01) ==
LOC: HO.HOS 07:50
PROVIDERS: PCP Nurse Practitioner Family; Visit Provider Orthopaedic Surgery
DX: M25.811 Other specified joint disorders, right shoulder (principal)
CPT/HCPCS: 99213; G2211

== ENCOUNTER → 2025-05-21 07:55 | Outpatient (BNV) | payer OTHER, SELFPAY | PROVIDERS: PCP Nurse Practitioner Family; Visit Provider Radiology Diagnostic Radiology | DX: M19.011 Primary osteoarthritis, right shoulder (principal) | CPT/HCPCS: 73030 ==

== ENCOUNTER 2025-05-23 07:57 | Outpatient (REF) | payer OTHER, SELFPAY ==
--- NOTE | ~2025-05-23 | MM_ITS ---
EXAMINATION: MM SCREENING DIGITAL BREAST TOMOSYNTHESIS, BILATERAL CLINICAL INFORMATION: Screening. Asymptomatic. COMPARISON: Mammography: Comparison is made with available priors TECHNIQUE: Digital breast mammography with tomosynthesis is performed in both the craniocaudal and mediolateral oblique views along with computer-aided detection (CAD). FINDINGS: There are scattered areas of fibroglandular density. There are no significant masses, abnormal calcifications, or other abnormalities. MM/MM tomosynthesis screening BI IMPRESSION: No mammographic evidence of malignancy. ASSESSMENT: BI-RADS Category 1: Negative RECOMMENDATION: Routine annual mammography screening. 1 year F/U This examination should not preclude the clinical evaluation of a suspicious palpable abnormality. This patient's information was entered into a reminder system with a target due date for their next mammogram. Electronically signed by: Daya Graf DO 05/26/2025 05:58 PM [facility]
== END 2025-05-23 07:58 | disposition home or self-care (01) ==
LOC: HO.MAMMO 07:57
PROVIDERS: PCP Nurse Practitioner Family; Visit Provider Nurse Practitioner Family
DX: Z12.31 Encounter for screening mammogram for malignant neoplasm of breast (principal)
CPT/HCPCS: 77063; 77067

== ENCOUNTER → 2025-05-23 08:15 | Outpatient (BNV) | payer OTHER, SELFPAY | PROVIDERS: PCP Nurse Practitioner Family; Visit Provider Internal Medicine | DX: Z12.31 Encounter for screening mammogram for malignant neoplasm of breast (principal) | CPT/HCPCS: 77063; 77067 ==